=== PATIENT | male | born 1960 | race Caucasian/White ===

== ENCOUNTER 2016-08-18 15:44 | Emergency (ER) | payer OTHER ==
[~2016-08-18] VITALS: Ht 188 cm; Wt 65.0 kg
[~2016-08-18 15:44] MED LIST: CMBIN INH; FLVHFA220 INH; SNG10 PO; TIOTCAP INH
[2016-08-18 16:04] VITALS: TEMP 36.4; Ht 188 cm; Wt 65.0 kg
[2016-08-18] MEDS ORDERED: AMT50 PO (16:37)
[2016-08-18] MEDS ORDERED: IPRA1AER2 INH (16:39)
[2016-08-18] MEDS ORDERED: LISI-461 PO (16:40)
[2016-08-18] MEDS ORDERED: OMEP40CA41 PO (16:42)
[2016-08-18] MEDS ORDERED: SERT50TA PO (16:44)
--- NOTE | 2016-08-18 17:19 | DIAGNOSTIC IMAGING REPORT ---
RIGHT FOOT MIN 3 VIEWS ROUTINE, LEFT FOOT MIN 3 VIEWS ROUTINE CLINICAL HISTORY: b/l foot injuries Right COMPARISON STUDY: None. FINDINGS: The bones are osteopenic. No acute fracture or dislocation within the right or left foot. Soft tissues are unremarkable. No radiopaque foreign bodies. Mild osteoarthritis at the bilateral first MTP joints. IMPRESSION: No acute fracture or dislocation within the right or left foot. Electronically signed by: Gee Santamaria M.D. 08/18/2016 5:18 PM Dictated Date/Time: 08/18/2016 5:15 PM
[2016-08-18] MEDS ORDERED: CEPH500C PO (17:51)
--- NOTE | 2016-08-18 17:51 | EMERGENCY ROOM VISIT NOTE ---
History First contact with patient: 16:10 Chief Complaint: FOOT PAIN Stated Complaint: PAIN IN BOTH FEET,BROKEN LF FOOT History of Present Illness The patient is a 55 year old male who presents to the Emergency Room with complaints of bilateral foot pain. The patient uses a powered wheelchair due to chronic hip issues. He states that over the past few days, he has run into the counters with his feet several times. The patient does have several old wounds on the feet and his son reports they have been dressing them with antibiotic ointment and bandages. The patient reports 8/10 pain in both feet, with worse pain in the left foot than the right. He denies any new numbness or weakness. There is some discoloration of the left foot, but the patient's son reports that the patient has chronic discoloration of the feet. He denies any fevers. Review of Systems A complete 6 point review of systems was reviewed with the patient with pertinent positives and negatives as per history of present illness. All else were negative. Social History Smoking Status: Current Every Day Smoker Alcohol Use: occasionally Marital Status: Current/Historical Medications Scheduled Amitriptyline Hcl (Elavil), 50 MG PO HS Cephalexin Monohydrate (Keflex), 500 MG PO TID Fluticasone Propionate (Flovent Hfa 220MCG Inhaler *), 2 PUFFS INH BID Ipratropium-Albuterol (Combivent Respimat), 2 PUFFS INH QID Lisinopril (Zestril), 10 MG PO DAILY Montelukast (Singulair *), 10 MG PO DAILY Omeprazole (Prilosec), 40 MG PO DAILY Sertraline (Zoloft), 50 MG PO DAILY Scheduled PRN Oxycodone/Acetaminophen 5MG/325MG (Percocet 5MG/325MG), 1 TABS PO Q4H PRN for Pain Allergies Coded Allergies: No Known Allergies (Verified Allergy, Mild, NONE, 02/15/09) Physical Exam Vital Signs Date Time Temp Pulse Resp B/P Pulse Ox O2 Delivery O2 Flow Rate FiO2 08/18/16 18:01 88 16 168/93 96 08/18/16 16:04 36.4 90 18 147/97 97 Room Air Physical Exam VITALS: Vitals are noted on the nurse's note and reviewed by myself. Vital signs stable. GENERAL: This is a 55-year-old male, in no acute distress, nondiaphoretic, well- developed well-nourished. MUSCULOSKELETAL: There is tenderness to palpation of both the left and right lateral feet. There are several abrasions and scabbed lesions over both feet. There is some erythema/ecchymosis along the lateral aspect of the left foot. Capillary refill within 2 seconds. Dorsalis pedis pulses intact. NEURO: Patient was alert and oriented to person place and time. Normal sensation to light and sharp touch. Medical Decision & Procedures ER Provider Diagnostic Interpretation: RIGHT FOOT MIN 3 VIEWS ROUTINE, LEFT FOOT MIN 3 VIEWS ROUTINE CLINICAL HISTORY: b/l foot injuries Right COMPARISON STUDY: None. FINDINGS: The bones are osteopenic. No acute fracture or dislocation within the right or left foot. Soft tissues are unremarkable. No radiopaque foreign bodies. Mild osteoarthritis at the bilateral first MTP joints. IMPRESSION: No acute fracture or dislocation within the right or left foot. Medical Decision Differential diagnosis includes contusion, fracture, sprain, cellulitis, among others. The patient was evaluated as above. X-rays of bilateral feet were obtained and read by radiology with no acute fractures or dislocations. The patient did have some discoloration of the left lateral foot which may represent an early cellulitis and was given a prescription for Keflex. He was instructed to follow -up with his primary care provider or return here for worsening symptoms. He verbalized understanding of my assessment and treatment plan was discharged home in good condition. Impression Primary Impression: Bilateral foot pain Departure Information Dispostion Home / Self-Care Condition GOOD Prescriptions Oxycodone/Acetaminophen 5MG/325MG (PERCOCET 5MG/325MG) Tab 1 TABS PO Q4H Y for Pain, #15 TAB For Initial Treatment Prov: Daly Emmanuel PA-C 08/18/16 Cephalexin Monohydrate (Keflex) 500 Mg Cap 500 MG PO TID for 10 Days, #30 CAP Prov: Daly Emmanuel PA-C 08/18/16 Referrals No Doctor, Assigned (PCP) Patient Instructions My [facility] Additional Instructions You have been prescribed Percocet to be used for pain control. Take 1-2 tablets every 4-6 hours as needed for pain. This is a narcotic medication. You cannot drive or consume alcohol while on this medicine. This medicine should only be used for pain that cannot be controlled with extd-cog-vzjtqyg pain medicines. For pain control, you can use the following aptu-gme-dtsmvww medicines (if >12 yo): - Regular strength (325mg/tab) Tylenol (acetaminophen) 2 tabs every 4-6 hours as needed. Do not exceed 12 tablets in a 24 hour period. Avoid taking more than 4 grams (4000 mg) of Tylenol per day. This includes any other sources of acetaminophen you may take on a regular basis. - Regular strength (200 mg/tab) Advil (ibuprofen) 1-2 tabs every 4-6 hours as needed. Do not exceed a dose of 3200 mg per day. Keflex as prescribed. Follow-up with the primary care provider within 3-4 days for further evaluation of the foot pain. Return to the emergency department with worsening pain, fevers, worsening redness or any other new/concerning symptoms.
[2016-08-18] MEDS ORDERED: OXYC-57 PO (17:54)
[2016-08-18 18:01] VITALS: BP 168/93; PULSE 88; O2SAT 96
== END 2016-08-18 18:03 | disposition home or self-care (01) ==
LOC: C.EDB 15:47 → C.EDD 18:03
DX: M79.671 Pain in right foot (principal); M79.672 Pain in left foot; F17.210 Nicotine dependence, cigarettes, uncomplicated; Z79.899 Other long term (current) drug therapy

== ENCOUNTER → 2017-03-30 | Outpatient (CLI) | payer OTHER ==
[~2017-03-30] MED LIST changes: +AMT50 PO; -CMBIN INH; +IPRA1AER2 INH; +LISI-461 PO; +OMEP40CA41 PO; +SERT50TA PO; -TIOTCAP INH
[2017-03-30 10:06] LABS: HEMATOCRIT 47.7 % (42-52); MEAN CELL VOLUME 93.2 fL (80-100); MEAN CORPUSCULAR HGB CONC 34.4 g/dl (32-36); MEAN PLATELET VOLUME 10.7 fL (7.4-10.4); PLATELET COUNT 181 K/uL (130-400); RED BLOOD COUNT 5.12 M/uL (4.7-6.1); WHITE BLOOD COUNT 18.25 K/uL (4.8-10.8)
[2017-03-30 10:14] LABS: PROTHROMBIN TIME (PATIENT) 10.9 SECONDS (9.0-12.0)
[2017-03-30 10:20] LABS: ALT/SGPT 136 U/L (12-78); AST/SGOT 206 U/L (15-37); BLOOD UREA NITROGEN 21 mg/dl (7-18); BUN/CREATININE RATIO 36.2 (10-20); CALCIUM 9.1 mg/dl (8.5-10.1); CARBON DIOXIDE 24 mmol/L (21-32); CHLORIDE 103 mmol/L (98-107); CREATININE 0.57 mg/dl (0.60-1.40); GLUCOSE 108 mg/dl (70-99); POTASSIUM 3.3 mmol/L (3.5-5.1); SODIUM 134 mmol/L (136-145)
[2017-03-30 10:31] LABS: ALB/GLOB RATIO 0.7 (0.9-2); ALKALINE PHOSPHATASE 215 U/L (45-117); CHOLESTEROL 156 mg/dl (0-200); CHOLESTEROL/HDL RATIO 3.6; HDL CHOLESTEROL 43 mg/dl; LDL CHOLESTEROL CALCULATED 95 mg/dl; PROSTATE SPECIFIC ANTIGEN 0.275 ng/ml (0.000-4.000); RHEUMATOID FACTOR < 10.0 U/mL (0-15); TRIGLYCERIDES 91 mg/dl (0-150); VERY LOW DENSITY LIPOPROT CALC 18 mg/dl
[2017-03-30 11:25] LABS: BASO % 0.1 %; BASO ABS # 0.02 K/uL (0-0.2); COMPLETE YES; EOS % 1.7 %; IG% 0.2 %; LYMPH % 57.7 %; LYMPH ABS # 10.53 K/uL (1.2-3.4); MONO % 5.9 %; NEUT % 34.4 %; SMUDGE CELLS PRESENT
[2017-04-04 12:32] LABS: VIT B1 PLASMA(THIAMIN)**90353 7 nmol/L (8-30)
== END | disposition home or self-care (01) ==
LOC: C.LAB1850 08:37
PROVIDERS: ATTEND Internal Medicine
DX: K70.0 Alcoholic fatty liver (principal); Z13.6 Encounter for screening for cardiovascular disorders; R53.1 Weakness; M13.0 Polyarthritis, unspecified; D89.2 Hypergammaglobulinemia, unspecified; N52.9 Male erectile dysfunction, unspecified

== ENCOUNTER → 2017-04-13 | Outpatient (CLI) | payer OTHER ==
[~2017-04-13] MED LIST changes: +ASPEC81 PO; +Boost Plus Vanilla PO; +CNT PO; +ERGO500037 PO; +ERTA1INJ IV; +FLV1 PO; +FLVHFA44 INH; +LOSA1TAB38 PO; +LPT20 PO; +MGNO400 PO; +MONT1TAB3 PO; +NICO14DI5 TD; +PLT100 PO; +RXC5 PO; +THM100 PO; +VAREPAK PO
[2017-04-13 12:10] LABS: HEMATOCRIT 45.2 % (42-52); MEAN CELL VOLUME 95.2 fL (80-100); MEAN CORPUSCULAR HEMOGLOBIN 33.5 pg (25-34); MEAN CORPUSCULAR HGB CONC 35.2 g/dl (32-36); MEAN PLATELET VOLUME 10.1 fL (7.4-10.4); PLATELET COUNT 231 K/uL (130-400); RED BLOOD COUNT 4.75 M/uL (4.7-6.1); WHITE BLOOD COUNT 17.76 K/uL (4.8-10.8)
[2017-04-13 12:24] LABS: ESTIMATED AVERAGE GLUCOSE 103 mg/dl; HA1C FLAG Normal (Normal)
[2017-04-13 12:40] LABS: TOTAL IRON BINDING CAPACITY 294 mcg/dl (250-450)
[2017-04-13 13:20] LABS: BASO % 0.3 %; BASO ABS # 0.05 K/uL (0-0.2); COMPLETE YES; EOS % 3.3 %; IG% 0.2 %; LYMPH % 53.1 %; LYMPH ABS # 9.43 K/uL (1.2-3.4); MONO % 4.9 %; NEUT % 38.2 %; SMUDGE CELLS PRESENT
== END | disposition home or self-care (01) ==
LOC: C.LAB1850 10:52
PROVIDERS: ATTEND Internal Medicine Rheumatology
DX: R73.09 Other abnormal glucose (principal); D72.829 Elevated white blood cell count, unspecified; M13.0 Polyarthritis, unspecified

== ENCOUNTER 2017-04-23 19:49 | Inpatient (IN) | payer OTHER ==
[~2017-04-23] VITALS: Ht 188 cm; Wt 62.1 kg
[~2017-04-23 19:49] MED LIST changes: -ASPEC81 PO; -Boost Plus Vanilla PO; -CNT PO; -ERGO500037 PO; -ERTA1INJ IV; -FLV1 PO; -FLVHFA44 INH; -LOSA1TAB38 PO; -LPT20 PO; -MGNO400 PO; -MONT1TAB3 PO; -NICO14DI5 TD; -PLT100 PO; -RXC5 PO; -THM100 PO
[2017-04-23] MEDS ORDERED: SODIUM CHLORIDE 0.9% 500ML 500 ML IV SCH ×2 (20:30→22:00)
[2017-04-23] MEDS ORDERED: SODIUM CHLORIDE 0.9% 1000ML 1,000 ML IV SCH (20:30)
[2017-04-23] MEDS ORDERED: MoRPHine SULFATE 2 MG/ML CARP IV STA (20:33)
[2017-04-23] MEDS ORDERED: ONDANSETRON INJ 2 MG/ML 2 ML VIAL IV STA (20:33)
[2017-04-23] MEDS ORDERED: FLVHFA44 INH (20:34)
[2017-04-23] MEDS ORDERED: MONT1TAB3 PO (20:34)
--- NOTE | 2017-04-23 20:34 | EMERGENCY ROOM VISIT NOTE ---
History First contact with patient: 20:05 Chief Complaint: INFECTION Stated Complaint: POSSIBLE INFECTION - ANKLE PAIN History of Present Illness The patient is a 56 year old male w/ h/o COPD, Hepatitis C, HTN, alcohol abuse, smoker, who presents to the Emergency Room with complaints of right ankle pain x 1 month. He has home health nursing. He lives on his own. He has a lesion on his right ankle that started off as a spot and is now necrotic. He has significant pain. He has limited ROM at the ankle. He reports that Dr. Johnston does home visits and has seen this wound about 2-3 weeks ago. It was not as bad at the time. He was given Neosporin to use. He was trying to have dr. Johnston come in this week but there were no appointments. He decided to come to the ER instead. He is wheelchair dependant due to an injury and resulting weakness of his lower extremities. He denies fevers, chills, nausea, vomiting. Denies chest pain, shortness of breath Currently smokes 2 cigars a day, drinks 5 beers a day- last drink was 4 hours ago. Review of Systems See HPI for pertinent positives & negatives. A total of 10 systems reviewed and were otherwise negative. Past Medical/Surgical History Social History Problems: (1) Alcohol abuse Social History Smoking Status: Current Every Day Smoker Alcohol Use: heavy Marital Status: Housing Status: lives alone Occupation Status: unemployed Current/Historical Medications Scheduled Ergocalciferol (Vitamin D 15730 Unit), 50,000 UNIT PO WK Fluticasone Propionate (Flovent Hfa), 2 PUFFS INH BID Ipratropium-Albuterol (Combivent Respimat), 2 PUFFS INH QID Losartan Potassium (Cozaar), 100 MG PO DAILY Montelukast Sodium (Singulair), 10 MG PO DAILY Omeprazole (Prilosec), 40 MG PO DAILY Sertraline (Zoloft), 50 MG PO DAILY Physical Exam Vital Signs Date Time Temp Pulse Resp B/P (MAP) Pulse Ox O2 Delivery O2 Flow Rate FiO2 04/23/17 22:06 69 14 104/68 96 Room Air 04/23/17 21:41 71 16 98/56 98 Room Air 04/23/17 21:38 75 04/23/17 19:59 36.3 85 20 95/64 96 Room Air Physical Exam GENERAL: Patient is in no acute distress. Disheveled, poorly groomed HEENT: Seborrheic dermatitis, normocephalic atraumatic, mucous membranes dry, no nasal congestion, no scleral icterus, poor dentition, cysts noted on forehead NECK: No stridor, no adenopathy, trachea is midline. LUNGS: Clear to auscultation bilaterally, no wheeze, no rhonchi, breath sounds equal. HEART: Without murmurs gallops or rubs, regular rate and rhythm. ABDOMEN: Soft, nontender, bowel sounds positive, no hernias, no peritonitis. EXTREMITIES: Scaly lesions over lower legs bilaterally, Right ankle with ~ 5 cm necrotic lesion, oozing pus, warm, erythematous, significantly tender, MTP joint also with ulcer. ROM at ankle is minimal due to pain. Swelling noted. Poor pedal pulses NEUROLOGIC: Oriented x 3, Medical Decision & Procedures Laboratory Results Test 04/23/17 20:57 04/23/17 21:05 04/23/17 21:09 04/23/17 21:11 Smudge Cells PRESENT Prothrombin Time 10.5 SECONDS (9.0-12.0) Prothromb Time International Ratio 1.0 (0.9-1.1) Activated Partial Thromboplast Time 29.2 SECONDS (21.0-31.0) Partial Thromboplastin Ratio 1.1 Magnesium Level 2.4 mg/dl (1.8-2.4) Direct Bilirubin 0.4 mg/dl (0-0.2) Thyroid Stimulating Hormone (TSH) 2.310 uIu/ml (0.300-4.500) Ethyl Alcohol mg/dL 250.5 mg/dl (0-3) Bedside Hemoglobin 17.3 g/dl (14.0-18.0) Bedside Hematocrit 51 % (42-52) Bedside Sodium 133 mEq/L (135-144) Bedside Potassium 3.8 mEq/L (3.3-5.0) Bedside Chloride 97 mEq/L (101-112) Bedside Total CO2 23 mEq/l (24-31) Bedside Blood Urea Nitrogen 6 mg/dl (7-18) Bedside Creatinine 0.9 mg/dl (0.6-1.3) Bedside Glucose (other) 84 mg/dl (70-99) Bedside Ionized Calcium (José Miguel) 1.12 mmol/l (1.12-1.32) Bedside Lactic Acid Venous 2.12 mmol/L (0.90-1.70) Bedside Troponin I < 0.030 ng/ml (0-0.045) Test 04/23/17 22:10 Urine Color YELLOW Urine Appearance CLEAR (CLEAR) Urine pH 6.5 (4.5-7.5) Urine Specific [place] 1.010 (1.000-1.030) Urine Protein NEG (NEG) Urine Glucose (UA) NEG (NEG) Urine Ketones NEG (NEG) Urine Occult Blood NEG (NEG) Urine Nitrite NEG (NEG) Urine Bilirubin NEG (NEG) Urine Urobilinogen NEG (NEG) Urine Leukocyte Esterase TRACE (NEG) Urine WBC (Auto) 1-5 /hpf (0-5) Urine RBC (Auto) 0-4 /hpf (0-4) Urine Hyaline Casts (Auto) 0 /lpf (0-5) Urine Epithelial Cells (Auto) 0-5 /lpf (0-5) Urine Bacteria (Auto) 1+ (NEG) Urine Opiates Screen NEG (NEG) Urine Methadone, Qualitative NEG (NEG) Urine Barbiturates NEG (NEG) Urine Phencyclidine (PCP) Level NEG (NEG) Ur Amphetamine/Methamphetamine NEG (NEG) MDMA (Ecstasy) Screen NEG (NEG) Urine Benzodiazepines Screen NEG (NEG) Urine Cocaine Metabolite NEG (NEG) Urine Marijuana (THC) POS (NEG) Medications Administered Medications (Trade) Dose Ordered Sig/Natalya Route Start Time Stop Time Status Last Admin Dose Admin Sodium Chloride 500 ml @ 0 mls/hr Q0M IV 04/23/17 20:30 04/24/17 00:41 DC 04/23/17 21:35 500 MLS/HR Sodium Chloride 1,000 ml @ 125 mls/hr Q8H IV 04/23/17 20:30 04/24/17 00:26 DC 04/23/17 21:35 125 MLS/HR Morphine Sulfate (MoRPHine SULFATE INJ) 2 mg NOW STAT IV 04/23/17 20:33 04/23/17 20:36 DC 04/23/17 21:36 2 MG Ondansetron HCl (Zofran Inj) 4 mg NOW STAT IV 04/23/17 20:33 04/23/17 20:36 DC 04/23/17 21:35 4 MG Piperacillin Sod/ Tazobactam Sod (Zosyn Iv) 4.5 gm NOW STAT IV 04/23/17 21:26 04/23/17 21:45 DC 04/23/17 22:06 4.5 GM Vancomycin HCl 1500 mg/Sodium Chloride 530 ml @ 200 mls/hr NOW STAT IV 04/23/17 21:45 04/24/17 00:23 DC 04/23/17 22:42 200 MLS/HR Sodium Chloride 500 ml @ 999 mls/hr Q31M IV 04/23/17 22:00 04/23/17 22:30 DC 04/23/17 22:00 999 MLS/HR ED Course 2009 patient was evaluated in A3 2018 Blood work, Xrays ordered, Morphine + Zofran ordered. 2129 Discussed with patient about findings and need for admission 2129 Vancomycin 1 gm and Zosyn 4.45 gm ordered. 2144 Consulted the hospitalist and they will evaluate further Medical Decision This is a 56 y/o M who presents with Right ankle pain x 1 month. Etiologies include cellulitis, fracture, dislocation, soft tissue infection, osteomyelitis , pad, ulcers, sprain, DVT, etc. The patient has a necrotic non-healing ulcer on his right outer ankle that has gotten progressively worse over the last month. CBC reveals a white count of 18. POC lactate was 2.1. He was hypotensive on admission, received two boluses of 500 ml and 1 L of NSS. BMP reveals hyponatremia. X-rays of his ankle show ulcerations without bony involvement. Blood cultures and wound cultures were obtained. He does also have an alcohol level of 250. It is likely that his ulcer is non healing due to PAD with surrounding cellulitis. There is concern for pseudomonas given the odor. He was given a dose of Vancomycin and Zosyn in the ER. He was given morphine for pain. We consulted the [facility] hospitalist service and they will evaluate further. Impression Primary Impression: Ulcer of right ankle Additional Impression: Cellulitis Departure Information Dispostion Being Evaluated By Hospitalist Condition POOR Referrals Darci Johnston M.D. (PCP) Patient Instructions My [facility] Problem Qualifiers Primary Impression: Ulcer of right ankle Non-pressure ulcer stage: with necrosis of muscle Qualified Codes: L97.313 - Non-pressure chronic ulcer of right ankle with necrosis of muscle Additional Impression: Cellulitis Site of cellulitis: extremity Site of cellulitis of extremity: lower extremity Laterality: right Qualified Codes: L03.115 - Cellulitis of right lower limb
[2017-04-23] MEDS ORDERED: LOSA1TAB38 PO (20:47)
[2017-04-23] MEDS ORDERED: ERGO500037 PO (20:47)
--- NOTE | 2017-04-23 21:12 | DIAGNOSTIC IMAGING REPORT ---
R FOOT MIN 3 VIEWS ROUTINE, R ANKLE MIN 3 VIEWS ROUTINE CLINICAL HISTORY: osteo?. Right ankle wound. COMPARISON STUDY: Right foot 08/18/2016. Right ankle 04/16/2017. FINDINGS: The bones are osteopenic. The Lisfranc joint is intact. Mild soft tissue swelling within the forefoot. An 11 mm skin ulceration at the head of the first metatarsal. No underlying bony destruction at this time to suggest osteomyelitis. There is also a 3 cm skin ulceration at the lateral malleolus. No underlying bony destruction to suggest osteomyelitis. Soft tissue swelling within the ankle. No fracture or dislocation within the right ankle. IMPRESSION: 1. Skin ulcerations at the head of the first metatarsal and at the lateral malleolus. No underlying bony destruction to suggest osteomyelitis. 2. No fracture or dislocation within the right ankle or right foot. Electronically signed by: Gee Santamaria M.D. 04/23/2017 9:11 PM Dictated Date/Time: 04/23/2017 9:08 PM
[2017-04-23 21:14] LABS: HEMATOCRIT 45.1 % (42-52); MEAN CELL VOLUME 94.7 fL (80-100); MEAN CORPUSCULAR HEMOGLOBIN 32.8 pg (25-34); MEAN CORPUSCULAR HGB CONC 34.6 g/dl (32-36); MEAN PLATELET VOLUME 9.7 fL (7.4-10.4); PLATELET COUNT 194 K/uL (130-400); RED BLOOD COUNT 4.76 M/uL (4.7-6.1); WHITE BLOOD COUNT 18.54 K/uL (4.8-10.8)
[2017-04-23] MEDS ORDERED: VANCOMYCIN INJ 1,000 MG in SODIUM CHLORIDE 0.9% 250ML 250 ML IV STA (21:26)
[2017-04-23] MEDS ORDERED: PIPERACILLIN/TAZOBACTAM 4.5 GM/100ML D5W IV STA (21:26)
[2017-04-23 21:33] LABS: PARTIAL THROMBOPLASTIN RATIO 1.1; PROTHROMBIN TIME (PATIENT) 10.5 SECONDS (9.0-12.0)
[2017-04-23 21:41] LABS: ALT/SGPT 43 U/L (12-78); BLOOD UREA NITROGEN 7 mg/dl (7-18); BUN/CREATININE RATIO 12.6 (10-20); CALCIUM 9.1 mg/dl (8.5-10.1); CARBON DIOXIDE 24 mmol/L (21-32); CHLORIDE 96 mmol/L (98-107); CREATININE 0.59 mg/dl (0.60-1.40); GLUCOSE 86 mg/dl (70-99); POTASSIUM 4.4 mmol/L (3.5-5.1); SODIUM 131 mmol/L (136-145)
[2017-04-23] MEDS ORDERED: VANCOMYCIN INJ 1,500 MG in SODIUM CHLORIDE 0.9% 500ML 500 ML IV STA (21:45)
--- NOTE | 2017-04-23 21:46 | History and Physical ---
History & Physical Date & Time of Service: Apr 23, 2017 at 21:46 Chief Complaint: Possible Infection - Ankle Pain Primary Care Physician: Darci Johnston M.D. History of Present Illness Source: patient, clinic records, hospital records Mr Martins is a 56 year old male with alcohol use disorder, current smoker, hepatitis C and COPD who presents to the ER with ankle pain and infection for the past month as per the patient. Although is was also noted at a visit with Dr Johnston on Mar and he mentioned then it had also been going on for one month. Plan was to go to wound clinic but the patient denies ongoing to wound clinic. He was placed on Augmentin for 10 days at that appointment to cover both cellulitis and a COPD exacerbation (he was concurrently treated with a prednisone taper). He was seen again on Mar however given his complex medical needs it appears his ankle ulcer was not reassessed at this time ( followed up for alcohol, vitamin def, HTN and COPD exacerbation). He admits to usually drinking 5 bottles of beer per day. However due to the pain in his right ankle he has been significantly increasing his alcohol content with shots of rum (unknown quantity). Last drink 4 hours before arrival in the ER. He notes multiple attempts at alcohol rehabilitation. Never had a seizure before or known withdrawal symptoms as per the patient. He denies any chest pain, fevers, chills, claudication. Past Medical/Surgical History Past Medical History: Alcohol use disorder Chronic obstructive pulmonary disease Current Smoker Dupuytren's contracture of both hands Fatty liver disease GERD Hypergammaglobulinemia Hypertension Leukocytosis Erectile dysfunction Skin ulcer of lower leg Viral hepatitis C Social anxiety disorder Vitamin B1 deficiency Vitamin D deficiency Past Surgical History: Tonsillectomy Family History Noncontributory Social History Smoking Status: Current Every Day Smoker Smokeless Tobacco Use: No Alcohol Use: heavy Drug Use: marijuana Marital Status: , Housing status: lives alone (carer x5/week) Occupational Status: unemployed Immunizations History of Influenza Vaccine: Unknown History of Tetanus Vaccine?: Unknown History of Pneumococcal: Unknown History of Hepatitis B Vaccine: Unknown Multi-Drug Resistant Organisms History of MDRO: No Allergies Coded Allergies: No Known Allergies (Verified Allergy, Mild, NONE, 02/15/09) Home Medications Scheduled Ergocalciferol (Vitamin D 01143 Unit), 50,000 UNIT PO WK Fluticasone Propionate (Flovent Hfa), 2 PUFFS INH BID Ipratropium-Albuterol (Combivent Respimat), 2 PUFFS INH QID Losartan Potassium (Cozaar), 100 MG PO DAILY Montelukast Sodium (Singulair), 10 MG PO DAILY Omeprazole (Prilosec), 40 MG PO DAILY Sertraline (Zoloft), 50 MG PO DAILY Review of Systems The patient denies chest pain, palpitations, shortness of breath, cough, vision change, hearing change, sore throat, fevers, chills, sweats, weight change, fatigue, nausea, vomiting, diarrhea or constipation, abdominal pain, pelvic pain, blood in urine or stool, dysuria, urinary frequency or urgency, lightheadedness , dizziness, headache, loss of consciousness, numbness or tingling in arms, generalized arthralgias or myalgias, back or neck pain, or night sweats. The review of systems is otherwise negative other than for that already noted above, and at least 10 systems have been reviewed. Physical Exam Vital Signs Date Time Temp Pulse Resp B/P (MAP) Pulse Ox O2 Delivery O2 Flow Rate FiO2 04/23/17 21:41 71 16 98/56 98 Room Air 04/23/17 21:38 75 04/23/17 19:59 36.3 85 20 95/64 96 Room Air General Appearance: no apparent distress, + thin (unkept) Head: normocephalic, atraumatic Eyes: normal inspection (pupils equal) ENT: + pertinent finding (dry mucus membranes, very poor dental hygiene) Neck: supple, trachea midline Respiratory/Chest: lungs clear, normal breath sounds, no respiratory distress, no accessory muscle use Cardiovascular: regular rate, rhythm, no murmur, + pertinent finding (present but weak DP pulses on right, unable to palpate PT due to pain in ankle) Abdomen/GI: normal bowel sounds, non tender, soft Extremities/Musculoskelatal: no calf tenderness, + pedal edema (right ankle swelling with associated erythema consistent with cellultitis), + pertinent finding (3 cm circular necrotic ulcer proximal to lateral malleolus with surrounding erythema and swelling involving his enitre foot up to mid price, associated with a foul/pseudomonas smell, additional ulcer on bottom of 1st and 2nd right toes, minimal movement of right ankle secondary to pain and swelling) Neurologic/Psych: alert, oriented x 3 Skin: + pertinent finding (see above cellulitic changes) Diagnostics Laboratory Results Results Past 24 Hours Test 04/23/17 20:57 04/23/17 21:11 04/23/17 21:44 Range/Units White Blood Count 18.54 4.8-10.8 K/uL Red Blood Count 4.76 4.7-6.1 M/uL Hemoglobin 15.6 14.0-18.0 g/dL Hematocrit 45.1 42-52 % Mean Corpuscular Volume 94.7 80-100 fL Mean Corpuscular Hemoglobin 32.8 25-34 pg Mean Corpuscular Hemoglobin Concent 34.6 32-36 g/dl Platelet Count 194 130-400 K/uL Mean Platelet Volume 9.7 7.4-10.4 fL RDW Standard Deviation 45.5 36.4-46.3 fL RDW Coefficient of Variation 13.1 11.5-14.5 % Prothrombin Time 10.5 9.0-12.0 SECONDS Prothromb Time International Ratio 1.0 0.9-1.1 Activated Partial Thromboplast Time 29.2 21.0-31.0 SECONDS Partial Thromboplastin Ratio 1.1 Sodium Level 131 136-145 mmol/L Potassium Level 4.4 3.5-5.1 mmol/L Chloride Level 96 98-107 mmol/L Carbon Dioxide Level 24 21-32 mmol/L Anion Gap 11.0 3-11 mmol/L Blood Urea Nitrogen 7 7-18 mg/dl Creatinine 0.59 0.60-1.40 mg/dl Estimated GFR () 130.3 Estimated GFR (Non- 112.4 BUN/Creatinine Ratio 12.6 10-20 Random Glucose 86 70-99 mg/dl Calcium Level 9.1 8.5-10.1 mg/dl Direct Bilirubin 0.4 0-0.2 mg/dl Alanine Aminotransferase (ALT/SGPT) 43 12-78 U/L Albumin 3.1 3.4-5.0 gm/dl Ethyl Alcohol mg/dL 250.5 0-3 mg/dl Bedside Troponin I < 0.030 0-0.045 ng/ml Microbiology Results 04/23/17 Blood Culture, Received Pending 04/23/17 Blood Culture, Received Pending 04/23/17 Gram Stain, Received Pending 04/23/17 Wound Culture, Received Pending 04/23/17 Gram Stain, Received Pending 04/23/17 Wound Culture, Received Pending Diagnostic Radiology R FOOT MIN 3 VIEWS ROUTINE, R ANKLE MIN 3 VIEWS ROUTINE CLINICAL HISTORY: osteo?. Right ankle wound. COMPARISON STUDY: Right foot 08/18/2016. Right ankle 04/16/2017. FINDINGS: The bones are osteopenic. The Lisfranc joint is intact. Mild soft tissue swelling within the forefoot. An 11 mm skin ulceration at the head of the first metatarsal. No underlying bony destruction at this time to suggest osteomyelitis. There is also a 3 cm skin ulceration at the lateral malleolus. No underlying bony destruction to suggest osteomyelitis. Soft tissue swelling within the ankle. No fracture or dislocation within the right ankle. IMPRESSION: 1. Skin ulcerations at the head of the first metatarsal and at the lateral malleolus. No underlying bony destruction to suggest osteomyelitis. 2. No fracture or dislocation within the right ankle or right foot. Electronically signed by: Gee Santamaria M.D. 04/23/2017 9:11 PM Dictated Date/Time: 04/23/2017 9:08 PM EKG Normal sinus rhythm Rate 72 bpm When compared with ECG of 22-JUL-2011 13:35, No significant change was found Impression Assessment and Plan 56 year old male with hep C, alcohol abuse and smoker presents to the ER due to right ankle pain with a non healing ulcer which appear infected, smells like pseudomonas and surrounding cellulitis Non healing infected necrotic ulcer with surrounding cellulitis - wound culture - blood cultures - treat with vancomycin and Zosyn - consult wound care - US arterial Dopplers (suspect ischemic given poor peripheral pulses, smoking and HTN Hx) - MRI to assess for osteomyelitis Ankle pain - Morphine 2-4mg IV for pain - avoid acetaminophen and NSAIDs Alcohol use disorder - positive alcohol level in the ER, he has gone to rehab many times - recently increased alcohol intake due to pain - AWSS score - treat for potential withdrawal with gabapentin + lorazepam PRN - banana bag now then thiamine 100 mg daily Elevated lactic acid - IV Fluids, monitor Leukocytosis - not acutely elevated, lymphocyte predominant, suspect not related to infection , consider heme consultation vs. flow cytometry Depression/Anxiety - continue sertraline Hepatitis C - last evaluated for treatment in Mar, follow up with ID as outpatient Current Smoker - smoking cessation, consider nicotine patch if he starts to have cravings Attending Addendum: I have physically seen and examined this patient, have directed the resident's medical activities, and agree with the H&P as noted above with the following exceptions as noted. The patient is awake, alert and oriented 3, appears thin and emaciated, unkempt, lying in bed and in no acute distress. HEENT--PERRL, EOMI, mucous membranes and oropharynx dry. Neck--supple, no JVD or bruits, thyroid normal, trachea midline, no adenopathy. Heart--normal S1 and S2, no extra beats, no murmurs, rubs or gallops. Lungs--decreased breath sounds throughout, no respiratory distress, no accessory muscle use. Abdomen--normal bowel sounds and soft, nontender and nondistended, no hernias or masses, no organomegaly. Extremities--left lower extremity no cyanosis, clubbing or edema. Right lower extremity with erythema to the distal third of calf, and 3 cm in diameter ulceration lateral calf area. There are diminished distal pulses b/l. Dermatologic--as noted above Neurologic--cranial nerves II through XII grossly intact. Rheumatologic--normal range of motion. Psychiatric--normal affect. Assessment and Plan: Right lower extremity ulceration and cellulitis-- Place on vancomycin IV and Zosyn IV. Follow wound and blood cultures Order ultrasound arterial Dopplers bilateral lower extremities to assess for PAD. MRI lower extremity assess for possible osteomyelitis Consult wound care. Morphine sulfate 2-4 mg IV every 2 hours when necessary severe pain. Alcohol use disorder-- Has been to rehabilitation several times in the past. He reports his intake now is due to severe right lower extremity pain. AWSS score. Gabapentin plus lorazepam when necessary Banana bag IV Replace thiamine, folic acid and B12 orally. Hepatitis C active infection-- Check for cryoglobulins. Next Tobacco use disorder-- smoking cessation encouraged Nicotine patch to be started if he so chooses. Level of Care Telemetry Advanced Directives Existing Advance Directive: No Existing Living Will: No Existing Power of Branch Or Department Chief Librarian: No Resuscitation Status FULL RESUSCITATION VTE Prophylaxis VTE Risk Assessment Done? Y/N: Yes Risk Level: Moderate Given or contraindicated: Enoxaparin (Lovenox)SQ Additional Copies To Darci Johnston M.D.
[2017-04-23 21:51] LABS: ALB/GLOB RATIO 0.7 (0.9-2); ALKALINE PHOSPHATASE 234 U/L (45-117); AST/SGOT 45 U/L (15-37)
[2017-04-23 22:21] LABS: EOSINOPHIL % 2.7 %; LYMPH ABS # 7.94 K/uL (1.2-3.4); LYMPHOCYTE % 42.8 %; NEUTROPHILS % 25.9 %; SMUDGE CELLS PRESENT; VARIANT LYM ABS # 3.15 K/uL
[2017-04-23 22:39] LABS: URINE APPEARANCE CLEAR (CLEAR); URINE BILIRUBIN NEG (NEG); URINE COLOR YELLOW; URINE NITRITE NEG (NEG); URINE PH 6.5 (4.5-7.5); UROBILINOGEN NEG (NEG)
[2017-04-23 22:41] LABS: MANUAL MICROSCOPIC REQUIRED? NO; REVIEW REQ? YES
[2017-04-23 22:49] LABS: COMPLETE YES
[2017-04-23 22:50] LABS: URINE EPITHELIAL CELL AUTO 0-5 /lpf (0-5)
[2017-04-23 22:52] LABS: ZZUR CULT IF INDIC CLEAN CATCH YES
[2017-04-23] MEDS ORDERED: MULTI-VITAMIN INFUSION INJ 10 ML, THIAMINE HCL INJ 100 MG, FoLIC ACID INJ 1 MG in SODIU... IV ONE (22:59)
[2017-04-23] MEDS ORDERED: ACETAMINOPHEN 325 MG TAB PO PRN (23:00)
[2017-04-23] MEDS ORDERED: LORAZEPAM 1 MG TAB PO PRN (23:00)
[2017-04-23] MEDS ORDERED: ONDANSETRON INJ 2 MG/ML 2 ML VIAL IV PRN (23:00)
[2017-04-23] MEDS ORDERED: MoRPHine SULFATE 2 MG/ML CARP IV PRN (23:15)
[2017-04-23 23:19] LABS: BENZODIAZEPINE, URINE NEG (NEG); COCAINE,URINE NEG (NEG); PHENCYCLIDINE, URINE NEG (NEG)
[2017-04-23] MEDS ORDERED: MoRPHine SULFATE 2 MG/ML CARP ONE (23:24)
[2017-04-24] VITALS (9 sets, daily range): BP systolic 95–154; BP diastolic 61–80; PULSE 78–90; TEMP 36.5–36.9; O2SAT 91–96; Ht 188 cm; Wt 62.1 kg
[2017-04-24] MEDS ORDERED: PIPERACILL/TAZOBAC CONSULT ACTIVE PRN (00:30)
[2017-04-24] MEDS ORDERED: VANCOMYCIN CONSULT ACTIVE PRN (00:30)
--- NOTE | 2017-04-24 00:39 | EMERGENCY ROOM VISIT NOTE ---
ED Visit Note First contact with patient: 20:05 Resident Physician Supervision Note: I interviewed and examined the patient. Discussed with Dr. Villar and agree with findings and plan as documented in the note. Documented By: Pa Gan Problem List Social History Problems: (1) Alcohol abuse Status: Chronic Current/Historical Medications Scheduled Ergocalciferol (Vitamin D 44271 Unit), 50,000 UNIT PO WK Fluticasone Propionate (Flovent Hfa), 2 PUFFS INH BID Ipratropium-Albuterol (Combivent Respimat), 2 PUFFS INH QID Losartan Potassium (Cozaar), 100 MG PO DAILY Montelukast Sodium (Singulair), 10 MG PO DAILY Omeprazole (Prilosec), 40 MG PO DAILY Sertraline (Zoloft), 50 MG PO DAILY Allergies Coded Allergies: No Known Allergies (Verified Allergy, Mild, NONE, 02/15/09) Vital Signs Date Time Temp Pulse Resp B/P (MAP) Pulse Ox O2 Delivery O2 Flow Rate FiO2 04/24/17 00:24 04/24/17 00:01 81 18 110/66 95 Room Air 04/23/17 22:06 69 14 104/68 96 Room Air 04/23/17 21:41 71 16 98/56 98 Room Air 04/23/17 21:38 75 04/23/17 19:59 36.3 85 20 95/64 96 Room Air Laboratory Results 04/23/17 20:57 Red Blood Count 4.76, Mean Corpuscular Volume 94.7, Mean Corpuscular Hemoglobin 32.8, Mean Corpuscular Hemoglobin Concent 34.6, Mean Platelet Volume 9.7 04/23/17 20:57 Test 04/23/17 20:57 04/23/17 21:11 04/23/17 22:10 04/24/17 00:31 White Blood Count 18.54 K/uL (4.8-10.8) Red Blood Count 4.76 M/uL (4.7-6.1) Hemoglobin 15.6 g/dL (14.0-18.0) Hematocrit 45.1 % (42-52) Mean Corpuscular Volume 94.7 fL (80-100) Mean Corpuscular Hemoglobin 32.8 pg (25-34) Mean Corpuscular Hemoglobin Concent 34.6 g/dl (32-36) Platelet Count 194 K/uL (130-400) Mean Platelet Volume 9.7 fL (7.4-10.4) RDW Standard Deviation 45.5 fL (36.4-46.3) RDW Coefficient of Variation 13.1 % (11.5-14.5) Neutrophils % (Manual) 25.9 % Lymphocytes % (Manual) 42.8 % Variant Lymphocytes % (manual) 17.0 % Monocytes % (Manual) 11.6 % Eosinophils % (Manual) 2.7 % Neutrophils # (Manual) 4.80 K/uL (1.4-6.5) Total Absolute Neutrophils 4.80 K/uL (1.4-6.5) Lymphocytes # (Manual) 7.94 K/uL (1.2-3.4) Absolute Variant Lymphocytes 3.15 K/uL Total Absolute Lymphocytes 11.09 K/uL (1.2-3.4) Monocytes # (Manual) 2.15 K/uL (0.11-0.59) Eosinophils # (Manual) 0.50 K/uL (0-0.5) Smudge Cells PRESENT Prothrombin Time 10.5 SECONDS (9.0-12.0) Prothromb Time International Ratio 1.0 (0.9-1.1) Activated Partial Thromboplast Time 29.2 SECONDS (21.0-31.0) Partial Thromboplastin Ratio 1.1 Anion Gap 11.0 mmol/L (3-11) Estimated GFR () 130.3 Estimated GFR (Non- 112.4 BUN/Creatinine Ratio 12.6 (10-20) Calcium Level 9.1 mg/dl (8.5-10.1) Magnesium Level 2.4 mg/dl (1.8-2.4) Total Bilirubin 0.6 mg/dl (0.2-1) Direct Bilirubin 0.4 mg/dl (0-0.2) Aspartate Amino Transf (AST/SGOT) 45 U/L (15-37) Alanine Aminotransferase (ALT/SGPT) 43 U/L (12-78) Alkaline Phosphatase 234 U/L (45-117) Total Protein 7.7 gm/dl (6.4-8.2) Albumin 3.1 gm/dl (3.4-5.0) Globulin 4.6 gm/dl (2.5-4.0) Albumin/Globulin Ratio 0.7 (0.9-2) Thyroid Stimulating Hormone (TSH) 2.310 uIu/ml (0.300-4.500) Ethyl Alcohol mg/dL 250.5 mg/dl (0-3) Bedside Troponin I < 0.030 ng/ml (0-0.045) Urine Color YELLOW Urine Appearance CLEAR (CLEAR) Urine pH 6.5 (4.5-7.5) Urine Specific [place] 1.010 (1.000-1.030) Urine Protein NEG (NEG) Urine Glucose (UA) NEG (NEG) Urine Ketones NEG (NEG) Urine Occult Blood NEG (NEG) Urine Nitrite NEG (NEG) Urine Bilirubin NEG (NEG) Urine Urobilinogen NEG (NEG) Urine Leukocyte Esterase TRACE (NEG) Urine WBC (Auto) 1-5 /hpf (0-5) Urine RBC (Auto) 0-4 /hpf (0-4) Urine Hyaline Casts (Auto) 0 /lpf (0-5) Urine Epithelial Cells (Auto) 0-5 /lpf (0-5) Urine Bacteria (Auto) 1+ (NEG) Urine Opiates Screen NEG (NEG) Urine Methadone, Qualitative NEG (NEG) Urine Barbiturates NEG (NEG) Urine Phencyclidine (PCP) Level NEG (NEG) Ur Amphetamine/Methamphetamine NEG (NEG) MDMA (Ecstasy) Screen NEG (NEG) Urine Benzodiazepines Screen NEG (NEG) Urine Cocaine Metabolite NEG (NEG) Urine Marijuana (THC) POS (NEG) Medications Administered Medications (Trade) Dose Ordered Sig/Natalya Route Start Time Stop Time Status Last Admin Dose Admin Sodium Chloride 500 ml @ 0 mls/hr Q0M IV 04/23/17 20:30 05/23/17 20:29 04/23/17 21:35 500 MLS/HR Sodium Chloride 1,000 ml @ 125 mls/hr Q8H IV 04/23/17 20:30 04/24/17 00:26 DC 04/23/17 21:35 125 MLS/HR Morphine Sulfate (MoRPHine SULFATE INJ) 2 mg NOW STAT IV 04/23/17 20:33 04/23/17 20:36 DC 04/23/17 21:36 2 MG Ondansetron HCl (Zofran Inj) 4 mg NOW STAT IV 04/23/17 20:33 04/23/17 20:36 DC 04/23/17 21:35 4 MG Piperacillin Sod/ Tazobactam Sod (Zosyn Iv) 4.5 gm NOW STAT IV 04/23/17 21:26 04/23/17 21:45 DC 04/23/17 22:06 4.5 GM Vancomycin HCl 1500 mg/Sodium Chloride 530 ml @ 200 mls/hr NOW STAT IV 04/23/17 21:45 04/24/17 00:23 DC 04/23/17 22:42 200 MLS/HR Sodium Chloride 500 ml @ 999 mls/hr Q31M IV 04/23/17 22:00 04/23/17 22:30 DC 04/23/17 22:00 999 MLS/HR Morphine Sulfate (MoRPHine SULFATE INJ) 2 mg STK-MED ONCE .ROUTE 04/23/17 23:24 04/23/17 23:25 DC 04/23/17 23:32 2 MG Departure Information Referrals Darci Johnston M.D. (PCP) Patient Instructions Replaced By [facility]
[2017-04-24] MEDS ORDERED: GABAPENTIN 800 MG TAB PO STA (00:41)
[2017-04-24] MEDS: MoRPHine SULFATE 4 MG/ML 1 ML CARP\\VIAL IV PRN (01:26)
[2017-04-24] MEDS: SODIUM CHLORIDE 0.9% 1000ML 1,000 ML IV SCH ×2 (04:25→12:11)
[2017-04-24] MEDS: PIPERACILL/TAZOBAC IV 3.375 GM in DEXTROSE 5% 100ML 100 ML IV SCH ×3 (04:25→19:42)
[2017-04-24] MEDS ORDERED: ASPIRIN 81 MG ECTAB PO STA (04:30)
[2017-04-24] MEDS ORDERED: CILOSTAZOL 100 MG TAB PO ONE (04:30)
[2017-04-24 04:41] LABS: ISTAT CREATININE 0.9 mg/dl (0.6-1.3); ISTAT HEMOGLOBIN 17.3 g/dl (14.0-18.0); ISTAT IONIZED CALCIUM 1.12 mmol/l (1.12-1.32)
[2017-04-24] MEDS: GABAPENTIN 400MG Q6H DOSE PO SCH ×2 (05:15→11:40)
[2017-04-24] MEDS: VANCOMYCIN INJ 1,000 MG in SODIUM CHLORIDE 0.9% 250ML 250 ML IV SCH ×3 (05:47→22:27)
--- NOTE | 2017-04-24 07:04 | DIAGNOSTIC IMAGING REPORT ---
ART DOP LOWER EXT BILAT CLINICAL HISTORY: right lower extremity ulceration thrombosis COMPARISON STUDY: None FINDINGS: Real-time as well as Doppler evaluation of the arterial structures of the lower legs was performed. Study is limited as patient would not cooperate for the exam. Study is near nondiagnostic. Severe degenerative atherosclerotic change throughout. Dampened waveforms bilaterally. The following blood pressure indices were obtained. Not obtainable IMPRESSION: Limited study as the patient refused the STUDY. SEVERE ATHEROSCLEROTIC CHANGES THROUGHOUT. The above report was generated using voice recognition software. It may contain grammatical, syntax or spelling errors. Electronically signed by: Edmund Wiggins M.D. 04/24/2017 7:03 AM Dictated Date/Time: 04/24/2017 6:58 AM
--- NOTE | 2017-04-24 07:18 | DIAGNOSTIC IMAGING REPORT ---
LOWER EXT JOINT WITHOUT CLINICAL HISTORY: right lower extremity ulcer pain. Infection. TECHNIQUE: Multiaxial MRI acquisition COMPARISON STUDY: None FINDINGS: Limited/near nondiagnostic study due to considerable patient motion. Coronal images demonstrate skin ulcerations medially lateral to the distal fibula. Distal fibula shows unremarkable signal characteristics of the bone marrow. The may be a slight degree of edematous change of the lateral periosteum. No evidence for drainable abscess or collection. Major ligamentous and tendinous structures are unremarkable. Mild peroneal tendinitis. No major ligamentous disruption. Medial and lateral collateral ligament complexes are intact. Subtalar joint shows minimal degree of edematous change. Very slight degree of focal bone marrow edema at the medial and lateral talar dome region. IMPRESSION: 1. Near nondiagnostic exam due to patient motion. 2. Soft tissue ulceration lateral to the distal fibula 3. Potential mild periostitis lateral aspect distal fibula. 4. No well-defined evidence within motion limitations for osteomyelitis. 5. Scattered areas of degenerative bone marrow edematous change medial and lateral talar dome. The above report was generated using voice recognition software. It may contain grammatical, syntax or spelling errors. Electronically signed by: Edmund Wiggins M.D. 04/24/2017 7:16 AM Dictated Date/Time: 04/24/2017 7:09 AM
[2017-04-24] MEDS: HEPARIN SOD 5000 UNIT/0.5 ML CARP SQ SCH ×2 (07:52→20:22)
[2017-04-24] MEDS: IPRATROPIUM BROMIDE/ALBUTEROL respimat INH INH SCH ×4 (07:53→20:18)
[2017-04-24] MEDS: SERTRALINE HCL 50 MG TAB PO SCH (07:54)
[2017-04-24] MEDS: MONTELUKAST SOD 10 MG TAB PO SCH (07:54)
[2017-04-24] MEDS: FLUTICASONE PROP HFA INH 44 MCG INHALER INH SCH ×2 (07:54→20:18)
[2017-04-24] MEDS: PANTOprazole SOD 40 MG TAB PO SCH (07:54)
--- NOTE | 2017-04-24 08:31 | Family Medicine Progress Note ---
Progress Note Date of Service Apr 24, 2017. Subjective Pt evaluation today including: conversation w/ patient, physical exam, chart review, lab review, conversation w/ senior talent management consultant, review of inpatient medication list Pain: mild-moderate PO Intake: poor Voiding: no voiding problems Patient still with pain at the R ankle Feels a bit better Denies any fevers, chills or sweats Denies any anxiety, tremors, or agitation Constitutional: No fever, No chills, No sweats Respiratory: No cough, No sputum, No shortness of breath Cardiovascular: No chest pain, No edema, No palpitations Abdomen: No pain, No nausea, No vomiting, No diarrhea Musculoskeletal: + joint pain, + muscle pain, + swelling, No calf pain Male : No dysuria, No urinary frequency Medications Current Inpatient Medications Medications (Trade) Dose Ordered Sig/Natalya Route Start Time Stop Time Status Last Admin Dose Admin Heparin Sodium (Porcine) (Heparin Sq 5000 Unit/0.5ml) 5,000 unit Q12 SQ 04/24/17 09:00 05/24/17 08:59 Acetaminophen (Tylenol Tab) 650 mg Q4H PRN PO 04/23/17 23:00 05/23/17 22:59 Ondansetron HCl (Zofran Inj) 4 mg Q6H PRN IV 04/23/17 23:00 05/23/17 22:59 Fluticasone Propionate (Flovent Hfa 44MCG Inhaler) 2 puffs BID INH 04/24/17 09:00 05/24/17 08:59 04/24/17 07:54 2 PUFFS Albuterol/ Ipratropium (Combivent Respimat Inh) 2 puffs QID INH 04/24/17 09:00 05/24/17 08:59 04/24/17 07:53 2 PUFFS Montelukast Sodium (Singulair Tab) 10 mg DAILY PO 04/24/17 09:00 05/24/17 08:59 04/24/17 07:54 10 MG Sertraline HCl (Zoloft Tab) 50 mg DAILY PO 04/24/17 09:00 05/24/17 08:59 04/24/17 07:54 50 MG Pantoprazole Sodium (Protonix Tab) 40 mg QAM PO 04/24/17 09:00 05/24/17 08:59 04/24/17 07:54 40 MG Sodium Chloride 1,000 ml @ 100 mls/hr Q10H IV 04/24/17 03:00 05/24/17 02:59 04/24/17 04:25 100 MLS/HR Piperacillin Sod/ Tazobactam Sod 3.375 gm/Dextrose 115 ml @ 28 mls/hr Q8H IV 04/24/17 04:00 05/04/17 03:59 04/24/17 04:25 28 MLS/HR Morphine Sulfate (MoRPHine SULFATE INJ) 2 mg Q2H PRN IV 04/23/17 23:30 05/07/17 23:29 Morphine Sulfate (MoRPHine SULFATE INJ) 4 mg Q2H PRN IV 04/23/17 23:30 05/07/17 23:29 04/24/17 01:26 4 MG Vancomycin HCl (Consult) 1 ea UD PRN N/A 04/24/17 00:30 05/24/17 00:29 Piperacillin Sod/ Tazobactam Sod (Consult) 1 ea UD PRN N/A 04/24/17 00:30 05/24/17 00:29 Gabapentin (Neurontin Cap) 400 mg Q6H PO 04/24/17 06:00 04/24/17 12:01 04/24/17 05:15 400 MG Gabapentin (Neurontin Cap) 400 mg Q8H PO 04/24/17 20:00 04/25/17 12:01 Gabapentin (Neurontin Cap) 400 mg Q12H PO 04/26/17 00:00 04/26/17 12:01 Gabapentin (Neurontin Cap) 400 mg Q24H PO 04/27/17 12:00 04/27/17 12:01 Aspirin (Ecotrin Tab) 81 mg QAM PO 04/25/17 09:00 05/25/17 08:59 Cilostazol (Pletal Tab) 100 mg BID PO 04/24/17 21:00 05/24/17 20:59 Vancomycin HCl 1000 mg/Sodium Chloride 270 ml @ 125 mls/hr Q8H IV 04/24/17 06:30 05/04/17 06:29 04/24/17 05:47 125 MLS/HR Thiamine HCl (Vitamin B-1 Tab) 100 mg QAM PO 04/24/17 09:00 05/24/17 08:59 UNV Objective Vital Signs Date Time Temp Pulse Resp B/P (MAP) Pulse Ox O2 Delivery O2 Flow Rate FiO2 04/24/17 07:18 36.8 90 18 125/72 (89) 91 Room Air 04/24/17 04:00 94 Room Air 04/24/17 03:50 36.5 78 18 106/72 (83) 94 04/24/17 03:04 36.5 85 18 133/79 95 Room Air 04/24/17 00:59 36.5 85 18 133/79 (97) 95 Room Air 04/24/17 00:24 04/24/17 00:01 81 18 110/66 95 Room Air 04/23/17 22:06 69 14 104/68 96 Room Air 04/23/17 21:41 71 16 98/56 98 Room Air 04/23/17 21:38 75 04/23/17 19:59 36.3 85 20 95/64 96 Room Air Physical Exam Notes: GENERAL: Patient is in no acute distress. Patient with several missing teeth and appears disheveled HEENT: Seborrheic dermatitis, normocephalic atraumatic, mucous membranes dry, no nasal congestion, no scleral icterus, poor dentition LUNGS: Clear to auscultation bilaterally, no wheeze, no rhonchi, breath sounds equal. HEART: Without murmurs gallops or rubs, regular rate and rhythm. ABDOMEN: Soft, nontender, bowel sounds positive, no hernias, no peritonitis. EXTREMITIES: Legs with scaling lesions bilaterally, right ankle with bandage over necrotic lesion, very tender. metacarpal phalangeal joint also with ulcer. diffuse foot tenderness and pain to palpation of R foot joints. weak peripheral pulses bilaterally NEUROLOGIC: Oriented x 3, no acute motor or sensory deficits, no focal weakness. Laboratory Results Results Past 24 Hours Test 04/23/17 20:57 04/23/17 21:05 04/23/17 21:09 04/23/17 21:11 Range/Units White Blood Count 18.54 4.8-10.8 K/uL Red Blood Count 4.76 4.7-6.1 M/uL Hemoglobin 15.6 14.0-18.0 g/dL Hematocrit 45.1 42-52 % Mean Corpuscular Volume 94.7 80-100 fL Mean Corpuscular Hemoglobin 32.8 25-34 pg Mean Corpuscular Hemoglobin Concent 34.6 32-36 g/dl Platelet Count 194 130-400 K/uL Mean Platelet Volume 9.7 7.4-10.4 fL RDW Standard Deviation 45.5 36.4-46.3 fL RDW Coefficient of Variation 13.1 11.5-14.5 % Neutrophils % (Manual) 25.9 % Lymphocytes % (Manual) 42.8 % Variant Lymphocytes % (manual) 17.0 % Monocytes % (Manual) 11.6 % Eosinophils % (Manual) 2.7 % Neutrophils # (Manual) 4.80 1.4-6.5 K/uL Total Absolute Neutrophils 4.80 1.4-6.5 K/uL Lymphocytes # (Manual) 7.94 1.2-3.4 K/uL Absolute Variant Lymphocytes 3.15 K/uL Total Absolute Lymphocytes 11.09 1.2-3.4 K/uL Monocytes # (Manual) 2.15 0.11-0.59 K/uL Eosinophils # (Manual) 0.50 0-0.5 K/uL Smudge Cells PRESENT Prothrombin Time 10.5 9.0-12.0 SECONDS Prothromb Time International Ratio 1.0 0.9-1.1 Activated Partial Thromboplast Time 29.2 21.0-31.0 SECONDS Partial Thromboplastin Ratio 1.1 Sodium Level 131 136-145 mmol/L Potassium Level 4.4 3.5-5.1 mmol/L Chloride Level 96 98-107 mmol/L Carbon Dioxide Level 24 21-32 mmol/L Anion Gap 11.0 18.0 16-25 mmol/L Blood Urea Nitrogen 7 7-18 mg/dl Creatinine 0.59 0.60-1.40 mg/dl Estimated GFR () 130.3 Estimated GFR (Non- 112.4 BUN/Creatinine Ratio 12.6 10-20 Random Glucose 86 70-99 mg/dl Lactic Acid Level 2.2 0.4-2.0 mmol/L Calcium Level 9.1 8.5-10.1 mg/dl Magnesium Level 2.4 1.8-2.4 mg/dl Total Bilirubin 0.6 0.2-1 mg/dl Direct Bilirubin 0.4 0-0.2 mg/dl Aspartate Amino Transf (AST/SGOT) 45 15-37 U/L Alanine Aminotransferase (ALT/SGPT) 43 12-78 U/L Alkaline Phosphatase 234 45-117 U/L Total Protein 7.7 6.4-8.2 gm/dl Albumin 3.1 3.4-5.0 gm/dl Globulin 4.6 2.5-4.0 gm/dl Albumin/Globulin Ratio 0.7 0.9-2 Thyroid Stimulating Hormone (TSH) 2.310 0.300-4.500 uIu/ml Ethyl Alcohol mg/dL 250.5 0-3 mg/dl Bedside Hemoglobin 17.3 14.0-18.0 g/dl Bedside Hematocrit 51 42-52 % Bedside Sodium 133 135-144 mEq/L Bedside Potassium 3.8 3.3-5.0 mEq/L Bedside Chloride 97 101-112 mEq/L Bedside Total CO2 23 24-31 mEq/l Bedside Blood Urea Nitrogen 6 7-18 mg/dl Bedside Creatinine 0.9 0.6-1.3 mg/dl Bedside Glucose (other) 84 70-99 mg/dl Bedside Ionized Calcium (José Miguel) 1.12 1.12-1.32 mmol/l Bedside Lactic Acid Venous 2.12 0.90-1.70 mmol/L Bedside Troponin I < 0.030 0-0.045 ng/ml Test 04/23/17 22:10 04/24/17 00:31 04/24/17 05:56 04/24/17 07:57 Range/Units Urine Color YELLOW Urine Appearance CLEAR CLEAR Urine pH 6.5 4.5-7.5 Urine Specific Delta 1.010 1.000-1.030 Urine Protein NEG NEG Urine Glucose (UA) NEG NEG Urine Ketones NEG NEG Urine Occult Blood NEG NEG Urine Nitrite NEG NEG Urine Bilirubin NEG NEG Urine Urobilinogen NEG NEG Urine Leukocyte Esterase TRACE NEG Urine WBC (Auto) 1-5 0-5 /hpf Urine RBC (Auto) 0-4 0-4 /hpf Urine Hyaline Casts (Auto) 0 0-5 /lpf Urine Epithelial Cells (Auto) 0-5 0-5 /lpf Urine Bacteria (Auto) 1+ NEG Urine Opiates Screen NEG NEG Urine Methadone, Qualitative NEG NEG Urine Barbiturates NEG NEG Urine Phencyclidine (PCP) Level NEG NEG Ur Amphetamine/Methamphetamine NEG NEG MDMA (Ecstasy) Screen NEG NEG Urine Benzodiazepines Screen NEG NEG Urine Cocaine Metabolite NEG NEG Urine Marijuana (THC) POS NEG Lactic Acid Level 3.4 1.4 0.4-2.0 mmol/L Microbiology Results 04/23/17 Blood Culture, Received Pending 04/23/17 Blood Culture, Received Pending 04/23/17 Urine Culture, Received Pending 04/23/17 Gram Stain - Final, Resulted 04/23/17 Wound Culture, Resulted Pending Assessment and Plan 56 year old male with hep C, alcohol abuse and smoker presents to the ER due to right ankle pain with a non healing ulcer which appears to be infected Non healing infected ulcer with surrounding cellulitis - wound culture - blood cultures - treat with vancomycin and Zosyn - consult wound care - US ultrasound showed diffuse atherosclerotic disease, patient was uncooperative with study - MRI showed 1) Soft tissue ulceration lateral to the distal fibula 2) Potential mild periostitis lateral aspect distal fibula 3) No well-defined evidence within motion limitations for osteomyelitis 4)Scattered areas of degenerative bone marrow edematous change medial and lateral talar dome. Peripheral arterial disease - ultrasound ordered of lower extremities: showed extensive atherosclerotic disease; however, patient did not participate with exam - patient on aspirin, and cilostazol - vascular surgery consulted - Hba1c 5.2 earlier this month - patient smokes 3-4 cigarettes daily - LDL 95, TG 91 and total cholesterol 156 - patient would benefit from statin, will start atorvastatin 20mg Ankle pain - likely sec to PAD. ? gout. Follow. - Morphine 2-4mg IV for pain - avoid acetaminophen and NSAIDs Alcohol use disorder - positive alcohol level in the ER, he has gone to rehab many times - recently increased alcohol intake due to pain - AWSS score - treat for potential withdrawal with gabapentin + lorazepam PRN - banana bag given and then thiamine 100 mg daily Elevated lactic acid - IVF, monitor - downtrending, most recent 1.4 from 3.4 Leukocytosis - wcc 18.5 and lymphocyte predominant Malnutrition - check prealbumin. - follow oral intake. Depression - continue sertraline Hepatitis C - last evaluated for treatment in Mar, follow up with ID as outpatient - HIV screen negative in March - AFP tumor marker 8.2 in March Current Smoker - smoking cessation, consider nicotine patch if he starts to have cravings FULL CODE DVT prophylaxis - heparin subq (patient refused, would be poor candidate for SCD 's) Continued [facility] stay due to: multiple IV medications needed Discharge planning: uncertain Reviewed: Pt Seen/Exam by Me History continues to complain of having a lot of pain in right foot. Constitutional: denies: fever Respiratory: negative: short of breath Cardiovascular: denies chest pain General Appearance: mild distress, cachetic Respiratory: lungs clear, no respiratory distress Cardiovascular: regular rate, rhythm Extremities: other (right foot with ulcer. general erythema on the foot) Neurologic/Psychiatric: oriented x 3, other (sleeping - easily arousable) Assessment/Plan Resident Physician Supervision Note: I independently interviewed and examined the patient and verified the salmeorn history and physical, reviewed labs and image studies, discussed the case with the resident Dr. Delgado and agree with the findings and care plan.
[2017-04-24] MEDS ORDERED: LORAZEPAM 1 MG TAB PO PRN (08:45)
[2017-04-24 08:50] LABS: HEMATOCRIT 42.9 % (42-52); MEAN CELL VOLUME 95.8 fL (80-100); MEAN CORPUSCULAR HEMOGLOBIN 32.4 pg (25-34); MEAN CORPUSCULAR HGB CONC 33.8 g/dl (32-36); MEAN PLATELET VOLUME 9.3 fL (7.4-10.4); PLATELET COUNT 170 K/uL (130-400); RED BLOOD COUNT 4.48 M/uL (4.7-6.1); WHITE BLOOD COUNT 16.93 K/uL (4.8-10.8)
[2017-04-24] MEDS: THIAMINE HCL 100 MG TAB PO SCH (08:52)
[2017-04-24 09:20] LABS: ALB/GLOB RATIO 0.7 (0.9-2); BUN/CREATININE RATIO 11.5 (10-20); CALCIUM 8.2 mg/dl (8.5-10.1); CREATININE 0.47 mg/dl (0.60-1.40); POTASSIUM 4.3 mmol/L (3.5-5.1)
[2017-04-24] MEDS: ATORVASTATIN 20 MG TAB PO SCH (09:36)
[2017-04-24] MEDS ORDERED: VANCOMYCIN INJ 1,000 MG in SODIUM CHLORIDE 0.9% 250ML 250 ML IV SCH (10:40)
[2017-04-24 10:45] LABS: COMPLETE YES; EOSINOPHIL % 4.4 %; LYMPH ABS # 6.82 K/uL (1.2-3.4); LYMPHOCYTE % 40.3 %; NEUTROPHILS % 35.1 %; VARIANT LYM ABS # 2.23 K/uL; VARIANT LYMPHOCYTE % 13.2 %
--- NOTE | 2017-04-24 10:48 | Surgery Consultation ---
Consultation Date of Service Apr 24, 2017. Chief Complaint infected RLE lateral ankle ulceration, cellulitis History of Present Illness The patient is a 56 year old male with hx of COPD, ETOH abuse, HTN, disabled d/ t hip and knee problems, admitted with R lateral ankle wound infection, seen today in consultation for PAD noted on US. Pt denies hx of PAD. States he is not sure if he "bumped" his ankle on anything, but began developing a small wound on R lateral ankle approx 1 month ago. States it appeared to be doing ok until a few days ago, when it became increasingly painful. Pt states he does not ambulate much d/t chronic hip and knee "problems." Usually uses a wheelchair. Smokes 3-4 cigarettes daily. Denies YATES, fever, chills, chest pain , SOB, abd pain, N/V, other complaints. US imaging demonstrates significant arterial disease. Vitals Vital Signs Past 12 Hours Date Time Temp Pulse Resp B/P (MAP) Pulse Ox O2 Delivery O2 Flow Rate FiO2 04/24/17 07:18 36.8 90 18 125/72 (89) 91 Room Air 04/24/17 04:00 94 Room Air 04/24/17 03:50 36.5 78 18 106/72 (83) 94 04/24/17 03:04 36.5 85 18 133/79 95 Room Air 04/24/17 00:59 36.5 85 18 133/79 (97) 95 Room Air 04/24/17 00:24 04/24/17 00:01 81 18 110/66 95 Room Air Allergies Coded Allergies: No Known Allergies (Verified Allergy, Mild, NONE, 02/15/09) Home Medications Scheduled Ergocalciferol (Vitamin D 93268 Unit), 50,000 UNIT PO WK Fluticasone Propionate (Flovent Hfa), 2 PUFFS INH BID Ipratropium-Albuterol (Combivent Respimat), 2 PUFFS INH QID Losartan Potassium (Cozaar), 100 MG PO DAILY Montelukast Sodium (Singulair), 10 MG PO DAILY Omeprazole (Prilosec), 40 MG PO DAILY Sertraline (Zoloft), 50 MG PO DAILY Problem List Social History Problems: (1) Alcohol abuse Surgical / Medical History Past Medical/Surgical History: COPD, Depression, Hypertension, Liver Disease ( hepatitis) Family History + HTN Social History Smoking Status: Current Every Day Smoker Hx Alcohol Use - Type & Amnt: Yes (5 beers a day) Hx Substance Use -Type & Amnt: Yes (marajuana ) Review of Systems Constitutional: No chills, No fever, No malaise Skin: + change in color Eyes: No visual changes ENMT: No sore throat Respiratory: No cough, No LUIS, No hemoptysis, No short of breath Cardiovascular: No chest pain, No palpitations, No syncope, No edema Gastrointestinal: No abdominal pain, No nausea, No vomiting Neurologic: No dizziness, No headache, No numbness, No tingling Physical Exam Constitutional: General Apperance: cachectic, too thin Level of Distress: NAD, chronically ill Psychiatric: Mental Status: active & alert, normal mood, normal affect Orientation: oriented except where noted, to time, to place, to person Memory: recent memory normal, remote memory normal Head: normocephalic, atraumatic Eyes: EOM: EOMI ENMT: normal ENT inspection, hearing grossly normal Lungs: Respiratory effort: no dyspnea Auscultation: no rales/crackles, no rhonchi, decreased breath sounds Cardiovascular: Apical Impulse: not displaced Heart Auscultation: RRR, no rubs, no gallops Peripheral Pulses: Pulses: full and equal, in all extremities except if noted Bruits: none appreciated Carotid Pulse: normal on the left, normal on the right Brachial Pulses: normal on the left, normal on the right Radial Pulse: normal on the left, normal on the right Femoral Pulse: decreased on the left, decreased on the right Posterior Tibialis Pulse: pertinent finding (nonpalpable BLE) Dorsalis Pedis Pulse: pertinent finding (Nonpalpable BLE) Abdomen: Bowel Sounds: normal Inspection & Palpation: soft, non-distended, no tenderness, guarding & rebound Musculoskeletal: normal strength (5/5 throughout), normal tone Extremities: Upper Right: no cyanosis, no edema, no varicosities Upper Left: no cyanosis, no edema, no varicosities Lower Right: ulcers, pertinent finding (RLE lateral ankle with large, deep, foul smelling, necrotic wound. + cellulitis/warmth toes to mid price. Toes with brisk cap refill. 1st and 2nd toes also with smaller, dry necrotic areas noted. ) Lower Left: no cyanosis, no edema, no varicosities Neurologic: Cranial Nerves: grossly intact Assessment and Plan ASSESSMENT and PLAN: RLE lateral ankle wound infection Severe PAD Pt discussed with Dr Coughlin, who advises orthopedic consult regarding surgical options for limb salvage. Pt also with significant arterial disease, but could pursue angiography after infection improves.
[2017-04-24] MEDS: MoRPHine SULFATE 2 MG/ML CARP IV PRN ×2 (17:08→20:17)
[2017-04-24] MEDS: GABAPENTIN 400MG Q8H DOSE PO SCH (19:43)
[2017-04-24] MEDS: CILOSTAZOL 100 MG TAB PO SCH (20:19)
--- NOTE | 2017-04-24 21:33 | ORTHOPEDIC CONSULTATION ---
DATE OF CONSULTATION: 04/24/2017 This is a 56-year-old gentleman seen at the request of Dr. Darci Johnston and Dr. Kenna Jackson. HISTORY OF PRESENT ILLNESS: This 56-year-old gentleman was admitted to the hospital via the Emergency Department due to right ankle pain with a nonhealing ulcer. The patient noted to have an infected painful ulcer on the lateral aspect of his ankle. Had strong odor and surrounding cellulitis. The patient states that he had noted this approximately 4-6 weeks ago. He is essentially wheelchair dependent with some ambulatory transfers. He states that he likely scraped it while transferring in and out of his wheelchair, perhaps with wheelchair mobility. He stated that he was monitoring it and was doing fine until approximately 3-5 days prior to admission when he noticed it was becoming increasingly painful. He states he has chronic hip and knee problems and he is currently disabled. PAST MEDICAL HISTORY: COPD, daily alcohol abuse for approximately the last decade, hypertension, tobacco abuse, depression and hepatitis. PAST SURGICAL HISTORY: Noncontributory. ALLERGIES: No known drug allergies. MEDICATIONS: Vitamin D, Flovent, Combivent, Cozaar, Singulair, Prilosec, Zoloft. SOCIAL HISTORY: He smokes daily. He drinks 5-6 beers per day. Smokes marijuana. Denies any other drug use. He is and lives with his family, he is on long-term disability. PHYSICAL EXAMINATION: This is a 56-year-old cachectic-appearing man who is lying supine in his hospital room bed. He is disheveled in appearance with scruff ruth and unkempt hair. He has multiple significantly necrotic teeth with simple halitosis. He is somnolent upon initiation of exam, however, answers questions appropriately. Speech is clear and fluent. Affect is appropriate. He has severe atrophy of bilateral lower extremities. He has thin trophic skin bilateral lower extremities. He is noted to have approximately quarter-sized ischemic abscess with necrosis of the lateral malleolus of the right ankle. This emanates a foul odor. He has surrounding erythema with slight streaking up the lateral aspect of the leg. Distal to the ischemic ulcer, he is noted to have erythema of the right ankle, hindfoot and mid foot. He is also noted to have ischemic ulcers of the dorsum of the first and second toes. Minimal necrosis of the second and third dry ulcers. He has mild swelling of the right lower extremity. He has limited strength in bilateral lower extremities, 4/5 strength to dorsiflexion, plantar flexion, inversion and eversion. He has some tremulousness to bilateral lower extremities. Babinski's are downgoing bilaterally. Dorsalis pedis is 1/4 bilaterally, posterior tibial pulses are nonpalpable. Cap refill is approximately 2-3 seconds. He has significant tenderness to palpation around the ischemic ulcer in the right lateral lower extremity as well as bilateral feet and lower legs. He has scant hair growth bilateral lower extremities. Radiographs reviewed demonstrate no obvious fractures. He has osteopenia bilateral lower extremities. No obvious bony involvement. No obvious evidence of osteomyelitis; however, there appears to be bone cyst in the tibia which appears to be benign. MRI reviewed demonstrating what appears to be evidence of periostitis and lateral ulceration at the right lateral malleolus; however, there is no convincing evidence of osteomyelitis. There is absence of the coronal T2 imaging sequence as the patient offered limited cooperation during the study. The patient also had an arterial Doppler study which demonstrated some evidence of skip lesions and atherosclerotic disease with monophasic waveforms at the level of the trifurcation; however, the examination was limited due to the patient's poor compliance again. LABORATORY DATA: Reviewed, demonstrated an elevated white count 18.54, hemoglobin 15.6, hematocrit 45.1, platelet count 194, BUN 7, creatinine 0.59, BUN-creatinine ratio 12.6, direct bilirubin 0.4, albumin 3.1, ethyl alcohol 250. IMPRESSION: 1. Right lateral ankle ischemic ulcer with necrosis. 2. Ischemic ulcers right dorsal first and second toes. 3. Periostitis right lateral malleolus without clear evidence of osteomyelitis. 4. Low total protein, malnutrition and alcoholism. 5. Tobacco abuse. 6. Peripheral artery disease. RECOMMENDATIONS: I had a long discussion with the patient regarding possibility of limb salvage versus possible need for a below-knee amputation due to significant vascular disease in the face of associated small vessel disease. The patient understands this and at this time at minimum would like to proceed with irrigation and debridement of the ulceration. I did discuss the care of this patient with the vascular team and agreed that after irrigation and debridement is performed, may reassess for possibility of vascular intervention. I also did discuss the possibility that the patient may need to have a below-knee amputation should limb salvage fail. The patient will be scheduled for irrigation and debridement of the right lateral ankle in the morning, please make n.p.o. after midnight. Further care and management to follow. Thank you for the opportunity to consult in the care of this patient. SERJIO
[2017-04-24] MEDS ORDERED: VANCOMYCIN TROUGH ONE (22:00)
[2017-04-25] VITALS (13 sets, daily range): BP systolic 90–131; BP diastolic 44–75; PULSE 72–95; TEMP 36.3–36.8; O2SAT 35–99
[2017-04-25] MEDS: MoRPHine SULFATE 4 MG/ML 1 ML CARP\\VIAL IV PRN ×4 (00:10→21:46)
[2017-04-25] MEDS: SODIUM CHLORIDE 0.9% 1000ML 1,000 ML IV SCH ×2 (02:32→07:20)
[2017-04-25] MEDS: GABAPENTIN 400MG Q8H DOSE PO SCH ×2 (03:16→12:12)
[2017-04-25] MEDS: PIPERACILL/TAZOBAC IV 3.375 GM in DEXTROSE 5% 100ML 100 ML IV SCH (03:16)
[2017-04-25] MEDS ORDERED: NURSING VERBAL MED ORDER ONE (05:15)
[2017-04-25] MEDS ORDERED: SODIUM CHLORIDE 0.9% 500ML 500 ML IV STA (05:29)
[2017-04-25] MEDS: MoRPHine SULFATE 2 MG/ML CARP IV PRN ×3 (06:06→14:42)
[2017-04-25] MEDS: VANCOMYCIN INJ 1,000 MG in SODIUM CHLORIDE 0.9% 250ML 250 ML IV SCH (06:06)
[2017-04-25] MEDS ORDERED: BACITRACIN 50000 UNIT VIAL ONE ×2 (06:49→09:58)
[2017-04-25] MEDS ORDERED: LIDOCAINE HCL 2% 2 ML VIAL (20MG/ML) ONE ×2 (06:53→09:59)
[2017-04-25] MEDS ORDERED: PROPOFOL IV EMULSION 10 MG/ML 20 ML VIAL IV ONE ×2 (06:53→08:37)
[2017-04-25] MEDS ORDERED: ONDANSETRON INJ 2 MG/ML 2 ML VIAL ONE ×2 (06:53→10:29)
[2017-04-25] MEDS ORDERED: DEXAMETHASONE SOD INJ 4 MG/ML VIAL ONE ×2 (06:53→10:29)
[2017-04-25] MEDS ORDERED: MIDAZOLAM HCL 1 MG/ML 2ML VIAL ONE (06:54)
[2017-04-25] MEDS ORDERED: FENTANYL CITRATE INJ 50 MCG/1 ML 2 ML VIAL ONE (06:54)
[2017-04-25] MEDS: FLUTICASONE PROP HFA INH 44 MCG INHALER INH SCH ×2 (07:18→21:20)
[2017-04-25] MEDS: IPRATROPIUM BROMIDE/ALBUTEROL respimat INH INH SCH ×4 (07:18→21:20)
[2017-04-25 07:19] LABS: HEMATOCRIT 39.8 % (42-52); MEAN CELL VOLUME 95.4 fL (80-100); MEAN CORPUSCULAR HEMOGLOBIN 30.7 pg (25-34); MEAN CORPUSCULAR HGB CONC 32.2 g/dl (32-36); MEAN PLATELET VOLUME 9.8 fL (7.4-10.4); PLATELET COUNT 140 K/uL (130-400); RED BLOOD COUNT 4.17 M/uL (4.7-6.1); WHITE BLOOD COUNT 11.62 K/uL (4.8-10.8)
[2017-04-25] MEDS: THIAMINE HCL 100 MG TAB PO SCH (07:21)
[2017-04-25] MEDS: MONTELUKAST SOD 10 MG TAB PO SCH (07:21)
[2017-04-25] MEDS: PANTOprazole SOD 40 MG TAB PO SCH (07:21)
[2017-04-25] MEDS: CILOSTAZOL 100 MG TAB PO SCH ×2 (07:21→21:21)
[2017-04-25] MEDS: SERTRALINE HCL 50 MG TAB PO SCH (07:21)
[2017-04-25] MEDS: ATORVASTATIN 20 MG TAB PO SCH (07:21)
[2017-04-25] MEDS: HEPARIN SOD 5000 UNIT/0.5 ML CARP SQ SCH ×2 (07:21→21:24)
[2017-04-25] MEDS: ASPIRIN 81 MG ECTAB PO SCH (07:21)
[2017-04-25] MEDS ORDERED: ALBUT/IPRATROP 3MG/0.5MG NEB 3 ML VIAL INH STA (07:22)
--- NOTE | 2017-04-25 07:42 | History & Physical Bridge Note ---
H&P Re-Evaluation Bridge Note: I have examined the patient, reviewed the History & Physical and in the interval since the performance of the History & Physical I have noted the following changes of clinical significance: No changes noted
[2017-04-25 08:00] LABS: ALB/GLOB RATIO 0.6 (0.9-2); BUN/CREATININE RATIO 13.7 (10-20); CALCIUM 7.5 mg/dl (8.5-10.1); CREATININE 0.47 mg/dl (0.60-1.40); MAGNESIUM 1.7 mg/dl (1.8-2.4); PHOSPHORUS 2.3 mg/dl (2.5-4.9); POTASSIUM 3.6 mmol/L (3.5-5.1)
[2017-04-25] MEDS ORDERED: LIDOCAINE/EPINEPHRINE 2% 1:200,000 20 ML SDV ONE (08:37)
[2017-04-25 08:46] LABS: COMPLETE YES; ECHINOCYTES 1+; EOSINOPHIL % 2.7 %; LYMPH ABS # 5.66 K/uL (1.2-3.4); LYMPHOCYTE % 48.7 %; NEUTROPHILS % 28.3 %; VARIANT LYM ABS # 1.34 K/uL; VARIANT LYMPHOCYTE % 11.5 %
[2017-04-25] MEDS ORDERED: HYDROmorphone INJ 2 MG/ML SYR/VIAL IV PRN (10:15)
[2017-04-25] MEDS ORDERED: PHENYLEPHRINE 100MCG/ML 5ML SYR IV PRN (10:15)
[2017-04-25] MEDS ORDERED: EpHEDrine SULFATE INJ 50 MG/ML AMP IV PRN (10:15)
[2017-04-25] MEDS ORDERED: ATROPINE SULFATE 0.1 MG/ML 5ML SYR IV PRN (10:15)
[2017-04-25] MEDS ORDERED: ONDANSETRON INJ 2 MG/ML 2 ML VIAL IV PRN (10:15)
[2017-04-25] MEDS ORDERED: BUPIVACAINE 0.5 % 5 MG/1 ML MPF 30ML VIAL ONE (10:52)
[2017-04-25] MEDS ORDERED: PHENYLEPHRINE 100MCG/ML 5ML SYR ONE (11:00)
--- NOTE | 2017-04-25 11:27 | [facility] Operative Report ---
Operative Report Operative Date Apr 25, 2017. Pre-Operative Diagnosis Right lateral ankle ischemic ulcer with necrosis Post-Operative Diagnosis Right lateral ankle ischemic ulcer with necrosis Procedure(s) Performed Right Ankle Incision and Drainage & Application of Wound Vac Surgeon Dr. Shanice James Chief Accounting Officer Surgeon(s) none Estimated Blood Loss 2mL Findings as above Specimens Fresh: 1. Right Lateral Ankle Wound; out of room at 1058 on 04/25/17. Drains 0 Anesthesia geta Complication(s) None Disposition Recovery Room / PACU Indications 56-year-old male with a chronic ischemic right lateral wound. There is necrotic and infected tissue laterally. He wishes to proceed with irrigation and debridement. It has been discussed with him that this treatment may fail and he may let her require a BKA. Description of Procedure Risks benefits and alternatives of surgery including but not limited to infection, DVT, pain, stiffness, need for revision surgery, damage to blood vessels damage to nerves or risks of anesthesia were discussed with the patient and she wished to proceed. Patient was identified in the laterality was confirmed and marked. A well-padded tourniquet was applied and then the limb was prepped and draped in standard manner with Betadine. The limb was exsanguinated and the tourniquet was inflated. The wound appeared to be ischemic. There was necrotic tissue centrally and distally and posteriorly in the wound. I sharply incised circumferentially along the skin edges to establish a good bleeding response. The wound was sharply debrided down to the level of fascia. Some of the tissue was sent off for wound culture. A little bit of the peroneal tendons were exposed after appropriate debridement. The wound was then thoroughly irrigated with 9 mL of saline with Pulsavac. A wound VAC was placed in the usual manner. Sterile dressings applied and the tourniquet was released. All needle and sponge counts were correct at the end of the procedure patient was transferred to the PACU in stable condition without apparent complication. The PA-C was necessary for assistance with procedure for assistance in positioning, prepping, draping, retraction and closure. I attest to the content of the Intraoperative Record and any orders documented therein. Any exceptions are noted below.
--- NOTE | 2017-04-25 11:47 | Anesthesiology Progress Note ---
Anesthesia Post Op Note Date & Time Apr 25, 2017 at 11:46 Vital Signs Pain Intensity: 0 Vital Signs Past 12 Hours Date Time Temp Pulse Resp B/P (MAP) Pulse Ox O2 Delivery O2 Flow Rate FiO2 04/25/17 11:20 36.8 77 14 138/73 100 Oxymask 10 04/25/17 08:11 36.6 85 16 100/54 (69) 95 Room Air 04/25/17 08:00 Room Air 04/25/17 06:00 81 107/61 (76) 04/25/17 04:45 91/50 (64) 04/25/17 04:36 36.7 72 18 90/44 (59) 95 Room Air 04/25/17 04:00 Room Air 04/25/17 00:00 Room Air 04/24/17 23:53 36.6 82 18 95/61 (72) 96 Room Air Notes Mental Status: alert / awake / arousable, participated in evaluation Pt Amnestic to Procedure: Yes Nausea / Vomiting: adequately controlled Pain: adequately controlled Airway Patency, RR, SpO2: stable & adequate BP & HR: stable & adequate Hydration State: stable & adequate Anesthetic Complications: no major complications apparent
[2017-04-25] MEDS: ERTAPENEM IV 1 GM in SODIUM CHLOR 0.9% AD-VAN 50ML 50 ML IV SCH (12:12)
[2017-04-25] MEDS: D5W AND 1/2NSS + 20MEQ KCL 1,000 ML IV SCH ×2 (12:33→21:47)
--- NOTE | 2017-04-25 13:45 | Family Medicine Progress Note ---
Progress Note Date of Service Apr 25, 2017. Subjective Pt evaluation today including: conversation w/ patient, physical exam, chart review, lab review, review of studies, review of inpatient medication list Pain: denies PO Intake: adequate Voiding: no voiding problems Patient is s/p Surgical Debridement and Irrigation of Rt ankle ulcer with wound vac placement. HE tolerated procedure well. He reports no complaints. He denies pain, fevers, chills, N/V Constitutional: No fever, No chills Respiratory: No cough, No sputum, No shortness of breath Cardiovascular: No chest pain, No edema, No palpitations Abdomen: No pain, No nausea, No vomiting Male : No dysuria, No urinary frequency Skin: + problem reported (rt ankle ulcer), No rash, No itch Medications Current Inpatient Medications Medications (Trade) Dose Ordered Sig/Natalya Route Start Time Stop Time Status Last Admin Dose Admin Heparin Sodium (Porcine) (Heparin Sq 5000 Unit/0.5ml) 5,000 unit Q12 SQ 04/24/17 09:00 05/24/17 08:59 Acetaminophen (Tylenol Tab) 650 mg Q4H PRN PO 04/23/17 23:00 05/23/17 22:59 Ondansetron HCl (Zofran Inj) 4 mg Q6H PRN IV 04/23/17 23:00 05/23/17 22:59 Fluticasone Propionate (Flovent Hfa 44MCG Inhaler) 2 puffs BID INH 04/24/17 09:00 05/24/17 08:59 04/24/17 20:18 2 PUFFS Albuterol/ Ipratropium (Combivent Respimat Inh) 2 puffs QID INH 04/24/17 09:00 05/24/17 08:59 04/25/17 12:12 2 PUFFS Montelukast Sodium (Singulair Tab) 10 mg DAILY PO 04/24/17 09:00 05/24/17 08:59 04/24/17 07:54 10 MG Sertraline HCl (Zoloft Tab) 50 mg DAILY PO 04/24/17 09:00 05/24/17 08:59 04/24/17 07:54 50 MG Pantoprazole Sodium (Protonix Tab) 40 mg QAM PO 04/24/17 09:00 05/24/17 08:59 04/24/17 07:54 40 MG Sodium Chloride 1,000 ml @ 100 mls/hr Q10H IV 04/24/17 03:00 05/24/17 02:59 04/25/17 02:32 100 MLS/HR Morphine Sulfate (MoRPHine SULFATE INJ) 2 mg Q2H PRN IV 04/23/17 23:30 05/07/17 23:29 04/25/17 07:48 2 MG Morphine Sulfate (MoRPHine SULFATE INJ) 4 mg Q2H PRN IV 04/23/17 23:30 05/07/17 23:29 04/25/17 02:53 4 MG Gabapentin (Neurontin Cap) 400 mg Q12H PO 04/26/17 00:00 04/26/17 12:01 Gabapentin (Neurontin Cap) 400 mg Q24H PO 04/27/17 12:00 04/27/17 12:01 Aspirin (Ecotrin Tab) 81 mg QAM PO 04/25/17 09:00 05/25/17 08:59 Cilostazol (Pletal Tab) 100 mg BID PO 04/24/17 21:00 05/24/17 20:59 04/24/17 20:19 100 MG Thiamine HCl (Vitamin B-1 Tab) 100 mg QAM PO 04/24/17 09:00 05/24/17 08:59 04/24/17 08:52 100 MG Lorazepam (Ativan Tab) 1 mg ONE PRN PO 04/24/17 08:45 Atorvastatin Calcium (Lipitor Tab) 20 mg QAM PO 04/24/17 09:00 05/24/17 08:59 04/24/17 09:36 20 MG Hydromorphone HCl (Dilaudid Inj) 0.5 mg Q5M PRN IV 04/25/17 10:15 04/25/17 15:15 Ondansetron HCl (Zofran Inj) 4 mg ONE PRN IV 04/25/17 10:15 04/25/17 15:15 Ephedrine Sulfate (EpHEDrine SULFATE INJ) 5 mg Q5M PRN IV 04/25/17 10:15 04/25/17 15:15 Atropine Sulfate (Atropine Sulfate 0.1MG/Ml Inj) 0.5 mg Q1M PRN IV 04/25/17 10:15 04/25/17 15:15 Phenylephrine HCl (Francis-Synephrine 500MCG/5ML Syr) 100 mcg Q5M PRN IV 04/25/17 10:15 04/25/17 15:15 Ertapenem 1 gm/ Sodium Chloride 50 ml @ 120 mls/hr Q24H IV 04/25/17 12:00 05/03/17 11:59 04/25/17 12:12 120 MLS/HR Potassium Chloride/Dextrose/ Sod Cl 1,000 ml @ 100 mls/hr Q10H IV 04/25/17 12:13 05/25/17 12:12 04/25/17 12:33 100 MLS/HR Oxycodone HCl (Roxicodone Immediate Rel Tab) 1-2 TABS FOR PAIN 1 TABLET ... Q4H PRN PO 04/25/17 11:30 05/09/17 11:29 Objective Vital Signs Date Time Temp Pulse Resp B/P (MAP) Pulse Ox O2 Delivery O2 Flow Rate FiO2 04/25/17 13:00 36.8 72 18 121/71 (88) 99 Nasal Cannula 2.0 04/25/17 12:45 36.5 75 18 123/75 (91) 99 Nasal Cannula 2.0 04/25/17 12:30 36.5 75 18 119/75 (90) 96 Room Air 04/25/17 12:20 35 Nasal Cannula 2.0 04/25/17 12:15 36.6 75 18 125/69 (87) 98 Nasal Cannula 2.0 04/25/17 12:00 Room Air 04/25/17 12:00 36.6 75 14 118/70 96 Nasal Cannula 2 04/25/17 11:50 75 14 116/73 97 Nasal Cannula 2 04/25/17 11:40 75 13 110/69 95 Nasal Cannula 2 04/25/17 11:30 83 19 144/74 96 Nasal Cannula 2 04/25/17 11:20 36.8 77 14 138/73 100 Oxymask 10 04/25/17 08:11 36.6 85 16 100/54 (69) 95 Room Air 04/25/17 08:00 Room Air 04/25/17 06:00 81 107/61 (76) 04/25/17 04:45 91/50 (64) 04/25/17 04:36 36.7 72 18 90/44 (59) 95 Room Air 04/25/17 04:00 Room Air 04/25/17 00:00 Room Air 04/24/17 23:53 36.6 82 18 95/61 (72) 96 Room Air 04/24/17 20:09 36.9 86 20 119/69 (86) 96 Room Air 04/24/17 20:00 Room Air 04/24/17 16:00 Room Air 04/24/17 15:01 36.7 83 18 138/70 (92) 93 Room Air Physical Exam Notes: GENERAL: Alert, no acute distress. cachectic, Poor dentition HEENT: Seborrheic dermatitis, normocephalic atraumatic,, no scleral icterus LUNGS: Clear to auscultation bilaterally, no wheeze, no rhonchi, breath sounds equal. HEART:Normal S1, S2, No murmurs gallops or rubs, regular rate and rhythm. ABDOMEN: Soft, nontender, bowel sounds positive, no hernias, no peritonitis. EXTREMITIES: right ankle: bandage in place (s/p debridement), non-tender. metacarpal phalangeal joint :ulcer. dec'd pedal pulses NEUROLOGIC: Alert/ Oriented x 3, no acute motor or sensory deficits, no focal weakness. Laboratory Results Results Past 24 Hours Test 04/25/17 07:02 04/26/17 04:44 Range/Units White Blood Count 11.62 4.8-10.8 K/uL Red Blood Count 4.17 4.7-6.1 M/uL Hemoglobin 12.8 14.0-18.0 g/dL Hematocrit 39.8 42-52 % Mean Corpuscular Volume 95.4 80-100 fL Mean Corpuscular Hemoglobin 30.7 25-34 pg Mean Corpuscular Hemoglobin Concent 32.2 32-36 g/dl Platelet Count 140 130-400 K/uL Mean Platelet Volume 9.8 7.4-10.4 fL RDW Standard Deviation 44.9 36.4-46.3 fL RDW Coefficient of Variation 12.9 11.5-14.5 % Neutrophils % (Manual) 28.3 % Lymphocytes % (Manual) 48.7 % Variant Lymphocytes % (manual) 11.5 % Monocytes % (Manual) 8.8 % Eosinophils % (Manual) 2.7 % Neutrophils # (Manual) 3.29 1.4-6.5 K/uL Total Absolute Neutrophils 3.29 1.4-6.5 K/uL Lymphocytes # (Manual) 5.66 1.2-3.4 K/uL Absolute Variant Lymphocytes 1.34 K/uL Total Absolute Lymphocytes 7.00 1.2-3.4 K/uL Monocytes # (Manual) 1.02 0.11-0.59 K/uL Eosinophils # (Manual) 0.31 0-0.5 K/uL Echinocytes 1+ Sodium Level 135 136-145 mmol/L Potassium Level 3.6 3.5-5.1 mmol/L Chloride Level 105 98-107 mmol/L Carbon Dioxide Level 24 21-32 mmol/L Anion Gap 6.0 3-11 mmol/L Blood Urea Nitrogen 6 7-18 mg/dl Creatinine 0.47 0.60-1.40 mg/dl Est Creatinine Clear Calc Drug Dose 149.6 ml/min Estimated GFR () 143.0 Estimated GFR (Non- 123.4 BUN/Creatinine Ratio 13.7 10-20 Random Glucose 81 70-99 mg/dl Calcium Level 7.5 8.5-10.1 mg/dl Phosphorus Level 2.3 2.5-4.9 mg/dl Magnesium Level 1.7 1.8-2.4 mg/dl Total Bilirubin 1.1 0.2-1 mg/dl Aspartate Amino Transf (AST/SGOT) 25 15-37 U/L Alanine Aminotransferase (ALT/SGPT) 24 12-78 U/L Alkaline Phosphatase 149 45-117 U/L Total Protein 5.5 6.4-8.2 gm/dl Albumin 2.1 3.4-5.0 gm/dl Globulin 3.4 2.5-4.0 gm/dl Albumin/Globulin Ratio 0.6 0.9-2 Vitamin B12 Level 454 211-911 pg/mL 25-Hydroxy Vitamin D Total 60.1 30-100 ng/ml Microbiology Results 04/25/17 Gram Stain - Final, Resulted 04/25/17 Bacterial Culture, Resulted Pending Assessment and Plan 56 yo M smoker with hx of Hep C, Alcohol abuse p/w non healing ulcer right ankle ulcer secondary to PAD Non healing infected ulcer of Rigth Ankle: secondary to ischemia - US : diffuse atherosclerotic disease, - MRI showed Soft tissue ulceration lateral to the distal fibula , Potential mild periostitis lateral aspect distal fibula without evidence for osteomyelitis - S/p Debridement and irrigation of necrotic tissue (04/25) - wound culture pending - blood cultures NGTD - vancomycin and Zosyn d/c'd, switched to Ertapenem - continue wound care Peripheral arterial disease - s/p debridement of RT ankle ulcer as indicated above -Per Surgery, possible below-knee amputation was discusses should limb salvage fail - Continue aspirin, cilostazol, statin Ankle pain -Pain control s/p debridement PRN Morphine Alcohol use disorder - gabapentin + lorazepam per protocol - continue thiamine 100 mg daily Elevated lactic acid - resolved Leukocytosis - trending down -Continue to monitor Malnutrition - low prealbumin. - follow oral intake. - plan for Dietary consult Depression - continue sertraline Hepatitis C - follow up with ID as outpatient - HIV screen negative in March - AFP tumor marker 8.2 in March Tobacco use - Start Nicotine patch 14 mg daily DVT prophylaxis - heparin Continued [facility] stay due to: multiple IV medications needed Discharge planning: uncertain Resident Tracking Resident Involvement: Resident Care Provided Care Provided: Adult Hospital Medicine Reviewed: Pt Seen/Exam by Me History right ankle pain controlled with medications Constitutional: denies: fever Respiratory: negative: short of breath Cardiovascular: denies chest pain General Appearance: no apparent distress (somnolent but arousable) Respiratory: lungs clear, no respiratory distress Cardiovascular: regular rate, rhythm Neurologic/Psychiatric: alert, oriented x 3 Skin Characteristics: other (right ankle in dressing) Assessment/Plan Resident Physician Supervision Note: I independently interviewed and examined the patient and verified the salmeron history and physical, reviewed labs and image studies, discussed the case with the resident Dr. Agustin and agree with the findings and care plan.
[2017-04-25] MEDS: OXYCODONE HCL IR 5 MG TAB (IMMEDIATE RELEASE) PO PRN ×2 (15:09→19:23)
[2017-04-25] MEDS: NICOTINE 14 MG/24 HR TDSY TD SCH (17:01)
[2017-04-26] VITALS (9 sets, daily range): BP systolic 94–162; BP diastolic 57–80; PULSE 74–87; TEMP 36.5–36.8; O2SAT 93–100
[2017-04-26] MEDS: GABAPENTIN 400MG Q12H DOSE PO SCH ×2 (00:38→12:06)
[2017-04-26] MEDS: MoRPHine SULFATE 4 MG/ML 1 ML CARP\\VIAL IV PRN ×4 (00:41→22:42)
[2017-04-26] MEDS: FLUTICASONE PROP HFA INH 44 MCG INHALER INH SCH ×2 (07:14→20:12)
[2017-04-26] MEDS: IPRATROPIUM BROMIDE/ALBUTEROL respimat INH INH SCH (07:14)
[2017-04-26] MEDS: D5W AND 1/2NSS + 20MEQ KCL 1,000 ML IV SCH ×2 (07:14→17:48)
[2017-04-26] MEDS: MoRPHine SULFATE 2 MG/ML CARP IV PRN ×2 (07:14→12:06)
[2017-04-26] MEDS: NICOTINE 14 MG/24 HR TDSY TD SCH (07:15)
[2017-04-26] MEDS: CILOSTAZOL 100 MG TAB PO SCH ×2 (07:15→20:13)
[2017-04-26] MEDS: SERTRALINE HCL 50 MG TAB PO SCH (07:15)
[2017-04-26] MEDS: THIAMINE HCL 100 MG TAB PO SCH (07:15)
[2017-04-26] MEDS: ASPIRIN 81 MG ECTAB PO SCH (07:15)
[2017-04-26] MEDS: PANTOprazole SOD 40 MG TAB PO SCH (07:15)
[2017-04-26] MEDS: ATORVASTATIN 20 MG TAB PO SCH (07:16)
[2017-04-26] MEDS: MONTELUKAST SOD 10 MG TAB PO SCH (07:16)
[2017-04-26] MEDS: HEPARIN SOD 5000 UNIT/0.5 ML CARP SQ SCH ×2 (07:17→20:16)
[2017-04-26 07:45] LABS: HEMATOCRIT 36.2 % (42-52); MEAN CELL VOLUME 95.3 fL (80-100); MEAN CORPUSCULAR HEMOGLOBIN 31.6 pg (25-34); MEAN CORPUSCULAR HGB CONC 33.1 g/dl (32-36); MEAN PLATELET VOLUME 10.3 fL (7.4-10.4); PLATELET COUNT 134 K/uL (130-400); WHITE BLOOD COUNT 10.56 K/uL (4.8-10.8)
[2017-04-26 08:11] LABS: BUN/CREATININE RATIO 11.1 (10-20); CALCIUM 7.9 mg/dl (8.5-10.1); CREATININE 0.43 mg/dl (0.60-1.40); POTASSIUM 3.7 mmol/L (3.5-5.1)
--- NOTE | 2017-04-26 08:47 | Orthopedic Progress Note ---
Orthopedic Progress Note Date of Service Apr 26, 2017. Subjective Post OP Day: 1 Reports: feeling well, Denies: chest pain, SOB, nausea / vomiting, light headedness, calf pain Objective calves soft nontender, dressing C/D/I, A&O x3, toes mobile Date Time Temp Pulse Resp B/P (MAP) Pulse Ox O2 Delivery O2 Flow Rate FiO2 04/26/17 08:00 Room Air 04/26/17 07:35 36.5 74 18 131/80 (97) 100 2.0 04/26/17 04:14 36.6 84 20 116/69 (85) 100 Room Air 04/26/17 04:00 Nasal Cannula 2.0 04/26/17 00:00 Nasal Cannula 2.0 04/25/17 23:25 36.5 80 16 98/50 (66) 98 Nasal Cannula 2.0 04/25/17 20:00 97 Nasal Cannula 2.0 04/25/17 18:53 36.5 95 18 115/66 (82) 97 Nasal Cannula 2.0 04/25/17 16:00 Room Air 04/25/17 15:03 36.3 77 16 131/72 (91) 99 04/25/17 13:00 36.8 72 18 121/71 (88) 99 Nasal Cannula 2.0 04/25/17 12:45 36.5 75 18 123/75 (91) 99 Nasal Cannula 2.0 04/25/17 12:30 36.5 75 18 119/75 (90) 96 Room Air 04/25/17 12:20 35 Nasal Cannula 2.0 04/25/17 12:15 36.6 75 18 125/69 (87) 98 Nasal Cannula 2.0 04/25/17 12:00 Room Air 04/25/17 12:00 36.6 75 14 118/70 96 Nasal Cannula 2 04/25/17 11:50 75 14 116/73 97 Nasal Cannula 2 04/25/17 11:40 75 13 110/69 95 Nasal Cannula 2 04/25/17 11:30 83 19 144/74 96 Nasal Cannula 2 04/25/17 11:20 36.8 77 14 138/73 100 Oxymask 10 Laboratory Results 24 Hours: Test 04/26/17 07:02 Hematocrit 36.2 % Hemoglobin 12.0 g/dL Additional Notes: GRAM STAIN Final 04/25/17 RESULT FEW WBCs SEEN RARE GRAM POSITIVE BACILLI RARE GRAM POSITIVE COCCI OR AER/WIL CULT Preliminary 04/26/17 Organism 1 GRAM NEGATIVE BACILLI QUANITY MANY SENS SENSITIVITY TO FOLLOW Organism 2 STAPH SPECIES QUANITY RARE SENS SENSITIVITY TO FOLLOW Assessment & Plan Assessment: POD#1 SP I&D RIGHT ANKLE Plan: PT/OT DVT PROPH PAIN MANAGEMENT FOLLOW CULTURES. CONTINUE ERTAPENEM CONTINUE WOUND VAC. DRESSING CHANGES PER WOUND NURSE, LIKELY TOMORROW.
--- NOTE | 2017-04-26 09:30 | Family Medicine Progress Note ---
Progress Note Date of Service Apr 26, 2017. Subjective Pt evaluation today including: conversation w/ patient, physical exam, chart review, lab review, review of studies, review of inpatient medication list Pain: Pain at Rt ankle 8/10 PO Intake: adequate Voiding: no voiding problems No acute events overnight. Patient reports pain at site of debridement. He denies CP, SOB, Palpitation, calf tenderness. Additional Comments: Constitutional: No fever, No chills Respiratory: No cough, No sputum, No shortness of breath Cardiovascular: No chest pain, No edema, No palpitations Abdomen: No pain, No nausea, No vomiting, + Constipation Male : No dysuria, No urinary frequency Skin: + problem reported (rt ankle ulcer s/p debriding ), No rash, No itch Medications Current Inpatient Medications Medications (Trade) Dose Ordered Sig/Natalay Route Start Time Stop Time Status Last Admin Dose Admin Heparin Sodium (Porcine) (Heparin Sq 5000 Unit/0.5ml) 5,000 unit Q12 SQ 04/24/17 09:00 05/24/17 08:59 04/26/17 07:17 5,000 UNIT Acetaminophen (Tylenol Tab) 650 mg Q4H PRN PO 04/23/17 23:00 05/23/17 22:59 Ondansetron HCl (Zofran Inj) 4 mg Q6H PRN IV 04/23/17 23:00 05/23/17 22:59 Fluticasone Propionate (Flovent Hfa 44MCG Inhaler) 2 puffs BID INH 04/24/17 09:00 05/24/17 08:59 04/26/17 07:14 2 PUFFS Albuterol/ Ipratropium (Combivent Respimat Inh) 2 puffs QID INH 04/24/17 09:00 05/24/17 08:59 04/26/17 07:14 2 PUFFS Montelukast Sodium (Singulair Tab) 10 mg DAILY PO 04/24/17 09:00 05/24/17 08:59 04/26/17 07:16 10 MG Sertraline HCl (Zoloft Tab) 50 mg DAILY PO 04/24/17 09:00 05/24/17 08:59 04/26/17 07:15 50 MG Pantoprazole Sodium (Protonix Tab) 40 mg QAM PO 04/24/17 09:00 05/24/17 08:59 04/26/17 07:15 40 MG Morphine Sulfate (MoRPHine SULFATE INJ) 2 mg Q2H PRN IV 04/23/17 23:30 05/07/17 23:29 04/26/17 07:14 2 MG Morphine Sulfate (MoRPHine SULFATE INJ) 4 mg Q2H PRN IV 04/23/17 23:30 05/07/17 23:29 04/26/17 04:33 4 MG Gabapentin (Neurontin Cap) 400 mg Q12H PO 04/26/17 00:00 04/26/17 12:01 04/26/17 00:38 400 MG Gabapentin (Neurontin Cap) 400 mg Q24H PO 04/27/17 12:00 04/27/17 12:01 Aspirin (Ecotrin Tab) 81 mg QAM PO 04/25/17 09:00 05/25/17 08:59 04/26/17 07:15 81 MG Cilostazol (Pletal Tab) 100 mg BID PO 04/24/17 21:00 05/24/17 20:59 04/26/17 07:15 100 MG Thiamine HCl (Vitamin B-1 Tab) 100 mg QAM PO 04/24/17 09:00 05/24/17 08:59 04/26/17 07:15 100 MG Lorazepam (Ativan Tab) 1 mg ONE PRN PO 04/24/17 08:45 Atorvastatin Calcium (Lipitor Tab) 20 mg QAM PO 04/24/17 09:00 05/24/17 08:59 04/26/17 07:16 20 MG Ertapenem 1 gm/ Sodium Chloride 50 ml @ 120 mls/hr Q24H IV 04/25/17 12:00 05/03/17 11:59 04/25/17 12:12 120 MLS/HR Potassium Chloride/Dextrose/ Sod Cl 1,000 ml @ 100 mls/hr Q10H IV 04/25/17 12:13 05/25/17 12:12 04/26/17 07:14 100 MLS/HR Oxycodone HCl (Roxicodone Immediate Rel Tab) 1-2 TABS FOR PAIN 1 TABLET ... Q4H PRN PO 04/25/17 11:30 05/09/17 11:29 04/25/17 19:23 10 MG Nicotine (Nicoderm Cq 14MG Patch) 1 patch QAM TD 04/25/17 17:00 05/25/17 16:59 04/26/17 07:15 1 PATCH Miscellaneous (Remove Nicoderm Patch) 1 ea HS N/A 04/25/17 21:00 05/25/17 20:59 Objective Vital Signs Date Time Temp Pulse Resp B/P (MAP) Pulse Ox O2 Delivery O2 Flow Rate FiO2 04/26/17 08:00 Room Air 04/26/17 07:35 36.5 74 18 131/80 (97) 100 2.0 04/26/17 04:14 36.6 84 20 116/69 (85) 100 Room Air 04/26/17 04:00 Nasal Cannula 2.0 04/26/17 00:00 Nasal Cannula 2.0 04/25/17 23:25 36.5 80 16 98/50 (66) 98 Nasal Cannula 2.0 04/25/17 20:00 97 Nasal Cannula 2.0 04/25/17 18:53 36.5 95 18 115/66 (82) 97 Nasal Cannula 2.0 04/25/17 16:00 Room Air 04/25/17 15:03 36.3 77 16 131/72 (91) 99 04/25/17 13:00 36.8 72 18 121/71 (88) 99 Nasal Cannula 2.0 04/25/17 12:45 36.5 75 18 123/75 (91) 99 Nasal Cannula 2.0 04/25/17 12:30 36.5 75 18 119/75 (90) 96 Room Air 04/25/17 12:20 35 Nasal Cannula 2.0 04/25/17 12:15 36.6 75 18 125/69 (87) 98 Nasal Cannula 2.0 04/25/17 12:00 Room Air 04/25/17 12:00 36.6 75 14 118/70 96 Nasal Cannula 2 04/25/17 11:50 75 14 116/73 97 Nasal Cannula 2 04/25/17 11:40 75 13 110/69 95 Nasal Cannula 2 04/25/17 11:30 83 19 144/74 96 Nasal Cannula 2 04/25/17 11:20 36.8 77 14 138/73 100 Oxymask 10 Physical Exam Notes: GENERAL: Alert, no acute distress. cachectic, Poor dentition HEENT: Seborrheic dermatitis, normocephalic atraumatic, no scleral icterus LUNGS: +wheeze, no rhonchi, breath sounds equal. HEART:Normal S1, S2, No murmurs gallops or rubs, regular rate and rhythm. ABDOMEN: Soft, nontender, bowel sounds positive, no hernias, no peritonitis. EXTREMITIES: right ankle: bandage in place (s/p debridement), Wound vac in place, non-tender. metacarpal phalangeal joint :ulcer. dec'd pedal pulses NEUROLOGIC: Alert/ Oriented x 3, no acute motor or sensory deficits, no focal weakness. Laboratory Results Results Past 24 Hours Test 04/26/17 07:02 Range/Units White Blood Count 10.56 4.8-10.8 K/uL Red Blood Count 3.80 4.7-6.1 M/uL Hemoglobin 12.0 14.0-18.0 g/dL Hematocrit 36.2 42-52 % Mean Corpuscular Volume 95.3 80-100 fL Mean Corpuscular Hemoglobin 31.6 25-34 pg Mean Corpuscular Hemoglobin Concent 33.1 32-36 g/dl RDW Standard Deviation 44.6 36.4-46.3 fL RDW Coefficient of Variation 12.9 11.5-14.5 % Platelet Count 134 130-400 K/uL Mean Platelet Volume 10.3 7.4-10.4 fL Sodium Level 134 136-145 mmol/L Potassium Level 3.7 3.5-5.1 mmol/L Chloride Level 102 98-107 mmol/L Carbon Dioxide Level 26 21-32 mmol/L Anion Gap 6.0 3-11 mmol/L Blood Urea Nitrogen 5 7-18 mg/dl Creatinine 0.43 0.60-1.40 mg/dl Est Creatinine Clear Calc Drug Dose 166.5 ml/min Estimated GFR () 148.3 Estimated GFR (Non- 128.0 BUN/Creatinine Ratio 11.1 10-20 Random Glucose 136 70-99 mg/dl Calcium Level 7.9 8.5-10.1 mg/dl Microbiology Results 04/26/17 C.difficile Toxin B Gene (PCR), Avni Batch Pending Assessment and Plan 56 yo M smoker with hx of Hep C, Alcohol abuse p/w non healing ulcer right ankle ulcer secondary to PAD Non healing infected ulcer of Right Ankle: secondary to ischemia - US : diffuse atherosclerotic disease, - MRI showed Soft tissue ulceration lateral to the distal fibula , Potential mild periostitis lateral aspect distal fibula without evidence for osteomyelitis - S/p Debridement and irrigation of necrotic tissue (04/25) POD 1 - wound culture: Enterobacter - blood cultures NGTD - vancomycin and Zosyn d/c'd, switched to Ertapenem (Day 4 of ABX in total)+ - continue wound care Peripheral arterial disease - s/p debridement of RT ankle ulcer as indicated above - Per Surgery, possible below-knee amputation was discusses should limb salvage fail - Continue aspirin, cilostazol, statin Wheeze -likely secondary to hx of emphysema Continue Combivent -prn duoneb Ankle pain -Pain control s/p debridement PRN Morphine Alcohol use disorder - gabapentin + lorazepam per protocol - continue thiamine 100 mg daily Elevated lactic acid - resolved Leukocytosis - resolved -Continue to monitor Malnutrition - low prealbumin. - follow oral intake. Depression - continue sertraline Hepatitis C - follow up with ID as outpatient - HIV screen negative in March - AFP tumor marker 8.2 in March Tobacco use Nicotine patch 14 mg daily DVT prophylaxis - heparin Continued [facility] stay due to: multiple IV medications needed Discharge planning: home Resident Tracking Resident Involvement: Resident Care Provided Care Provided: Adult Hospital Medicine Reviewed: Pt Seen/Exam by Me History continues to have ankle pain. pain medicine helping some Constitutional: denies: fever Respiratory: negative: short of breath Cardiovascular: denies chest pain General Appearance: no apparent distress Respiratory: no respiratory distress, decreased breath sounds, rhonchi Cardiovascular: regular rate, rhythm Extremities: other (right foot in dressing) Neurologic/Psychiatric: alert, oriented x 3 Assessment/Plan Resident Physician Supervision Note: I independently interviewed and examined the patient and verified the salmeron history and physical, reviewed labs and image studies, discussed the case with the resident Dr. Agustin and agree with the findings and care plan.
[2017-04-26] MEDS: OXYCODONE HCL IR 5 MG TAB (IMMEDIATE RELEASE) PO PRN (10:41)
[2017-04-26] MEDS: ALBUT/IPRATROP 3MG/0.5MG NEB 3 ML VIAL INH SCH ×3 (11:27→19:40)
[2017-04-26] MEDS: ERTAPENEM IV 1 GM in SODIUM CHLOR 0.9% AD-VAN 50ML 50 ML IV SCH (12:08)
[2017-04-26] MEDS ORDERED: POLYETHYLENE (MIRALAX) 17 GM PACK PO PRN (17:30)
[2017-04-27] VITALS (11 sets, daily range): BP systolic 96–129; BP diastolic 58–77; PULSE 79–115; TEMP 36.4–37; O2SAT 93–98
[2017-04-27] MEDS: D5W AND 1/2NSS + 20MEQ KCL 1,000 ML IV SCH (03:13)
[2017-04-27] MEDS: MoRPHine SULFATE 2 MG/ML CARP IV PRN ×2 (06:29→21:47)
[2017-04-27] MEDS: ALBUT/IPRATROP 3MG/0.5MG NEB 3 ML VIAL INH SCH ×4 (06:57→19:08)
[2017-04-27 06:58] LABS: HEMATOCRIT 36.7 % (42-52); MEAN CELL VOLUME 95.1 fL (80-100); MEAN CORPUSCULAR HEMOGLOBIN 31.9 pg (25-34); MEAN CORPUSCULAR HGB CONC 33.5 g/dl (32-36); MEAN PLATELET VOLUME 10.1 fL (7.4-10.4); PLATELET COUNT 144 K/uL (130-400); RED BLOOD COUNT 3.86 M/uL (4.7-6.1); WHITE BLOOD COUNT 12.14 K/uL (4.8-10.8)
--- NOTE | 2017-04-27 07:04 | Orthopedic Progress Note ---
Orthopedic Progress Note Date of Service Apr 27, 2017. Subjective Post OP Day: 2 Reports: feeling well, pain controlled w PO medications, Denies: complaints, chest pain, SOB, nausea / vomiting, light headedness, calf pain Objective calves soft nontender, N/V intact, capillary refill less than 2 sec., dressing C /D/I, A&O x3, toes mobile, hemovac drainage Date Time Temp Pulse Resp B/P (MAP) Pulse Ox O2 Delivery O2 Flow Rate FiO2 04/27/17 06:59 87 16 96 Room Air 04/27/17 05:10 36.9 79 16 96/58 (71) 93 Room Air 04/27/17 04:00 Room Air 04/27/17 00:00 Room Air 04/26/17 23:52 36.7 87 18 162/62 (95) 93 Room Air 04/26/17 20:00 Room Air 04/26/17 19:40 86 16 97 Room Air 04/26/17 19:09 36.8 83 18 94/57 (69) 93 Room Air 04/26/17 16:00 Room Air 04/26/17 15:25 84 14 95 Nasal Cannula 1.0 04/26/17 15:16 36.5 85 18 115/66 (82) 96 04/26/17 12:00 Room Air 04/26/17 11:34 82 14 97 Nasal Cannula 2.0 04/26/17 11:07 36.6 84 18 107/65 (79) 98 2.0 04/26/17 08:00 Room Air 04/26/17 07:35 36.5 74 18 131/80 (97) 100 2.0 Laboratory Results 24 Hours: Date/Time Source Procedure Growth Status 04/23/17 21:07 Blood Blood Culture - Preliminary NO GROWTH TO DATE. Resulted 04/23/17 22:10 Urine , Clean Catch Urine Culture - Final Staphylococcus Aureus Complete 04/25/17 10:46 Tissue Ankle Right Gram Stain - Final Resulted 04/25/17 10:46 Bacterial Culture - Preliminary Enterobacter Cloacae Staph Species Resulted Test 04/27/17 06:19 Hematocrit 36.7 % Hemoglobin 12.3 g/dL Assessment & Plan Assessment: POD#2 SP I&D RIGHT ANKLE Plan: PT/OT DVT PROPH PAIN MANAGEMENT FOLLOW CULTURES. CONTINUE ERTAPENEM CONTINUE WOUND VAC. DRESSING CHANGES PER WOUND NURSE. Inhouse Planning Pain Management: Oxy IR Discharge Planning Discharge Planning: uncertain
[2017-04-27 07:30] LABS: BLOOD UREA NITROGEN 2 mg/dl (7-18); BUN/CREATININE RATIO 4.6 (10-20); CALCIUM 7.8 mg/dl (8.5-10.1); CARBON DIOXIDE 28 mmol/L (21-32); CHLORIDE 102 mmol/L (98-107); CREATININE 0.38 mg/dl (0.60-1.40); GLUCOSE 108 mg/dl (70-99); SODIUM 135 mmol/L (136-145)
[2017-04-27] MEDS: FLUTICASONE PROP HFA INH 44 MCG INHALER INH SCH ×2 (08:00→21:30)
[2017-04-27] MEDS: ATORVASTATIN 20 MG TAB PO SCH (08:01)
[2017-04-27] MEDS: ASPIRIN 81 MG ECTAB PO SCH (08:01)
[2017-04-27] MEDS: THIAMINE HCL 100 MG TAB PO SCH (08:01)
[2017-04-27] MEDS: CILOSTAZOL 100 MG TAB PO SCH ×2 (08:01→21:31)
[2017-04-27] MEDS: MONTELUKAST SOD 10 MG TAB PO SCH (08:01)
[2017-04-27] MEDS: SERTRALINE HCL 50 MG TAB PO SCH (08:01)
[2017-04-27] MEDS: NICOTINE 14 MG/24 HR TDSY TD SCH (08:01)
[2017-04-27] MEDS: PANTOprazole SOD 40 MG TAB PO SCH (08:01)
--- NOTE | 2017-04-27 08:02 | Anesthesiology Progress Note ---
Anesthesia Post Op Note Date & Time Apr 27, 2017 at 08:02 Vital Signs Vital Signs Past 12 Hours Date Time Temp Pulse Resp B/P (MAP) Pulse Ox O2 Delivery O2 Flow Rate FiO2 04/27/17 07:46 36.8 90 16 129/70 (89) 95 Room Air 04/27/17 06:59 87 16 96 Room Air 04/27/17 05:10 36.9 79 16 96/58 (71) 93 Room Air 04/27/17 04:00 Room Air 04/27/17 00:00 Room Air 04/26/17 23:52 36.7 87 18 162/62 (95) 93 Room Air Notes Mental Status: alert / awake / arousable, participated in evaluation Pt Amnestic to Procedure: Yes Nausea / Vomiting: adequately controlled Pain: adequately controlled Airway Patency, RR, SpO2: stable & adequate BP & HR: stable & adequate Hydration State: stable & adequate Anesthetic Complications: no major complications apparent
[2017-04-27] MEDS: HEPARIN SOD 5000 UNIT/0.5 ML CARP SQ SCH ×2 (08:06→23:35)
--- NOTE | 2017-04-27 10:56 | Orthopedic Progress Note ---
Orthopedic Progress Note Date of Service Apr 27, 2017. Subjective Additional Notes: Pt lying in bed, awake, alert. Wound Care Nurses removing wound vac at this time. No new complaints. Objective Area in question looks clean. Small amount of tendon visible. No overt purulence noted. Erythema still present. Date Time Temp Pulse Resp B/P (MAP) Pulse Ox O2 Delivery O2 Flow Rate FiO2 04/27/17 08:15 Room Air 04/27/17 07:46 36.8 90 16 129/70 (89) 95 Room Air 04/27/17 06:59 87 16 96 Room Air 04/27/17 05:10 36.9 79 16 96/58 (71) 93 Room Air 04/27/17 04:00 Room Air 04/27/17 00:00 Room Air 04/26/17 23:52 36.7 87 18 162/62 (95) 93 Room Air 04/26/17 20:00 Room Air 04/26/17 19:40 86 16 97 Room Air 04/26/17 19:09 36.8 83 18 94/57 (69) 93 Room Air 04/26/17 16:00 Room Air 04/26/17 15:25 84 14 95 Nasal Cannula 1.0 04/26/17 15:16 36.5 85 18 115/66 (82) 96 04/26/17 12:00 Room Air 04/26/17 11:34 82 14 97 Nasal Cannula 2.0 04/26/17 11:07 36.6 84 18 107/65 (79) 98 2.0 Laboratory Results 24 Hours: Test 04/27/17 06:19 Hematocrit 36.7 % Hemoglobin 12.3 g/dL Assessment & Plan Assessment: POD#3 SP I&D RIGHT ANKLE Plan: PT/OT DVT PROPH PAIN MANAGEMENT FOLLOW CULTURES. CONTINUE ERTAPENEM CONTINUE WOUND VAC. DRESSING CHANGES PER WOUND NURSE. NO FURTHER SURGERY AT THIS TIME ORTHO WILL SIGN OFF FOR NOW. PLEASE CALL WITH QUESTIONS. Inhouse Planning Pain Management: Oxy IR Discharge Planning Discharge Planning: uncertain
[2017-04-27] MEDS: ERTAPENEM IV 1 GM in SODIUM CHLOR 0.9% AD-VAN 50ML 50 ML IV SCH (11:48)
[2017-04-27] MEDS: MoRPHine SULFATE 4 MG/ML 1 ML CARP\\VIAL IV PRN ×3 (11:49→18:05)
[2017-04-27] MEDS ORDERED: GABAPENTIN 400MG Q24H DOSE PO SCH (12:00)
[2017-04-27] MEDS: OXYCODONE HCL IR 5 MG TAB (IMMEDIATE RELEASE) PO PRN ×2 (16:12→23:39)
[2017-04-27] MEDS ORDERED: NURSING VERBAL MED ORDER ONE (20:15)
[2017-04-27] MEDS: MAGNESIUM OXIDE 400 MG TAB PO SCH (21:48)
--- NOTE | 2017-04-27 22:07 | Progress Note ---
Subjective Date of Service: Apr 27, 2017. Subjective Pt evaluation today including: conversation w/ patient, physical exam, chart review, lab review, review of studies, review of inpatient medication list Pain: right ankle PO Intake: normal appetite; numerous candy bars and wrappers in the room Voiding: no voiding problems no events overnight asks about when "he might be going home" Review of Systems Constitutional: No fever Respiratory: No shortness of breath Cardiac: No chest pain Abdomen: No pain Objective Vital Signs Date Time Temp Pulse Resp B/P (MAP) Pulse Ox O2 Delivery O2 Flow Rate FiO2 04/27/17 20:07 37.0 115 18 100/61 (74) 93 Room Air 04/27/17 19:08 106 16 96 Room Air 04/27/17 15:11 36.6 97 18 128/77 (94) 94 04/27/17 14:16 94 16 98 Room Air 04/27/17 12:15 Room Air 04/27/17 11:56 36.4 88 18 120/71 (87) 97 04/27/17 11:13 89 16 97 Room Air 04/27/17 08:15 Room Air 04/27/17 07:46 36.8 90 16 129/70 (89) 95 Room Air 04/27/17 06:59 87 16 96 Room Air 04/27/17 05:10 36.9 79 16 96/58 (71) 93 Room Air 04/27/17 04:00 Room Air 04/27/17 00:00 Room Air 04/26/17 23:52 36.7 87 18 162/62 (95) 93 Room Air Physical Exam General Appearance: no apparent distress, + thin, + pertinent finding (sickly, malnourished appearing) ENT: + pharyngeal erythema, + pertinent finding (poor dentition) Neck: no JVD Respiratory/Chest: lungs clear, no respiratory distress, no accessory muscle use Cardiovascular: regular rate, rhythm, no gallop, no murmur Abdomen: normal bowel sounds, non tender, soft, no organomegaly Extremities: no pedal edema Neurologic/Psychiatric: alert, oriented x 3 Skin: + pertinent finding (wound vac in place, right lateral ankle; preulcers on toes, right foot (dorsal aspect)) Comments: vascular - right foot pulses 1+ at best; left foot pulses about 1-2+ Laboratory Results Last 24 Hours Test 04/27/17 06:19 White Blood Count 12.14 K/uL Red Blood Count 3.86 M/uL Hemoglobin 12.3 g/dL Hematocrit 36.7 % Mean Corpuscular Volume 95.1 fL Mean Corpuscular Hemoglobin 31.9 pg Mean Corpuscular Hemoglobin Concent 33.5 g/dl RDW Standard Deviation 44.2 fL RDW Coefficient of Variation 12.7 % Platelet Count 144 K/uL Mean Platelet Volume 10.1 fL Sodium Level 135 mmol/L Potassium Level 4.0 mmol/L Chloride Level 102 mmol/L Carbon Dioxide Level 28 mmol/L Anion Gap 5.0 mmol/L Blood Urea Nitrogen 2 mg/dl Creatinine 0.38 mg/dl Est Creatinine Clear Calc Drug Dose 194.2 ml/min Estimated GFR () > 150.0 Estimated GFR (Non- 134.7 BUN/Creatinine Ratio 4.6 Random Glucose 108 mg/dl Calcium Level 7.8 mg/dl Assessment and Plan 56yo male - 1. right ankle ulcer with superimposed infection - 2nd to enterobacter and staph. Currently on ertapenem. If staph is MRSA will then need to add MRSA coverage. s/p I&D and debridement by Dr. James with application of wound vac. Wound care team continues to follow and manage the vac. Imaging to date nondiagnostic for osteomyelitis. Could consider CT or a re-attempt at MRI. Will d/w patient in AM. 2. alcohol abuse - no signs of etoh withdrawal at this time. Cont thiamine/ folic acid/MVI and ativan prn. 3. thiamine def - increase thiamine to 200mg BID. 4. PAD - vascular has seen, may need a-gram with intervention. Cont asa, pletal, statin. Quit smoking. 5. tobacco dependence - nicoderm. 6. lymphocytosis with smudge cells - concerning for CLL. Send blood for formal peripheral smear by path in the AM. 7. hypomagnesemia - replace orally, repeat mag level in AM. 8. DVT proph - heparin BID. 9. staph UTI - ertapenem will cover. 10. COPD - not in exacerbation at this time. Cont daily controller agents. 11. HTN - BPs controlled w/o use of losartan. Cont to observe off the med. 12. FEN - stop the IVF. AHA diet. Continued [facility] stay due to: multiple IV medications needed Discharge planning: uncertain
[2017-04-28] VITALS (9 sets, daily range): BP systolic 92–110; BP diastolic 48–68; PULSE 79–102; TEMP 36.6–37.1; O2SAT 91–98
[2017-04-28 05:57] LABS: HEMATOCRIT 35.1 % (42-52); MEAN CELL VOLUME 94.9 fL (80-100); MEAN CORPUSCULAR HEMOGLOBIN 31.6 pg (25-34); MEAN CORPUSCULAR HGB CONC 33.3 g/dl (32-36); PLATELET COUNT 172 K/uL (130-400); WHITE BLOOD COUNT 14.53 K/uL (4.8-10.8)
[2017-04-28] MEDS: ALBUT/IPRATROP 3MG/0.5MG NEB 3 ML VIAL INH SCH ×4 (07:33→18:59)
[2017-04-28] MEDS: ATORVASTATIN 20 MG TAB PO SCH (08:28)
[2017-04-28] MEDS: PANTOprazole SOD 40 MG TAB PO SCH (08:28)
[2017-04-28] MEDS: MoRPHine SULFATE 2 MG/ML CARP IV PRN ×2 (08:28→14:51)
[2017-04-28] MEDS: ASPIRIN 81 MG ECTAB PO SCH (08:28)
[2017-04-28] MEDS: SERTRALINE HCL 50 MG TAB PO SCH (08:28)
[2017-04-28] MEDS: CILOSTAZOL 100 MG TAB PO SCH ×2 (08:28→20:38)
[2017-04-28] MEDS: THIAMINE HCL 100 MG TAB PO SCH ×2 (08:29→20:39)
[2017-04-28] MEDS: NICOTINE 14 MG/24 HR TDSY TD SCH (08:29)
[2017-04-28] MEDS: MONTELUKAST SOD 10 MG TAB PO SCH (08:29)
[2017-04-28] MEDS: FLUTICASONE PROP HFA INH 44 MCG INHALER INH SCH ×2 (08:30→20:37)
[2017-04-28] MEDS: CEROVITE ADV FORMULA TAB PO SCH (08:30)
[2017-04-28] MEDS: MAGNESIUM OXIDE 400 MG TAB PO SCH ×2 (08:30→20:38)
[2017-04-28] MEDS: HEPARIN SOD 5000 UNIT/0.5 ML CARP SQ SCH ×2 (08:36→20:41)
--- NOTE | 2017-04-28 08:45 | Progress Note ---
Progress Note Date of Service Apr 28, 2017. Progress Note Per ortho and wellness manager, R lateral wound appeared satisfactory during wound vac change yesterday. Please call if wound appears to be worsening, as pt may require arteriography if nonhealing. Continue abx per medicine/ID.
--- NOTE | 2017-04-28 09:47 | Medical Consult ---
Consultation Date of Consultation: Apr 28, 2017. Attending Physician: Daniel Clemente MD Reason for Consultation: Right ankle ulcer History of Present Illness 56-year-old male with history of alcohol abuse, COPD, who has been followed for the last month or so for nonhealing ischemic ulcer of his right ankle. He was seen at the Center for wound care, given a course of Augmentin for both his wound infection and an episode bronchitis. Ankle wound worsen, with increasing pain, rated 8/10 in intensity, and was ultimately admitted to the hospital for further management. He has now undergone debridement of the ankle ulcer in placement of a wound VAC. Cultures from the wound have grown a methicillin sensitive Staph aureus as well as Enterobacter cloacae. Patient currently being treated with IV ertapenem. Tolerating antibiotic without apparent difficulty. No fever, has been hemodynamically stable. Past Medical/Surgical History Past Medical/Surgical History Past Medical History: Alcohol use disorder Chronic obstructive pulmonary disease Current Smoker Dupuytren's contracture of both hands Fatty liver disease GERD Hypergammaglobulinemia Hypertension Leukocytosis Erectile dysfunction Skin ulcer of lower leg Viral hepatitis C Social anxiety disorder Vitamin B1 deficiency Vitamin D deficiency Past Surgical History: Tonsillectomy Family History Noncontributory Social History Smoking Status: Current Every Day Smoker Smokeless Tobacco Use: No Alcohol Use: heavy Drug Use: marijuana Marital Status: , Housing Status: lives alone Occupation Status: unemployed Allergies Coded Allergies: No Known Allergies (Verified Allergy, Mild, NONE, 02/15/09) Current Inpatient Medications Current Inpatient Medications Medications (Trade) Dose Ordered Sig/Natalya Route Start Time Stop Time Status Last Admin Dose Admin Heparin Sodium (Porcine) (Heparin Sq 5000 Unit/0.5ml) 5,000 unit Q12 SQ 04/24/17 09:00 05/24/17 08:59 04/28/17 08:36 5,000 UNIT Acetaminophen (Tylenol Tab) 650 mg Q4H PRN PO 04/23/17 23:00 05/23/17 22:59 Ondansetron HCl (Zofran Inj) 4 mg Q6H PRN IV 04/23/17 23:00 05/23/17 22:59 Fluticasone Propionate (Flovent Hfa 44MCG Inhaler) 2 puffs BID INH 04/24/17 09:00 05/24/17 08:59 04/28/17 08:30 2 PUFFS Albuterol/ Ipratropium (Combivent Respimat Inh) 2 puffs QID INH 04/24/17 09:00 05/24/17 08:59 Future Hold 04/26/17 07:14 2 PUFFS Montelukast Sodium (Singulair Tab) 10 mg DAILY PO 04/24/17 09:00 05/24/17 08:59 04/28/17 08:29 10 MG Sertraline HCl (Zoloft Tab) 50 mg DAILY PO 04/24/17 09:00 05/24/17 08:59 04/28/17 08:28 50 MG Pantoprazole Sodium (Protonix Tab) 40 mg QAM PO 04/24/17 09:00 05/24/17 08:59 04/28/17 08:28 40 MG Morphine Sulfate (MoRPHine SULFATE INJ) 2 mg Q2H PRN IV 04/23/17 23:30 05/07/17 23:29 04/28/17 08:28 2 MG Morphine Sulfate (MoRPHine SULFATE INJ) 4 mg Q2H PRN IV 04/23/17 23:30 05/07/17 23:29 04/27/17 18:05 4 MG Aspirin (Ecotrin Tab) 81 mg QAM PO 04/25/17 09:00 05/25/17 08:59 04/28/17 08:28 81 MG Cilostazol (Pletal Tab) 100 mg BID PO 04/24/17 21:00 05/24/17 20:59 04/28/17 08:28 100 MG Lorazepam (Ativan Tab) 1 mg ONE PRN PO 04/24/17 08:45 Atorvastatin Calcium (Lipitor Tab) 20 mg QAM PO 04/24/17 09:00 05/24/17 08:59 04/28/17 08:28 20 MG Ertapenem 1 gm/ Sodium Chloride 50 ml @ 120 mls/hr Q24H IV 04/25/17 12:00 05/03/17 11:59 04/27/17 11:48 120 MLS/HR Oxycodone HCl (Roxicodone Immediate Rel Tab) 1-2 TABS FOR PAIN 1 TABLET ... Q4H PRN PO 04/25/17 11:30 05/09/17 11:29 11/20/17 23:39 10 MG Nicotine (Nicoderm Cq 14MG Patch) 1 patch QAM TD 04/25/17 17:00 05/25/17 16:59 04/28/17 08:29 1 PATCH Miscellaneous (Remove Nicoderm Patch) 1 ea HS N/A 04/25/17 21:00 05/25/17 20:59 04/27/17 21:00 1 EA Albuterol/ Ipratropium (Duoneb) 3 ml QIDR INH 04/26/17 12:00 05/26/17 11:59 04/28/17 07:33 3 ML Polyethylene (Miralax Powder Packet) 17 gm DAILY PRN PO 04/26/17 17:30 05/26/17 17:29 Magnesium Oxide (Mag-Ox Tab) 400 mg BID PO 04/27/17 21:00 05/27/17 20:59 04/28/17 08:30 400 MG Thiamine HCl (Vitamin B-1 Tab) 200 mg BID PO 04/28/17 09:00 05/24/17 08:59 04/28/17 08:29 200 MG Multivitamins/ Minerals (Multivitamin W/ Minerals Tab) 1 tab QAM PO 04/28/17 09:00 05/28/17 08:59 04/28/17 08:30 1 TAB Folic Acid (Folvite Tab) 1 mg QAM PO 04/28/17 09:00 05/28/17 08:59 04/28/17 08:30 1 MG Magnesium Sulfate 1 gm/Prmx 100 ml @ 100 mls/hr Q1H IV 04/28/17 09:15 04/28/17 11:14 Review of Systems Constitutional: No fever, No chills Eyes: No problem reported ENT: No problem reported Respiratory: No problem reported Cardiovascular: No problem reported Abdomen: No problem reported Musculoskeletal: + joint pain Genitourinary - Male: No problem reported Neurologic: No problem reported Psychiatric: + depression symptoms, + substance abuse Endocrine: No problem reported Hematologic / Lymphatic: No problem reported Integumentary: + new/changing skin lesions Allergic / Immunologic: No problem reported Physical Exam Date Time Temp Pulse Resp B/P (MAP) Pulse Ox O2 Delivery O2 Flow Rate FiO2 04/28/17 07:41 36.7 90 18 104/68 (80) 92 Room Air 04/28/17 07:33 102 18 93 Room Air 04/28/17 05:11 36.9 88 16 103/60 (74) 91 04/28/17 04:00 Room Air 04/28/17 00:26 36.6 97 18 92/57 (69) 93 Room Air 04/28/17 00:00 Room Air 04/27/17 20:07 37.0 115 18 100/61 (74) 93 Room Air 04/27/17 20:00 94 Room Air 04/27/17 19:08 106 16 96 Room Air 04/27/17 16:00 94 Room Air 04/27/17 15:11 36.6 97 18 128/77 (94) 94 04/27/17 14:16 94 16 98 Room Air 04/27/17 12:15 Room Air 04/27/17 11:56 36.4 88 18 120/71 (87) 97 04/27/17 11:13 89 16 97 Room Air General Appearance: no apparent distress, + cachetic, + thin Head: normocephalic, atraumatic Eyes: normal inspection, EOMI, sclerae normal ENT: pharynx normal, + pertinent finding (poor dentition, multiple missing teeth) Neck: supple, no adenopathy, thyroid normal, trachea midline Respiratory/Chest: chest non-tender, lungs clear, normal breath sounds, no respiratory distress Cardiovascular: regular rate, rhythm, no gallop, no murmur Abdomen/GI: normal bowel sounds, non tender, soft, no organomegaly Back: normal inspection, no CVA tenderness Extremities/Musculoskelatal: no calf tenderness, + slow capillary refill Neurologic/Psych: alert, oriented x 3 Skin: normal color, no rash, + pertinent finding (wound VAC right ankle, surrounding erythema) Laboratory Results RUN DATE: 04/28/17 [facility] LAB PAGE 1 RUN TIME: 0700 Specimen Inquiry PATIENT: DMITRI EDUARDO LOC: [facility] # : [id number] AGE/SX: 56/M ROOM: 88 REG : 04/23/[address]: Daniel Clemente MD : 1960 BED: 1 DIS : STATUS: ADM IN TLOC: SPEC #: [id number] TREV: 04/25/17 STATUS: RES REQ #: [id number] RECD: 04/25/[address]: Kenna Jackson M.D. SOURCE: TISSUE ENTR: 04/25/17 [facility] DR: Charli Hayes D.[facility] Dmitri Mu[facility]iz MD Hester, Christopher E., M.D. Pasquariello, Rick D M.D. Rochon, Emile ., MD Simoni, Eugene J., M.D. ORDERED: AER/WIL CULTSMR Procedure Result Verified Site GRAM STAIN Final 04/25/17-1147 RESULT FEW WBCs SEEN RARE GRAM POSITIVE BACILLI RARE GRAM POSITIVE COCCI OR AER/IWL CULT Preliminary 04/28/17-699 Organism 1 ENTEROBACTER CLOACAE QUANITY MANY SENS SENSITIVITY TO FOLLOW Organism 2 STAPHYLOCOCCUS AUREUS QUANITY RARE SENS SENSITIVITY TO FOLLOW ENT CLOAC STAPH AUR M.I.C. RX M.I.C. RX --------- ------ --------- ------ TRIMET/SULFA <=2/38 S <=0.5/9.5 S * OXACILLIN <=0.25 S CEFOTAXIME >32 R CEFTRIAXONE >32 R CEFEPIME 8 S IMIPENEM <=1 S VANCOMYCIN 2 S GENTAMICIN <=4 S TOBRAMYCIN <=4 S ERYTHROMYCIN >4 R TETRACYCLINE <=4 S AMIKACIN <=16 S CIPROFLOXACIN <=1 S LEVOFLOXACIN <=2 S CLINDAMYCIN <=0.5 R ERTAPENEM <=1 S DAPTOMYCIN <=0.5 S PIP/TAZO >64 R CONTINUED ON NEXT PAGE RUN DATE: 04/28/17 [facility] LAB PAGE 2 RUN TIME: 0700 Specimen Inquiry SPEC: [id number] PATIENT: DMITRI EDUARDO [id number] ( Continued) Procedure Result Verified Site OR AER/WIL CULT Preliminary (continued) 04/28/17-699 1. ENTEROBACTER CLOACAE Target Route Dose RX AB Cost M.I.C. IQ ------ ----- ------ -- ------ -------- - ------ TRIMET/SULFA S <=/38 CEFOTAXIME R >32 CEFTRIAXONE R >32 CEFEPIME S 8 IMIPENEM S <=1 GENTAMICIN S <=4 TOBRAMYCIN S <=4 AMIKACIN S <=16 CIPROFLOXACIN S <=1 LEVOFLOXACIN S <=2 ERTAPENEM S <=1 PIP/TAZO R >64 2. STAPHYLOCOCCUS AUREUS Target Route Dose RX AB Cost M.I.C. IQ ------ ----- ------ -- ------ -------- - ------ TRIMET/SULFA S <=0.5/ 9.5 * OXACILLIN S <=0.25 VANCOMYCIN S 2 ERYTHROMYCIN R >4 TETRACYCLINE S <=4 CLINDAMYCIN R <=0.5 DAPTOMYCIN S <=0.5 S = SENSITIVE I = INTERMEDIATE R = RESISTANT END OF REPORT Last 24 Hours Test 04/28/17 05:16 White Blood Count 14.53 K/uL Red Blood Count 3.70 M/uL Hemoglobin 11.7 g/dL Hematocrit 35.1 % Mean Corpuscular Volume 94.9 fL Mean Corpuscular Hemoglobin 31.6 pg Mean Corpuscular Hemoglobin Concent 33.3 g/dl RDW Standard Deviation 44.1 fL RDW Coefficient of Variation 12.8 % Platelet Count 172 K/uL Mean Platelet Volume 10.0 fL Peripheral Blood Smear Path Consult Magnesium Level 1.6 mg/dl Patient Name: DMITRI EDUARDO Unit Number: [id number] Dictated: 04/24/17708 Transcribed: 04/24/17708 MS Printed Date/Time: [~ rep prt dt]/[~ rep prt tm] [~ rep ct labl] - [~ rep ct ivnm] [facility] [place] [address] Dictated: 04/24/17708 Transcribed: 04/24/17708 MS Printed Date/Time: [~ rep prt dt]/[~ rep prt tm] [~ rep ct labl] - [~ rep ct ivnm] LOWER EXT JOINT WITHOUT CLINICAL HISTORY: right lower extremity ulcer pain. Infection. TECHNIQUE: Multiaxial MRI acquisition COMPARISON STUDY: None FINDINGS: Limited/near nondiagnostic study due to considerable patient motion. Coronal images demonstrate skin ulcerations medially lateral to the distal fibula. Distal fibula shows unremarkable signal characteristics of the bone marrow. The may be a slight degree of edematous change of the lateral periosteum. No evidence for drainable abscess or collection. Major ligamentous and tendinous structures are unremarkable. Mild peroneal tendinitis. No major ligamentous disruption. Medial and lateral collateral ligament complexes are intact. Subtalar joint shows minimal degree of edematous change. Very slight degree of focal bone marrow edema at the medial and lateral talar dome region. IMPRESSION: 1. Near nondiagnostic exam due to patient motion. 2. Soft tissue ulceration lateral to the distal fibula 3. Potential mild periostitis lateral aspect distal fibula. 4. No well-defined evidence within motion limitations for osteomyelitis. 5. Scattered areas of degenerative bone marrow edematous change medial and lateral talar dome. The above report was generated using voice recognition software. It may contain grammatical, syntax or spelling errors. Electronically signed by: Edmund Wiggins M.D. 04/24/2017 7:16 AM Dictated Date/Time: 04/24/2017 7:09 AM The status of this report is Signed. Draft = Not yet reviewed or approved by Radiologist. Signed = Reviewed and approved by Radiologist. <AttendingPhy>Nikko Kendall M.D.</AttendingPhy> <FamilyPhy>Darci Johnston M.D.</FamilyPhy> <PrimaryPhy>Darci Johnston M.D.</ PrimaryPhy> <UnitNumber>[id number]</UnitNumber> <VisitNumber>[id number]</ VisitNumber> <PatientName>DMITRI EDUARDO</PatientName> <DateOfBirth>1960</ DateOfBirth> <Location>[facility]</Location> <ServiceDate>04/23/17</ServiceDate> <MNE >ESINDI</MNE> <OrderingPhy>Nikko Kendall M.D.</OrderingPhy> < OrderingPhyMNE>f rep ord dr lópez</OrderingPhyMNE> <DictatingPhyMNE>f rep dict dr lópez</DictatingPhyMNE> <CCListMNE>f rep ct dilciae</CCListMNE> <AdmittingPhyMNE>f pt admit dr lópez</AdmittingPhyMNE> <AttendingPhyMNE>f pt attend dr lópez</ AttendingPhyMNE> <ConsultingPhyMNE>f pt consult dr lópez</ConsultingPhyMNE> <FamilyPhyMNE>f pt fam dr lópez</FamilyPhyMNE> <OtherPhyMNE>f pt other dr lópez</OtherPhyMNE> < PrimaryPhyMNE>f pt prim care dr lópez</PrimaryPhyMNE> <ReferringPhyMNE>f pt referring dr lópez</ReferringPhyMNE> Assessment & Plan Necrotic right ankle ulcer in setting of severe PAD with cultures with MSSA and Enterobacter. Agree with use of ertapenem, likely will need prolonged IV RX. [facility]. Will discuss.
[2017-04-28] MEDS: MAGNESIUM SULFATE 1GM / D5W 1 GM in PREMIXED IN D5W 100 ML IV SCH ×2 (10:16→11:17)
[2017-04-28] MEDS: OXYCODONE HCL IR 5 MG TAB (IMMEDIATE RELEASE) PO PRN (10:16)
[2017-04-28] MEDS: ERTAPENEM IV 1 GM in SODIUM CHLOR 0.9% AD-VAN 50ML 50 ML IV SCH (12:22)
--- NOTE | 2017-04-28 20:30 | Progress Note ---
Subjective Date of Service: Apr 28, 2017. Subjective Pt evaluation today including: conversation w/ patient, physical exam, chart review, lab review, review of inpatient medication list Pain: right foot PO Intake: no issues Voiding: no voiding problems tele normal overnight no signs/symptoms of alcohol withdrawal feeling fine and anxious to go home denies ANY IV drug abuse in "many years" admits to significant weight loss in the last year - about 50 pounds Review of Systems Constitutional: No fever, No chills Respiratory: No shortness of breath Cardiac: No chest pain Abdomen: No pain, No diarrhea Objective Vital Signs Date Time Temp Pulse Resp B/P (MAP) Pulse Ox O2 Delivery O2 Flow Rate FiO2 04/28/17 18:59 94 16 98 Room Air 04/28/17 16:10 Room Air 04/28/17 16:02 36.7 89 18 110/67 (81) 94 Room Air 04/28/17 12:30 Room Air 04/28/17 11:40 37.1 84 18 109/65 (80) 92 Room Air 04/28/17 11:31 93 18 96 Room Air 04/28/17 08:25 Room Air 04/28/17 07:41 36.7 90 18 104/68 (80) 92 Room Air 04/28/17 07:33 102 18 93 Room Air 04/28/17 05:11 36.9 88 16 103/60 (74) 91 04/28/17 04:00 Room Air 04/28/17 00:26 36.6 97 18 92/57 (69) 93 Room Air 04/28/17 00:00 Room Air Physical Exam General Appearance: no apparent distress, + cachetic, + thin ENT: + pharyngeal erythema Neck: no JVD Respiratory/Chest: no respiratory distress, no accessory muscle use, + wheezing (b/l - end-exp) Cardiovascular: regular rate, rhythm, no gallop, no murmur Abdomen: normal bowel sounds, non tender, soft, no organomegaly Extremities: no pedal edema Neurologic/Psychiatric: alert, oriented x 3, + pertinent finding (no signs of alcohol withdrawal ) Skin: + pertinent finding (right ankle, lateral aspect - woundvac in place; preulcers/ulcers of 1st and 2nd toe, right foot - no changes) Comments: vascular - pulses, right foot, <1+; left foot 1-2+ Laboratory Results Last 24 Hours Test 04/28/17 05:16 White Blood Count 14.53 K/uL Red Blood Count 3.70 M/uL Hemoglobin 11.7 g/dL Hematocrit 35.1 % Mean Corpuscular Volume 94.9 fL Mean Corpuscular Hemoglobin 31.6 pg Mean Corpuscular Hemoglobin Concent 33.3 g/dl RDW Standard Deviation 44.1 fL RDW Coefficient of Variation 12.8 % Platelet Count 172 K/uL Mean Platelet Volume 10.0 fL Peripheral Blood Smear Path Consult Magnesium Level 1.6 mg/dl Assessment and Plan 56yo male - 1. right ankle ulcer with enterobacter and MSSA infection - s/p I&D and debridement by Dr. James with application of wound vac. Wound care team continues to follow and manage the vac. Imaging to date nondiagnostic for osteomyelitis. ID consultation requested - recommending lengthy course of IV ertapenem. PICC line consent obtained. Although he had prior h/o IV drug usage this was many years ago and tox screen this admission was negative for IV drugs. 2. alcohol abuse - no signs of etoh withdrawal at this time. Cont thiamine/ folic acid/MVI and ativan prn. 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 Rx for 30 days. 4. PAD - vascular has seen, may need a-gram with intervention. Cont asa, pletal, statin. Quit smoking. 5. tobacco dependence - nicoderm. 6. lymphocytosis with smudge cells - concerning for CLL. Flow cytometry pending. Patient made aware of the cbc results. 7. hypomagnesemia - 2 grams mag sulfate, repeat mag level AM. 8. DVT proph - heparin BID. 9. staph UTI - ertapenem will cover. No symptoms at this time/resolved. 10. COPD - not in exacerbation at this time. Cont daily controller agents. 11. HTN - BPs controlled w/o use of losartan. Cont to observe off the med. 12. FEN - AHA diet, K/mag levels am. 13. weight loss with severe protein calorie malnutrition - due to hepC? CLL? other malignancy or other condition? cont MVI and supplements d/c tomorrow or with PICC line and IV antibiotics? will need to d/w social work staff d/c tele, move to med/surg Continued [facility] stay due to: multiple IV medications needed Discharge planning: home with home health, home with IV medication
[2017-04-28] MEDS: MoRPHine SULFATE 4 MG/ML 1 ML CARP\\VIAL IV PRN (20:33)
[2017-04-29 06:22] LABS: BUN/CREATININE RATIO 9.8 (10-20); CALCIUM 8.3 mg/dl (8.5-10.1); CREATININE 0.46 mg/dl (0.60-1.40); POTASSIUM 3.9 mmol/L (3.5-5.1)
[2017-04-29] MEDS: ALBUT/IPRATROP 3MG/0.5MG NEB 3 ML VIAL INH SCH ×2 (07:15→11:26)
[2017-04-29 08:44] VITALS: BP 137/71; PULSE 87; TEMP 36.6; O2SAT 95
[2017-04-29] MEDS: FLUTICASONE PROP HFA INH 44 MCG INHALER INH SCH ×2 (08:49→20:29)
[2017-04-29] MEDS: SERTRALINE HCL 50 MG TAB PO SCH (08:50)
[2017-04-29] MEDS: MONTELUKAST SOD 10 MG TAB PO SCH (08:50)
[2017-04-29] MEDS: ATORVASTATIN 20 MG TAB PO SCH (08:50)
[2017-04-29] MEDS: PANTOprazole SOD 40 MG TAB PO SCH (08:50)
[2017-04-29] MEDS: THIAMINE HCL 100 MG TAB PO SCH ×2 (08:50→20:31)
[2017-04-29] MEDS: ASPIRIN 81 MG ECTAB PO SCH (08:51)
[2017-04-29] MEDS: MAGNESIUM OXIDE 400 MG TAB PO SCH ×2 (08:51→20:30)
[2017-04-29] MEDS: CILOSTAZOL 100 MG TAB PO SCH ×2 (08:51→20:30)
[2017-04-29] MEDS: NICOTINE 14 MG/24 HR TDSY TD SCH (08:52)
[2017-04-29] MEDS: CEROVITE ADV FORMULA TAB PO SCH (08:52)
[2017-04-29] MEDS: HEPARIN SOD 5000 UNIT/0.5 ML CARP SQ SCH ×2 (08:54→20:34)
[2017-04-29] MEDS: OXYCODONE HCL IR 5 MG TAB (IMMEDIATE RELEASE) PO PRN ×2 (09:00→13:20)
[2017-04-29] MEDS: ERTAPENEM IV 1 GM in SODIUM CHLOR 0.9% AD-VAN 50ML 50 ML IV SCH (11:52)
[2017-04-29] MEDS: IPRATROPIUM BROMIDE/ALBUTEROL respimat INH INH SCH ×3 (12:31→20:28)
[2017-04-29 15:28] VITALS: BP 116/81; PULSE 101; TEMP 36.8; O2SAT 94
--- NOTE | 2017-04-29 15:36 | Infectious Disease Progress Nt ---
Progress Note Date of Service Apr 29, 2017. Subjective Pt evaluation today including: conversation w/ patient, physical exam, chart review, lab review, review of studies, conversation w/ analytics consultant, review of inpatient medication list Patient offering no new complaints today. Remains afebrile. Pain controlled. Tolerating ertapenem without apparent difficulty. All Other Systems: Reviewed and Negative Medications Current Inpatient Medications Medications (Trade) Dose Ordered Sig/Natalya Route Start Time Stop Time Status Last Admin Dose Admin Heparin Sodium (Porcine) (Heparin Sq 5000 Unit/0.5ml) 5,000 unit Q12 SQ 04/24/17 09:00 05/24/17 08:59 04/29/17 08:54 5,000 UNIT Acetaminophen (Tylenol Tab) 650 mg Q4H PRN PO 04/23/17 23:00 05/23/17 22:59 Ondansetron HCl (Zofran Inj) 4 mg Q6H PRN IV 04/23/17 23:00 05/23/17 22:59 Fluticasone Propionate (Flovent Hfa 44MCG Inhaler) 2 puffs BID INH 04/24/17 09:00 05/24/17 08:59 04/29/17 08:49 2 PUFFS Montelukast Sodium (Singulair Tab) 10 mg DAILY PO 04/24/17 09:00 05/24/17 08:59 04/29/17 08:50 10 MG Sertraline HCl (Zoloft Tab) 50 mg DAILY PO 04/24/17 09:00 05/24/17 08:59 04/29/17 08:50 50 MG Pantoprazole Sodium (Protonix Tab) 40 mg QAM PO 04/24/17 09:00 05/24/17 08:59 04/29/17 08:50 40 MG Morphine Sulfate (MoRPHine SULFATE INJ) 2 mg Q2H PRN IV 04/23/17 23:30 05/07/17 23:29 04/28/17 14:51 2 MG Morphine Sulfate (MoRPHine SULFATE INJ) 4 mg Q2H PRN IV 04/23/17 23:30 05/07/17 23:29 04/28/17 20:33 4 MG Aspirin (Ecotrin Tab) 81 mg QAM PO 04/25/17 09:00 05/25/17 08:59 04/29/17 08:51 81 MG Cilostazol (Pletal Tab) 100 mg BID PO 04/24/17 21:00 05/24/17 20:59 04/29/17 08:51 100 MG Lorazepam (Ativan Tab) 1 mg ONE PRN PO 04/24/17 08:45 Atorvastatin Calcium (Lipitor Tab) 20 mg QAM PO 04/24/17 09:00 05/24/17 08:59 04/29/17 08:50 20 MG Ertapenem 1 gm/ Sodium Chloride 50 ml @ 120 mls/hr Q24H IV 04/25/17 12:00 05/03/17 11:59 04/29/17 11:52 120 MLS/HR Oxycodone HCl (Roxicodone Immediate Rel Tab) 1-2 TABS FOR PAIN 1 TABLET ... Q4H PRN PO 04/25/17 11:30 05/09/17 11:29 04/29/17 13:20 10 MG Nicotine (Nicoderm Cq 14MG Patch) 1 patch QAM TD 04/25/17 17:00 05/25/17 16:59 04/29/17 08:52 1 PATCH Miscellaneous (Remove Nicoderm Patch) 1 ea HS N/A 04/25/17 21:00 05/25/17 20:59 04/28/17 20:37 1 EA Polyethylene (Miralax Powder Packet) 17 gm DAILY PRN PO 04/26/17 17:30 05/26/17 17:29 Magnesium Oxide (Mag-Ox Tab) 400 mg BID PO 04/27/17 21:00 05/27/17 20:59 04/29/17 08:51 400 MG Thiamine HCl (Vitamin B-1 Tab) 200 mg BID PO 04/28/17 09:00 05/24/17 08:59 04/29/17 08:50 200 MG Multivitamins/ Minerals (Multivitamin W/ Minerals Tab) 1 tab QAM PO 04/28/17 09:00 05/28/17 08:59 04/29/17 08:52 1 TAB Folic Acid (Folvite Tab) 1 mg QAM PO 04/28/17 09:00 05/28/17 08:59 04/29/17 08:49 1 MG Albuterol/ Ipratropium (Combivent Respimat Inh) 1 puffs QID INH 04/29/17 13:00 12/22/17 12:59 04/29/17 12:31 1 PUFFS Heparin Sodium (Porcine) (Heparin 10 Unit/ ml 5 ml Flush) 5 ml PRN PRN FLUSH 04/29/17 12:30 05/29/17 12:29 Objective Vital Signs Date Time Temp Pulse Resp B/P (MAP) Pulse Ox O2 Delivery O2 Flow Rate FiO2 04/29/17 15:28 36.8 101 16 116/81 (93) 94 Room Air 04/29/17 08:44 36.6 87 16 137/71 (93) 95 Room Air 04/29/17 08:00 Room Air 04/29/17 00:00 Room Air 04/28/17 23:24 37.0 79 17 101/48 (65) 93 Room Air 04/28/17 20:00 Room Air 04/28/17 18:59 94 16 98 Room Air 04/28/17 16:10 Room Air 04/28/17 16:02 36.7 89 18 110/67 (81) 94 Room Air Physical Exam General Appearance: WD/WN, no apparent distress Eyes: normal inspection, EOMI, sclerae normal ENT: normal ENT inspection, pharynx normal Neck: supple, no adenopathy, trachea midline Respiratory/Chest: chest non-tender, lungs clear, normal breath sounds, no respiratory distress Cardiovascular: regular rate, rhythm, no gallop, no murmur Abdomen: normal bowel sounds, non tender, soft, no organomegaly Extremities: non-tender, no calf tenderness Neurologic/Psychiatric: alert, oriented x 3 Skin: normal color, no rash, + pertinent finding (Wound VAC in place right ankle) Lymphatic: no adenopathy Laboratory Results Last 24 Hours Test 04/29/17 05:22 Sodium Level 131 mmol/L Potassium Level 3.9 mmol/L Chloride Level 96 mmol/L Carbon Dioxide Level 28 mmol/L Anion Gap 7.0 mmol/L Blood Urea Nitrogen 5 mg/dl Creatinine 0.46 mg/dl Est Creatinine Clear Calc Drug Dose 155.6 ml/min Estimated GFR () 144.3 Estimated GFR (Non- 124.5 BUN/Creatinine Ratio 9.8 Random Glucose 95 mg/dl Calcium Level 8.3 mg/dl Magnesium Level 2.0 mg/dl Assessment and Plan Necrotic right ankle ulcer in setting of severe PAD with cultures with MSSA and Enterobacter. Agree with use of ertapenem, likely will need prolonged IV RX. [facility]. Will discuss.
[2017-04-29] MEDS: MoRPHine SULFATE 2 MG/ML CARP IV PRN ×2 (17:19→21:10)
[2017-04-29] MEDS: BOOST PLUS VANILLA PO SCH ×2 (17:19)
--- NOTE | 2017-04-29 21:23 | Progress Note ---
Subjective Date of Service: Apr 29, 2017. Subjective Pt evaluation today including: conversation w/ patient, physical exam, chart review, lab review, conversation w/ proposal consultant (social work), review of inpatient medication list Pain: right ankle only PO Intake: normal Voiding: no voiding problems no issues overnight anxious to go home feels good Review of Systems Constitutional: No fever, No chills Respiratory: + cough, + wheezing, No shortness of breath Cardiac: No chest pain Abdomen: No pain, No diarrhea Objective Vital Signs Date Time Temp Pulse Resp B/P (MAP) Pulse Ox O2 Delivery O2 Flow Rate FiO2 04/29/17 16:00 Room Air 04/29/17 15:28 36.8 101 16 116/81 (93) 94 Room Air 04/29/17 08:44 36.6 87 16 137/71 (93) 95 Room Air 04/29/17 08:00 Room Air 04/29/17 00:00 Room Air 04/28/17 23:24 37.0 79 17 101/48 (65) 93 Room Air Physical Exam General Appearance: no apparent distress, + cachetic, + thin ENT: + pharyngeal erythema (no change; no obvious thrush) Neck: no JVD Respiratory/Chest: no respiratory distress, no accessory muscle use, + wheezing Cardiovascular: regular rate, rhythm, no gallop, no murmur Abdomen: normal bowel sounds, non tender, soft, no organomegaly Extremities: no pedal edema Neurologic/Psychiatric: alert, oriented x 3 Skin: + pertinent finding (no change in ulcerations on first and 2nd toes; wound vac in place, right lateral ankle; lateral malleolus with mild erythema and mild tenderness to palpation ) Laboratory Results Last 24 Hours Test 04/29/17 05:22 Sodium Level 131 mmol/L Potassium Level 3.9 mmol/L Chloride Level 96 mmol/L Carbon Dioxide Level 28 mmol/L Anion Gap 7.0 mmol/L Blood Urea Nitrogen 5 mg/dl Creatinine 0.46 mg/dl Est Creatinine Clear Calc Drug Dose 155.6 ml/min Estimated GFR () 144.3 Estimated GFR (Non- 124.5 BUN/Creatinine Ratio 9.8 Random Glucose 95 mg/dl Calcium Level 8.3 mg/dl Magnesium Level 2.0 mg/dl Assessment and Plan 56yo male - 1. right ankle ulcer with enterobacter and MSSA infection - s/p I&D and debridement by Dr. James with application of wound vac. Wound care team continues to follow and manage the vac. Imaging to date nondiagnostic for osteomyelitis. ID consultation requested - recommending lengthy course of IV ertapenem. PICC line in place, DELMA. Although he had prior h/o IV drug usage this was many years ago and tox screen this admission was negative for IV drugs. Social work processing the IV ertapenem for his home. Pending as of afternoon of 04/29/17. 2. alcohol abuse - no signs of etoh withdrawal at this time. Cont thiamine/ folic acid/MVI and ativan prn. 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 Rx for 30 days. 4. PAD - vascular has seen, may need a-gram with intervention in the future. Cont asa, pletal, statin. Quit smoking. 5. tobacco dependence - nicoderm. 6. lymphocytosis with smudge cells - concerning for CLL. Flow cytometry pending. Patient made aware of the cbc results. 7. hypomagnesemia - resolved. 8. DVT proph - heparin BID. 9. staph UTI - resolved. 10. COPD - not in exacerbation at this time. Cont daily controller agents and combivent QID. 11. HTN - BPs controlled w/o use of losartan. Cont to observe off the med. 12. FEN - AHA diet, K/mag levels stable. 13. weight loss with severe protein calorie malnutrition - due to hepC? CLL? other malignancy or other condition? cont MVI and supplements ideally he needs colonoscopy, EGD, chest CT, etc. 14. hyponatremia - appears chronic. SIADH? Will check serum osm, urine osm, urine sodium. Repeat Na level in am. Baseline appears to be low 130s. Once woundvac services are in place and auth for home IV abx has been obtained he can d/c home. ? Thursday? Continued [facility] stay due to: multiple IV medications needed Discharge planning: home with home health, home with IV medication
[2017-04-30 00:18] VITALS: BP 117/60; PULSE 90; TEMP 37.1; O2SAT 96
[2017-04-30] MEDS: OXYCODONE HCL IR 5 MG TAB (IMMEDIATE RELEASE) PO PRN ×4 (03:53→17:07)
[2017-04-30 07:33] VITALS: BP 114/64; PULSE 85; TEMP 36.5; O2SAT 98
[2017-04-30] MEDS: IPRATROPIUM BROMIDE/ALBUTEROL respimat INH INH SCH ×2 (08:57→12:04)
[2017-04-30] MEDS: FLUTICASONE PROP HFA INH 44 MCG INHALER INH SCH (08:57)
[2017-04-30] MEDS: MAGNESIUM OXIDE 400 MG TAB PO SCH (08:58)
[2017-04-30] MEDS: THIAMINE HCL 100 MG TAB PO SCH (08:59)
[2017-04-30] MEDS: ASPIRIN 81 MG ECTAB PO SCH (08:59)
[2017-04-30] MEDS: CEROVITE ADV FORMULA TAB PO SCH (08:59)
[2017-04-30] MEDS: PANTOprazole SOD 40 MG TAB PO SCH (08:59)
[2017-04-30] MEDS: SERTRALINE HCL 50 MG TAB PO SCH (08:59)
[2017-04-30] MEDS: MONTELUKAST SOD 10 MG TAB PO SCH (08:59)
[2017-04-30] MEDS: NICOTINE 14 MG/24 HR TDSY TD SCH (09:00)
[2017-04-30] MEDS: CILOSTAZOL 100 MG TAB PO SCH (09:00)
[2017-04-30] MEDS: BOOST PLUS VANILLA PO SCH ×2 (09:01)
[2017-04-30] MEDS: ATORVASTATIN 20 MG TAB PO SCH (09:01)
[2017-04-30] MEDS: HEPARIN SOD 5000 UNIT/0.5 ML CARP SQ SCH (09:05)
[2017-04-30] MEDS: ERTAPENEM IV 1 GM in SODIUM CHLOR 0.9% AD-VAN 50ML 50 ML IV SCH (11:31)
[2017-04-30 11:43] VITALS: BP 147/50; PULSE 50; TEMP 36.4; O2SAT 96
[2017-04-30] MEDS ORDERED: Boost Plus Vanilla PO (15:45)
[2017-04-30] MEDS ORDERED: FLV1 PO (15:45)
[2017-04-30] MEDS ORDERED: THM100 PO (15:45)
[2017-04-30] MEDS ORDERED: NICO14DI5 TD (15:45)
[2017-04-30] MEDS ORDERED: PLT100 PO (15:45)
[2017-04-30] MEDS ORDERED: MGNO400 PO (15:45)
[2017-04-30] MEDS ORDERED: ASPEC81 PO (15:45)
[2017-04-30] MEDS ORDERED: RXC5 PO (15:45)
[2017-04-30] MEDS ORDERED: ERTA1INJ IV (15:45)
[2017-04-30] MEDS ORDERED: LPT20 PO (15:45)
[2017-04-30] MEDS ORDERED: CNT PO (15:45)
--- NOTE | 2017-04-30 15:57 | Discharge Instructions ---
Discharge Instructions Date of Service Apr 30, 2017. Admission Reason for Admission: Alcohol Abuse, Alcohol Intoxication, Cellulitis, Discharge Discharge Diagnosis / Problem: infected ankle wound Discharge Goals Goal(s): Diagnostic testing, Therapeutic intervention Activity Recommendations Activity Limitations: resume your previous activity (as possible within the limitations related to the wound vac) . Instructions / Follow-Up Instructions / Follow-Up infected ankle ulcer -continue the home IV antibiotic (invanz, ertapenem) once a day until Dr Sheriff ( at the wound clinic) directs otherwise -continue the wound vac and ongoing follow up at the wound clinic -obviously if there are any worrisome signs for infection (spreading redness, increased pain, fevers) we'd want you seen right away alcohol -please avoid any and all alcohol - with your current weakness as well as the vitamin/nutrient deficiencies, drinking could easily make you much sicker. and with your thiamine deficiency, you actually risk a permanent brain damage if you keep drinking. thiamine deficiency - thiamine is a B vitamin that helps nerves function - you were at dangerously low levels. avoid alcohol - this is typically what "saps" you of thiamine. take a large supplement dose (200mg twice a day) for a month, then reduce to 100mg daily. have your PCP repeat levels in a few months peripheral arterial disease (blockages of blood vessels in your legs) -stopping smoking is the single most important thing you can do to keep this from getting worse (worse would be more ulcers that don't heal, more pain, losing feet/legs etc) -take the medications (aspirin, lipitor, pletal) to help keep blood flowing through the blocked arteries as best as possible -continue to follow with your family doc as well as with a vascular surgeon (dr baig) to keep an eye on this lymphocytosis with smudge cells - these were the abnormalities on your blood counts that Dr Clemente talked to you about. a test called "flow cytometry" can help define things further, and once it is back your PCP can review the results with you. it will likely be mostly an ongoing monitoring issue, although your PCP might need to enlist an oncologist to help track and/or manage things weight loss with severe protein calorie malnutrition - continue to follow closely with dr johnston in this regard. it might all be related to alcohol and the subsequent nutritional deficiencies, but he'll also want to make sure you' re up to date on cancer screenings (colonoscopy and such) hep C - talk more with Dr Johnston and Dr Sheriff about treatment low sodium (hyponatremia) - likely relates to drinking. avoid alcohol, have Dr Johnston follow periodic labs ([facility]) to ensure this continues to improve Current Hospital Diet Patient's current hospital diet: Regular Diet Discharge Diet Recommended Diet: Regular Diet Procedures Procedures Performed: Right Ankle Incision and Drainage & Application of Wound Vac Pending Studies Studies pending at discharge: no Laboratory Results Hemoglobin A1c Test 04/13/17 11:08 Range/Units Estimated Average Glucose 103 mg/dl Hemoglobin A1c 5.2 4.5-5.6 % Lipid Panel Test 03/30/17 08:46 Range/Units Triglycerides Level 91 0-150 mg/dl Cholesterol Level 156 0-200 mg/dl HDL Cholesterol 43 mg/dl Cholesterol/HDL Ratio 3.6 LDL Cholesterol, Calculated 95 mg/dl Medical Emergencies . Who to Call and When: Medical Emergencies: If at any time you feel your situation is an emergency, please call 911 immediately. . Non-Emergent Contact Non-Emergency issues call your: Primary Care Provider, Specialist (infectious disease - Dr Sheriff, wound clinic) . . "Provider Documentation" section prepared by Ole Acevedo. . VTE Core Measure Inpt VTE Proph given/why not?: Enoxaparin (Lovenox)[facility] Drug Monitoring Program Search Results: patient reviewed within database, no issues identified
[2017-04-30 16:18] VITALS: BP 147/50; PULSE 50; TEMP 36.4; O2SAT 96
--- NOTE | 2017-04-30 18:04 | Discharge Summary ---
Discharge Summary Date of Service Apr 30, 2017. Discharge Summary Admission Date: Apr 23, 2017 at 22:59 Discharge Date: Apr 30, 2017 Discharge Disposition: Home with services Principal Diagnosis: infected ankle ulcer Immunizations: Have You Had Influenza Vaccine: Unknown History of Tetanus Vaccine?: Unknown History of Pneumococcal: Unknown History of Hepatitis B Vaccine: Unknown Procedures: I&D right ankle ART DOP LOWER EXT BILAT CLINICAL HISTORY: right lower extremity ulceration thrombosis COMPARISON STUDY: None FINDINGS: Real-time as well as Doppler evaluation of the arterial structures of the lower legs was performed. Study is limited as patient would not cooperate for the exam. Study is near nondiagnostic. Severe degenerative atherosclerotic change throughout. Dampened waveforms bilaterally. The following blood pressure indices were obtained. Not obtainable IMPRESSION: Limited study as the patient refused the STUDY. SEVERE ATHEROSCLEROTIC CHANGES THROUGHOUT. The above report was generated using voice recognition software. It may contain grammatical, syntax or spelling errors. LOWER EXT JOINT WITHOUT CLINICAL HISTORY: right lower extremity ulcer pain. Infection. TECHNIQUE: Multiaxial MRI acquisition COMPARISON STUDY: None FINDINGS: Limited/near nondiagnostic study due to considerable patient motion. Coronal images demonstrate skin ulcerations medially lateral to the distal fibula. Distal fibula shows unremarkable signal characteristics of the bone marrow. The may be a slight degree of edematous change of the lateral periosteum. No evidence for drainable abscess or collection. Major ligamentous and tendinous structures are unremarkable. Mild peroneal tendinitis. No major ligamentous disruption. Medial and lateral collateral ligament complexes are intact. Subtalar joint shows minimal degree of edematous change. Very slight degree of focal bone marrow edema at the medial and lateral talar dome region. IMPRESSION: 1. Near nondiagnostic exam due to patient motion. 2. Soft tissue ulceration lateral to the distal fibula 3. Potential mild periostitis lateral aspect distal fibula. 4. No well-defined evidence within motion limitations for osteomyelitis. 5. Scattered areas of degenerative bone marrow edematous change medial and lateral talar dome. The above report was generated using voice recognition software. It may contain grammatical, syntax or spelling errors. Electronically signed by: Edmund Wiggins M.D. 04/24/2017 7:16 AM R FOOT MIN 3 VIEWS ROUTINE, R ANKLE MIN 3 VIEWS ROUTINE CLINICAL HISTORY: osteo?. Right ankle wound. COMPARISON STUDY: Right foot 08/18/2016. Right ankle 04/16/2017. FINDINGS: The bones are osteopenic. The Lisfranc joint is intact. Mild soft tissue swelling within the forefoot. An 11 mm skin ulceration at the head of the first metatarsal. No underlying bony destruction at this time to suggest osteomyelitis. There is also a 3 cm skin ulceration at the lateral malleolus. No underlying bony destruction to suggest osteomyelitis. Soft tissue swelling within the ankle. No fracture or dislocation within the right ankle. IMPRESSION: 1. Skin ulcerations at the head of the first metatarsal and at the lateral malleolus. No underlying bony destruction to suggest osteomyelitis. 2. No fracture or dislocation within the right ankle or right foot. Electronically signed by: Gee Santamaria M.D. Last Resulted CBC 04/28/17 05:16 Last Resulted BMP 04/29/17 05:22 04/30/17 06:25 Consultations: infectious disease wound care Medication Reconciliation New Medications: Ertapenem Sodium (Invanz) 1 Gm Inj 1 GM IV DAILY, #30 VIAL Aspirin (Aspirin EC Low Dose) 81 Mg Ectab 81 MG PO QAM, #30 TAB Atorvastatin (Atorvastatin Calcium) 20 Mg Tab 20 MG PO QAM, #30 TAB Cilostazol (Cilostazol) 100 Mg Tab 100 MG PO BID, #60 TAB Folic Acid (Folic Acid) 1 Mg Tab 1 MG PO QAM, #30 TAB Magnesium Oxide (Magnesium-Oxide) 400 Mg Tab 400 MG PO BID, #60 TAB Multivitamins/Minerals (Certavite/Antioxidants) 1 Tab Tab 1 TAB PO QAM, #30 TAB Nicotine (Nicoderm Cq 14MG Patch) 14 Mg/24 Hr Dis 1 PATCH TD QAM, #30 Oxycodone HCl (Oxycodone HCl) 5 Mg Tab 5-10 MG PO Q4H PRN for severe pain, #15 TAB Thiamine HCl (Vitamin B-1) 100 Mg Tab 200 MG PO BID, #60 TAB then reduce to 100mg daily [Boost Plus Vanilla] () 1 CAN LIQD 1 CAN PO BID17, #60 CAN Continued Medications: Ergocalciferol (Vitamin D 81407 Unit) 50,000 Unit Cap 36852 UNIT PO WK, CAP Fluticasone Propionate (Flovent Hfa) 120 Puffs/5280 Mcg Aero 2 PUFFS INH BID for 30 Days, #10.6 GM 2 Refills Ipratropium-Albuterol (Combivent Respimat) 1 Aer Aer 2 PUFFS INH QID, INH Montelukast Sodium (Singulair) 10 Mg Tab 10 MG PO DAILY, TAB Omeprazole (Prilosec) 40 Mg Cap 40 MG PO DAILY, CAP TAKE 1/2 HOUR BEFORE EVENING MEAL Sertraline (Zoloft) 50 Mg Tab 50 MG PO DAILY, TAB Discontinued Medications: Losartan Potassium (Cozaar) 100 Mg Tab 100 MG PO DAILY, TAB Discharge Exam Physical Exam: General Appearance: no apparent distress Eyes: EOMI ENT: hearing grossly normal Neck: trachea midline Respiratory/Chest: no respiratory distress, no accessory muscle use Extremities: + pertinent finding (wound vac on R ankle, no exudate no surrounding erythema) Neurologic/Psychiatric: electric wirer II-XII nml as tested, alert, normal mood/affect Skin: normal color, warm/dry Hospital Course 1. right ankle ulcer with enterobacter and MSSA infection - s/p I&D and debridement by Dr. James with application of wound vac. Wound care team continues to follow and manage the vac. outpatient wound care set up Imaging to date nondiagnostic for osteomyelitis. ID consultation requested - recommending lengthy course of IV ertapenem. outpatient ID f/u at wound clinic (Although he had prior h/o IV drug usage this was many years ago and tox screen this admission was negative for IV drugs.) IV abx and wound vac set up for home 2. alcohol abuse - no signs of etoh withdrawal at this time. Cont thiamine/ folic acid/MVI and EtOH cessation 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 Rx for 30 days, then likely 100mg daily indefinitely 4. PAD - vascular has seen, may need a-gram with intervention in the future. Cont asa, pletal, statin. Quit smoking. f/u vascular and PCP 5. tobacco dependence - nicoderm. 6. lymphocytosis with smudge cells - concerning for CLL. Flow cytometry pending. Patient made aware of the cbc results. f/u PCP then +/- hematology if needed 7. hypomagnesemia - resolved. 8. DVT proph - heparin BID. 9. staph UTI - resolved. 10. COPD - not in exacerbation at this time. Cont daily controller agents and combivent QID. 11. HTN - BPs controlled w/o use of losartan. Cont to observe off the med. 12. FEN - AHA diet, K/mag levels stable. 13. weight loss with severe protein calorie malnutrition - due to hepC? CLL? other malignancy or other condition? cont MVI and supplements ideally he needs colonoscopy, EGD, chest CT, etc. -- through PCP/outpatient follow up 14. hyponatremia - appears chronic. -likely EtOH intake related - f/u as outpt -stable for home stable for home, close PCP, ID, wound f/u as well as ongoing vascular evals Total Time Spent: Less than 30 minutes This includes examination of the patient, discharge planning, medication reconciliation, and communication with other providers. Discharge Instructions Please refer to the electronic Patient Visit Report (Discharge Instructions) for additional information. Additional Copies To Darci Johnston M.D.
== END 2017-04-30 17:24 | disposition home health service (06) | DRG 593 ==
LOC: C.EDB 19:50 → C.MED 22:59 → ENRESERV 23:27
PROVIDERS: ADMIT Hospitalist; ATTEND Family Medicine
PROC: 0Y9K0ZZ Drainage of Right Ankle Region, Open Approach (ICD-10-PCS; principal; 2017-04-25 07:30)
DX: L97.313 Non-pressure chronic ulcer of right ankle with necrosis of muscle (principal); L03.115 Cellulitis of right lower limb; E46 Unspecified protein-calorie malnutrition; E51.9 Thiamine deficiency, unspecified; N39.0 Urinary tract infection, site not specified; J44.9 Chronic obstructive pulmonary disease, unspecified; B19.20 Unspecified viral hepatitis C without hepatic coma; I10 Essential (primary) hypertension; F10.10 Alcohol abuse, uncomplicated; F17.200 Nicotine dependence, unspecified, uncomplicated; K21.9 Gastro-esophageal reflux disease without esophagitis; D72.829 Elevated white blood cell count, unspecified; F32.9 Major depressive disorder, single episode, unspecified; F41.9 Anxiety disorder, unspecified; I73.9 Peripheral vascular disease, unspecified; A49.01 Methicillin susceptible Staphylococcus aureus infection, unspecified site

== ENCOUNTER → 2017-05-06 | Outpatient (CLI) | payer OTHER ==
[~2017-05-06] MED LIST changes: -AMT50 PO; +ASPEC81 PO; +Boost Plus Vanilla PO; +CNT PO; +ERGO500037 PO; +ERTA1INJ IV; +FLV1 PO; -FLVHFA220 INH; +FLVHFA44 INH; -LISI-461 PO; +LPT20 PO; +MGNO400 PO; +MONT1TAB3 PO; +NICO14DI5 TD; +PLT100 PO; +RXC5 PO; -SNG10 PO; +THM100 PO; -VAREPAK PO
[2017-05-06 12:04] LABS: HEMATOCRIT 37.3 % (42-52); MEAN CELL VOLUME 94.4 fL (80-100); MEAN CORPUSCULAR HEMOGLOBIN 32.2 pg (25-34); MEAN PLATELET VOLUME 9.5 fL (7.4-10.4); PLATELET COUNT 338 K/uL (130-400); RED BLOOD COUNT 3.95 M/uL (4.7-6.1); WHITE BLOOD COUNT 14.08 K/uL (4.8-10.8)
[2017-05-06 12:15] LABS: ALT/SGPT 49 U/L (12-78); BLOOD UREA NITROGEN 8 mg/dl (7-18); BUN/CREATININE RATIO 17.5 (10-20); CALCIUM 8.7 mg/dl (8.5-10.1); CARBON DIOXIDE 27 mmol/L (21-32); CHLORIDE 103 mmol/L (98-107); CREATININE 0.43 mg/dl (0.60-1.40); GLUCOSE 91 mg/dl (70-99); POTASSIUM 3.8 mmol/L (3.5-5.1); SODIUM 136 mmol/L (136-145)
[2017-05-06 12:18] LABS: ALB/GLOB RATIO 0.7 (0.9-2); ALKALINE PHOSPHATASE 215 U/L (45-117); AST/SGOT 87 U/L (15-37)
[2017-05-06 13:08] LABS: BASO % 0.6 %; BASO ABS # 0.08 K/uL (0-0.2); COMPLETE YES; IG% 0.4 %; LYMPH % 52.6 %; LYMPH ABS # 7.41 K/uL (1.2-3.4); MONO % 6.7 %; NEUT % 37.7 %
--- NOTE | 2017-05-07 10:15 | CODING QUERY NO DIAGNOSIS ---
TREATMENT RENDERED WITHOUT A DIAGNOSIS 59 To promote full compliance with coding requirements relating to patient care, physician participation is requested in all cases of glue clamp operator uncertainty. Please assist us with providing a diagnosis/symptom for the test(s) below: A diagnosis/symptom was not documented on your Order. A valid diagnosis/symptom is required to bill all insurances. Please remember that we are unable to code a diagnosis of rule out, probable, possible, questionable, or suspected. DOS 05/06/17 Tests that require a diagnosis: * CBC W/AUTO DIFF DIAGNOSIS: * ESR DIAGNOSIS: * COMP METABOLIC DIAGNOSIS: Provider Signature: Date: Thank you [facility] Information [facility] Once completed, please kindly fax back to [phone] For questions please call [phone]
== END | disposition home or self-care (01) ==
LOC: C.LABSPEC 17:41
PROVIDERS: ATTEND Internal Medicine Infectious Disease
DX: Z01.89 Encounter for other specified special examinations (principal)

== ENCOUNTER → 2017-05-13 | Outpatient (CLI) | payer OTHER ==
[2017-05-13 17:49] LABS: HEMATOCRIT 37.8 % (42-52); HEMOGLOBIN 12.3 g/dL (14.0-18.0); MEAN CELL VOLUME 95.7 fL (80-100); MEAN CORPUSCULAR HEMOGLOBIN 31.1 pg (25-34); MEAN CORPUSCULAR HGB CONC 32.5 g/dl (32-36); MEAN PLATELET VOLUME 9.6 fL (7.4-10.4); PLATELET COUNT 300 K/uL (130-400); RED CELL DISTRIBUTION WIDTH CV 12.9 % (11.5-14.5); WHITE BLOOD COUNT 14.23 K/uL (4.8-10.8)
[2017-05-13 18:03] LABS: ALBUMIN 2.7 gm/dl (3.4-5.0); ALT/SGPT 62 U/L (12-78); AST/SGOT 72 U/L (15-37); BLOOD UREA NITROGEN 9 mg/dl (7-18); CALCIUM 8.7 mg/dl (8.5-10.1); CARBON DIOXIDE 27 mmol/L (21-32); CREATININE 0.47 mg/dl (0.60-1.40); GLUCOSE 89 mg/dl (70-99); POTASSIUM 3.7 mmol/L (3.5-5.1); SODIUM 137 mmol/L (136-145)
[2017-05-13 18:05] LABS: ALKALINE PHOSPHATASE 256 U/L (45-117); TOTAL PROTEIN 6.6 gm/dl (6.4-8.2)
== END | disposition home or self-care (01) ==
LOC: C.LABSPEC 10:17
PROVIDERS: ATTEND Internal Medicine Infectious Disease
DX: A49.02 Methicillin resistant Staphylococcus aureus infection, unspecified site (principal)

== ENCOUNTER → 2017-05-20 | Outpatient (CLI) | payer OTHER ==
[2017-05-20 15:10] LABS: HEMATOCRIT 38.7 % (42-52); MEAN CELL VOLUME 91.9 fL (80-100); MEAN CORPUSCULAR HEMOGLOBIN 31.6 pg (25-34); MEAN CORPUSCULAR HGB CONC 34.4 g/dl (32-36); MEAN PLATELET VOLUME 10.2 fL (7.4-10.4); PLATELET COUNT 278 K/uL (130-400); RED BLOOD COUNT 4.21 M/uL (4.7-6.1); WHITE BLOOD COUNT 14.26 K/uL (4.8-10.8)
[2017-05-20 15:14] LABS: BLOOD UREA NITROGEN 8 mg/dl (7-18); CARBON DIOXIDE 26 mmol/L (21-32); CHLORIDE 105 mmol/L (98-107); CREATININE 0.41 mg/dl (0.60-1.40); GLUCOSE 97 mg/dl (70-99); POTASSIUM 3.7 mmol/L (3.5-5.1); SODIUM 135 mmol/L (136-145)
[2017-05-20 15:15] LABS: ALB/GLOB RATIO 0.6 (0.9-2); ALKALINE PHOSPHATASE 261 U/L (45-117); ALT/SGPT 58 U/L (12-78); AST/SGOT 61 U/L (15-37)
[2017-05-20 16:17] LABS: BASO ABS # 0.26 K/uL (0-0.2); BASOPHIL % 1.8 % (0-2); COMPLETE YES; EOSINOPHIL % 4.4 %; LYMPH ABS # 6.13 K/uL (1.2-3.4); NEUTROPHILS % 29.8 %; VARIANT LYM ABS # 2.62 K/uL; VARIANT LYMPHOCYTE % 18.4 %
== END | disposition home or self-care (01) ==
LOC: C.LABSPEC 14:52
PROVIDERS: ATTEND Internal Medicine Infectious Disease
DX: A49.01 Methicillin susceptible Staphylococcus aureus infection, unspecified site (principal)

== ENCOUNTER → 2017-05-26 | Outpatient (CLI) | payer OTHER ==
[~2017-05-26] MED LIST changes: +OPTIRAY 320 IV PRN
--- NOTE | 2017-05-26 09:43 | DIAGNOSTIC IMAGING REPORT ---
CT OF THE CHEST WITH IV CONTRAST CLINICAL HISTORY: R63.4 abnormal weight loss. Possible CLL. COMPARISON STUDY: No previous studies for comparison. TECHNIQUE: Following the IV administration of 93 mL of Optiray-320, CT of the thorax was performed from the thoracic inlet to the lung bases. Images are reviewed in the axial, sagittal, and coronal planes. IV contrast was administered without complication. A dose lowering technique was utilized adhering to the principles of ALARA. CT DOSE: 606.23 mGycm FINDINGS: Thyroid: Imaged portions of the thyroid gland are normal in appearance. Thoracic aorta: The thoracic aorta is normal in course and caliber, noting standard 3-vessel arch anatomy. No aneurysm or dissection is seen. Pulmonary vasculature: The pulmonary trunk is normal in caliber. There are no central filling defects identified to suggest pulmonary embolus. Note that this examination was not protocoled for the evaluation of pulmonary emboli. HEART: The heart is normal in size and configuration, without pericardial effusion. Lungs and pleural spaces: No pleural effusions are visualized. There is no focal pulmonary consolidation. There is mild pulmonary emphysema. There is a 5 mm groundglass nodule within the right lung apex, as visualized in image #[id number]. There is a 1 cm left apical opacity, likely representing an area of scarring. There is a 4 mm solid left upper lobe pulmonary nodule as visualized in image #[id number] Mediastinum: Mediastinal lymph nodes are the upper limits of normal in size Nadia: There is no evidence of pathologic hilar lymphadenopathy Axilla: Axillary lymph nodes are the upper limits of normal in size Upper abdomen: There are mildly enlarged lymph nodes within the simon hepatis and gastrohepatic ligament. Skeletal structures: There are no lytic or blastic osseous lesions. IMPRESSION: 1. Mildly enlarged lymph nodes in the region of the simon hepatis and gastrohepatic ligament 2. Mediastinal and hilar lymph nodes are the upper limits of normal in size 3. Pulmonary emphysema 4. 5 mm groundglass nodule within the right lung apex 5. 1 cm left apical opacity, likely are presenting an area of apical scarring 6. 4 mm solid left upper lobe pulmonary nodule Please refer to below summary of Fleischner criteria recommendations for follow-up of incidental CT nodules (Real Vincent, Guidelines for management of small pulmonary nodules detected on CT scans: A statement from the Fleischner Society, Radiology 237: [phone].) SOLID NODULES Solitary nodule size: <6 mm * low risk patients: no follow-up needed * high risk patients: optional CT at 12 months Solitary nodule size: 6-8 mm * low risk patients: follow-up at 6-12 months, then consider further follow-up at 18-24 months * high risk patients: initial follow-up CT at 6-12 months and then at 18-24 months if no change Solitary nodule size: >8 mm * either low or high risk patients - consider follow-up CT at 3 months, and/or CT-PET, and/or biopsy Multiple nodules size: <6 mm * low risk patients: no routine follow-up * high risk patients: optional CT at 12 months Multiple nodules size: 6-8 mm * low risk patients: follow-up at 3-6 months, then consider further follow-up at 18-24 months * high risk patients: follow-up at 3-6 months, then at 18-24 months if no change Multiple nodules size: >8 mm * low risk patients: follow-up at 3-6 months, then consider further follow-up at 18-24 months * high risk patients: follow-up at 3-6 months, then at 18-24 months if no change Note: newly detected indeterminate nodule in persons 35 years of age or older. * low risk patients: minimal or absent history of smoking and/or other known risk factors * high risk patients: history of smoking or of other known risk factors (e.g. first degree relative with lung cancer, or exposure to asbestos, radon, uranium) * if a nodule up to 8 mm is partly solid or is ground glass further follow-up is required after 24 months to exclude possible slow growing adenocarcinoma (REINA) SUBSOLID NODULES Solitary pure ground-glass nodule * nodule size <6 mm - no CT follow-up required * nodule size >=6 mm - follow-up CT at 6-12 months, then every 2 years until 5 years Solitary part-solid nodule * nodule size <6 mm - no CT follow-up required * nodule size >=6 mm - follow-up CT at 3-6 months. If unchanged, and solid component remains <6 mm, then annual follow-up for 5 years Multiple subsolid nodules * nodule size <6 mm - follow-up CT at 3-6 months, consider further follow-up at 2 and 4 years if stable * nodule size >=6 mm - follow-up CT at 3-6 months, subsequent management based on the most suspicious nodule(s) Electronically signed by: Chalino Wilhelm M.D. 05/26/2017 9:42 AM Dictated Date/Time: 05/26/2017 9:34 AM
--- NOTE | 2017-05-26 09:49 | DIAGNOSTIC IMAGING REPORT ---
ABD/PELVIS IV AND ORAL CONT CLINICAL HISTORY: 56 years-old Male presenting with R63.4 Abnormal weight loss, concern for CLL [id number]. TECHNIQUE: Multidetector CT of the abdomen and pelvis was performed after the administration of oral and intravenous contrast. IV contrast: 93 mL of Optiray 320. A dose lowering technique was used consistent with the principles of ALARA (as low as reasonably achievable). COMPARISON: Ultrasound from 01/12/2014. CT DOSE (mGy.cm): The estimated cumulative dose is 606.23.. FINDINGS: Fourth Hand topogram: Hyperinflation of the lungs suggesting emphysema. Lung bases: Left fat-containing Bochdalek hernia. Multiple dependent changes likely atelectasis. A tip of a central venous catheter is partially visualized. Normal heart size. Few prominent pericardial lymph nodes noted (series 7 image 11). Liver: Curvilinear hypodensity in segment 5. The configuration of this abnormality is most suggestive of a thrombosed vessel or focal biliary ductal dilatation. No other focal lesion. Patent hepatic vasculature Biliary: Otherwise no intrahepatic or extrahepatic biliary ductal dilatation. Normal gallbladder. Pancreas: Normal. Spleen: Normal. Adrenal glands: Normal. Kidneys and ureters: Normal. No hydronephrosis. Bladder: Incompletely evaluated secondary to underdistention. Pelvic organs: Prostate and seminal vesicles normal. Bowel: Moderate stool burden in the rectum. Oral contrast has transited to the rectum. The appendix is normal though not opacified with contrast. No bowel obstruction. Small bowel is normal. Peritoneal cavity: No free fluid or intraperitoneal gas. Lymph nodes: Enlarged bilateral inguinal lymph nodes measuring up to 13 mm in the short axis. Enlarged external iliac lymph nodes, right greater than left. Enlarged aortocaval and left periaortic lymph nodes. Enlarged portacaval lymph nodes measuring up to 15 mm in the short axis. Enlarged lymph nodes in the gastrohepatic region as well. Vasculature: Dense calcified atherosclerotic plaque throughout the normal caliber aorta. At least 50% luminal stenosis suspected in the proximal superior mesenteric artery secondary to noncalcified atherosclerotic plaque (series 7 image 109). Abdominal wall: Diastasis of the rectus abdominis. Musculoskeletal: Mild degenerative changes of the spine. IMPRESSION: 1. Abdominopelvic lymphadenopathy. Pericardial lymphadenopathy also noted. These findings could be compatible with given diagnosis of lymphoproliferative disease. 2. Extensive atherosclerosis with at least 50% luminal stenosis in the proximal SMA suspected. 3. Hyperinflation of the lungs could suggest underlying emphysema. 4. Indeterminate curvilinear tubular hypodensity in segment 5. The configuration is most suggestive of a thrombosed vessel or focal biliary ductal dilatation. This is of uncertain clinical significance. Electronically signed by: Jarrett Shah M.D. 05/26/2017 9:47 AM Dictated Date/Time: 05/26/2017 9:40 AM
== END ==
LOC: C.CTS 09:10
PROVIDERS: ATTEND Physician Assistant Medical
DX: R63.4 Abnormal weight loss (principal); R59.1 Generalized enlarged lymph nodes; J43.9 Emphysema, unspecified; R91.8 Other nonspecific abnormal finding of lung field

== ENCOUNTER → 2017-05-27 | Outpatient (CLI) | payer OTHER ==
[~2017-05-27] MED LIST changes: -ASPEC81 PO; +ASPI-320 PO; +ASPI81TA28 PO; +ATOR-24 PO; +CIPR-255 PO; +CLC100 PO; +CLOP1TAB15 PO; +IBUP-1428 PO; +IBUP-1450 PO; +LOSA100T65 PO; +LVQ500 PO; +MRLP17X PO; +NRV5 PO; +NYSS5 PO; -OPTIRAY 320 IV PRN; +OXYC-164 PO; +PANT40TA PO; +SULF800T23 PO; +THIA100T27 PO; -THM100 PO
[2017-05-27 17:29] LABS: HEMATOCRIT 37.3 % (42-52); HEMOGLOBIN 12.6 g/dL (14.0-18.0); MEAN CELL VOLUME 91.9 fL (80-100); MEAN CORPUSCULAR HGB CONC 33.8 g/dl (32-36); MEAN PLATELET VOLUME 10.2 fL (7.4-10.4); PLATELET COUNT 256 K/uL (130-400); RED CELL DISTRIBUTION WIDTH CV 12.9 % (11.5-14.5); RED CELL DISTRIBUTION WIDTH SD 43.3 fL (36.4-46.3); WHITE BLOOD COUNT 12.85 K/uL (4.8-10.8)
[2017-05-27 17:48] LABS: ALBUMIN 2.9 gm/dl (3.4-5.0); ALT/SGPT 57 U/L (12-78); AST/SGOT 65 U/L (15-37); BLOOD UREA NITROGEN 7 mg/dl (7-18); CALCIUM 8.5 mg/dl (8.5-10.1); CARBON DIOXIDE 26 mmol/L (21-32); GLUCOSE 95 mg/dl (70-99); POTASSIUM 3.4 mmol/L (3.5-5.1); SODIUM 136 mmol/L (136-145)
[2017-05-27 17:51] LABS: ALKALINE PHOSPHATASE 306 U/L (45-117)
[2017-05-27 19:25] LABS: BASO % 0.4 %; BASO ABS # 0.05 K/uL (0-0.2); EOS % 2.5 %; EOS ABS # 0.32 K/uL (0-0.5); IG# 0.03 K/uL (0.00-0.02); LYMPH % 54.9 %; LYMPH ABS # 7.05 K/uL (1.2-3.4); MONO % 8.5 %; MONO ABS # 1.09 K/uL (0.11-0.59); NEUT % 33.5 %; NEUT ABS # 4.31 K/uL (1.4-6.5)
== END | disposition home or self-care (01) ==
LOC: C.LABSPEC 10:19
PROVIDERS: ATTEND Internal Medicine Infectious Disease
DX: A49.01 Methicillin susceptible Staphylococcus aureus infection, unspecified site (principal)

== ENCOUNTER → 2017-06-03 | Outpatient (CLI) | payer OTHER ==
[2017-06-03 11:48] LABS: HEMATOCRIT 40.6 % (42-52); HEMOGLOBIN 13.7 g/dL (14.0-18.0); MEAN CELL VOLUME 90.6 fL (80-100); MEAN CORPUSCULAR HEMOGLOBIN 30.6 pg (25-34); MEAN CORPUSCULAR HGB CONC 33.7 g/dl (32-36); PLATELET COUNT 240 K/uL (130-400); RED CELL DISTRIBUTION WIDTH CV 13.2 % (11.5-14.5); RED CELL DISTRIBUTION WIDTH SD 43.1 fL (36.4-46.3); WHITE BLOOD COUNT 16.17 K/uL (4.8-10.8)
[2017-06-03 11:56] LABS: ALBUMIN 2.8 gm/dl (3.4-5.0); BLOOD UREA NITROGEN 9 mg/dl (7-18); CALCIUM 8.9 mg/dl (8.5-10.1); CARBON DIOXIDE 28 mmol/L (21-32); CREATININE 0.43 mg/dl (0.60-1.40); GLUCOSE 100 mg/dl (70-99); POTASSIUM 3.9 mmol/L (3.5-5.1); SODIUM 138 mmol/L (136-145)
[2017-06-03 11:59] LABS: ALKALINE PHOSPHATASE 311 U/L (45-117); ALT/SGPT 69 U/L (12-78); AST/SGOT 76 U/L (15-37); TOTAL PROTEIN 7.1 gm/dl (6.4-8.2)
[2017-06-03 13:30] LABS: BASO % 0.3 %; BASO ABS # 0.05 K/uL (0-0.2); EOS % 3.2 %; EOS ABS # 0.51 K/uL (0-0.5); IG# 0.01 K/uL (0.00-0.02); LYMPH % 66.9 %; LYMPH ABS # 10.81 K/uL (1.2-3.4); MONO % 5.9 %; MONO ABS # 0.96 K/uL (0.11-0.59); NEUT % 23.6 %; NEUT ABS # 3.83 K/uL (1.4-6.5)
== END | disposition home or self-care (01) ==
LOC: C.LABSPEC 11:35
PROVIDERS: ATTEND Internal Medicine Infectious Disease
DX: A49.01 Methicillin susceptible Staphylococcus aureus infection, unspecified site (principal)

== ENCOUNTER → 2017-06-10 | Outpatient (CLI) | payer OTHER ==
[~2017-06-10] MED LIST changes: +ASPEC81 PO; -ASPI-320 PO; -ASPI81TA28 PO; -ATOR-24 PO; -CIPR-255 PO; -CLC100 PO; -CLOP1TAB15 PO; -IBUP-1428 PO; -IBUP-1450 PO; -LOSA100T65 PO; -LVQ500 PO; -MRLP17X PO; -NRV5 PO; -NYSS5 PO; -OXYC-164 PO; -PANT40TA PO; -SULF800T23 PO; -THIA100T27 PO; +THM100 PO
[2017-06-10 17:35] LABS: HEMATOCRIT 40.5 % (42-52); HEMOGLOBIN 13.8 g/dL (14.0-18.0); MEAN CELL VOLUME 91.4 fL (80-100); MEAN CORPUSCULAR HEMOGLOBIN 31.2 pg (25-34); MEAN CORPUSCULAR HGB CONC 34.1 g/dl (32-36); MEAN PLATELET VOLUME 10.6 fL (7.4-10.4); PLATELET COUNT 207 K/uL (130-400); RED CELL DISTRIBUTION WIDTH CV 13.3 % (11.5-14.5); RED CELL DISTRIBUTION WIDTH SD 44.2 fL (36.4-46.3); WHITE BLOOD COUNT 14.84 K/uL (4.8-10.8)
[2017-06-10 18:40] LABS: ALBUMIN 2.9 gm/dl (3.4-5.0); ALKALINE PHOSPHATASE 272 U/L (45-117); ALT/SGPT 64 U/L (12-78); AST/SGOT 75 U/L (15-37); BLOOD UREA NITROGEN 9 mg/dl (7-18); CALCIUM 8.7 mg/dl (8.5-10.1); CARBON DIOXIDE 26 mmol/L (21-32); GLUCOSE 91 mg/dl (70-99); SODIUM 137 mmol/L (136-145); TOTAL PROTEIN 6.9 gm/dl (6.4-8.2)
== END | disposition home or self-care (01) ==
LOC: C.LABSPEC 11:47
PROVIDERS: ATTEND Internal Medicine Infectious Disease
DX: A49.01 Methicillin susceptible Staphylococcus aureus infection, unspecified site (principal)

== ENCOUNTER → 2017-06-17 | Outpatient (CLI) | payer OTHER ==
[2017-06-17 12:32] LABS: HEMATOCRIT 40.8 % (42-52); MEAN CELL VOLUME 90.3 fL (80-100); MEAN CORPUSCULAR HGB CONC 34.3 g/dl (32-36); MEAN PLATELET VOLUME 10.3 fL (7.4-10.4); PLATELET COUNT 187 K/uL (130-400); RED CELL DISTRIBUTION WIDTH CV 13.3 % (11.5-14.5); RED CELL DISTRIBUTION WIDTH SD 43.9 fL (36.4-46.3); WHITE BLOOD COUNT 15.44 K/uL (4.8-10.8)
[2017-06-17 13:03] LABS: ALBUMIN 3.2 gm/dl (3.4-5.0); ALT/SGPT 37 U/L (12-78); AST/SGOT 38 U/L (15-37); BLOOD UREA NITROGEN 9 mg/dl (7-18); CALCIUM 9.1 mg/dl (8.5-10.1); CARBON DIOXIDE 27 mmol/L (21-32); CREATININE 0.48 mg/dl (0.60-1.40); GLUCOSE 87 mg/dl (70-99); POTASSIUM 3.9 mmol/L (3.5-5.1); SODIUM 137 mmol/L (136-145)
[2017-06-17 13:06] LABS: ALKALINE PHOSPHATASE 223 U/L (45-117); TOTAL PROTEIN 7.3 gm/dl (6.4-8.2)
[2017-06-17 13:20] LABS: BASO % 0.6 %; EOS % 3.1 %; EOS ABS # 0.48 K/uL (0-0.5); IG# 0.03 K/uL (0.00-0.02); LYMPH % 71.5 %; LYMPH ABS # 11.04 K/uL (1.2-3.4); MONO % 4.1 %; MONO ABS # 0.64 K/uL (0.11-0.59); NEUT % 20.5 %; NEUT ABS # 3.15 K/uL (1.4-6.5)
== END | disposition home or self-care (01) ==
LOC: C.LABSPEC 10:27
PROVIDERS: ATTEND Internal Medicine Infectious Disease
DX: A49.01 Methicillin susceptible Staphylococcus aureus infection, unspecified site (principal)

== ENCOUNTER → 2017-06-23 | Outpatient (CLI) | payer OTHER ==
[2017-06-23 16:48] LABS: MEAN CORPUSCULAR HGB CONC 34.2 g/dl (32-36); MEAN PLATELET VOLUME 10.9 fL (7.4-10.4); PLATELET COUNT 240 K/uL (130-400)
[2017-06-23 16:59] LABS: ALBUMIN 3.3 gm/dl (3.4-5.0); BLOOD UREA NITROGEN 10 mg/dl (7-18); CALCIUM 9.2 mg/dl (8.5-10.1); CARBON DIOXIDE 25 mmol/L (21-32); CREATININE 0.39 mg/dl (0.60-1.40); GLUCOSE 93 mg/dl (70-99); POTASSIUM 3.6 mmol/L (3.5-5.1); SODIUM 136 mmol/L (136-145)
[2017-06-23 17:02] LABS: ALKALINE PHOSPHATASE 207 U/L (45-117); ALT/SGPT 44 U/L (12-78); AST/SGOT 49 U/L (15-37); TOTAL PROTEIN 7.4 gm/dl (6.4-8.2)
[2017-06-23 18:23] LABS: HEMATOCRIT 43.8 % (42-52); MEAN CELL VOLUME 89.4 fL (80-100); MEAN CORPUSCULAR HEMOGLOBIN 30.6 pg (25-34); RED CELL DISTRIBUTION WIDTH CV 12.9 % (11.5-14.5); RED CELL DISTRIBUTION WIDTH SD 41.7 fL (36.4-46.3); WHITE BLOOD COUNT 20.73 K/uL (4.8-10.8)
== END | disposition home or self-care (01) ==
LOC: C.LABSPEC 12:10
PROVIDERS: ATTEND Internal Medicine Infectious Disease
DX: A49.01 Methicillin susceptible Staphylococcus aureus infection, unspecified site (principal); R79.9 Abnormal finding of blood chemistry, unspecified; B19.20 Unspecified viral hepatitis C without hepatic coma; L97.909 Non-pressure chronic ulcer of unspecified part of unspecified lower leg with unspecified severity

== ENCOUNTER → 2017-06-30 | Outpatient (CLI) | payer OTHER ==
[2017-06-30 12:40] LABS: HEMATOCRIT 41.4 % (42-52); HEMOGLOBIN 14.2 g/dL (14.0-18.0); MEAN CELL VOLUME 89.2 fL (80-100); MEAN CORPUSCULAR HEMOGLOBIN 30.6 pg (25-34); MEAN CORPUSCULAR HGB CONC 34.3 g/dl (32-36); MEAN PLATELET VOLUME 10.3 fL (7.4-10.4); PLATELET COUNT 245 K/uL (130-400); RED CELL DISTRIBUTION WIDTH CV 13.5 % (11.5-14.5); RED CELL DISTRIBUTION WIDTH SD 43.1 fL (36.4-46.3); WHITE BLOOD COUNT 20.94 K/uL (4.8-10.8)
[2017-06-30 13:29] LABS: ALKALINE PHOSPHATASE 217 U/L (45-117); ALT/SGPT 36 U/L (12-78); AST/SGOT 45 U/L (15-37); BLOOD UREA NITROGEN 6 mg/dl (7-18); CALCIUM 9.2 mg/dl (8.5-10.1); CARBON DIOXIDE 28 mmol/L (21-32); CREATININE 0.45 mg/dl (0.60-1.40); GLUCOSE 88 mg/dl (70-99); POTASSIUM 3.9 mmol/L (3.5-5.1); SODIUM 137 mmol/L (136-145)
[2017-06-30 13:31] LABS: TOTAL PROTEIN 7.1 gm/dl (6.4-8.2)
[2017-06-30 13:34] LABS: BASO % 0.4 %; BASO ABS # 0.09 K/uL (0-0.2); EOS % 1.7 %; EOS ABS # 0.35 K/uL (0-0.5); IG# 0.04 K/uL (0.00-0.02); LYMPH ABS # 15.44 K/uL (1.2-3.4); MONO % 4.2 %; MONO ABS # 0.87 K/uL (0.11-0.59); NEUT % 19.8 %; NEUT ABS # 4.15 K/uL (1.4-6.5)
[2017-06-30 13:36] LABS: LYMPH % 73.7 %
== END | disposition home or self-care (01) ==
LOC: C.LABSPEC 09:00
PROVIDERS: ATTEND Internal Medicine Infectious Disease
DX: A49.01 Methicillin susceptible Staphylococcus aureus infection, unspecified site (principal)

== ENCOUNTER → 2017-07-07 | Outpatient (CLI) | payer OTHER ==
[~2017-07-07] MED LIST changes: +CIPR-255 PO; +SULF800T23 PO
[2017-07-07 12:21] LABS: HEMATOCRIT 42.1 % (42-52); HEMOGLOBIN 14.5 g/dL (14.0-18.0); MEAN CELL VOLUME 89.2 fL (80-100); MEAN CORPUSCULAR HEMOGLOBIN 30.7 pg (25-34); MEAN CORPUSCULAR HGB CONC 34.4 g/dl (32-36); MEAN PLATELET VOLUME 10.4 fL (7.4-10.4); PLATELET COUNT 216 K/uL (130-400); RED CELL DISTRIBUTION WIDTH CV 13.5 % (11.5-14.5); RED CELL DISTRIBUTION WIDTH SD 44.4 fL (36.4-46.3); WHITE BLOOD COUNT 17.11 K/uL (4.8-10.8)
[2017-07-07 12:39] LABS: ALT/SGPT 25 U/L (12-78); AST/SGOT 30 U/L (15-37); BLOOD UREA NITROGEN 10 mg/dl (7-18); CALCIUM 8.6 mg/dl (8.5-10.1); CARBON DIOXIDE 27 mmol/L (21-32); CREATININE 0.45 mg/dl (0.60-1.40); GLUCOSE 100 mg/dl (70-99); SODIUM 138 mmol/L (136-145)
[2017-07-07 12:41] LABS: ALKALINE PHOSPHATASE 220 U/L (45-117); TOTAL PROTEIN 6.6 gm/dl (6.4-8.2)
--- NOTE | 2017-07-15 10:33 | CODING QUERY NO DIAGNOSIS ---
TREATMENT RENDERED WITHOUT A DIAGNOSIS 59 To promote full compliance with coding requirements relating to patient care, physician participation is requested in all cases of quiller operator uncertainty. Please assist us with providing a diagnosis/symptom for the test(s) below: A diagnosis/symptom was not documented on your Order. A valid diagnosis/symptom is required to bill all insurances. Please remember that we are unable to code a diagnosis of rule out, probable, possible, questionable, or suspected. DOS 07/07/17 Tests that require a diagnosis: * CBC W/AUTO DIFF DIAGNOSIS: * COMP METABOLIC DIAGNOSIS: * ESR DIAGNOSIS: Provider Signature: Date: Thank you Lilian [facility] Information Management Once completed, please kindly fax back to [phone] For questions please call [phone]
== END | disposition home or self-care (01) ==
LOC: C.LABSPEC 15:44
PROVIDERS: ATTEND Internal Medicine
DX: Z01.89 Encounter for other specified special examinations (principal)

== ENCOUNTER → 2017-07-14 | Outpatient (CLI) | payer OTHER ==
[2017-07-14 13:38] LABS: MEAN CELL VOLUME 90.2 fL (80-100); MEAN CORPUSCULAR HEMOGLOBIN 30.7 pg (25-34); MEAN CORPUSCULAR HGB CONC 34.1 g/dl (32-36); MEAN PLATELET VOLUME 10.4 fL (7.4-10.4); PLATELET COUNT 260 K/uL (130-400); RED CELL DISTRIBUTION WIDTH CV 14.1 % (11.5-14.5); RED CELL DISTRIBUTION WIDTH SD 45.7 fL (36.4-46.3); WHITE BLOOD COUNT 16.92 K/uL (4.8-10.8)
[2017-07-14 13:52] LABS: ALT/SGPT 41 U/L (12-78); BLOOD UREA NITROGEN 5 mg/dl (7-18); CALCIUM 8.8 mg/dl (8.5-10.1); CARBON DIOXIDE 27 mmol/L (21-32); CREATININE 0.52 mg/dl (0.60-1.40); GLUCOSE 94 mg/dl (70-99); SODIUM 139 mmol/L (136-145)
[2017-07-14 13:55] LABS: ALKALINE PHOSPHATASE 261 U/L (45-117); AST/SGOT 47 U/L (15-37); TOTAL PROTEIN 6.8 gm/dl (6.4-8.2)
[2017-07-14 14:08] LABS: BASO % 0.4 %; BASO ABS # 0.07 K/uL (0-0.2); EOS % 1.7 %; EOS ABS # 0.29 K/uL (0-0.5); IG# 0.02 K/uL (0.00-0.02); LYMPH % 66.1 %; LYMPH ABS # 11.18 K/uL (1.2-3.4); MONO % 4.3 %; MONO ABS # 0.73 K/uL (0.11-0.59); NEUT % 27.4 %; NEUT ABS # 4.63 K/uL (1.4-6.5)
== END | disposition home or self-care (01) ==
LOC: C.LABBFT 11:34
PROVIDERS: ATTEND Internal Medicine Infectious Disease
DX: A41.01 Sepsis due to Methicillin susceptible Staphylococcus aureus (principal)

== ENCOUNTER 2017-09-22 12:37 | Inpatient (IN) | payer OTHER ==
[~2017-09-22] VITALS: Ht 188 cm; Wt 59.0 kg
[~2017-09-22 12:37] MED LIST changes: -ASPEC81 PO; +ASPI-320 PO; -ERTA1INJ IV
[2017-09-22] MEDS ORDERED: SODIUM CHLORIDE 0.9% 1000ML 500 ML IV STA (12:54)
--- NOTE | 2017-09-22 13:09 | EMERGENCY ROOM VISIT NOTE ---
History Report prepared by Cata: Corine Cook Under the Supervision of: Dr. Gary Dela Cruz M.D. First contact with patient: 12:44 Chief Complaint: ANKLE PAIN Stated Complaint: R ANKLE PAIN AND SWELLING History of Present Illness The patient is a 56 year old male who presents to the Emergency Room with complaints of worsening right ankle pain for the past 4 days. He is in a wheelchair and does not walk. The patient had surgery on his right ankle in April because of an infection from a wound on the right ankle. He was receiving antibiotics through a PICC line after surgery but stopped using the PICC line about 2 months ago. He is currently on Cipro and Bactrim PO. He has been following up with Dr. Sheriff from the wound care clinic weekly and has a home nurse come every other day to change the dressing. Yesterday when the nurse was at the house they found the patient's foot and ankle to be more red, painful, and swollen than usual. The patient's county worker states that the foot in particular appeared more red and swollen. The nurse advised that the patient come to the ED yesterday. The patient's county worker called an ambulance, but the patient refused to come to the hospital at that time. The county worker brought him to the ED today. He rates his pain today as an 8/10 in severity. The patient has been experiencing chills and decreased appetite. County worker reports that the patient has had dark urine for the past couple of days. The patient denies any dysuria. The patient also denies any fevers. Source of History: patient, other (county worker) Onset: 4 days ago Position: ankle (right) Symptom Intensity: 8/10 Quality: other (red/swollen) Timing: worsening Associated Symptoms: + chills, + urinary symptoms, No fevers Review of Systems See HPI for pertinent positives & negatives. A total of 10 systems reviewed and were otherwise negative. Past Medical & Surgical Medical Problems: (1) Alcohol intoxication Social History Problems: (1) Alcohol abuse Family History Diabetes mellitus Social History Smoking Status: Current Some Day Smoker Alcohol Use: heavy Drug Use: marijuana Marital Status: Housing Status: lives alone Occupation Status: disabled Current/Historical Medications Scheduled Aspirin (Aspirin EC Low Dose), 81 MG PO QAM Atorvastatin (Lipitor), 40 MG PO HS Cilostazol (Cilostazol), 100 MG PO BID Ciprofloxacin Hcl (Cipro), 500 MG PO BID Fluticasone Propionate (Flovent Hfa), 2 PUFFS INH BID Ipratropium-Albuterol (Combivent Respimat), 1 PUFFS INH QID Losartan Potassium (Cozaar), 100 MG PO DAILY Pantoprazole (Protonix), 40 MG PO DAILY Sertraline (Zoloft), 50 MG PO DAILY Sulfa/Trimethoprim (Bactrim Ds 800MG/160MG), 1 TAB PO BID Scheduled PRN Ibuprofen (Motrin), 600 MG PO TID PRN for Pain Allergies Coded Allergies: No Known Allergies (Verified , NONE, 09/22/17) Physical Exam Vital Signs Date Time Temp Pulse Resp B/P (MAP) Pulse Ox O2 Delivery O2 Flow Rate FiO2 09/22/17 16:01 91 18 133/67 99 Room Air 09/22/17 13:20 86 09/22/17 13:14 98 Room Air 09/22/17 12:40 36.6 101 18 117/73 93 Room Air Physical Exam GENERAL: Patient is frail and thin, no acute distress. HEENT: No acute trauma, normocephalic atraumatic, mucous membranes moist, no nasal congestion, no scleral icterus. NECK: No stridor, no adenopathy, no meningismus, trachea is midline. LUNGS: Clear to auscultation bilaterally, no wheeze, no rhonchi, breath sounds equal. HEART: Without murmurs gallops or rubs, regular rate and rhythm. ABDOMEN: Soft, nontender, bowel sounds positive, no hernias, no peritonitis. EXTREMITIES: The right lower extremity has healing wounds to the medial and lateral aspect of the ankle, no significant discharge, mild erythema noted, no warmth. There is some edema to the right ankle and foot when compared to the left. The right foot is erythematous and cold to the touch. Extremely poor capillary refill on the right. NEUROLOGIC: Oriented x 3, no acute motor or sensory deficits, no focal weakness. SKIN: No rash, no jaundice, no diaphoresis. Medical Decision & Procedures ER Provider Diagnostic Interpretation: Radiology results as stated below per my review and radiologist interpretation: CHEST ONE VIEW PORTABLE HISTORY: 56 years-old Male EVALUATE ALTERED MENTAL STATUS/WEAKNESS acute altered mental status with weakness COMPARISON: Radiographs 03/22/2018 TECHNIQUE: Portable AP view of the chest FINDINGS: Cardiomediastinal and hilar silhouettes are within normal limits. There is no pneumothorax, pleural effusion, focal airspace consolidation or overt pulmonary edema. Atherosclerosis of the aorta. Lungs are mildly hyperinflated. Degenerative changes of the shoulders and spine. IMPRESSION: No acute process of the chest. The above report was generated using voice recognition software. It may contain grammatical, syntax or spelling errors. Electronically signed by: Donnell Saeed M.D. 09/22/2017 1:42 PM Dictated Date/Time: 09/22/2017 1:41 PM RIGHT ANKLE 3 VIEWS HISTORY: Right ankle pain and swelling. right ankle poss osteo COMPARISON: Right ankle 04/23/2017. FINDINGS: There is no fracture or dislocation. Mild soft tissue swelling within the mid to distal lower leg. No areas of cortical destruction to suggest osteomyelitis. There is also mild soft tissue swelling within the ankle. There is a 14 mm skin ulceration at the medial malleolus. No underlying bony abnormality. There appears to be a skin ulceration at the lateral malleolus which is covered by overlying bandage. No definite underlying bony abnormality. No radiopaque foreign bodies. IMPRESSION: Skin ulcerations at the medial and lateral malleoli. No underlying bony destruction to suggest osteomyelitis. Electronically signed by: Gee Santamaria M.D. 09/22/2017 1:43 PM Dictated Date/Time: 09/22/2017 1:40 PM ARTERIAL DOPPLER DUPLEX ULTRASOUND OF THE RIGHT LOWER EXTREMITY CLINICAL HISTORY: Right leg pain poor circulation COMPARISON STUDY: April 24, 2017 FINDINGS: The patient refused ankle arm indices. There is monophasic flow within the right common femoral artery. There is monophasic flow within the right superficial femoral artery proximally. There is an occlusion of the mid right superficial femoral artery. There is distal reconstitution. There is dampened flow distal to the occlusion. There is monophasic flow with the right popliteal artery, anterior tibial artery, posterior tibial artery, and peroneal arteries. IMPRESSION: 1. 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 There is distal reconstitution with dampened flow distally. Electronically signed by: Chlaino Wilhelm M.D. 09/22/2017 5:00 PM Dictated Date/Time: 09/22/2017 4:57 PM R VENOUS DOPP LOWER EXT UNILAT HISTORY: 56 years-old Male swelling, and pain acute pain and swelling of the right lower extremity COMPARISON: CT abdomen and pelvis 05/26/2017 TECHNIQUE: Multiple real-time sonographic images of the right lower extremity deep venous structures were obtained assessing grayscale appearance, color and spectral flow FINDINGS: There is normal flow, compressibility, phasicity and augmentation of the right lower extremity deep venous structures. Incidental note is made of a mildly prominent lymph node with normal fatty echogenic hilum within the right inguinal region measuring 0.8 cm in short axis and 4.1 cm in length. On previous CT study, right inguinal lymph nodes are seen measuring up to 1. 3 cm in short axis. IMPRESSION: 1. No sonographic evidence of deep venous thrombosis. 2. Mildly prominent right inguinal lymph node, likely reactive. The above report was generated using voice recognition software. It may contain grammatical, syntax or spelling errors. Electronically signed by: Donnell Saeed M.D. 09/22/2017 4:25 PM Dictated Date/Time: 09/22/2017 4:24 PM Laboratory Results 09/22/17 13:00 Red Blood Count 4.76, Mean Corpuscular Volume 83.8, Mean Corpuscular Hemoglobin 30.0, Mean Corpuscular Hemoglobin Concent 35.8, Mean Platelet Volume 9.1 09/22/17 13:00 Test 09/22/17 13:00 White Blood Count 22.72 K/uL (4.8-10.8) Red Blood Count 4.76 M/uL (4.7-6.1) Hemoglobin 14.3 g/dL (14.0-18.0) Hematocrit 39.9 % (42-52) Mean Corpuscular Volume 83.8 fL (80-100) Mean Corpuscular Hemoglobin 30.0 pg (25-34) Mean Corpuscular Hemoglobin Concent 35.8 g/dl (32-36) Platelet Count 235 K/uL (130-400) Mean Platelet Volume 9.1 fL (7.4-10.4) RDW Standard Deviation 43.3 fL (36.4-46.3) RDW Coefficient of Variation 14.2 % (11.5-14.5) Neutrophils % (Manual) 36.6 % Lymphocytes % (Manual) 32.1 % Variant Lymphocytes % (manual) 24.1 % Monocytes % (Manual) 1.8 % Eosinophils % (Manual) 4.5 % Basophils % (Manual) 0.9 % (0-2) Neutrophils # (Manual) 8.32 K/uL (1.4-6.5) Total Absolute Neutrophils 8.32 K/uL (1.4-6.5) Lymphocytes # (Manual) 7.29 K/uL (1.2-3.4) Absolute Variant Lymphocytes 5.48 K/uL Total Absolute Lymphocytes 12.77 K/uL (1.2-3.4) Monocytes # (Manual) 0.41 K/uL (0.11-0.59) Eosinophils # (Manual) 1.02 K/uL (0-0.5) Basophils # (Manual) 0.20 K/uL (0-0.2) Prothrombin Time 10.7 SECONDS (9.0-12.0) Prothromb Time International Ratio 1.0 (0.9-1.1) Activated Partial Thromboplast Time 25.3 SECONDS (21.0-31.0) Partial Thromboplastin Ratio 1.0 Anion Gap 8.0 mmol/L (3-11) Est Creatinine Clear Calc Drug Dose 73.9 ml/min Estimated GFR () 106.6 Estimated GFR (Non- 92.0 BUN/Creatinine Ratio 18.9 (10-20) Calcium Level 9.3 mg/dl (8.5-10.1) Magnesium Level 1.9 mg/dl (1.8-2.4) Total Bilirubin 2.3 mg/dl (0.2-1) Aspartate Amino Transf (AST/SGOT) 28 U/L (15-37) Alanine Aminotransferase (ALT/SGPT) 44 U/L (12-78) Alkaline Phosphatase 477 U/L (45-117) Total Creatine Kinase 40 U/L (39-308) Troponin I < 0.015 ng/ml (0-0.045) Total Protein 7.1 gm/dl (6.4-8.2) Albumin 3.0 gm/dl (3.4-5.0) Globulin 4.1 gm/dl (2.5-4.0) Albumin/Globulin Ratio 0.7 (0.9-2) Thyroid Stimulating Hormone (TSH) 3.570 uIu/ml (0.300-4.500) Laboratory results reviewed by me. Medications Administered Medications (Trade) Dose Ordered Sig/Natalya Route Start Time Stop Time Status Last Admin Dose Admin Sodium Chloride 500 ml @ 999 mls/hr Q31M STAT IV 09/22/17 12:54 09/22/17 13:24 DC 09/22/17 12:54 999 MLS/HR Morphine Sulfate (MoRPHine SULFATE INJ) 4 mg Q15M PRN IV 09/22/17 13:45 09/22/17 17:24 DC 09/22/17 16:03 4 MG Piperacillin Sod/ Tazobactam Sod (Zosyn Iv) 4.5 gm NOW STAT IV 09/22/17 14:15 09/22/17 14:17 DC 09/22/17 14:15 4.5 GM Vancomycin HCl (Vancomycin 1gm Ed/Asu Omnicell) 1 gm NOW STAT IV 09/22/17 14:15 09/22/17 14:17 DC 09/22/17 16:37 1 GM Oxycodone HCl (Roxicodone Immediate Rel Tab) 5 mg for pain level 1-5 and... Q4H PRN PO 09/22/17 16:30 10/06/17 16:29 09/22/17 18:38 10 MG ECG Per My Interpretation Indication: other Rate (beats per minute): 91 Rhythm: normal sinus Findings: other (no PVCs; baseline artifact) ED Course 1244: The patient was evaluated in room B12B. A complete history and physical exam was performed. 1254: NSS 500 ml @ 999 mls/hr IV 1345: Morphine sulfate 4 mg IV - PRN 1414: I discussed the case with Dr. Sheriff from the [facility]. He recommended Zosyn and Vancomycin and to bring him into the hospital for IV antibiotics. 1415: Vancomycin 1 gm IV, Zosyn 4.5 gm IV 1458: I spoke with Dr. Solomon. We discussed the patient's case. The patient will be evaluated by the [facility] for further management. 1459: I reassessed the patient at this time. He is resting comfortably. I discussed the results and treatment plan with the patient. I answered all pertaining questions that he had. He expressed understanding and verbalized agreement. Medical Decision Differential diagnoses includes failed outpatient treatment, osteomyelitis, cellulitis, DVT, arterial insufficiency, limb ischemia, dehydration, rhabdomyolysis, liver failure, electrolyte imbalance. There is a significant leukocytosis at 22,000, no concerning anemia. No significant electrolyte abnormality or kidney failure. There were a few scattered liver enzyme elevations. EKG shows a sinus rhythm, no acute ischemia. Cardiac enzyme testing 1 is not consistent with acute cardiac injury. Right ankle film shows soft tissue swelling, no osteomyelitis. Chest film does not show pneumonia or CHF. Arterial right leg ultrasound shows significant arterial disease with some occlusion. Right leg venous ultrasound did not show any acute DVT. Blood cultures are pending. Patient received IV saline, he received IV morphine. He was given IV Zosyn and IV vancomycin. I spoke to Dr. Sheriff of infectious disease, he recommended a hospital stay and IV antibiotics. I talked to the patient and case management. The on-call hospitalist was consulted. The patient has right leg ischemia. He has a wound that is failing outpatient treatment for infection. He requires a hospital stay. Medication Reconcilliation Current Medication List: was personally reviewed by me Consults Time Called: 1410 Consulting Physician: Dr. Sheriff Returned Call: [phone] I discussed the case with Dr. Sheriff from the [facility]. He recommended Zosyn and Vancomycin and to bring him into the hospital for IV antibiotics. Additional Consults: Time Called: 1452 Consulted Physician: Dr. Solomon Returned Call: [phone] Additional Comments: I spoke with Dr. Solomon. We discussed the patient's case. The patient will be evaluated by the [facility] for further management. Impression Primary Impression: Cellulitis of right foot Additional Impressions: Failure of outpatient treatment Leukocytosis Ischemic foot Scribe Attestation The scribe's documentation has been prepared under my direction and personally reviewed by me in its entirety. I confirm that the note above accurately reflects all work, treatment, procedures, and medical decision making performed by me. Departure Information Dispostion Being Evaluated By Hospitalist Referrals Darci Johnston M.D. (PCP) Patient Instructions My [facility] Problem Qualifiers
[2017-09-22 13:16] LABS: HEMATOCRIT 39.9 % (42-52); HEMOGLOBIN 14.3 g/dL (14.0-18.0); MEAN CELL VOLUME 83.8 fL (80-100); MEAN CORPUSCULAR HGB CONC 35.8 g/dl (32-36); MEAN PLATELET VOLUME 9.1 fL (7.4-10.4); PLATELET COUNT 235 K/uL (130-400); RED CELL DISTRIBUTION WIDTH CV 14.2 % (11.5-14.5); RED CELL DISTRIBUTION WIDTH SD 43.3 fL (36.4-46.3); WHITE BLOOD COUNT 22.72 K/uL (4.8-10.8)
[2017-09-22 13:28] LABS: PTT PATIENT 25.3 SECONDS (21.0-31.0)
[2017-09-22 13:32] LABS: ALT/SGPT 44 U/L (12-78); AST/SGOT 28 U/L (15-37); BLOOD UREA NITROGEN 17 mg/dl (7-18); CALCIUM 9.3 mg/dl (8.5-10.1); CARBON DIOXIDE 17 mmol/L (21-32); CREATININE 0.92 mg/dl (0.60-1.40); GLUCOSE 92 mg/dl (70-99); SODIUM 132 mmol/L (136-145)
[2017-09-22] MEDS: MoRPHine SULFATE 4 MG/ML 1 ML CARP\\VIAL IV PRN ×2 (13:44→16:03)
--- NOTE | 2017-09-22 13:44 | DIAGNOSTIC IMAGING REPORT ---
CHEST ONE VIEW PORTABLE HISTORY: 56 years-old Male EVALUATE ALTERED MENTAL STATUS/WEAKNESS acute altered mental status with weakness COMPARISON: Radiographs 03/22/2018 TECHNIQUE: Portable AP view of the chest FINDINGS: Cardiomediastinal and hilar silhouettes are within normal limits. There is no pneumothorax, pleural effusion, focal airspace consolidation or overt pulmonary edema. Atherosclerosis of the aorta. Lungs are mildly hyperinflated. Degenerative changes of the shoulders and spine. IMPRESSION: No acute process of the chest. The above report was generated using voice recognition software. It may contain grammatical, syntax or spelling errors. Electronically signed by: Donnell Saeed M.D. 09/22/2017 1:42 PM Dictated Date/Time: 09/22/2017 1:41 PM
--- NOTE | 2017-09-22 13:45 | DIAGNOSTIC IMAGING REPORT ---
RIGHT ANKLE 3 VIEWS HISTORY: Right ankle pain and swelling. right ankle poss osteo COMPARISON: Right ankle 04/23/2017. FINDINGS: There is no fracture or dislocation. Mild soft tissue swelling within the mid to distal lower leg. No areas of cortical destruction to suggest osteomyelitis. There is also mild soft tissue swelling within the ankle. There is a 14 mm skin ulceration at the medial malleolus. No underlying bony abnormality. There appears to be a skin ulceration at the lateral malleolus which is covered by overlying bandage. No definite underlying bony abnormality. No radiopaque foreign bodies. IMPRESSION: Skin ulcerations at the medial and lateral malleoli. No underlying bony destruction to suggest osteomyelitis. Electronically signed by: Gee Santamaria M.D. 09/22/2017 1:43 PM Dictated Date/Time: 09/22/2017 1:40 PM
[2017-09-22 13:50] LABS: ALKALINE PHOSPHATASE 477 U/L (45-117); TOTAL PROTEIN 7.1 gm/dl (6.4-8.2)
[2017-09-22] MEDS ORDERED: PIPERACILLIN/TAZOBACTAM 4.5 GM/100ML D5W IV STA (14:15)
[2017-09-22] MEDS ORDERED: VANCOMYCIN 1GM ED/ASU OMNICELL IV STA (14:15)
--- NOTE | 2017-09-22 16:27 | DIAGNOSTIC IMAGING REPORT ---
R VENOUS DOPP LOWER EXT UNILAT HISTORY: 56 years-old Male swelling, and pain acute pain and swelling of the right lower extremity COMPARISON: CT abdomen and pelvis 05/26/2017 TECHNIQUE: Multiple real-time sonographic images of the right lower extremity deep venous structures were obtained assessing grayscale appearance, color and spectral flow FINDINGS: There is normal flow, compressibility, phasicity and augmentation of the right lower extremity deep venous structures. Incidental note is made of a mildly prominent lymph node with normal fatty echogenic hilum within the right inguinal region measuring 0.8 cm in short axis and 4.1 cm in length. On previous CT study, right inguinal lymph nodes are seen measuring up to 1. 3 cm in short axis. IMPRESSION: 1. No sonographic evidence of deep venous thrombosis. 2. Mildly prominent right inguinal lymph node, likely reactive. The above report was generated using voice recognition software. It may contain grammatical, syntax or spelling errors. Electronically signed by: Donnell Saeed M.D. 09/22/2017 4:25 PM Dictated Date/Time: 09/22/2017 4:24 PM
[2017-09-22] MEDS ORDERED: ALUMINUM/MAGNESIUM/SIMETH (MAALOX MAX) 30 ML UDC PO PRN (16:30)
[2017-09-22] MEDS ORDERED: ONDANSETRON INJ 2 MG/ML 2 ML VIAL IV PRN (16:30)
[2017-09-22] MEDS ORDERED: MAGNESIUM HYDROXIDE SUSP 30 ML UDC PO PRN (16:30)
[2017-09-22] MEDS ORDERED: VANCOMYCIN CONSULT ACTIVE PRN (16:30)
[2017-09-22] MEDS ORDERED: PIPERACILL/TAZOBAC CONSULT ACTIVE PRN (16:30)
[2017-09-22] MEDS ORDERED: POLYETHYLENE (MIRALAX) 17 GM PACK PO PRN (16:30)
[2017-09-22] MEDS ORDERED: ACETAMINOPHEN 325 MG TAB PO PRN (16:30)
[2017-09-22] MEDS ORDERED: ALBUT/IPRATROP 3MG/0.5MG NEB 3 ML VIAL INH PRN (16:30)
[2017-09-22] MEDS ORDERED: ATOR-24 PO (16:37)
--- NOTE | 2017-09-22 16:37 | History and Physical ---
History & Physical Date & Time of Service: Sep 22, 2017 at 16:31 Chief Complaint: R Ankle Pain And Swelling Primary Care Physician: Darci Johnston M.D. History of Present Illness Source: patient Mr. Martins is a 56 y/o male with PMHx of Former ETOH use, Tobacco User, COPD/ Emphysema, Hepatitis C, Fatty Liver Disease, HTN, PAD, and Chronic R Foot Wound who presents to the ED c/o increased pain, redness, and swelling of the R foot x 4 days. Patient is wheelchair bound. He had surgery on his R ankle in April for an I&D with wound vac placed. He was growing enterobacter and MSSA. He was initially treated with Ertapenem and ultimately converted to Cipro/ Bactrim and he reports compliance. He follows with the wound clinic and has home services performing every other day wound checks and dressing changes. Also follows with Dr. Sheriff. He states yesterday his home nurse noted more erythema and edema around the wound and recommended him to be evaluated but he did not want to. His county worker brought him to the ED today. He reports increasing pain and associated chills and decreased appetite. He also states he was told his urine is dark "tea colored" and knows he hasn't been drinking much but denies any urinary symptoms. He does continue to smoke but reports cutting back. He said he has quit drinking completely since his last admission. At that admission it was reported he had 4 beers a day and intermittently utilized Rum to help with pain. He was supposed to see Dr. Sequeira to assess for vascular intervention but missed his appointment and is due to see him October 06. Past Medical/Surgical History Medical Problems: (1) Alcohol intoxication (2) Bilateral foot pain (3) Cellulitis (4) Elevated lactic acid level (5) Ulcer of right ankle Family History Diabetes mellitus Social History Smoking Status: Current Some Day Smoker Drug Use: marijuana Marital Status: Housing status: lives alone Occupational Status: disabled Immunizations History of Influenza Vaccine: Unknown History of Tetanus Vaccine?: Unknown History of Pneumococcal: Unknown History of Hepatitis B Vaccine: Unknown Allergies Coded Allergies: No Known Allergies (Verified , NONE, 09/22/17) Home Medications Scheduled Aspirin (Aspirin EC Low Dose), 81 MG PO QAM Atorvastatin (Lipitor), 40 MG PO HS Cilostazol (Cilostazol), 100 MG PO BID Ciprofloxacin Hcl (Cipro), 500 MG PO BID Fluticasone Propionate (Flovent Hfa), 2 PUFFS INH BID Ipratropium-Albuterol (Combivent Respimat), 1 PUFFS INH QID Losartan Potassium (Cozaar), 100 MG PO DAILY Pantoprazole (Protonix), 40 MG PO DAILY Sertraline (Zoloft), 50 MG PO DAILY Sulfa/Trimethoprim (Bactrim Ds 800MG/160MG), 1 TAB PO BID Scheduled PRN Ibuprofen (Motrin), 600 MG PO TID PRN for Pain Review of Systems Constitutional: + chills, No fever ENT: No nasal symptoms, No sore throat Respiratory: + shortness of breath (chronic - baseline), No cough Cardiovascular: No chest pain Abdomen: + nausea, No pain, No vomiting, No diarrhea, No constipation, No GI bleeding Musculoskeletal: + joint pain (R ankle ), + swelling (R ankle) Genitourinary - Male: No dysuria Hematologic / Lymphatic: No abnormal bleeding/bruising Physical Exam Vital Signs Date Time Temp Pulse Resp B/P (MAP) Pulse Ox O2 Delivery O2 Flow Rate FiO2 09/22/17 16:01 91 18 133/67 99 Room Air 09/22/17 13:20 86 09/22/17 13:14 98 Room Air 09/22/17 12:40 36.6 101 18 117/73 93 Room Air General Appearance: no apparent distress, + cachetic Head: normocephalic, atraumatic Eyes: sclerae normal ENT: hearing grossly normal Neck: supple, no JVD, trachea midline Respiratory/Chest: no respiratory distress, no accessory muscle use, + wheezing (sporadic exp. wheeze), + pertinent finding (diminished breath sounds diffusely ) Cardiovascular: regular rate, rhythm, no gallop, no murmur Abdomen/GI: normal bowel sounds, non tender, soft Extremities/Musculoskelatal: + pertinent finding (R ankle with small dime sized wound with pink center no drainage; large egg sized lateral ankle wound with pink/red base with surround erythema, edema, and warmth) Neurologic/Psych: alert, oriented x 3 Skin: normal color (other than specified in extremities) Diagnostics Laboratory Results Results Past 24 Hours Test 09/22/17 13:00 Range/Units White Blood Count 22.72 4.8-10.8 K/uL Red Blood Count 4.76 4.7-6.1 M/uL Hemoglobin 14.3 14.0-18.0 g/dL Hematocrit 39.9 42-52 % Mean Corpuscular Volume 83.8 80-100 fL Mean Corpuscular Hemoglobin 30.0 25-34 pg Mean Corpuscular Hemoglobin Concent 35.8 32-36 g/dl Platelet Count 235 130-400 K/uL Mean Platelet Volume 9.1 7.4-10.4 fL RDW Standard Deviation 43.3 36.4-46.3 fL RDW Coefficient of Variation 14.2 11.5-14.5 % Neutrophils % (Manual) 36.6 % Lymphocytes % (Manual) 32.1 % Variant Lymphocytes % (manual) 24.1 % Monocytes % (Manual) 1.8 % Eosinophils % (Manual) 4.5 % Basophils % (Manual) 0.9 0-2 % Neutrophils # (Manual) 8.32 1.4-6.5 K/uL Total Absolute Neutrophils 8.32 1.4-6.5 K/uL Lymphocytes # (Manual) 7.29 1.2-3.4 K/uL Absolute Variant Lymphocytes 5.48 K/uL Total Absolute Lymphocytes 12.77 1.2-3.4 K/uL Monocytes # (Manual) 0.41 0.11-0.59 K/uL Eosinophils # (Manual) 1.02 0-0.5 K/uL Basophils # (Manual) 0.20 0-0.2 K/uL Prothrombin Time 10.7 9.0-12.0 SECONDS Prothromb Time International Ratio 1.0 0.9-1.1 Activated Partial Thromboplast Time 25.3 21.0-31.0 SECONDS Partial Thromboplastin Ratio 1.0 Sodium Level 132 136-145 mmol/L Potassium Level 4.0 3.5-5.1 mmol/L Chloride Level 107 98-107 mmol/L Carbon Dioxide Level 17 21-32 mmol/L Anion Gap 8.0 3-11 mmol/L Blood Urea Nitrogen 17 7-18 mg/dl Creatinine 0.92 0.60-1.40 mg/dl Est Creatinine Clear Calc Drug Dose 73.9 ml/min Estimated GFR () 106.6 Estimated GFR (Non- 92.0 BUN/Creatinine Ratio 18.9 10-20 Random Glucose 92 70-99 mg/dl Calcium Level 9.3 8.5-10.1 mg/dl Magnesium Level 1.9 1.8-2.4 mg/dl Total Bilirubin 2.3 0.2-1 mg/dl Aspartate Amino Transf (AST/SGOT) 28 15-37 U/L Alanine Aminotransferase (ALT/SGPT) 44 12-78 U/L Alkaline Phosphatase 477 45-117 U/L Total Creatine Kinase 40 39-308 U/L Troponin I < 0.015 0-0.045 ng/ml Total Protein 7.1 6.4-8.2 gm/dl Albumin 3.0 3.4-5.0 gm/dl Globulin 4.1 2.5-4.0 gm/dl Albumin/Globulin Ratio 0.7 0.9-2 Thyroid Stimulating Hormone (TSH) 3.570 0.300-4.500 uIu/ml Microbiology Results 09/22/17 Blood Culture, Received Pending 09/22/17 Blood Culture, Received Pending Diagnostic Radiology RIGHT ANKLE 3 VIEWS FINDINGS: There is no fracture or dislocation. Mild soft tissue swelling within the mid to distal lower leg. No areas of cortical destruction to suggest osteomyelitis. There is also mild soft tissue swelling within the ankle. There is a 14 mm skin ulceration at the medial malleolus. No underlying bony abnormality. There appears to be a skin ulceration at the lateral malleolus which is covered by overlying bandage. No definite underlying bony abnormality. No radiopaque foreign bodies. IMPRESSION: Skin ulcerations at the medial and lateral malleoli. No underlying bony destruction to suggest osteomyelitis. R VENOUS DOPP LOWER EXT UNILAT FINDINGS: There is normal flow, compressibility, phasicity and augmentation of the right lower extremity deep venous structures. Incidental note is made of a mildly prominent lymph node with normal fatty echogenic hilum within the right inguinal region measuring 0.8 cm in short axis and 4.1 cm in length. On previous CT study, right inguinal lymph nodes are seen measuring up to 1. 3 cm in short axis. IMPRESSION: 1. No sonographic evidence of deep venous thrombosis. 2. Mildly prominent right inguinal lymph node, likely reactive. EKG Normal sinus rhythm Biatrial enlargement Nonspecific T wave abnormality Prolonged QT Abnormal ECG When compared with ECG of 23-APR-2017 20:57, No significant change was found Impression Assessment and Plan Mr. Martins is a 56 y/o male with PMHx of Former ETOH use, Tobacco User, COPD/ Emphysema, Hepatitis C, Fatty Liver Disease, HTN, PAD, and Chronic R Foot Wound who presents to the ED c/o increased pain, redness, and swelling of the R foot x 4 days. R Foot/Ankle Cellulitis and Chronic Wound: - Previous cultures with enterobacter and MSSA with treatment with Ertapenem and currently on Cipro/Flagyl with increasing edema, pain, and redness around wounds - Has chronic leukocytosis but is slightly worsened at this time - Wound appears to be healing well with good granulation without eschar/ necrosis - will consult wound care -- Reports wound on buttocks 2/2 being wheelchair bound - Zosyn and Vancomycin per Dr. Sheriff's recommendation - Tylenol and Oxycodone 5-10 mg Q4H PRN; Morphine PRN - Could consider consulation to Dr. Sequeira as he was to evaluate as outpatient for possible re-vascularization intervention - Consult ID - appreciate assistance COPD/Emphysema without Exacerbation: - Continues to smoke and does have wheezing on examination however appropriate saturations - Fluticasone BID, Combivent QID, Singulair 10 mg dailyDuonebs PRN HTN/HLD and PAD: - ASA 81 mg daily, Lipitor 20 mg daily, Pletal 100 mg BID Former ETOH Use and Current Smoker: - Reporting that he stopped drinking after his last admission and was drinking about 4 beers a day and intermittent Rum to help with pain - no active signs of withdrawal - Recommended to quit; Asked if he wanted a nicotine patch and he said he would be fine without it - can reassess need - Continue Thiamine and Folic Acid supplementation Fatty Liver Disease/Hepatitis C: STABLE - Total bili elevated but no abdominal pain - can monitor DVT Prophylaxis: Heparin Code Status: FULL RESUSCITATION Disposition: - Possible need for PICC line/home Abx - currently lives at home with services - Wheelchair bound Resuscitation Status VTE Prophylaxis Will order VTE Prophylaxis: Yes Reviewed: Pt Seen/Exam by Me History Pt feels his pain is still present at the level of arrival. Tolerating PO without issue but has a low appetite which is a chronic issue for him. Denies chest pain, SOB. Agree with HPI/ROS as noted by PA. General Appearance: no apparent distress, cachetic Eye Exam: bilateral eye normal inspection, bilateral eye other (nml sclerae) Respiratory: normal breath sounds, no respiratory distress Cardiovascular: regular rate, rhythm, no edema Gastrointestinal: non tender, soft Extremities: no pedal edema, other (diffuse TTP with all movement and palpation ) Neurologic/Psychiatric: alert, oriented x 3 Skin Characteristics: warm/dry, other (bandages in place that are clean and dry , redness to toes, toenails with appearance of disrepair and fungal infection) Assessment/Plan Agree with plan as outlined above R ankle wound that is non-healing despite multiple abx, HH, and Wound Care Follows with Dr. Sheriff XR neg for osteo Was to have appt with Dr. Sequeira for possible revascularization issues, but issues have worsened. C/S pending Oral thrush, nystatin swish and swallow
[2017-09-22] MEDS ORDERED: PANT40TA PO (16:41)
[2017-09-22] MEDS ORDERED: LOSA100T65 PO (16:41)
[2017-09-22] MEDS ORDERED: IBUP-1450 PO (16:41)
--- NOTE | 2017-09-22 17:01 | DIAGNOSTIC IMAGING REPORT ---
ARTERIAL DOPPLER DUPLEX ULTRASOUND OF THE RIGHT LOWER EXTREMITY CLINICAL HISTORY: Right leg pain poor circulation COMPARISON STUDY: April 24, 2017 FINDINGS: The patient refused ankle arm indices. There is monophasic flow within the right common femoral artery. There is monophasic flow within the right superficial femoral artery proximally. There is an occlusion of the mid right superficial femoral artery. There is distal reconstitution. There is dampened flow distal to the occlusion. There is monophasic flow with the right popliteal artery, anterior tibial artery, posterior tibial artery, and peroneal arteries. IMPRESSION: 1. 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 There is distal reconstitution with dampened flow distally. Electronically signed by: Chalino Wilhelm M.D. 09/22/2017 5:00 PM Dictated Date/Time: 09/22/2017 4:57 PM
[2017-09-22 17:22] VITALS: BP 101/63; PULSE 90; TEMP 36.3; O2SAT 93
[2017-09-22 18:11] VITALS: BMI 16.7
[2017-09-22] MEDS: IPRATROPIUM BROMIDE/ALBUTEROL respimat INH INH SCH ×2 (18:22→19:50)
[2017-09-22] MEDS: OXYCODONE HCL IR 5 MG TAB (IMMEDIATE RELEASE) PO PRN ×2 (18:32→18:38)
[2017-09-22] MEDS: PIPERACILL/TAZOBAC IV 3.375 GM in DEXTROSE 5% 100ML 100 ML IV SCH (19:48)
[2017-09-22] MEDS: FLUTICASONE PROP HFA INH 44 MCG INHALER INH SCH (19:51)
[2017-09-22] MEDS: MAGNESIUM OXIDE 400 MG TAB PO SCH (19:52)
[2017-09-22] MEDS: THIAMINE HCL 100 MG TAB PO SCH (19:53)
[2017-09-22] MEDS: CILOSTAZOL 100 MG TAB PO SCH (19:53)
[2017-09-22] MEDS ORDERED: MoRPHine SULFATE 4 MG/ML 1 ML CARP\\VIAL IV PRN (20:15)
[2017-09-22] MEDS ORDERED: MoRPHine SULFATE 2 MG/ML CARP IV PRN (20:15)
[2017-09-22] MEDS ORDERED: NYSTATIN SUSP 500,000 U/5 ML UDC PO ONE (20:30)
[2017-09-22] MEDS: HEPARIN SOD 5000 UNIT/0.5 ML CARP SQ SCH (20:46)
--- NOTE | 2017-09-22 21:35 | Pharmacy Progress Note ---
Pharmacy Abx Initial Consult Date of Service Sep 22, 2017. Pharmacy Dosing Scope Date of Consult: 09/22/17 Consultation requested by: Madeline Mckenzie PA-C Pharmacy is consulted to initiate vancomycin/Zosyn IV dosing therapy, order appropriate labs and adjust drug dose/frequency. Subjective The patient is a 56 year old male admitted on Sep 22, 2017 at 16:30. Objective Height (Feet): 6 Height (Inches): 2.00 Weight (Kilograms): 59.000 Vital Signs (Past 12Hrs) Vital Signs Past 12 Hours Date Time Temp Pulse Resp B/P (MAP) Pulse Ox O2 Delivery O2 Flow Rate FiO2 09/22/17 18:11 Room Air 09/22/17 17:22 36.3 90 18 101/63 (76) 93 Room Air 09/22/17 16:01 91 18 133/67 99 Room Air 09/22/17 13:20 86 09/22/17 13:14 98 Room Air 09/22/17 12:40 36.6 101 18 117/73 93 Room Air Lab Results (24Hrs) Laboratory Tests (24 Hours) Test 09/22/17 13:00 Total Creatine Kinase 40 U/L (39-308) White Blood Count 22.72 K/uL (4.8-10.8) H Red Blood Count 4.76 M/uL (4.7-6.1) Hemoglobin 14.3 g/dL (14.0-18.0) Hematocrit 39.9 % (42-52) L Mean Corpuscular Volume 83.8 fL (80-100) Mean Corpuscular Hemoglobin 30.0 pg (25-34) Mean Corpuscular Hemoglobin Concent 35.8 g/dl (32-36) Platelet Count 235 K/uL (130-400) Mean Platelet Volume 9.1 fL (7.4-10.4) Micro Results Date/Time Source Procedure Growth Status 09/22/17 13:05 Blood Blood Culture Pending Received 09/22/17 13:00 Blood Blood Culture Pending Received Risk Factors for Resistance * Antimicrobial use within the last 90 days (chronic Bactrim + cipro, was on IV antibiotics for some time prior) Assessment & Plan Assessment 56 year old male with a recurrent ankle infection. Previously on cipro and Bactrim now starting back on vancomycin and Zosyn Plan vancomycin/Zosyn for treatment of recurrent ankle infection Vancomycin IV * Loading dose: 1000 mg (16.9 mg/kg) * Maintenance dose: 1000 mg IV (16.9 mg/kg) every 8 hours (inadequate load given so start 2 hours early; previous patient specific data supports every 8 hour dosing) * Goal trough level for ankle infection : 15 to 20 mcg/mL * Trough ordered for 09/24/17 prior to 0600 dose Piperacillin/tazobactam * 4.5 g bolus administered over 30 minutes, then 3.375 g IV extended infusion every 8 hours for CrCl greater than 20 mL/min Pharmacy will continue to follow and will adjust dose/frequency as necessary. Thank you.
[2017-09-22] MEDS: VANCOMYCIN IV 1,000 MG in SODIUM CHLORIDE 0.9% 250ML 250 ML IV SCH (22:01)
[2017-09-23] VITALS (7 sets, daily range): BP systolic 72–99; BP diastolic 41–60; PULSE 78–90; TEMP 36.4–36.9; O2SAT 93–95; Ht 188 cm; Wt 59.0 kg
[2017-09-23] MEDS ORDERED: SODIUM CHLORIDE 0.9% 1000ML 1,000 ML IV SCH ×3 (00:30→03:00)
[2017-09-23] MEDS: OXYCODONE HCL IR 5 MG TAB (IMMEDIATE RELEASE) PO PRN ×5 (02:55→21:59)
[2017-09-23] MEDS: PIPERACILL/TAZOBAC IV 3.375 GM in DEXTROSE 5% 100ML 100 ML IV SCH ×3 (04:00→20:52)
[2017-09-23] MEDS: VANCOMYCIN IV 1,000 MG in SODIUM CHLORIDE 0.9% 250ML 250 ML IV SCH ×3 (05:35→21:59)
[2017-09-23 06:45] LABS: HEMATOCRIT 36.8 % (42-52); HEMOGLOBIN 12.8 g/dL (14.0-18.0); MEAN CELL VOLUME 85.4 fL (80-100); MEAN CORPUSCULAR HEMOGLOBIN 29.7 pg (25-34); MEAN CORPUSCULAR HGB CONC 34.8 g/dl (32-36); MEAN PLATELET VOLUME 9.1 fL (7.4-10.4); PLATELET COUNT 213 K/uL (130-400); RED CELL DISTRIBUTION WIDTH CV 14.1 % (11.5-14.5); RED CELL DISTRIBUTION WIDTH SD 44.3 fL (36.4-46.3); WHITE BLOOD COUNT 23.61 K/uL (4.8-10.8)
[2017-09-23 07:17] LABS: ALBUMIN 2.3 gm/dl (3.4-5.0); CREATININE 0.52 mg/dl (0.60-1.40); POTASSIUM 3.5 mmol/L (3.5-5.1)
[2017-09-23 07:19] LABS: TOTAL PROTEIN 5.6 gm/dl (6.4-8.2)
[2017-09-23] MEDS: FLUTICASONE PROP HFA INH 44 MCG INHALER INH SCH ×2 (07:31→20:49)
[2017-09-23] MEDS: THIAMINE HCL 100 MG TAB PO SCH ×2 (07:31→20:56)
[2017-09-23] MEDS: IPRATROPIUM BROMIDE/ALBUTEROL respimat INH INH SCH ×4 (07:31→20:49)
[2017-09-23] MEDS: CILOSTAZOL 100 MG TAB PO SCH ×2 (07:32→20:57)
[2017-09-23] MEDS: NYSTATIN SUSP 500,000 U/5 ML UDC PO SCH ×4 (07:32→20:57)
[2017-09-23] MEDS: ASPIRIN 81 MG ECTAB PO SCH (07:32)
[2017-09-23] MEDS: MONTELUKAST SOD 10 MG TAB PO SCH (07:34)
[2017-09-23] MEDS: SERTRALINE HCL 50 MG TAB PO SCH (07:34)
[2017-09-23] MEDS: MAGNESIUM OXIDE 400 MG TAB PO SCH ×2 (07:34→20:57)
[2017-09-23] MEDS: PANTOprazole SOD 40 MG TAB PO SCH (07:37)
[2017-09-23] MEDS: HEPARIN SOD 5000 UNIT/0.5 ML CARP SQ SCH ×2 (07:39→21:00)
[2017-09-23] MEDS ORDERED: ATORVASTATIN 20 MG TAB PO SCH (08:00)
--- NOTE | 2017-09-23 11:00 | Medical Consult ---
Consultation Date of Consultation: Sep 23, 2017. Attending Physician: Brittany Harden MD Reason for Consultation: Right foot wound infection History of Present Illness 57-year-old male well known to me from outpatient infectious disease consultation and follow-up, with history of severe peripheral arterial disease, COPD, chronic alcohol abuse, fatty liver, hepatitis-C, hypertension, who has been followed for chronic nonhealing right lower extremity and foot wounds. Had most recently been treated with combination of Bactrim and ciprofloxacin with relative stabilization the wounds, with plans for vascular surgery consultation in early October. However over the last several days has been noted to have increasing redness and swelling of his right foot with increasing pain, now rated 8/10 in intensity, not associated with fever or chills. He has been started empirically on vancomycin and Zosyn, cultures are pending. Ultrasound the lower extremity consistent with obstruction of the superficial femoral artery. Past Medical/Surgical History Medical Problems: (1) Cellulitis of right foot Status: Acute (2) Failure of outpatient treatment Status: Acute (3) Ischemic foot Status: Acute (4) Leukocytosis Status: Acute Medical Problems: (1) Alcohol intoxication Social History Problems: (1) Alcohol abuse Family History Diabetes mellitus Social History Smoking Status: Current Some Day Smoker Drug Use: marijuana Marital Status: Housing Status: lives alone Occupation Status: disabled Allergies Coded Allergies: No Known Allergies (Verified , NONE, 09/22/17) Current Inpatient Medications Current Inpatient Medications Medications (Trade) Dose Ordered Sig/Natalya Route Start Time Stop Time Status Last Admin Dose Admin Acetaminophen (Tylenol Tab) 650 mg Q4H PRN PO 09/22/17 16:30 10/22/17 16:29 Al Hydrox/Mg Hydrox/Simethicone (Maalox Max Susp) 15 ml Q4H PRN PO 09/22/17 16:30 10/22/17 16:29 Magnesium Hydroxide (Milk Of Magnesia Susp) 30 ml Q6H PRN PO 09/22/17 16:30 10/22/17 16:29 Polyethylene (Miralax Powder Packet) 17 gm DAILY PRN PO 09/22/17 16:30 10/22/17 16:29 Ondansetron HCl (Zofran Inj) 4 mg Q6H PRN IV 09/22/17 16:30 10/22/17 16:29 Aspirin (Ecotrin Tab) 81 mg QAM PO 09/23/17 08:00 10/23/17 08:59 09/23/17 07:32 81 MG Atorvastatin Calcium (Lipitor Tab) 20 mg QAM PO 09/23/17 08:00 10/23/17 08:59 09/23/17 07:31 20 MG Cilostazol (Pletal Tab) 100 mg BID PO 09/22/17 20:00 10/22/17 20:59 09/23/17 07:32 100 MG Fluticasone Propionate (Flovent Hfa 44MCG Inhaler) 2 puffs BID INH 09/22/17 20:00 10/22/17 20:59 09/23/17 07:31 2 PUFFS Folic Acid (Folvite Tab) 1 mg QAM PO 09/23/17 08:00 10/23/17 08:59 09/23/17 07:32 1 MG Albuterol/ Ipratropium (Combivent Respimat Inh) 2 puffs QID INH 09/22/17 17:00 10/22/17 16:59 09/23/17 07:31 2 PUFFS Magnesium Oxide (Mag-Ox Tab) 400 mg BID PO 09/22/17 20:00 10/22/17 20:59 09/23/17 07:34 400 MG Montelukast Sodium (Singulair Tab) 10 mg DAILY PO 09/23/17 08:00 10/23/17 08:59 09/23/17 07:34 10 MG Oxycodone HCl (Roxicodone Immediate Rel Tab) 5 mg for pain level 1-5 and... Q4H PRN PO 09/22/17 16:30 10/06/17 16:29 09/23/17 07:44 10 MG Sertraline HCl (Zoloft Tab) 50 mg DAILY PO 09/23/17 08:00 10/23/17 08:59 09/23/17 07:34 50 MG Thiamine HCl (Vitamin B-1 Tab) 200 mg BID PO 09/22/17 20:00 10/22/17 20:59 09/23/17 07:31 200 MG Pantoprazole Sodium (Protonix Tab) 40 mg QAM PO 09/23/17 08:00 10/23/17 08:59 09/23/17 07:37 40 MG Albuterol/ Ipratropium (Duoneb) 3 ml Q2H PRN INH 09/22/17 16:30 10/22/17 16:29 Vancomycin HCl 1000 mg/Sodium Chloride 270 ml @ 125 mls/hr Q8H IV 09/22/17 22:00 10/02/17 21:59 09/23/17 05:35 125 MLS/HR Miscellaneous Information (Consult) 1 ea UD PRN N/A 09/22/17 16:30 10/22/17 16:29 Piperacillin Sod/ Tazobactam Sod 3.375 gm/Dextrose 115 ml @ 28.75 mls/ hr Q8H IV 09/22/17 20:00 10/02/17 21:59 09/23/17 04:00 28.75 MLS/HR Miscellaneous Information (Consult) 1 ea UD PRN N/A 09/22/17 16:30 10/22/17 16:29 Heparin Sodium (Porcine) (Heparin Sq 5000 Unit/0.5ml) 5,000 unit Q12 SQ 09/22/17 21:00 10/22/17 20:59 09/23/17 07:39 5,000 UNIT Morphine Sulfate (MoRPHine SULFATE INJ) 2 mg Q4H PRN IV 09/22/17 20:15 10/06/17 20:14 Morphine Sulfate (MoRPHine SULFATE INJ) 4 mg Q4H PRN IV 09/22/17 20:15 10/06/17 20:14 09/22/17 23:17 4 MG Nystatin (Mycostatin Susp) 5 ml QID PO 09/23/17 08:00 10/23/17 07:59 09/23/17 07:32 5 ML Physical Exam Date Time Temp Pulse Resp B/P (MAP) Pulse Ox O2 Delivery O2 Flow Rate FiO2 09/23/17 07:08 36.4 78 16 98/54 (69) 94 09/23/17 04:03 86 97/60 (72) 09/23/17 01:26 94/53 (67) 09/23/17 00:19 36.4 90 20 72/41 (51) 93 Room Air 09/22/17 18:11 Room Air 09/22/17 17:22 36.3 90 18 101/63 (76) 93 Room Air 09/22/17 16:01 91 18 133/67 99 Room Air 09/22/17 13:20 86 09/22/17 13:14 98 Room Air 09/22/17 12:40 36.6 101 18 117/73 93 Room Air General Appearance: WD/WN, no apparent distress, + thin Head: normocephalic, atraumatic Eyes: normal inspection, EOMI, sclerae normal ENT: normal ENT inspection, hearing grossly normal, pharynx normal, + pertinent finding (poor dentition) Neck: supple, no adenopathy, thyroid normal, trachea midline Respiratory/Chest: chest non-tender, no respiratory distress, no accessory muscle use, + wheezing Cardiovascular: regular rate, rhythm, no gallop, no murmur Abdomen/GI: normal bowel sounds, non tender, soft, no organomegaly Back: normal inspection, no CVA tenderness Extremities/Musculoskelatal: no calf tenderness, no pedal edema, + slow capillary refill Neurologic/Psych: alert, oriented x 3 Skin: normal color, no rash, + pertinent finding (open wounds right foot/ankle with erythema of foot) Lymphatic: no adenopathy Laboratory Results Date/Time Source Procedure Growth Status 09/22/17 13:05 Blood Blood Culture Pending Received 09/22/17 13:00 Blood Blood Culture Pending Received Last 24 Hours Test 09/22/17 13:00 09/23/17 03:00 09/23/17 06:33 White Blood Count 22.72 K/uL 23.61 K/uL Red Blood Count 4.76 M/uL 4.31 M/uL Hemoglobin 14.3 g/dL 12.8 g/dL Hematocrit 39.9 % 36.8 % Mean Corpuscular Volume 83.8 fL 85.4 fL Mean Corpuscular Hemoglobin 30.0 pg 29.7 pg Mean Corpuscular Hemoglobin Concent 35.8 g/dl 34.8 g/dl Platelet Count 235 K/uL 213 K/uL Mean Platelet Volume 9.1 fL 9.1 fL RDW Standard Deviation 43.3 fL 44.3 fL RDW Coefficient of Variation 14.2 % 14.1 % Neutrophils % (Manual) 36.6 % Lymphocytes % (Manual) 32.1 % Variant Lymphocytes % (manual) 24.1 % Monocytes % (Manual) 1.8 % Eosinophils % (Manual) 4.5 % Basophils % (Manual) 0.9 % Neutrophils # (Manual) 8.32 K/uL Total Absolute Neutrophils 8.32 K/uL Lymphocytes # (Manual) 7.29 K/uL Absolute Variant Lymphocytes 5.48 K/uL Total Absolute Lymphocytes 12.77 K/uL Monocytes # (Manual) 0.41 K/uL Eosinophils # (Manual) 1.02 K/uL Basophils # (Manual) 0.20 K/uL Prothrombin Time 10.7 SECONDS Prothromb Time International Ratio 1.0 Activated Partial Thromboplast Time 25.3 SECONDS Partial Thromboplastin Ratio 1.0 Sodium Level 132 mmol/L 134 mmol/L Potassium Level 4.0 mmol/L 3.5 mmol/L Chloride Level 107 mmol/L 112 mmol/L Carbon Dioxide Level 17 mmol/L 17 mmol/L Anion Gap 8.0 mmol/L 5.0 mmol/L Blood Urea Nitrogen 17 mg/dl 10 mg/dl Creatinine 0.92 mg/dl 0.52 mg/dl Est Creatinine Clear Calc Drug Dose 73.9 ml/min 130.8 ml/min Estimated GFR () 106.6 137.2 Estimated GFR (Non- 92.0 118.4 BUN/Creatinine Ratio 18.9 19.0 Random Glucose 92 mg/dl 71 mg/dl Calcium Level 9.3 mg/dl 8.0 mg/dl Magnesium Level 1.9 mg/dl 1.7 mg/dl Total Bilirubin 2.3 mg/dl 2.5 mg/dl Aspartate Amino Transf (AST/SGOT) 28 U/L 27 U/L Alanine Aminotransferase (ALT/SGPT) 44 U/L 32 U/L Alkaline Phosphatase 477 U/L 348 U/L Total Creatine Kinase 40 U/L Troponin I < 0.015 ng/ml Total Protein 7.1 gm/dl 5.6 gm/dl Albumin 3.0 gm/dl 2.3 gm/dl Globulin 4.1 gm/dl Albumin/Globulin Ratio 0.7 Thyroid Stimulating Hormone (TSH) 3.570 uIu/ml Urine Color DK YELLOW Urine Appearance CLEAR Urine pH 6.0 Urine Specific [place] 1.023 Urine Protein TRACE Urine Glucose (UA) NEG Urine Ketones TRACE Urine Occult Blood NEG Urine Nitrite POS Urine Bilirubin 1+ Urine Urobilinogen POS Urine Leukocyte Esterase TRACE Urine WBC (Auto) 1-5 /hpf Urine RBC (Auto) 0-4 /hpf Urine Hyaline Casts (Auto) 1-5 /lpf Urine Epithelial Cells (Auto) 5-10 /lpf Urine Bacteria (Auto) NEG Direct Bilirubin 1.7 mg/dl Patient Name: DMITRI EDUARDO Unit Number: [id number] Dictated: 09/22/171656 Transcribed: 09/22/171656 ARG Printed Date/Time: [~ rep prt dt]/[~ rep prt tm] [~ rep ct labl] - [~ rep ct ivnm] [facility] [place] [address] Dictated: 09/22/[id number] Transcribed: 09/22/171656 ARG Printed Date/Time: [~ rep prt dt]/[~ rep prt tm] [~ rep ct labl] - [~ rep ct ivnm] [~ rep ct add3]] ARTERIAL DOPPLER DUPLEX ULTRASOUND OF THE RIGHT LOWER EXTREMITY CLINICAL HISTORY: Right leg pain poor circulation COMPARISON STUDY: April 24, 2017 FINDINGS: The patient refused ankle arm indices. There is monophasic flow within the right common femoral artery. There is monophasic flow within the right superficial femoral artery proximally. There is an occlusion of the mid right superficial femoral artery. There is distal reconstitution. There is dampened flow distal to the occlusion. There is monophasic flow with the right popliteal artery, anterior tibial artery, posterior tibial artery, and peroneal arteries. IMPRESSION: 1. 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 There is distal reconstitution with dampened flow distally. Electronically signed by: Chalino Wilhelm M.D. 09/22/2017 5:00 PM Dictated Date/Time: 09/22/2017 4:57 PM The status of this report is Signed. Draft = Not yet reviewed or approved by Radiologist. Signed = Reviewed and approved by Radiologist. <AttendingPhy></AttendingPhy> <FamilyPhy>Darci Johnston M.D.</FamilyPhy > <PrimaryPhy>Darci Johnston M.D.</PrimaryPhy> <UnitNumber>[id number]</ UnitNumber> <VisitNumber>[id number]</VisitNumber> <PatientName>DMITRI EDUARDO</ PatientName> <DateOfBirth>1960</DateOfBirth> <Location>[facility]</Location> < ServiceDate>09/22/17</ServiceDate> <MNE>ESINDI</MNE> <OrderingPhy>Gary Dela Cruz M.D.</OrderingPhy> <OrderingPhyMNE>f rep ord dr lópez</OrderingPhyMNE> < DictatingPhyMNE>f rep dict dr lópez</DictatingPhyMNE> <CCListMNE>f rep ct mne</ CCListMNE> <AdmittingPhyMNE>f pt admit dr lópez</AdmittingPhyMNE> <AttendingPhyMNE >f pt attend dr lópez</AttendingPhyMNE> <ConsultingPhyMNE>f pt consult dr lópez</ConsultingPhyMNE> <FamilyPhyMNE>f pt fam dr lópez</FamilyPhyMNE> <OtherPhyMNE>f pt other dr lópez</OtherPhyMNE> < PrimaryPhyMNE>f pt prim care dr lópez</PrimaryPhyMNE> <ReferringPhyMNE>f pt referring dr lópez</ReferringPhyMNE> Assessment & Plan Cellulitis of right foot in setting of chronic non-healing wounds, likely significant component of vascular disease. Will give IV abx pending cultures, will adjust once available. Would obtain vascular surgery consult. Will follow.
--- NOTE | 2017-09-23 13:13 | Medical Consult ---
Consultation Note Date of Service Sep 23, 2017. Consultation Note Chief Complaint Worsening right foot wound History of Present Illness The patient is a 56 year old male with hx of COPD, ETOH abuse, HTN, disabled d/ t hip and knee problems, admitted with R lateral ankle wound infection, seen in May in consultation for PAD noted on US. He was debrided at that time. He was found to have a right superficial femoral artery occlusion. The wound of the right foot has now worsened causing admission to the hospital. Usually uses a wheelchair. Smokes 3-4 cigarettes daily. Denies YATES, fever, chills, chest pain , SOB, abd pain, N/V, other complaints. US imaging demonstrates significant arterial disease. Allergies Coded Allergies: No Known Allergies (Verified Allergy, Mild, NONE, 02/15/09) Home Medications Scheduled Ergocalciferol (Vitamin D 89183 Unit), 50,000 UNIT PO WK Fluticasone Propionate (Flovent Hfa), 2 PUFFS INH BID Ipratropium-Albuterol (Combivent Respimat), 2 PUFFS INH QID Losartan Potassium (Cozaar), 100 MG PO DAILY Montelukast Sodium (Singulair), 10 MG PO DAILY Omeprazole (Prilosec), 40 MG PO DAILY Sertraline (Zoloft), 50 MG PO DAILY Problem List Social History Problems: (1) Alcohol abuse Surgical / Medical History Past Medical/Surgical History: COPD, Depression, Hypertension, Liver Disease ( hepatitis) Family History + HTN Social History Smoking Status: Current Every Day Smoker Hx Alcohol Use - Type & Amnt: Yes (5 beers a day) Hx Substance Use -Type & Amnt: Yes [facility] Review of Systems Constitutional: No chills, No fever, No malaise Skin: + change in color Eyes: No visual changes ENMT: No sore throat Respiratory: No cough, No LUIS, No hemoptysis, No short of breath Cardiovascular: No chest pain, No palpitations, No syncope, No edema Gastrointestinal: No abdominal pain, No nausea, No vomiting Neurologic: No dizziness, No headache, No numbness, No tingling Physical Exam Constitutional: General Apperance: cachectic, too thin Level of Distress: NAD, chronically ill Psychiatric: Mental Status: active & alert, normal mood, normal affect Orientation: oriented except where noted, to time, to place, to person Memory: recent memory normal, remote memory normal Head: normocephalic, atraumatic Eyes: EOM: EOMI ENMT: normal ENT inspection, hearing grossly normal Lungs: Respiratory effort: no dyspnea Auscultation: no rales/crackles, no rhonchi, decreased breath sounds Cardiovascular: Apical Impulse: not displaced Heart Auscultation: RRR, no rubs, no gallops Peripheral Pulses: Pulses: full and equal, in all extremities except if noted Bruits: none appreciated Carotid Pulse: normal on the left, normal on the right Brachial Pulses: normal on the left, normal on the right Radial Pulse: normal on the left, normal on the right Femoral Pulse: decreased on the left, decreased on the right Posterior Tibialis Pulse: pertinent finding (nonpalpable BLE) Dorsalis Pedis Pulse: pertinent finding (Nonpalpable BLE) Abdomen: Bowel Sounds: normal Inspection & Palpation: soft, non-distended, no tenderness, guarding & rebound Musculoskeletal: normal strength (5/5 throughout), normal tone Extremities: Upper Right: no cyanosis, no edema, no varicosities Upper Left: no cyanosis, no edema, no varicosities Lower Right: ulcers, pertinent finding (RLE lateral ankle with non healing wound with cellulitis, eschars present on toes of right foot. Lower Left: no cyanosis, no edema, no varicosities Neurologic: Cranial Nerves: grossly intact Assessment and Plan ASSESSMENT and PLAN: RLE lateral ankle wound infection Right superficial femoral artery occlusion Plan: Recommend arteriography with possible intervention. I have discussed the risks options and benefits of the procedure with the patient. The patient understands the risks options and benefits and agrees to the procedure.
--- NOTE | 2017-09-23 15:20 | DIAGNOSTIC IMAGING REPORT ---
BILIARY ULTRASOUND CLINICAL HISTORY: Elevated LFTs. Hepatitis. COMPARISON STUDY: CT scan dated 05/26/2017, ultrasound dated 01/12/2014 FINDINGS: The liver measures 21 cm. The liver is slightly heterogeneous in echotexture. There are no focal hepatic masses. There is a "starry maame liver", a finding which has been reported hepatitis as well as with numerous entities. No focal hepatic masses are visualized. There is gallbladder sludge present. No shadowing calculi are visualized. There is no gallbladder wall thickening. There is trace pericholecystic fluid. There is no intrahepatic biliary ductal dilatation. The common bile duct measures 6 mm. The pancreas was suboptimally visualized. No definite pancreatic masses were evident. There were mildly prominent lymph nodes at the level of the pancreatic head. IMPRESSION: 1. 21 cm liver. No focal hepatic masses identified 2. Gallbladder sludge. No shadowing calculi identified 3. No evidence of significant ductal dilatation 4. Mildly prominent lymph nodes at the level of the pancreatic head Electronically signed by: Chalino Wilhelm M.D. 09/23/2017 3:19 PM Dictated Date/Time: 09/23/2017 3:16 PM
--- NOTE | 2017-09-23 16:25 | Hospitalist Progress Note ---
Hospitalist Progress Note Date of Service Sep 23, 2017. (Lucretia Ordonez ., FERNANDOC) Subjective Pt evaluation today including: conversation w/ patient, physical exam, chart review, lab review, review of studies, conversation w/ pre sales technical consultant (Dr. Coughlin), review of inpatient medication list Pain: 8/10 sharp pain in right foot PO Intake: Poor intake, decreased appetite Voiding: no voiding problems Patient complains of 8/10 sharp pain in his right foot. This pain is worse with palpation and weight bearing. The patient is wheelchair bound, but transfers are very difficult given his current pain. He also notes that at nighttime he develops bilateral pain in his lower extremities with associated tingling. He states that the edema in his right foot is much improved. He notes poor oral intake due to decreased appetite but denies nausea, vomiting, or abdominal pain. He states he is now urinating better and that his urine is not as dark as it was before. The patient denies fevers, chills, sweats, chest pain, palpitations, claudication, cough, wheezing, shortness of breath, nausea, vomiting, abdominal pain, dysuria, hematuria, urinary retention, paralysis, weakness. Additional Comments: See HPI for pertinent positives and negatives. All other systems reviewed and negative. (Lucretia Ordonez ., PA-C) Objective Vital Signs Date Time Temp Pulse Resp B/P (MAP) Pulse Ox O2 Delivery O2 Flow Rate FiO2 09/23/17 15:51 36.4 83 18 99/55 (70) 95 09/23/17 07:08 36.4 78 16 98/54 (69) 94 09/23/17 04:03 86 97/60 (72) 09/23/17 01:26 94/53 (67) 09/23/17 00:19 36.4 90 20 72/41 (51) 93 Room Air 09/22/17 18:11 Room Air 09/22/17 17:22 36.3 90 18 101/63 (76) 93 Room Air (Lucretia Ordonez ., TONYA-C) Physical Exam Notes: General appearance: +Thin, appears chronically ill. Well-developed, no apparent distress Head: Normocephalic, atraumatic Eyes: Normal inspection, PERRL, EOMI ENT: +Poor dentition. Oral candidiasis. Normal ENT inspection, hearing grossly normal Neck: Supple, no JVD, trachea midline Respiratory/Chest: +Wheezing. Normal breath sounds, no respiratory distress Cardiovascular: Regular rate & rhythm, no gallop, no murmur Abdomen/GI: Normal bowel sounds, non-tender, soft Extremities/Musculoskeletal: +Right foot with erythema, no notable edema. Very TTP. Right ankle wrapped in gauze. No calf tenderness, no pedal edema Neurological/Psych: Alert, normal mood/affect, oriented x 3 Skin: Normal color, warm/dry, no rash (Lucretia Ordonez, ZULAY) Laboratory Results Last 24 Hours Test 09/23/17 03:00 09/23/17 06:33 Urine Color DK YELLOW Urine Appearance CLEAR Urine pH 6.0 Urine Specific Donovan 1.023 Urine Protein TRACE Urine Glucose (UA) NEG Urine Ketones TRACE Urine Occult Blood NEG Urine Nitrite POS Urine Bilirubin 1+ Urine Urobilinogen POS Urine Leukocyte Esterase TRACE Urine WBC (Auto) 1-5 /hpf Urine RBC (Auto) 0-4 /hpf Urine Hyaline Casts (Auto) 1-5 /lpf Urine Epithelial Cells (Auto) 5-10 /lpf Urine Bacteria (Auto) NEG White Blood Count 23.61 K/uL Red Blood Count 4.31 M/uL Hemoglobin 12.8 g/dL Hematocrit 36.8 % Mean Corpuscular Volume 85.4 fL Mean Corpuscular Hemoglobin 29.7 pg Mean Corpuscular Hemoglobin Concent 34.8 g/dl RDW Standard Deviation 44.3 fL RDW Coefficient of Variation 14.1 % Platelet Count 213 K/uL Mean Platelet Volume 9.1 fL Sodium Level 134 mmol/L Potassium Level 3.5 mmol/L Chloride Level 112 mmol/L Carbon Dioxide Level 17 mmol/L Anion Gap 5.0 mmol/L Blood Urea Nitrogen 10 mg/dl Creatinine 0.52 mg/dl Est Creatinine Clear Calc Drug Dose 130.8 ml/min Estimated GFR () 137.2 Estimated GFR (Non- 118.4 BUN/Creatinine Ratio 19.0 Random Glucose 71 mg/dl Calcium Level 8.0 mg/dl Magnesium Level 1.7 mg/dl Total Bilirubin 2.5 mg/dl Direct Bilirubin 1.7 mg/dl Aspartate Amino Transf (AST/SGOT) 27 U/L Alanine Aminotransferase (ALT/SGPT) 32 U/L Alkaline Phosphatase 348 U/L Total Protein 5.6 gm/dl Albumin 2.3 gm/dl (Lucretia Ordonez ., PA-C) Diagnostic Results Reviewed the following studies and agree with interpretation as follows: ARTERIAL DOPPLER DUPLEX ULTRASOUND OF THE RIGHT LOWER EXTREMITY CLINICAL HISTORY: Right leg pain poor circulation COMPARISON STUDY: April 24, 2017 FINDINGS: The patient refused ankle arm indices. There is monophasic flow within the right common femoral artery. There is monophasic flow within the right superficial femoral artery proximally. There is an occlusion of the mid right superficial femoral artery. There is distal reconstitution. There is dampened flow distal to the occlusion. There is monophasic flow with the right popliteal artery, anterior tibial artery, posterior tibial artery, and peroneal arteries. IMPRESSION: 1. 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 There is distal reconstitution with dampened flow distally. BILIARY ULTRASOUND CLINICAL HISTORY: Elevated LFTs. Hepatitis. COMPARISON STUDY: CT scan dated 05/26/2017, ultrasound dated 01/12/2014 FINDINGS: The liver measures 21 cm. The liver is slightly heterogeneous in echotexture. There are no focal hepatic masses. There is a "starry maame liver", a finding which has been reported hepatitis as well as with numerous entities. No focal hepatic masses are visualized. There is gallbladder sludge present. No shadowing calculi are visualized. There is no gallbladder wall thickening. There is trace pericholecystic fluid. There is no intrahepatic biliary ductal dilatation. The common bile duct measures 6 mm. The pancreas was suboptimally visualized. No definite pancreatic masses were evident. There were mildly prominent lymph nodes at the level of the pancreatic head. IMPRESSION: 1. 21 cm liver. No focal hepatic masses identified 2. Gallbladder sludge. No shadowing calculi identified 3. No evidence of significant ductal dilatation 4. Mildly prominent lymph nodes at the level of the pancreatic head (Lucretia Ordonez ., PA-C) Assessment and Plan 56 y/o male with a history of HTN, PAD, former heavy ETOH use, current tobacco use, COPD/emphysema, Hepatitis C, fatty liver, and chronic right foot wound who presents to the ED with increased pain, redness, and swelling of right foot x 4 days. R Foot/Ankle cellulitis, chronic wound--improving - Previous cultures Apr 2017 with enterobacter cloacae and MSSA, tx w/ ertapenem. Follows w/Dr. Sheriff, had been on cipro/bactrim prior to admission - Wound care consulted - Infectious disease consulted, appreciate recs: Continue IV abx pending culture results. Obtain vascular surgery consult. - Continue Zosyn and vancomycin, recommended per Dr. Sheriff on admission - Tylenol and Oxycodone 5-10 mg Q4H PRN; Morphine PRN - Consult orthopedics, appreciate recs: Will obtain MRI right foot to r/o osteomyelitis PAD, occluded right mid SFA - Consult vascular surgery, appreciate recs: Spoke with Dr. Coughlin, plan for arteriogram with possible intervention/stent Thursday morning - Continue ASA and Pletal 100 mg PO BID COPD/Emphysema without exacerbation--wheezing on exam but states his breathing feels baseline - Encourage tobacco cessation - Fluticasone BID, Combivent QID, Singulair 10 mg daily, Duonebs PRN HTN--was hypotensive, still borderline - Hold losartan 100 mg PO qd for now HLD-stable - Continue Lipitor 40 mg PO qd Former ETOH use, hepatitis C, fatty liver, elevated LFTs -Reportedly stopped drinking since last admission -Continue folic acid and thiamine supplementation -Liver ultrasound shows 21 cm liver. No focal hepatic masses identified. Gallbladder sludge. No evidence of significant ductal dilatation. Mildly prominent lymph nodes at the level of the pancreatic head -Continue to monitor LFTs. Denies abdominal pain CLL stage I -Pt follows with Dr. Casey -Due for next follow up in October -No current treatment, just monitoring for now DVT prophylaxis -Heparin 5000 units SC q12h Code Status -Level I, FULL RESUSCITATION STATUS Dispo -From home w/services, wheelchair bound -May need prolonged IV abx depending on MRI/culture results (Lucretia Ordonez, ZULAY) Reviewed: Pt Seen/Exam by Me (Brittany Harden MD) History Physician Sail Cutter supervision Note: I interviewed and examined the patient. Discussed with TONYA Ordonez and agree with findings and plan as documented in the note. Any exceptions or clarifications are listed here: Patient reports he is doing a little better. Is afebrile. Leukocytosis persists today but does have a history of CLL. As far as his hepatitis C, he reports he never followed up with infectious disease as shortly after he saw her , then he was admitted to the hospital in April with the foot and ankle wound infection. He has been dealing with that ever since. He denies any abdominal pain at all. Vitals reviewed Cachectic, appears much older than stated age Mild scleral icterus, very poor dentition with oral thrush Regular rate and rhythm, no murmurs gallops rubs Lungs with decreased breath sounds throughout, a few scattered expiratory wheezes Abdomen positive bowel sounds soft nontender nondistended, positive hepatomegaly palpated Extremities with sarcopenia, wounds dressed with OPTifoam on the right leg were not removed, but the pictures from wound care were reviewed, mild erythema surrounding the dressings, no palpable pulses in the feet; bilateral hands with severe Dupuytren's contractures bilaterally of all fingers Neuro-with mild ataxia/?tremor of the legs with active lower extremity flexion Skin no other rashes Patient is a 56-year-old male with a history of alcohol abuse, chronic hepatitis C, COPD and current cigar smoker, PAD, CLL, HTN, and chronic right ankle wounds, here with worsening infection of chronic wounds and occluded right SFA. -Severe PAD with right SFA occlusion-appreciate vascular consultation-plan for arteriogram with possible intervention on Thursday. Continue aspirin, high-dose statin, and Pletal. -Right foot wounds infected-appreciate orthopedics consultation-checking MRI of the foot and ankle-may end up needing BKA and patient is agreeable to this- states that he has been wheelchair-bound for 8 years and cannot walk anyway so would make a difference to him if it would be beneficial for him. Continue IV antibiotics -As for his hepatitis C, this is ongoing and he will need follow-up with infectious disease for possible treatment after discharge. Elevated total bili and direct bilirubin, along with alkaline phosphatase point towards either cholestatic pattern possibly related to ongoing infection in the foot? Liver ultrasound with evidence of hepatitis and hepatomegaly. Gallbladder sludge but no stones and no CBD dilatation. Also with lymph nodes enlarged around the pancreatic head. If LFTs worsen tomorrow, will consult GI. Otherwise, should follow-up with GI as an outpatient. -Encouraged smoking cessation -Non-anion gap metabolic acidosis-unclear why he has this. Bicarbonate remains at 17. There is no evidence of GI losses such as diarrhea or vomiting. If persists, will consult nephrology -Leukocytosis-is from acute infection on top of his CLL-baseline WBC count around 17-follow CBC -Underweight/severe protein calorie malnutrition-likely from chronic illnesses and infection-nutrition following and starting dietary supplementation Documented By: Brittany Harden (Brittany Harden MD)
--- NOTE | 2017-09-23 18:15 | CONSULTATION REPORT ---
DATE OF CONSULTATION: 09/23/2017 REASON FOR CONSULT: Right ankle ulcerations. HISTORY OF PRESENT ILLNESS: Patient is a 56-year-old white male known to our group with history of seeing Dr. Hayes in April and having an irrigation and debridement of his ulceration by Dr. James. At that point in time, he was growing out Staph aureus and Enterobacter species. Wound care was consulted and wound VAC was placed and patient was seeing infectious disease team and following up with Dr. Sheriff. Dr. Hayes had had a lengthy conversation with the patient about his right lower extremity and that if nothing could be done per the vascular team and if the infections continue to worsen or continue to show signs of not healing that a BKA would be possibly necessary. The patient understood. He states that within the last 5 days prior to admission, he began having increased pain in the ankle and toes again. He had finished up his IV antibiotics and had been transitioned to oral Cipro and Bactrim, which he said he has been taking. He has been getting regular wound checks from home services and the wound clinic and prior to admission, it appeared that he had worsening erythema around the ulcerations and increasing pain. The patient was having some chills and was not eating well and he states that he was not sleeping because the pain was keeping up at night. He was brought in to the Emergency Room on the day of admission by a county worker. We have been asked to see him for his ankle ulcerations. PAST MEDICAL HISTORY: Alcohol abuse, which apparently he stated that he has stopped drinking since his last admission, but continues to use cigarettes but is cutting back on them as well; peripheral arterial disease, thiamin deficiency, COPD, hypertension, history of a staph UTI, depression, hepatitis, history of vitamin B1 and vitamin D deficiency, history of Dupuytren's contracture of both hands. PAST SURGICAL HISTORY: Tonsillectomy, irrigation and debridement of right ankle ulcer in April of 2017. FAMILY HISTORY: Noncontributory. SOCIAL HISTORY: Patient had heavy alcohol use of which he states apparently that he has quit since his last admission. He was an every day smoker and apparently has cut back on this as well. MEDICATIONS: Aspirin 81 mg p.o. q.a.m., atorvastatin 40 mg p.o. at bedtime, cilostazol 100 mg p.o. b.i.d., Cipro 500 mg p.o. b.i.d., Flovent 2 puffs inhaled b.i.d., ibuprofen 600 mg p.o. t.i.d. p.r.n., Combivent Respimat 1 puff inhaled q.i.d., losartan potassium 100 mg p.o. daily, Protonix 40 mg p.o. daily, sertraline 50 mg p.o. daily, and Bactrim 1 tab p.o. b.i.d. ALLERGIES: NKDA. REVIEW OF SYSTEMS: As per admitting history and physical. PHYSICAL EXAMINATION: GENERAL: Patient did note some slight chills but no overt fever and just general poor appetite and inability to sleep. EXTREMITIES: Focusing on the right lower extremity, looking at his right foot, there is rubor of his right foot from the first toe to the fifth toe that spreads over the dorsum of the foot. He has mild pain on palpation over most of the forefoot at this time but is not excruciating. Moving the toes passively does not overtly increase the pain at this time. Capillary refill is greater than 2 seconds and I cannot appreciate a dorsalis pedis or posterior tibial pulse of the right foot. Just in comparison checking the left foot which looks better than the right as far as color. The foot does feel slightly cool and I cannot appreciate a dorsalis pedis or posterior tibial pulse of that foot as well. There are some Optifoam dressings noted on the ankle medially and laterally. Peeling away the medial dressing, there is an open ulcer that is approximately 1.5 cm in length and approximately a cm or greater in width. No overt purulence is noted and he has some mild erythema of the distal portion of this ulceration. There is some erythema around the whole of the ulceration that is somewhat proximal as well, but again no overt drainage noted from this area. He has some dusky erythema noted going distally towards the heel. Looking at the lateral ulcer which is much bigger, it is approximately 4.5-5 cm in length and approximately 2-2.5 cm in width. He has some scant purulence noted around the area. It has beefy red base. No bone that I can appreciate, just on appearance dusky erythema around the ulcer itself. No foul odor. He is able to move the ankle at this time but has pain doing so. Dressings with Aquacel AG were replaced back over the wounds themselves. ASSESSMENT: Right lower extremity medial and lateral recurrent ulcer infections. Also noted is a right superficial femoral artery occlusion. PLAN: I have spoken to Dr. Coughlin about this gentleman and plans will be for arteriography on Thursday. In the meantime, we will get an MRI of his right ankle to see if he has any osteomyelitis that has shown up since his last visit. White count was noted to be 23,000 today. Vital signs show him being afebrile and BPs in the high 90s systolic. Blood cultures are pending and he is being continued on IV vancomycin q. 8 hours and heparin subQ for DVT prophylaxis. He is also noted to be on piperacillin/tazobactam. We will continue antibiotics as per medical and infectious disease team. I will discuss the case with Dr. Hayes and we will see what the MRI shows to get a better idea of how to treat these wounds. Dr. Coughlin again will take him to the operating room on Thursday for angiography and possible intervention. We discussed the fact that with the patient that indeed he may be in need of a BKA. The patient at this time states that he would like to do whatever is necessary and if a BKA needs done he is willing to undergo that procedure. Once the testing is done, we will have a better idea of how we will proceed. SERJIO
[2017-09-23] MEDS: BOOST BREEZE NUTRITION DRINK 1 BOX PO SCH (20:52)
[2017-09-24] MEDS: PIPERACILL/TAZOBAC IV 3.375 GM in DEXTROSE 5% 100ML 100 ML IV SCH ×3 (04:26→20:54)
[2017-09-24] MEDS: OXYCODONE HCL IR 5 MG TAB (IMMEDIATE RELEASE) PO PRN ×5 (04:31→22:47)
[2017-09-24] MEDS ORDERED: VANCOMYCIN TROUGH ONE (05:30)
[2017-09-24] MEDS: VANCOMYCIN IV 1,000 MG in SODIUM CHLORIDE 0.9% 250ML 250 ML IV SCH ×3 (05:41→20:59)
[2017-09-24 05:53] LABS: HEMATOCRIT 35.1 % (42-52); MEAN CORPUSCULAR HEMOGLOBIN 29.1 pg (25-34); MEAN CORPUSCULAR HGB CONC 34.2 g/dl (32-36); MEAN PLATELET VOLUME 8.8 fL (7.4-10.4); PLATELET COUNT 197 K/uL (130-400); RED CELL DISTRIBUTION WIDTH CV 14.3 % (11.5-14.5); WHITE BLOOD COUNT 22.81 K/uL (4.8-10.8)
[2017-09-24 06:45] LABS: ALBUMIN 2.2 gm/dl (3.4-5.0); CALCIUM 8.1 mg/dl (8.5-10.1); CREATININE 0.42 mg/dl (0.60-1.40); POTASSIUM 3.2 mmol/L (3.5-5.1); TOTAL PROTEIN 5.6 gm/dl (6.4-8.2)
[2017-09-24 07:24] VITALS: BP 91/53; PULSE 84; TEMP 36.3; O2SAT 95
[2017-09-24] MEDS: ATORVASTATIN 20 MG TAB PO SCH (07:55)
[2017-09-24] MEDS: MONTELUKAST SOD 10 MG TAB PO SCH (07:55)
[2017-09-24] MEDS: SERTRALINE HCL 50 MG TAB PO SCH (07:55)
[2017-09-24] MEDS: ASPIRIN 81 MG ECTAB PO SCH (07:56)
[2017-09-24] MEDS: NYSTATIN SUSP 500,000 U/5 ML UDC PO SCH ×4 (07:56→20:40)
[2017-09-24] MEDS: CILOSTAZOL 100 MG TAB PO SCH ×2 (07:56→20:40)
[2017-09-24] MEDS: BOOST BREEZE NUTRITION DRINK 1 BOX PO SCH ×3 (07:56→20:38)
[2017-09-24] MEDS: IPRATROPIUM BROMIDE/ALBUTEROL respimat INH INH SCH ×4 (07:57→20:37)
[2017-09-24] MEDS: FLUTICASONE PROP HFA INH 44 MCG INHALER INH SCH ×2 (07:57→20:38)
[2017-09-24] MEDS: THIAMINE HCL 100 MG TAB PO SCH ×2 (07:58→20:42)
[2017-09-24] MEDS: MAGNESIUM OXIDE 400 MG TAB PO SCH ×2 (07:58→20:41)
[2017-09-24] MEDS: PANTOprazole SOD 40 MG TAB PO SCH (07:58)
[2017-09-24] MEDS: HEPARIN SOD 5000 UNIT/0.5 ML CARP SQ SCH (08:04)
[2017-09-24] MEDS ORDERED: POTASSIUM CHLORIDE 20 MEQ TABCR PO ONE (09:00)
--- NOTE | 2017-09-24 09:01 | Pharmacy Progress Note ---
Pharmacy Abx Dose Short Note Date of Service Sep 24, 2017. Assessment & Plan Assessment 57 year old male receiving vancomycin/zosyn for treatment of SSTI. Trough is most likely at steady state and is therapeutic. Will repeat tomorrow, to ensure no further accumulation. Day # 3 of antimicrobial therapy. Plan Vancomycin * Trough level of 19 mcg/mL is therapeutic. * Continue dose of 1000 mg IV every 8 hours * Goal trough level for : 15 to 20 mcg/mL * Trough or random level ordered for: 09/25/17 @1330 Pharmacy will continue to follow and will adjust dose/frequency as necessary. Thank you.
--- NOTE | 2017-09-24 13:16 | DIAGNOSTIC IMAGING REPORT ---
R KNEE 3 VIEWS CLINICAL HISTORY: 57 years-old Male presenting with knee pain. TECHNIQUE: Frontal, lateral, and sunrise views of the right knee were obtained. COMPARISON: None. FINDINGS: Osteopenia. No patellar subluxation. The apparent osseous fragment projecting over the intercondylar region on frontal view likely relates to the patellar shadow. Allowing for osteopenia, no displaced fracture or malalignment. No significant osteophytosis or other evidence of degenerative change. No knee joint effusion. Atherosclerosis. IMPRESSION: 1. Osteopenia. Allowing for this, no acute osseous injury. 2. No advanced degenerative change. Electronically signed by: Jarrett Shah M.D. 09/24/2017 1:14 PM Dictated Date/Time: 09/24/2017 1:12 PM
[2017-09-24 15:11] VITALS: BP 104/57; PULSE 89; TEMP 36.7; O2SAT 95
--- NOTE | 2017-09-24 15:29 | Hospitalist Progress Note ---
Hospitalist Progress Note Date of Service Sep 24, 2017. (Lucretia Ordonez ., PA-C) Subjective Pt evaluation today including: conversation w/ patient, physical exam, chart review, lab review, review of studies, review of inpatient medication list Pain: 8/10 right foot/ankle pain PO Intake: Poor, decreased appetite Voiding: no voiding problems Patient still complains of 8/10 sharp pain in his right foot/ankle and nighttime tingling. Today he also complains of right knee pain along the medial aspect that is worse with palpation and ROM. He still reports poor appetite and no BMs since admission. He states his breathing is baseline. The patient denies fevers, chills, sweats, chest pain, palpitations, claudication, cough, wheezing, shortness of breath, nausea, vomiting, abdominal pain, dysuria , hematuria, urinary retention, paralysis, weakness. Additional Comments: See HPI for pertinent positives and negatives. All other systems reviewed and negative. (Lucretia Ordonez ., PA-C) Objective Vital Signs Date Time Temp Pulse Resp B/P (MAP) Pulse Ox O2 Delivery O2 Flow Rate FiO2 09/24/17 15:11 36.7 89 16 104/57 (73) 95 Room Air 09/24/17 07:24 36.3 84 20 91/53 (66) 95 Room Air 09/23/17 23:53 36.9 90 18 95/55 (68) 94 Room Air 09/23/17 16:00 94 Room Air 09/23/17 15:51 36.4 83 18 99/55 (70) 95 (Lucretia Ordonez, PA-C) Physical Exam Notes: General appearance: +Thin, appears chronically ill. Well-developed, no apparent distress Head: Normocephalic, atraumatic Eyes: Normal inspection, PERRL, EOMI ENT: +Poor dentition. Oral candidiasis. Normal ENT inspection, hearing grossly normal Neck: Supple, no JVD, trachea midline Respiratory/Chest: +Wheezing. Normal breath sounds, no respiratory distress Cardiovascular: Regular rate & rhythm, no gallop, no murmur Abdomen/GI: Normal bowel sounds, non-tender, soft Extremities/Musculoskeletal: +Right foot with erythema, no notable edema. Very TTP. Large wounds on lateral and medial aspects of right ankle covered in Optifoam with apparent drainage. Right knee medial aspect TTP, slightly red. No calf tenderness, no pedal edema Neurological/Psych: Alert, normal mood/affect, oriented x 3 Skin: Normal color, warm/dry, no rash (Lucretia Ordonez ., TONYA-C) Laboratory Results Last 24 Hours Test 09/24/17 05:33 09/24/17 11:02 White Blood Count 22.81 K/uL Red Blood Count 4.13 M/uL Hemoglobin 12.0 g/dL Hematocrit 35.1 % Mean Corpuscular Volume 85.0 fL Mean Corpuscular Hemoglobin 29.1 pg Mean Corpuscular Hemoglobin Concent 34.2 g/dl RDW Standard Deviation 44.0 fL RDW Coefficient of Variation 14.3 % Platelet Count 197 K/uL Mean Platelet Volume 8.8 fL Sodium Level 133 mmol/L Potassium Level 3.2 mmol/L Chloride Level 109 mmol/L Carbon Dioxide Level 18 mmol/L Anion Gap 6.0 mmol/L Blood Urea Nitrogen 4 mg/dl Creatinine 0.42 mg/dl Est Creatinine Clear Calc Drug Dose 160.0 ml/min Estimated GFR () 148.7 Estimated GFR (Non- 128.3 BUN/Creatinine Ratio 10.5 Random Glucose 92 mg/dl Calcium Level 8.1 mg/dl Magnesium Level 1.8 mg/dl Total Bilirubin 2.1 mg/dl Direct Bilirubin 1.4 mg/dl Aspartate Amino Transf (AST/SGOT) 46 U/L Alanine Aminotransferase (ALT/SGPT) 33 U/L Alkaline Phosphatase 356 U/L Total Protein 5.6 gm/dl Albumin 2.2 gm/dl Vancomycin Level Trough 19.0 mcg/ml Erythrocyte Sedimentation Rate 10 mm/hr C-Reactive Protein 1.67 mg/dl (Lucretia Ordonez ., PA-C) Diagnostic Results Reviewed the following studies and agree with interpretation as follows: R KNEE 3 VIEWS CLINICAL HISTORY: 57 years-old Male presenting with knee pain. TECHNIQUE: Frontal, lateral, and sunrise views of the right knee were obtained. COMPARISON: None. FINDINGS: Osteopenia. No patellar subluxation. The apparent osseous fragment projecting over the intercondylar region on frontal view likely relates to the patellar shadow. Allowing for osteopenia, no displaced fracture or malalignment. No significant osteophytosis or other evidence of degenerative change. No knee joint effusion. Atherosclerosis. IMPRESSION: 1. Osteopenia. Allowing for this, no acute osseous injury. 2. No advanced degenerative change. (Lucretia Ordonez ., ZULAY) Assessment and Plan 56 y/o male with a history of HTN, PAD, former heavy ETOH use, current tobacco use, COPD/emphysema, Hepatitis C, fatty liver, and chronic right foot wound who presents to the ED with increased pain, redness, and swelling of right foot x 4 days. R Foot/Ankle cellulitis, chronic wound--stable - Previous cultures Apr 2017 with enterobacter cloacae and MSSA, tx w/ ertapenem. Follows w/Dr. Sheriff, had been on cipro/bactrim prior to admission - Wound care consulted - Blood cultures NGTD - Infectious disease consulted, appreciate recs: Continue IV abx pending culture results. Obtain vascular surgery consult. - Continue Zosyn and vancomycin, recommended per Dr. Sheriff on admission - Tylenol and Oxycodone 5-10 mg Q4H PRN; Morphine PRN - Consult orthopedics, appreciate recs: Will obtain MRI right foot to r/o osteomyelitis, may require BKA - Unable to obtain MRI as pt cannot keep leg still - ESR unremarkable at 10, CRP elevated at 1.67. Osteo less likely given normal sed rate PAD, occluded right mid SFA - Consult vascular surgery, appreciate recs: Spoke with Dr. Coughlin, plan for arteriogram with possible intervention/stent Thursday morning - NPO after midnight except meds. Will start gentle IVF with NSS + 20 mEq KCl at 75 cc/hr after midnight when NPO - Continue ASA and Pletal 100 mg PO BID COPD/Emphysema without exacerbation--wheezing on exam but states his breathing feels baseline - Encourage tobacco cessation - Fluticasone BID, Combivent QID, Singulair 10 mg daily, Duonebs PRN HTN--remains borderline hypotensive - Hold losartan 100 mg PO qd for now HLD-stable - Continue Lipitor 40 mg PO qd Former ETOH use, hepatitis C, fatty liver, elevated LFTs -Reportedly stopped drinking since last admission -Continue folic acid and thiamine supplementation -Liver ultrasound shows 21 cm liver. No focal hepatic masses identified. Gallbladder sludge. No evidence of significant ductal dilatation. Mildly prominent lymph nodes at the level of the pancreatic head -Continue to monitor LFTs. Denies abdominal pain CLL stage I -Pt follows with Dr. [place] -Due for next follow up in October -No current treatment, just monitoring for now Right knee pain -Pain control as above -Right knee x-ray negative for acute fracture or osseous injury DVT prophylaxis -Heparin 5000 units SC q12h Code Status -Level I, FULL RESUSCITATION STATUS Dispo -From home w/services, wheelchair bound -May need prolonged IV abx depending on culture results Continued [facility] stay due to: multiple IV medications needed (Lucretia Ordonez, ZULAY) Reviewed: Pt Seen/Exam by Me (Brittany Harden MD) History Physician Drug Abuse Counselor supervision Note: I interviewed and examined the patient. Discussed with TONYA Ordonez and agree with findings and plan as documented in the note. Any exceptions or clarifications are listed here: Doing fairly well. Remains afebrile. Having some aching pains in the right knee. Discussed the case with orthopedic PNA. Plan for bone scan today since he could not tolerate MRI. Vitals reviewed Cachectic, appears much older than stated age Mild scleral icterus, very poor dentition with oral thrush Regular rate and rhythm, no murmurs gallops rubs Lungs with decreased breath sounds throughout, a few scattered expiratory wheezes Abdomen positive bowel sounds soft nontender nondistended, positive hepatomegaly palpated Extremities with sarcopenia, wounds dressed with OPTifoam on the right leg were not removed, but the pictures from wound care were reviewed, mild erythema surrounding the dressings, no palpable pulses in the feet; bilateral hands with severe Dupuytren's contractures bilaterally of all fingers; right knee with no effusion, full range of motion, positive tenderness to palpation medial joint line, no erythema or warmth noted Neuro-with mild ataxia/?tremor of the legs with active lower extremity flexion Skin no other rashes Patient is a 56-year-old male with a history of alcohol abuse, chronic hepatitis C, COPD and current cigar smoker, PAD, CLL, HTN, and chronic right ankle wounds, here with worsening infection of chronic wounds and occluded right SFA. -Severe PAD with right SFA occlusion-appreciate vascular consultation-plan for arteriogram with possible intervention on Thursday. Continue aspirin, high-dose statin, and Pletal. -Right foot wounds infected-appreciate orthopedics consultation-checking MRI of the foot and ankle-may end up needing BKA and patient is agreeable to this- states that he has been wheelchair-bound for 8 years and cannot walk anyway so would make a difference to him if it would be beneficial for him. Continue IV antibiotics -As for his hepatitis C, this is ongoing and he will need follow-up with infectious disease for possible treatment after discharge. Elevated total bili and direct bilirubin, along with alkaline phosphatase point towards either cholestatic pattern possibly related to ongoing infection in the foot? Liver ultrasound with evidence of hepatitis and hepatomegaly. Gallbladder sludge but no stones and no CBD dilatation. Also with lymph nodes enlarged around the pancreatic head. LFTs improved/stable, INR normal, platelets normal .-Should follow-up with GI as an outpatient. -Encouraged smoking cessation -Non-anion gap metabolic acidosis-unclear why he has this. Bicarbonate remains at 17-18. There is no evidence of GI losses such as diarrhea or vomiting. If persists, will consult nephrology -Leukocytosis-is from acute infection on top of his CLL-baseline WBC count around 17-follow CBC -Underweight/severe protein calorie malnutrition-likely from chronic illnesses and infection-nutrition following and starting dietary supplementation Documented By: Brittany Harden (Brittany Harden MD)
--- NOTE | 2017-09-24 20:34 | DIAGNOSTIC IMAGING REPORT ---
BONE SCAN 3 PHASE LIMITED HISTORY: 57 years-old Male r/o osteomyelitis right ankle acute right ankle pain with skin ulcer, acute cellulitis and questioned acute osteomyelitis COMPARISON: Right ankle radiographs 09/22/2017 TECHNIQUE: 3 phase bone scan was obtained utilizing 26.4 mCi technetium 99 MDP. Blood flow and blood pool images were obtained immediately and delayed images were obtained 3 hours post injection. FINDINGS: There is mildly increased blood flow and moderately increased blood pool about the right lower leg and right ankle with a focal photopenic area in the region of the right ankle suggesting soft tissue necrosis/skin ulcer. There is moderately increased delayed uptake about the right knee, right lower leg and right ankle, most pronounced within the lateral malleolus. IMPRESSION: 1. Three-phase positive bone scan about the right lower leg and right ankle is suspicious for possible acute osteomyelitis. 2. Focal photopenic area of the of the right ankle on the blood flow and blood pool images suggests soft tissue necrosis/skin ulcer. 3. Increased delayed uptake about the right knee may be degenerative. The above report was generated using voice recognition software. It may contain grammatical, syntax or spelling errors. Electronically signed by: Donnell Saeed M.D. 09/24/2017 8:33 PM Dictated Date/Time: 09/24/2017 8:20 PM
[2017-09-24] MEDS: NSS + 20MEQ KCL 1000ML 1,000 ML IV SCH (22:50)
[2017-09-24 23:30] VITALS: BP_SYST 100; BP_SYST 106; BP_DIAS 54; BP_DIAS 56; PULSE 82; TEMP 36.6; O2SAT 97
[2017-09-25] VITALS (11 sets, daily range): BP systolic 99–141; BP diastolic 49–77; PULSE 84–94; TEMP 36.4–36.8; O2SAT 94–98
[2017-09-25] MEDS ORDERED: NURSING VERBAL MED ORDER ONE (01:00)
[2017-09-25] MEDS: PIPERACILL/TAZOBAC IV 3.375 GM in DEXTROSE 5% 100ML 100 ML IV SCH ×3 (04:01→20:08)
[2017-09-25] MEDS: VANCOMYCIN IV 1,000 MG in SODIUM CHLORIDE 0.9% 250ML 250 ML IV SCH ×3 (05:41→21:45)
[2017-09-25 07:06] LABS: HEMATOCRIT 35.7 % (42-52); HEMOGLOBIN 12.3 g/dL (14.0-18.0); MEAN CELL VOLUME 84.6 fL (80-100); MEAN CORPUSCULAR HEMOGLOBIN 29.1 pg (25-34); MEAN CORPUSCULAR HGB CONC 34.5 g/dl (32-36); MEAN PLATELET VOLUME 9.1 fL (7.4-10.4); PLATELET COUNT 212 K/uL (130-400); RED CELL DISTRIBUTION WIDTH CV 14.2 % (11.5-14.5); RED CELL DISTRIBUTION WIDTH SD 43.5 fL (36.4-46.3); WHITE BLOOD COUNT 28.25 K/uL (4.8-10.8)
[2017-09-25 07:35] LABS: ALBUMIN 2.2 gm/dl (3.4-5.0); AST/SGOT 43 U/L (15-37); BLOOD UREA NITROGEN 3 mg/dl (7-18); CALCIUM 8.1 mg/dl (8.5-10.1); CARBON DIOXIDE 18 mmol/L (21-32); GLUCOSE 79 mg/dl (70-99); POTASSIUM 3.5 mmol/L (3.5-5.1); SODIUM 137 mmol/L (136-145)
[2017-09-25 07:38] LABS: ALKALINE PHOSPHATASE 347 U/L (45-117); ALT/SGPT 35 U/L (12-78); TOTAL PROTEIN 5.6 gm/dl (6.4-8.2)
[2017-09-25] MEDS: ATORVASTATIN 20 MG TAB PO SCH (07:47)
[2017-09-25] MEDS: CILOSTAZOL 100 MG TAB PO SCH ×2 (07:47→20:11)
[2017-09-25] MEDS: SERTRALINE HCL 50 MG TAB PO SCH (07:47)
[2017-09-25] MEDS: THIAMINE HCL 100 MG TAB PO SCH ×2 (07:47→20:10)
[2017-09-25] MEDS: PANTOprazole SOD 40 MG TAB PO SCH (07:48)
[2017-09-25] MEDS: MAGNESIUM OXIDE 400 MG TAB PO SCH ×2 (07:48→20:10)
[2017-09-25] MEDS: MONTELUKAST SOD 10 MG TAB PO SCH (07:48)
[2017-09-25] MEDS: ASPIRIN 81 MG ECTAB PO SCH (07:48)
[2017-09-25] MEDS: IPRATROPIUM BROMIDE/ALBUTEROL respimat INH INH SCH ×4 (07:48→20:07)
[2017-09-25] MEDS: BOOST BREEZE NUTRITION DRINK 1 BOX PO SCH ×2 (07:49→13:30)
[2017-09-25] MEDS: FLUTICASONE PROP HFA INH 44 MCG INHALER INH SCH ×2 (07:49→20:08)
[2017-09-25] MEDS: NYSTATIN SUSP 500,000 U/5 ML UDC PO SCH ×4 (07:49→20:09)
[2017-09-25] MEDS: OXYCODONE HCL IR 5 MG TAB (IMMEDIATE RELEASE) PO PRN ×3 (07:52→20:21)
[2017-09-25] MEDS: HEPARIN SOD 5000 UNIT/0.5 ML CARP SQ SCH ×2 (09:51→21:46)
--- NOTE | 2017-09-25 10:21 | Hospitalist Progress Note ---
Hospitalist Progress Note Date of Service Sep 25, 2017. Subjective Pt evaluation today including: conversation w/ patient Still with pain in the right knee and right leg/ankle/foot. No CP or SOB. Awaiting arteriogram today All Other Systems: Reviewed and Negative Objective Vital Signs Date Time Temp Pulse Resp B/P (MAP) Pulse Ox O2 Delivery O2 Flow Rate FiO2 09/25/17 07:45 36.5 88 18 105/64 (78) 95 09/24/17 23:30 36.6 82 17 100/54 (69) 97 Room Air 106/56 (73) 09/24/17 15:11 36.7 89 16 104/57 (73) 95 Room Air Physical Exam General Appearance: no apparent distress, + cachetic Eyes: normal inspection, sclerae normal ENT: hearing grossly normal Neck: trachea midline Respiratory/Chest: no respiratory distress, no accessory muscle use, + decreased breath sounds (throughout) Cardiovascular: regular rate, rhythm, no edema, no murmur Abdomen: normal bowel sounds, non tender, soft Extremities: + pertinent finding (sarcopenia, righ tknee with +MJLT, no effusion, +flexion contracture and ROM 30-110 degrees) Neurologic/Psychiatric: alert, normal mood/affect, oriented x 3 Skin: + pertinent finding (right medial and lateral ankle with dressings in place with Aquacel and Optifoam, +erythema surrounding the wounds with small amount drainage, right dorsal foot with erythema through the toes) Laboratory Results Last 24 Hours Test 09/24/17 11:02 09/25/17 06:53 Erythrocyte Sedimentation Rate 10 mm/hr C-Reactive Protein 1.67 mg/dl White Blood Count 28.25 K/uL Red Blood Count 4.22 M/uL Hemoglobin 12.3 g/dL Hematocrit 35.7 % Mean Corpuscular Volume 84.6 fL Mean Corpuscular Hemoglobin 29.1 pg Mean Corpuscular Hemoglobin Concent 34.5 g/dl RDW Standard Deviation 43.5 fL RDW Coefficient of Variation 14.2 % Platelet Count 212 K/uL Mean Platelet Volume 9.1 fL Sodium Level 137 mmol/L Potassium Level 3.5 mmol/L Chloride Level 109 mmol/L Carbon Dioxide Level 18 mmol/L Anion Gap 9.0 mmol/L Blood Urea Nitrogen 3 mg/dl Creatinine 0.30 mg/dl Est Creatinine Clear Calc Drug Dose 224.0 ml/min Estimated GFR () > 150.0 Estimated GFR (Non- 147.4 BUN/Creatinine Ratio 9.0 Random Glucose 79 mg/dl Calcium Level 8.1 mg/dl Magnesium Level 1.9 mg/dl Total Bilirubin 2.2 mg/dl Direct Bilirubin 1.5 mg/dl Aspartate Amino Transf (AST/SGOT) 43 U/L Alanine Aminotransferase (ALT/SGPT) 35 U/L Alkaline Phosphatase 347 U/L Total Protein 5.6 gm/dl Albumin 2.2 gm/dl Assessment and Plan Patient is a 56-year-old male with a history of alcohol abuse, chronic hepatitis C, COPD and current cigar smoker, PAD, CLL, HTN, and chronic right ankle wounds, here with worsening infection of right ankle chronic wounds and occluded right SFA. Severe PAD with right mid SFA occlusion-appreciate vascular consultation-plan for arteriogram with possible intervention today. -Continue aspirin, high-dose statin, and Pletal. -Appreciate Vascular Surgery consultation Right foot/ankle wounds w/ cellulitis-appreciate orthopedics consultation- checking MRI of the foot and ankle-may end up needing BKA and patient is agreeable to this-states that he has been wheelchair-bound for 8 years and cannot walk anyway so would make a difference to him if it would be beneficial for him. - Previous cultures Apr 2017 with Enterobacter cloacae and MSSA, tx w/ ertapenem. Follows w/Dr. Sheriff, had been on cipro/bactrim prior to admission -ESR only 10, Crp mildly elevated at 1.67. With leukocytosis worsening today - Wound care consulted - Blood cultures NGTD - Infectious disease consulted, appreciate recs: Obtain vascular surgery consult for PAD as above - Continue Zosyn and vancomycin - continue Tylenol and Oxycodone 5-10 mg Q4H PRN; Morphine PRN - Consult orthopedics, appreciate recs: MRI right foot unable to be done due to flexion contracture an dinability to hold still. Bone scan positive at right ankle/foot for suspected acute OM---> may require BKA Chronic hepatitis C/Alcoholic fatty liver/Elevated LFTs- Hep C quant positive in 03/2017 and saw ID-will need follow-up with infectious disease for possible treatment after discharge. Elevated total bili and direct bilirubin, along with alkaline phosphatase point towards either cholestatic pattern possibly related to ongoing infection in the foot? Liver ultrasound with evidence of hepatitis and hepatomegaly. Gallbladder sludge but no stones and no CBD dilatation. Also with lymph nodes enlarged around the pancreatic head. LFTs improved/stable, INR normal, platelets normal. No abdominal pain .-Should follow-up with GI as an outpatient. -follow LFTs -Reportedly stopped drinking since last admission -Continue folic acid and thiamine supplementation COPD/Tobacco use- Encouraged smoking cessation - continue Fluticasone BID, Combivent QID, Singulair 10 mg daily, Duonebs PRN Non-anion gap metabolic acidosis- Bicarbonate remains at 18 and was normal 2 months ago. There is no evidence of GI losses such as diarrhea or vomiting. Corrected AG though for hypoalbuminemia is actually 19.45 according to Figge calculation. Likely due to occult tissue anions from ischemia of the lower extremity. -follow PRP, albumin Leukocytosis/CLL Stage 1-is from acute infection on top of his CLL-baseline WBC count around 17. Worsened today from infection most likely -follow CBC -Pt follows with Dr. Casey -Due for next follow up in October -No current treatment, just monitoring for now Underweight/severe protein calorie malnutrition-likely from chronic illnesses and infection-nutrition following and starting dietary supplementation HTN--remains borderline hypotensive - Holding home losartan 100 mg PO qd for now Right knee pain-no effusion or evidence of infection clinically or on bone scan. Xray without fracture, but with osteopenia. Bone scan shows evidence of degenerative changes of knee -Pain control as above DVT prophylaxis -Heparin 5000 units SC [id number] hold for procedure today Code Status -Level I, FULL RESUSCITATION STATUS Dispo -From home w/services, wheelchair bound -May need prolonged IV abx depending on culture results and whether or not gets BKA
--- NOTE | 2017-09-25 10:22 | Progress Note ---
Progress Note Date of Service Sep 25, 2017. Progress Note Patient for arteriography with possible intervention of the right leg today. I have discussed the risks options and benefits of the procedure with the patient. The patient understands the risks options and benefits and agrees to the procedure. I have examined the patient, reviewed the History & Physical and in the interval since the performance of the History & Physical I have noted the following changes of clinical significance: No changes noted
[2017-09-25] MEDS ORDERED: FENTANYL CITRATE INJ 50 MCG/1 ML 2 ML VIAL ONE ×2 (10:50→11:42)
[2017-09-25] MEDS ORDERED: HEPARIN SOD (PORCINE) 1000 UNIT/ML 10 ML VIAL ONE (10:50)
[2017-09-25] MEDS ORDERED: MIDAZOLAM HCL 1 MG/ML 2ML VIAL ONE ×3 (10:50→12:32)
--- NOTE | 2017-09-25 10:54 | Pre Sedation Assessment ---
Pre Sedation Assessment General Date of Sedation: Sep 25, 2017. Vital Signs Past 12 Hours Date Time Temp Pulse Resp B/P (MAP) Pulse Ox O2 Delivery O2 Flow Rate FiO2 09/25/17 07:45 36.5 88 18 105/64 (78) 95 09/24/17 23:30 36.6 82 17 100/54 (69) 97 Room Air 106/56 (73) Review Cardiovascular: regular rate, rhythm, no edema Lungs: lungs clear Pre-Sedation Airway Assessment Smoking Status: Current Some Day Smoker Hx of Sleep Apnea: No Short Thick Neck: No Thyro-mental Distance: > 3 Finger Breadths Oral Cavity: Dental Abnormalities Mallampati Classification: Class II ASA Classification: Class III NPO Status Date of Last Intake of Fluids: Sep 25, 2017 Time of Last Intake of Fluids: 0700 Date of Last Intake of Solids: Sep 24, 2017 Time of Last Intake of Solids: 1700 Procedure Planning Contraindications for Sedation: None Current Medications Reviewed: Yes Notes The planned sedation has been discussed with the patient. Informed Consent was obtained. I have identified the patient, determined the appropriateness of sedation and have assessed the patient immediately prior to the procedure. All medicine(s) and interventions are by my order.
[2017-09-25] MEDS ORDERED: HEPARIN SOD (PORCINE) 1000 UNIT/ML 10 ML VIAL IV ONE (11:33)
[2017-09-25] MEDS ORDERED: MIDAZOLAM HCL 1 MG/ML 2ML VIAL IV ONE (12:32)
[2017-09-25] MEDS ORDERED: FENTANYL CITRATE INJ 50 MCG/1 ML 2 ML VIAL IV ONE (12:35)
--- NOTE | 2017-09-25 12:53 | [facility] Post Operative Brief Note ---
Immediate Operative Summary Operative Date Sep 25, 2017. 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 Surgeon Dr. Coughlin [employer] Teacher Surgeon(s) None Estimated Blood Loss 10 Findings Consistent with Post-Op Diagnosis Specimens None Drains None Anesthesia Type IV Sedat Cons RN Only Complication(s) none Disposition Accompanied Pt To Recover: no Disposition:
--- NOTE | 2017-09-25 12:54 | Post Sedation Assessment ---
Post Sedation Assessment General Date of Sedation Sep 25, 2017. Vital Signs: Vital Signs Past 12 Hours Date Time Temp Pulse Resp B/P (MAP) Pulse Ox O2 Delivery O2 Flow Rate FiO2 09/25/17 12:49 90 14 128/72 98 Oxymask 2 09/25/17 12:44 91 14 110/65 98 Oxymask 2 09/25/17 12:42 Oxymask 2 09/25/17 12:37 Oxymask 2 09/25/17 12:32 Oxymask 2 09/25/17 12:27 Oxymask 2 09/25/17 12:22 Oxymask 2 09/25/17 12:17 Oxymask 2 09/25/17 12:12 Oxymask 2 09/25/17 12:07 Oxymask 2 09/25/17 12:02 Oxymask 2 09/25/17 11:57 Oxymask 2 09/25/17 11:52 Oxymask 2 09/25/17 11:47 Oxymask 2 09/25/17 11:42 Oxymask 2 09/25/17 11:37 Oxymask 2 09/25/17 11:32 Oxymask 2 09/25/17 11:27 Oxymask 2 09/25/17 11:22 87 14 126/73 97 Oxymask 2 09/25/17 11:11 89 12 119/66 96 Oxymask 2 09/25/17 07:45 36.5 88 18 105/64 (78) 95 Post Procedure Recovery Score Activity: (2) Moves 4 extremities * Respiration: (2) Deep breath/cough Circulation: (2) +/-20% PreAnes Value Consciousness: (1) Arouseable (by name) Oxygen Saturation: (1) O2 needed for >90% Post Anesthesia Score: 8 Discharge Sedation Level of Care: Fast Track Phase II Post Sedation Plan On clinical assessment, the patient appears to have tolerated the sedation without complications. Patient is recovering as anticipated. Patient will continue to be monitored by nursing and may be discharged when sedation discharge criteria are met per below protocol. Upon Completions of procedure and additional 15 minutes continue every 5 minute vital signs and the P.A.R. score; then discharge to a Phase I or Fast Track to Phase II per the following guidelines: * Discharge Patient to appropriate Phase II area if PAR is 8 or greater or return to pre- procedure baseline. The post - procedure orders will be as directed. * If PAR score is less than 8 or not return to pre-procedure baseline then patient will follow Phase I monitoring till PAR is reached for Phase II. The Phase I may be done in procedure room or may call to secure a Phase I area. * If naloxone or flumazenil are used for reversal, hold in Phase I for an additional 60 -120 minutes before discharge to Phase II. Please call the Sedation Physician to re-evaluate and complete post-note for discharge to Phase II area. Do NOT discharge from procedure sedation or Phase 1 until post- sedation evaluation note is complete by procedure /sedation MD Sedation Discharge Instructions to be given to the patient at discharge to home.
[2017-09-25] MEDS ORDERED: LIDOCAINE HCL 1% 20 ML VIAL SQ ONE (12:56)
[2017-09-25] MEDS ORDERED: IODIXANOL (VISIPAQUE) 270 MG/ML 150ML FLUSH ONE (12:56)
[2017-09-25] MEDS ORDERED: SODIUM CHLORIDE 0.9% 1000ML 1,000 ML IV SCH (13:00)
[2017-09-25] MEDS: NSS + 20MEQ KCL 1000ML 1,000 ML IV SCH (13:28)
[2017-09-25] MEDS ORDERED: VANCOMYCIN TROUGH ONE (13:30)
--- NOTE | 2017-09-25 14:15 | Pharmacy Progress Note ---
Pharmacy Abx Dose Short Note Date of Service Sep 25, 2017. Assessment & Plan Assessment 57 year old male receiving vanc + zosyn IV for treatment of LE cellulitis in the setting of chronic non-healing wounds and right superficial femoral artery occlusion. Patient is s/p right leg angiogram today. * BC reported no growth to date * Day # 4 of antimicrobial therapy. Item Value Date Time Vancomycin Level Trough 19.0 mcg/ml 09/24/17 0533 Vancomycin Level Trough 18.9 mcg/ml 09/25/17 1318 Plan Vancomycin * Trough level of 18.9 mcg/mL is therapeutic * Continue dose of 1000 mg IV every 8 hours * Goal trough level for SSTI : 15 to 20 mcg/mL * Repeat trough with continued therapy or change in clinical status Zosyn * Continue 3.375 gram IV q8 hours (infused over 4 hours) Pharmacy will continue to follow and will adjust dose/frequency as necessary. Thank you.
--- NOTE | 2017-09-25 15:00 | Infectious Disease Progress Nt ---
Progress Note Date of Service Sep 25, 2017. Subjective Pt evaluation today including: conversation w/ patient, physical exam, chart review, lab review, review of studies, conversation w/ consultant intern, review of inpatient medication list Patient now status post angiography with stenting of occlusions of common iliac and superficial femoral arteries. Expected postoperative discomfort. Remains afebrile. No new complaints. All Other Systems: Reviewed and Negative Medications Current Inpatient Medications Medications (Trade) Dose Ordered Sig/Natalya Route Start Time Stop Time Status Last Admin Dose Admin Acetaminophen (Tylenol Tab) 650 mg Q4H PRN PO 09/22/17 16:30 10/22/17 16:29 Al Hydrox/Mg Hydrox/Simethicone (Maalox Max Susp) 15 ml Q4H PRN PO 09/22/17 16:30 10/22/17 16:29 Magnesium Hydroxide (Milk Of Magnesia Susp) 30 ml Q6H PRN PO 09/22/17 16:30 10/22/17 16:29 Polyethylene (Miralax Powder Packet) 17 gm DAILY PRN PO 09/22/17 16:30 10/22/17 16:29 Ondansetron HCl (Zofran Inj) 4 mg Q6H PRN IV 09/22/17 16:30 10/22/17 16:29 Aspirin (Ecotrin Tab) 81 mg QAM PO 09/23/17 08:00 10/23/17 08:59 09/24/17 07:56 81 MG Cilostazol (Pletal Tab) 100 mg BID PO 09/22/17 20:00 10/22/17 20:59 09/25/17 07:47 100 MG Fluticasone Propionate (Flovent Hfa 44MCG Inhaler) 2 puffs BID INH 09/22/17 20:00 10/22/17 20:59 09/25/17 07:49 2 PUFFS Folic Acid (Folvite Tab) 1 mg QAM PO 09/23/17 08:00 10/23/17 08:59 09/25/17 07:48 1 MG Albuterol/ Ipratropium (Combivent Respimat Inh) 2 puffs QID INH 09/22/17 17:00 10/22/17 16:59 09/25/17 13:31 2 PUFFS Magnesium Oxide (Mag-Ox Tab) 400 mg BID PO 09/22/17 20:00 10/22/17 20:59 09/25/17 07:48 400 MG Montelukast Sodium (Singulair Tab) 10 mg DAILY PO 09/23/17 08:00 10/23/17 08:59 09/25/17 07:48 10 MG Oxycodone HCl (Roxicodone Immediate Rel Tab) 5 mg for pain level 1-5 and... Q4H PRN PO 09/22/17 16:30 10/06/17 16:29 09/25/17 07:52 10 MG Sertraline HCl (Zoloft Tab) 50 mg DAILY PO 09/23/17 08:00 10/23/17 08:59 09/25/17 07:47 50 MG Thiamine HCl (Vitamin B-1 Tab) 200 mg BID PO 09/22/17 20:00 10/22/17 20:59 09/25/17 07:47 200 MG Pantoprazole Sodium (Protonix Tab) 40 mg QAM PO 09/23/17 08:00 10/23/17 08:59 09/25/17 07:48 40 MG Albuterol/ Ipratropium (Duoneb) 3 ml Q2H PRN INH 09/22/17 16:30 10/22/17 16:29 Vancomycin HCl 1000 mg/Sodium Chloride 270 ml @ 125 mls/hr Q8H IV 09/22/17 22:00 10/02/17 21:59 09/25/17 13:30 125 MLS/HR Miscellaneous Information (Consult) 1 ea UD PRN N/A 09/22/17 16:30 10/22/17 16:29 Piperacillin Sod/ Tazobactam Sod 3.375 gm/Dextrose 115 ml @ 28.75 mls/ hr Q8H IV 09/22/17 20:00 10/02/17 21:59 09/25/17 13:30 28.75 MLS/HR Miscellaneous Information (Consult) 1 ea UD PRN N/A 09/22/17 16:30 10/22/17 16:29 Heparin Sodium (Porcine) (Heparin Sq 5000 Unit/0.5ml) 5,000 unit Q12 SQ 09/22/17 21:00 10/22/17 20:59 Future hold 09/24/17 08:04 5,000 UNIT Morphine Sulfate (MoRPHine SULFATE INJ) 2 mg Q4H PRN IV 09/22/17 20:15 10/06/17 20:14 09/23/17 23:24 2 MG Morphine Sulfate (MoRPHine SULFATE INJ) 4 mg Q4H PRN IV 09/22/17 20:15 10/06/17 20:14 09/22/17 23:17 4 MG Nystatin (Mycostatin Susp) 5 ml QID PO 09/23/17 08:00 10/23/17 07:59 09/25/17 13:29 5 ML Atorvastatin Calcium (Lipitor Tab) 40 mg QAM PO 09/24/17 08:00 10/23/17 08:59 09/25/17 07:47 40 MG Enteral Nutritional Formula (Boost Breeze Nutritional Drink) 1 box TID PO 09/23/17 20:00 10/23/17 19:59 09/24/17 20:38 1 BOX Potassium Chloride/Sodium Chloride 1,000 ml @ 75 mls/hr [id number] IV 09/25/17 00:00 10/25/17 00:00 09/25/17 13:28 75 MLS/HR Sodium Chloride 1,000 ml @ 100 mls/hr Q10H IV 09/25/17 13:00 09/25/17 16:00 09/25/17 14:04 100 MLS/HR Objective Vital Signs Date Time Temp Pulse Resp B/P (MAP) Pulse Ox O2 Delivery O2 Flow Rate FiO2 09/25/17 14:35 36.5 88 18 121/69 (86) 96 09/25/17 14:05 36.5 92 18 122/71 (88) 98 09/25/17 13:50 36.5 92 18 130/77 (94) 96 09/25/17 13:35 36.4 88 18 123/72 (89) 97 09/25/17 13:20 36.7 84 18 119/65 (83) 95 Room Air 09/25/17 12:59 92 14 120/71 93 Room Air 09/25/17 12:54 91 14 106/69 96 Room Air 09/25/17 12:49 90 14 128/72 98 Oxymask 2 09/25/17 12:44 91 14 110/65 98 Oxymask 2 09/25/17 12:42 Oxymask 2 09/25/17 12:37 Oxymask 2 09/25/17 12:32 Oxymask 2 09/25/17 12:27 Oxymask 2 09/25/17 12:22 Oxymask 2 09/25/17 12:17 Oxymask 2 09/25/17 12:12 Oxymask 2 09/25/17 12:07 Oxymask 2 09/25/17 12:02 Oxymask 2 09/25/17 11:57 Oxymask 2 09/25/17 11:52 Oxymask 2 09/25/17 11:47 Oxymask 2 09/25/17 11:42 Oxymask 2 09/25/17 11:37 Oxymask 2 09/25/17 11:32 Oxymask 2 09/25/17 11:27 Oxymask 2 09/25/17 11:22 87 14 126/73 97 Oxymask 2 09/25/17 11:11 89 12 119/66 96 Oxymask 2 09/25/17 07:45 36.5 88 18 105/64 (78) 95 09/24/17 23:30 36.6 82 17 100/54 (69) 97 Room Air 106/56 (73) 09/24/17 15:11 36.7 89 16 104/57 (73) 95 Room Air Physical Exam General Appearance: WD/WN, no apparent distress, + thin Eyes: normal inspection, EOMI, sclerae normal ENT: normal ENT inspection, pharynx normal Neck: supple, no adenopathy, thyroid normal, trachea midline Respiratory/Chest: chest non-tender, lungs clear, normal breath sounds, no respiratory distress Cardiovascular: regular rate, rhythm, no gallop, no murmur Abdomen: normal bowel sounds, non tender, soft, no organomegaly Extremities: no calf tenderness, + pertinent finding (Right foot swelling) Neurologic/Psychiatric: alert, oriented x 3 Skin: normal color, no rash, + pertinent finding (Right foot erythema, multiple leg ulcerations) Lymphatic: no adenopathy Laboratory Results RUN DATE: 09/24/17 [facility] LAB PAGE 1 RUN TIME: 702 Specimen Inquiry PATIENT: DMITRI EDUARDO LOC: [id number] U # : [id number] AGE/SX: 57/M ROOM: W460 REG : 09/22/[address]: Brittany Harden MD : [id number] BED: 2 DIS : STATUS: ADM IN TLOC: SPEC #: [id number] TREV: 09/22/17-1299 STATUS: RES REQ #: [id number] RECD: 09/22/[address]: Gary Dela Cruz M.D. SOURCE: BLOOD ENTR: 09/22/17-[address]: Darci Johnston M.D. SPDC: ORDERED: BLOOD CULTURE COMMENTS: Comments to Switch House Operator SAME TIME, DIFFERENT SITES Procedure Result Verified Site BLD CULT Preliminary 09/24/17-702 NO GROWTH TO DATE. Last 24 Hours Test 09/25/17 06:53 09/25/17 13:18 White Blood Count 28.25 K/uL Red Blood Count 4.22 M/uL Hemoglobin 12.3 g/dL Hematocrit 35.7 % Mean Corpuscular Volume 84.6 fL Mean Corpuscular Hemoglobin 29.1 pg Mean Corpuscular Hemoglobin Concent 34.5 g/dl RDW Standard Deviation 43.5 fL RDW Coefficient of Variation 14.2 % Platelet Count 212 K/uL Mean Platelet Volume 9.1 fL Sodium Level 137 mmol/L Potassium Level 3.5 mmol/L Chloride Level 109 mmol/L Carbon Dioxide Level 18 mmol/L Anion Gap 9.0 mmol/L Blood Urea Nitrogen 3 mg/dl Creatinine 0.30 mg/dl Est Creatinine Clear Calc Drug Dose 224.0 ml/min Estimated GFR () > 150.0 Estimated GFR (Non- 147.4 BUN/Creatinine Ratio 9.0 Random Glucose 79 mg/dl Calcium Level 8.1 mg/dl Magnesium Level 1.9 mg/dl Total Bilirubin 2.2 mg/dl Direct Bilirubin 1.5 mg/dl Aspartate Amino Transf (AST/SGOT) 43 U/L Alanine Aminotransferase (ALT/SGPT) 35 U/L Alkaline Phosphatase 347 U/L Total Protein 5.6 gm/dl Albumin 2.2 gm/dl Vancomycin Level Trough 18.9 mcg/ml BONE SCAN 3 PHASE LIMITED HISTORY: 57 years-old Male r/o osteomyelitis right ankle acute right ankle pain with skin ulcer, acute cellulitis and questioned acute osteomyelitis COMPARISON: Right ankle radiographs 09/22/2017 TECHNIQUE: 3 phase bone scan was obtained utilizing 26.4 mCi technetium 99 MDP. Blood flow and blood pool images were obtained immediately and delayed images were obtained 3 hours post injection. FINDINGS: There is mildly increased blood flow and moderately increased blood pool about the right lower leg and right ankle with a focal photopenic area in the region of the right ankle suggesting soft tissue necrosis/skin ulcer. There is moderately increased delayed uptake about the right knee, right lower leg and right ankle, most pronounced within the lateral malleolus. IMPRESSION: 1. Three-phase positive bone scan about the right lower leg and right ankle is suspicious for possible acute osteomyelitis. 2. Focal photopenic area of the of the right ankle on the blood flow and blood pool images suggests soft tissue necrosis/skin ulcer. 3. Increased delayed uptake about the right knee may be degenerative. Assessment and Plan Cellulitis of right foot, possible underlying osteomyelitis of the foot/ankle in setting of chronic non-healing wounds in the setting of severe arterial disease now status post vascular intervention with stenting. Continue IV antibiotics, length to be determined by clinical response.
--- NOTE | 2017-09-25 15:03 | [facility] Operative Report ---
Operative Report Operative Date Sep 25, 2017. 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 Surgeon Dr. Coughlin Assurance Engineer Surgeon(s) None Estimated Blood Loss 10 Findings Left common iliac artery occlusion and a right superficial femoral artery occlusion. Specimens None Drains None Anesthesia Type IV Sedat Cons RN Only Complication(s) none Disposition no Indications This is a 57-year-old gentleman with significant peripheral vascular disease of both lower extremities. He has a nonhealing infected wound of his right foot. Arteriography with possible intervention was recommended. I have discussed the risks options and benefits of the procedure with the patient. The patient understands the risks options and benefits and agrees to the procedure. Description of Procedure The patient was taken the angio suite and placed in the supine position. Both groins were then prepped and draped in a sterile manner. Ultrasound was then used to locate the left common femoral artery being that there was no palpable pulse. The artery was patent at the common femoral level. A percutaneous puncture was then made to the left common femoral artery under ultrasound guidance. A wire followed by a 5 Algerian sheath was inserted. An 035 wire was then brought to the operative field. The femoral was cannulated with the 035 wire. It would not pass into the common iliac artery. An injection performed showed occlusion of the left common iliac artery. We then used an 035 Quick cross along with the 035 wire and were able to cross the common iliac artery lesion. The quick cross was then passed up into the aorta. The wire was removed and a hand injection showed the quick cross to be true lumen within the aorta. Th left common iliac was then dilated with a 6 x 80 balloon. Once this was done we passed a rim catheter over the 035 wire. The right common iliac was then cannulated from the left side. This was done with a stiffened Glidewire. A right lower extremity arteriogram was then performed once the rim catheter was passed into the right external iliac artery. This showed the common femoral artery patent. The profunda femoral artery was also widely patent. The superficial femoral artery was occluded just beyond its origin and reconstituted just beyond the adductor hiatus in the upper proximal popliteal artery. He had anterior tibial artery runoff down to the foot which was a fairly large vessel. The posterior tibial artery was occluded and reconstituted distally. At that point the plan was to try and open up the superficial femoral artery on the right and then stent the left iliac on the way out. We then removed the rim catheter and then used a 6 Algerian destination sheath was exchanged for the 5 Algerian short sheath. Using an 035 stiff Glidewire and a Quick cross catheter the superficial femoral artery lesion was traversed. This was done with some difficulty. The wire did pass down into the distal popliteal. The Quick cross was advanced distally. Once it was in the popliteal artery, the wire was removed. A hand-injection was performed which showed the catheter be true lumen. A stiff wire was then reinserted. The quick cross was removed. We then tried to pass a 5 x 100 [place] balloon. This would not pass through the occlusion. We therefore predilated the superficial femoral artery with a 4 x 100 [place]. Once this was done we decided to place the stents and then dilate post stenting. From the distal point of the lesion proximally we placed an absolute 6 x 100 overlapped with another absolute 6 x 100 and then a third absolute 6 x 100. These were all ballooned with a 5 x 100 [place] balloon. An injection at that time showed a stenosis still present proximally and sluggish flow through the superficial femoral artery. We then extended our stenting proximally with a 7 x 80 absolute stent. We then used a 7 x 40 [place] to balloon this stented area. An injection done at that time showed excellent flow through the common femoral artery and superficial femoral artery with good runoff down through the anterior tibial artery to the dorsalis pedis. We then pulled the destination sheath to the left common iliac artery. The wire was pulled back and inserted upward into the aorta. We then deployed a 10 x 59 Omnilink right at the origin of the left common iliac artery. This artery distended up nicely. Injection done post stenting showed excellent flow through the left common iliac artery. Prior to inserting the stent we exchanged the 6 Algerian destination sheath to a 7 Algerian short sheath. After the last arteriogram the wire was removed from the left side. The sheath was pulled and manual pressure was applied for hemostasis. Adequate hemostasis was then noted. Pressure dressing was then applied to the left groin. The patient now had excellent Doppler signals in both feet at the end of the procedure. The patient left the Endo suite in good condition and tolerated the procedure well. I attest to the content of the Intraoperative Record and any orders documented therein. Any exceptions are noted below.
[2017-09-25] MEDS: BOOST PLUS VANILLA PO SCH (20:09)
--- NOTE | 2017-09-25 20:14 | Orthopedic Progress Note ---
Orthopedic Progress Note Date of Service Sep 25, 2017. Subjective Denies: chest pain, SOB, nausea / vomiting, light headedness Additional Notes: Patient reasonably comfortable after revascularization procedure R LE earlier today by Dr Coughlin. Objective dressing C/D/I, A&O x3, toes mobile Overall cachexia. Right ankle medial and lateral ulcerations. No obvious exposed tendon, ligament or bone. Beefy red ulcer beds. No foul odor. B feet warm. R LE DP pulse palpable. Post tib artery pulse nonpalpable. Atrophic skin B LE. Date Time Temp Pulse Resp B/P (MAP) Pulse Ox O2 Delivery O2 Flow Rate FiO2 09/25/17 18:05 36.5 92 18 100/60 (73) 95 09/25/17 17:05 36.5 94 18 99/62 (74) 94 09/25/17 16:05 36.5 88 18 108/70 (83) 95 09/25/17 16:00 Room Air 09/25/17 15:05 36.5 89 18 141/60 (87) 96 09/25/17 14:35 36.5 88 18 121/69 (86) 96 09/25/17 14:05 36.5 92 18 122/71 (88) 98 09/25/17 13:50 36.5 92 18 130/77 (94) 96 09/25/17 13:35 36.4 88 18 123/72 (89) 97 09/25/17 13:20 36.7 84 18 119/65 (83) 95 Room Air 09/25/17 12:59 92 14 120/71 93 Room Air 09/25/17 12:54 91 14 106/69 96 Room Air 09/25/17 12:49 90 14 128/72 98 Oxymask 2 09/25/17 12:44 91 14 110/65 98 Oxymask 2 09/25/17 12:42 Oxymask 2 09/25/17 12:37 Oxymask 2 09/25/17 12:32 Oxymask 2 09/25/17 12:27 Oxymask 2 09/25/17 12:22 Oxymask 2 09/25/17 12:17 Oxymask 2 09/25/17 12:12 Oxymask 2 09/25/17 12:07 Oxymask 2 09/25/17 12:02 Oxymask 2 09/25/17 11:57 Oxymask 2 09/25/17 11:52 Oxymask 2 09/25/17 11:47 Oxymask 2 09/25/17 11:42 Oxymask 2 09/25/17 11:37 Oxymask 2 09/25/17 11:32 Oxymask 2 09/25/17 11:27 Oxymask 2 09/25/17 11:22 87 14 126/73 97 Oxymask 2 09/25/17 11:11 89 12 119/66 96 Oxymask 2 09/25/17 07:45 36.5 88 18 105/64 (78) 95 09/24/17 23:30 36.6 82 17 100/54 (69) 97 Room Air 106/56 (73) Laboratory Results 24 Hours: Test 09/25/17 06:53 Hematocrit 35.7 % Hemoglobin 12.3 g/dL Assessment & Plan Assessment: Right ankle large medial and lateral chronic ulcerations of vascular insufficiency S/P revascularization procedure R LE earlier today. Plan: Nonoperative for orthopedics at this time Continue IV antibiotics Wound care F/U in office as needed Thank you
[2017-09-26 00:14] VITALS: BP 106/38; PULSE 90; TEMP 36.8; O2SAT 94
[2017-09-26] MEDS: OXYCODONE HCL IR 5 MG TAB (IMMEDIATE RELEASE) PO PRN ×4 (02:52→21:08)
[2017-09-26 03:33] VITALS: BP 102/49; PULSE 92; TEMP 36.7; O2SAT 95
[2017-09-26] MEDS: PIPERACILL/TAZOBAC IV 3.375 GM in DEXTROSE 5% 100ML 100 ML IV SCH ×2 (03:37→12:29)
[2017-09-26] MEDS: VANCOMYCIN IV 1,000 MG in SODIUM CHLORIDE 0.9% 250ML 250 ML IV SCH ×2 (06:36→14:47)
[2017-09-26 07:22] VITALS: BP 100/38; PULSE 84; TEMP 36.8; O2SAT 95
[2017-09-26 08:17] LABS: HEMATOCRIT 32.2 % (42-52); HEMOGLOBIN 11.2 g/dL (14.0-18.0); MEAN CELL VOLUME 83.9 fL (80-100); MEAN CORPUSCULAR HEMOGLOBIN 29.2 pg (25-34); MEAN CORPUSCULAR HGB CONC 34.8 g/dl (32-36); MEAN PLATELET VOLUME 8.6 fL (7.4-10.4); PLATELET COUNT 199 K/uL (130-400); RED CELL DISTRIBUTION WIDTH CV 14.1 % (11.5-14.5); RED CELL DISTRIBUTION WIDTH SD 43.3 fL (36.4-46.3); WHITE BLOOD COUNT 29.12 K/uL (4.8-10.8)
[2017-09-26 08:46] LABS: ALBUMIN 2.1 gm/dl (3.4-5.0); ALT/SGPT 29 U/L (12-78); AST/SGOT 32 U/L (15-37); BLOOD UREA NITROGEN 3 mg/dl (7-18); CALCIUM 7.6 mg/dl (8.5-10.1); CARBON DIOXIDE 21 mmol/L (21-32); CREATININE 0.35 mg/dl (0.60-1.40); GLUCOSE 92 mg/dl (70-99); POTASSIUM 3.5 mmol/L (3.5-5.1); SODIUM 133 mmol/L (136-145)
[2017-09-26] MEDS: NYSTATIN SUSP 500,000 U/5 ML UDC PO SCH ×4 (08:47→20:03)
[2017-09-26] MEDS: CILOSTAZOL 100 MG TAB PO SCH ×2 (08:47→20:03)
[2017-09-26] MEDS: MAGNESIUM OXIDE 400 MG TAB PO SCH ×2 (08:47→20:03)
[2017-09-26] MEDS: SERTRALINE HCL 50 MG TAB PO SCH (08:47)
[2017-09-26] MEDS: MONTELUKAST SOD 10 MG TAB PO SCH (08:47)
[2017-09-26] MEDS: ATORVASTATIN 20 MG TAB PO SCH (08:47)
[2017-09-26] MEDS: THIAMINE HCL 100 MG TAB PO SCH ×2 (08:47→20:04)
[2017-09-26] MEDS: ASPIRIN 81 MG ECTAB PO SCH (08:48)
[2017-09-26] MEDS: PANTOprazole SOD 40 MG TAB PO SCH (08:48)
[2017-09-26 08:49] LABS: ALKALINE PHOSPHATASE 283 U/L (45-117); TOTAL PROTEIN 5.3 gm/dl (6.4-8.2)
[2017-09-26] MEDS: FLUTICASONE PROP HFA INH 44 MCG INHALER INH SCH ×2 (08:49→20:02)
[2017-09-26] MEDS: BOOST PLUS VANILLA PO SCH ×2 (08:49→20:00)
[2017-09-26] MEDS: IPRATROPIUM BROMIDE/ALBUTEROL respimat INH INH SCH ×4 (08:49→20:02)
[2017-09-26] MEDS: HEPARIN SOD 5000 UNIT/0.5 ML CARP SQ SCH ×2 (08:56→20:06)
[2017-09-26 08:58] LABS: BASO % 0.3 %; BASO ABS # 0.09 K/uL (0-0.2); EOS % 4.3 %; EOS ABS # 1.24 K/uL (0-0.5); IG# 0.09 K/uL (0.00-0.02); LYMPH % 68.5 %; LYMPH ABS # 19.96 K/uL (1.2-3.4); MONO % 5.7 %; MONO ABS # 1.65 K/uL (0.11-0.59); NEUT % 20.9 %; NEUT ABS # 6.09 K/uL (1.4-6.5)
[2017-09-26 11:00] VITALS: BP 92/60; PULSE 94; TEMP 36.6; O2SAT 96
[2017-09-26] MEDS: NSS + 20MEQ KCL 1000ML 1,000 ML IV SCH (11:00)
[2017-09-26 15:35] VITALS: BP 90/51; PULSE 81; TEMP 36.9; O2SAT 97
[2017-09-26] MEDS ORDERED: LEVOFLOXACIN 500 MG TAB PO ONE (16:14)
[2017-09-26] MEDS ORDERED: NURSING VERBAL MED ORDER ONE (16:30)
--- NOTE | 2017-09-26 16:36 | Hospitalist Progress Note ---
Hospitalist Progress Note Date of Service Sep 26, 2017. Subjective Pt evaluation today including: conversation w/ patient, conversation w/ community health consultant (Infectious Disease) Doing well. Less pain in right knee now since arteriogram and stent placement yesterday. Still some pain in rt ankle but feels the swelling is down. No CP or SOB. WBC count up slightly today. Remains afebrile All Other Systems: Reviewed and Negative Objective Vital Signs Date Time Temp Pulse Resp B/P (MAP) Pulse Ox O2 Delivery O2 Flow Rate FiO2 09/26/17 15:35 36.9 81 18 90/51 (64) 97 09/26/17 11:00 36.6 94 18 92/60 (71) 96 09/26/17 07:22 36.8 84 18 100/38 (58) 95 09/26/17 03:33 36.7 92 20 102/49 (66) 95 Room Air 09/26/17 00:14 36.8 90 20 106/38 (60) 94 Room Air 09/26/17 00:05 Room Air 09/25/17 19:05 36.8 87 18 111/49 (69) 95 Room Air 09/25/17 18:05 36.5 92 18 100/60 (73) 95 09/25/17 17:05 36.5 94 18 99/62 (74) 94 Physical Exam General Appearance: no apparent distress, + cachetic Eyes: normal inspection, sclerae normal ENT: hearing grossly normal Neck: trachea midline Respiratory/Chest: no respiratory distress, no accessory muscle use, + decreased breath sounds (throughout, a few coarse BS) Cardiovascular: regular rate, rhythm, no edema, no murmur Abdomen: normal bowel sounds, non tender, soft, + hepatomegaly Extremities: no calf tenderness, + pertinent finding (right dorsal foot and toes with erythema, rt lateral wound with aquacel in place and Optifoam, no surrounding erythema, +serous drainage, rt medial wound similar, no palpable pulses, no edema) Neurologic/Psychiatric: alert, normal mood/affect, oriented x 3 Skin: no rash Laboratory Results Last 24 Hours Test 09/26/17 08:09 White Blood Count 29.12 K/uL Red Blood Count 3.84 M/uL Hemoglobin 11.2 g/dL Hematocrit 32.2 % Mean Corpuscular Volume 83.9 fL Mean Corpuscular Hemoglobin 29.2 pg Mean Corpuscular Hemoglobin Concent 34.8 g/dl Platelet Count 199 K/uL Mean Platelet Volume 8.6 fL Neutrophils (%) (Auto) 20.9 % Lymphocytes (%) (Auto) 68.5 % Monocytes (%) (Auto) 5.7 % Eosinophils (%) (Auto) 4.3 % Basophils (%) (Auto) 0.3 % Neutrophils # (Auto) 6.09 K/uL Lymphocytes # (Auto) 19.96 K/uL Monocytes # (Auto) 1.65 K/uL Eosinophils # (Auto) 1.24 K/uL Basophils # (Auto) 0.09 K/uL RDW Standard Deviation 43.3 fL RDW Coefficient of Variation 14.1 % Immature Granulocyte % (Auto) 0.3 % Immature Granulocyte # (Auto) 0.09 K/uL Smudge Cells PRESENT Sodium Level 133 mmol/L Potassium Level 3.5 mmol/L Chloride Level 104 mmol/L Carbon Dioxide Level 21 mmol/L Anion Gap 9.0 mmol/L Blood Urea Nitrogen 3 mg/dl Creatinine 0.35 mg/dl Est Creatinine Clear Calc Drug Dose 192.0 ml/min Estimated GFR () > 150.0 Estimated GFR (Non- 138.3 BUN/Creatinine Ratio 8.3 Random Glucose 92 mg/dl Calcium Level 7.6 mg/dl Magnesium Level 1.8 mg/dl Total Bilirubin 1.8 mg/dl Direct Bilirubin 1.2 mg/dl Aspartate Amino Transf (AST/SGOT) 32 U/L Alanine Aminotransferase (ALT/SGPT) 29 U/L Alkaline Phosphatase 283 U/L Total Protein 5.3 gm/dl Albumin 2.1 gm/dl Assessment and Plan Patient is a 56-year-old male with a history of alcohol abuse, chronic hepatitis C, COPD and current cigar smoker, PAD, CLL, HTN, and chronic right ankle wounds, here with worsening infection of right ankle chronic wounds and occluded right SFA. Severe PAD with right mid SFA occlusion-appreciate vascular consultation-now s/ p arteriogram stent placement in Rt SFA and Left common iliac -Continue aspirin, high-dose statin, and Pletal. -Appreciate Vascular Surgery consultation Right foot/ankle wounds w/ cellulitis-appreciate orthopedics consultation- - Previous cultures Apr 2017 with Enterobacter cloacae and MSSA, tx w/ ertapenem. Follows w/Dr. Sheriff, had been on cipro/bactrim prior to admission -ESR only 10, Crp mildly elevated at 1.67. With leukocytosis worsening slightly again today Bone scan with suspected acute OM of rt leg and ankle Now revascularized. Ortho says nothing surgical at this time, f/u as needed as an outpt and continue antibiotics - Wound care consulted - Blood cultures NGTD - Infectious disease consulted, appreciate recs: spoke with Dr. Sheriff on 09/26- plan to dc IV abx and start po Levaquin 500mg once daily -will keep overnight after starting po Levaquin to make sure does not worsen clinically -needs close f/u in Wound Care clinic and with Dr. Sheriff after discharge - discontinue Zosyn and vancomycin - continue Tylenol and Oxycodone 5-10 mg Q4H PRN; Morphine PRN Chronic hepatitis C/Alcoholic fatty liver/Elevated LFTs- Hep C quant positive in 03/2017 and saw ID-will need follow-up with infectious disease for possible treatment after discharge. Elevated total bili and direct bilirubin, along with alkaline phosphatase point towards either cholestatic pattern possibly related to ongoing infection in the foot? Liver ultrasound with evidence of hepatitis and hepatomegaly. Gallbladder sludge but no stones and no CBD dilatation. Also with lymph nodes enlarged around the pancreatic head. LFTs improved today, INR normal, platelets normal. No abdominal pain .-Should follow-up with GI as an outpatient. -follow LFTs -Reportedly stopped drinking since last admission -Continue folic acid and thiamine supplementation COPD/Tobacco use- Encouraged smoking cessation - continue Fluticasone BID, Combivent QID, Singulair 10 mg daily, Duonebs PRN Non-anion gap metabolic acidosis- Bicarbonate was at 17-18 and was normal 2 months ago. Now after revascularization is back up to 21. There is no evidence of GI losses such as diarrhea or vomiting. Corrected AG though for hypoalbuminemia when HCO3 was low is actually 19.45 according to Figge calculation. Likely due to occult tissue anions from ischemia of the lower extremity. -follow PRP, albumin Leukocytosis/CLL Stage 1-is from acute infection on top of his CLL-baseline WBC count around 17. Worsened today from infection most likely -follow CBC -Pt follows with Dr. Casey -Due for next follow up in October -No current treatment, just monitoring for now Underweight/severe protein calorie malnutrition-likely from chronic illnesses and infection-nutrition following and starting dietary supplementation HTN--remains borderline hypotensive - Holding home losartan 100 mg PO qd and will not likely start on discharge Right knee pain-no effusion or evidence of infection clinically or on bone scan. Xray without fracture, but with osteopenia. Bone scan shows evidence of degenerative changes of knee. Pain improved after revascularization -Pain control as above DVT prophylaxis -Heparin 5000 units SC [id number] for procedure today Code Status -Level I, FULL RESUSCITATION STATUS Dispo -From home w/services, wheelchair bound -PT/OT evals pending Could potentially dc to home with HH on Thursday if not worse after starting po Levaquin today
[2017-09-26] MEDS: DOCUSATE SODIUM 100 MG CAP PO SCH (20:03)
[2017-09-26 22:52] VITALS: BP 96/58; PULSE 88; TEMP 37.2; O2SAT 95
[2017-09-27] MEDS: MONTELUKAST SOD 10 MG TAB PO SCH (07:51)
[2017-09-27] MEDS: SERTRALINE HCL 50 MG TAB PO SCH (07:51)
[2017-09-27] MEDS: CILOSTAZOL 100 MG TAB PO SCH (07:51)
[2017-09-27] MEDS: DOCUSATE SODIUM 100 MG CAP PO SCH (07:51)
[2017-09-27] MEDS: MAGNESIUM OXIDE 400 MG TAB PO SCH (07:51)
[2017-09-27] MEDS: PANTOprazole SOD 40 MG TAB PO SCH (07:51)
[2017-09-27] MEDS: THIAMINE HCL 100 MG TAB PO SCH (07:51)
[2017-09-27] MEDS: ASPIRIN 81 MG ECTAB PO SCH (07:51)
[2017-09-27] MEDS: ATORVASTATIN 20 MG TAB PO SCH (07:51)
[2017-09-27] MEDS: IPRATROPIUM BROMIDE/ALBUTEROL respimat INH INH SCH ×2 (07:52→11:09)
[2017-09-27] MEDS: FLUTICASONE PROP HFA INH 44 MCG INHALER INH SCH (07:52)
[2017-09-27] MEDS: BOOST PLUS VANILLA PO SCH (07:52)
[2017-09-27] MEDS: NYSTATIN SUSP 500,000 U/5 ML UDC PO SCH ×2 (07:52→11:09)
[2017-09-27] MEDS: OXYCODONE HCL IR 5 MG TAB (IMMEDIATE RELEASE) PO PRN ×2 (07:57→14:26)
[2017-09-27] MEDS: HEPARIN SOD 5000 UNIT/0.5 ML CARP SQ SCH (08:00)
[2017-09-27 08:02] VITALS: BP 103/63; PULSE 89; TEMP 36.6; O2SAT 96
[2017-09-27 08:35] LABS: HEMATOCRIT 34.8 % (42-52); HEMOGLOBIN 12.1 g/dL (14.0-18.0); MEAN CELL VOLUME 84.7 fL (80-100); MEAN CORPUSCULAR HEMOGLOBIN 29.4 pg (25-34); MEAN CORPUSCULAR HGB CONC 34.8 g/dl (32-36); MEAN PLATELET VOLUME 9.1 fL (7.4-10.4); PLATELET COUNT 212 K/uL (130-400); WHITE BLOOD COUNT 28.86 K/uL (4.8-10.8)
[2017-09-27 09:10] LABS: ALBUMIN 2.2 gm/dl (3.4-5.0); ALT/SGPT 25 U/L (12-78); AST/SGOT 24 U/L (15-37); BLOOD UREA NITROGEN 2 mg/dl (7-18); CALCIUM 8.1 mg/dl (8.5-10.1); CARBON DIOXIDE 24 mmol/L (21-32); CREATININE 0.38 mg/dl (0.60-1.40); GLUCOSE 109 mg/dl (70-99); POTASSIUM 3.4 mmol/L (3.5-5.1); SODIUM 137 mmol/L (136-145)
[2017-09-27 09:14] LABS: ALKALINE PHOSPHATASE 273 U/L (45-117); TOTAL PROTEIN 5.8 gm/dl (6.4-8.2)
[2017-09-27 09:31] LABS: BASO % 0.3 %; BASO ABS # 0.09 K/uL (0-0.2); EOS % 3.5 %; EOS ABS # 1.01 K/uL (0-0.5); IG# 0.07 K/uL (0.00-0.02); LYMPH % 67.9 %; MONO % 6.4 %; MONO ABS # 1.86 K/uL (0.11-0.59); NEUT % 21.7 %; NEUT ABS # 6.23 K/uL (1.4-6.5)
[2017-09-27] MEDS ORDERED: POTASSIUM CHLORIDE 20 MEQ TABCR PO STA (10:05)
[2017-09-27] MEDS ORDERED: LEVOFLOXACIN 500 MG TAB PO SCH (11:00)
[2017-09-27] MEDS ORDERED: FLV1 PO (12:23)
[2017-09-27] MEDS ORDERED: OXYC-164 PO (12:23)
[2017-09-27] MEDS ORDERED: MRLP17X PO (12:23)
[2017-09-27] MEDS ORDERED: CLC100 PO (12:23)
[2017-09-27] MEDS ORDERED: NYSS5 PO (12:23)
[2017-09-27] MEDS ORDERED: CLOP1TAB15 PO (12:23)
[2017-09-27] MEDS ORDERED: THM100 PO (12:23)
[2017-09-27] MEDS ORDERED: LVQ500 PO (12:23)
--- NOTE | 2017-09-27 12:43 | Discharge Instructions ---
Discharge Instructions Date of Service Sep 27, 2017. Admission Reason for Admission: Cellulitis Of Right Foot Discharge Discharge Diagnosis / Problem: Right foot cellulitis, possible osteomyelitis, peripheral artery disease Discharge Goals Goal(s): Decrease discomfort, Improve function, Diagnostic testing, Therapeutic intervention Activity Recommendations Activity Limitations: resume your previous activity (as tolerated) . Instructions / Follow-Up Instructions / Follow-Up You were admitted to the hospital with worsening redness, pain and swelling in your right foot. You were initially treated with IV antibiotics. Ultrasounds of your legs showed blockages in the arteries, which is contributing to your wounds not healing. You underwent an arteriogram with vascular surgery and had stents placed in the blocked arteries, which will improve blood flow to your lower extremities. Due to the stents, you have been started on an anti- platelet medicine called Plavix to take in addition to your aspirin. Infectious disease followed along during your hospital stay, and you can be discharged home with oral Levaquin. A 6 week supply has been sent to your pharmacy. You are now medically stable for discharge to home with your previous home health services. Medications: *STOP Cipro and Bactrim. These antibiotics have been changed. *Please take Levaquin 500 mg daily. You will likely need a prolonged course. A 6 week supply has been sent to your pharmacy. *Please take Plavix (clopidogrel) 75 mg daily. This is an anti-platelet medication to take with your aspirin due to the stents that were placed. You may STOP taking the Pletal. *You may take oxycodone 10 mg up to every 4 hours as needed for pain. *Please take Nystatin 5 mL (1 teaspoon) by mouth four times a day for 5 more days to complete the course. This is to treat the thrush (yeast) in your mouth. *Please take Colace (docusate) 100 mg twice a day. This a stool softener. You may also take MiraLax 17 gm daily as needed for constipation. This is a laxative. Please take the MiraLax every day for the first few days you are home until you are moving your bowels, then you can just use as needed. *Please take folic acid 1 mg daily and thiamine 200 mg twice a day. These are vitamin supplements due to your previous alcohol use. *STOP taking your losartan until you follow up with your primary care provider. This is your blood pressure medicine. Your blood pressure has been low while in the hospital, so this has been stopped for now. *Continue your other home medications as prescribed. Follow up: *You will be scheduled to follow up with your primary care provider, the wound care clinic, and infectious disease within the next 1-2 weeks regarding your hospital stay and current infection/wounds. Someone will be in contact with you regarding the appointment information. *You will also be scheduled to follow up with gastroenterology regarding your liver disease. Please seek medical attention if you experience fevers, chills, sweats, dizziness/lightheadedness, loss of consciousness, chest pain, shortness of breath, nausea, vomiting, numbness or tingling. Current Hospital Diet Patient's current hospital diet: Regular Diet Discharge Diet Recommended Diet: AHA Diet (Heart Healthy) Procedures Procedures Performed: Right Leg Angiogram Percutaneous Transluminal Angioplasty and Stenting Left Common Iliac Artery Percutaneous Transluminal Angioplasty and Stenting of Right Popliteal and Superficial Femoral Artery Moderate Sedation from 1122- 1244. Pending Studies Studies pending at discharge: no Medical Emergencies . Who to Call and When: Medical Emergencies: If at any time you feel your situation is an emergency, please call 911 immediately. . Non-Emergent Contact Non-Emergency issues call your: Primary Care Provider, Insurance Solicitor, Specialist (Wound care, infectious disease) Call Non-Emergent contact if: you have a fever, your pain is not controlled, your pain is worsening, your pain is unusual for you, your pain is concerning you, wound has increased drainage, wound has increased redness, wound has increased pain, you have any medication questions . Past History Medical & Surgical History: (1) Peripheral arterial disease (2) Cellulitis . "Provider Documentation" section prepared by Lucretia Ordonez. . [place] Drug Monitoring Program Search Results: patient reviewed within database, no issues identified
--- NOTE | 2017-09-27 12:59 | Discharge Summary ---
Discharge Summary Date of Service Sep 27, 2017. Discharge Summary Admission Date: Sep 22, 2017 at 16:30 Discharge Date: Sep 27, 2017 Discharge Disposition: Home with services Principal Diagnosis: Right lower extremity cellulitis, possible osteomyelitis, RLE chronic wound Problems/Secondary Diagnoses: Peripheral artery disease s/p stents to R popliteal artery, R superficial femoral artery, and L common iliac artery; hypotension; elevated LFTs; h/o HTN ; HLD; former heavy ETOH use; current tobacco use; COPD/emphysema; hepatitis C; alcoholic fatty liver; chronic right foot wound; CLL stage I; Hyponatremia - resolved; Mild-moderate protein calorie malnutrition Immunizations: Have You Had Influenza Vaccine: Unknown History of Tetanus Vaccine?: Unknown History of Pneumococcal: Unknown History of Hepatitis B Vaccine: Unknown Procedures: Immediate Operative Summary Operative Date Sep 25, 2017. 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 Surgeon Dr. Coughlin Adjunct Spanish Instructor Surgeon(s) None Estimated Blood Loss 10 Findings Consistent with Post-Op Diagnosis Specimens None Drains None Anesthesia Type IV Sedat Cons RN Only Complication(s) none 1. RLE venous doppler negative for DVT 2. RLE arterial doppler - IMPRESSION: Segmental occlusion of the mid right superficial femoral artery. There is distal reconstitution with dampened flow distally. 3. liver ultrasound - IMPRESSION: 1. 21 cm liver. No focal hepatic masses identified 2. Gallbladder sludge. No shadowing calculi identified 3. No evidence of significant ductal dilatation 4. Mildly prominent lymph nodes at the level of the pancreatic head 4. bone scan - IMPRESSION: 1. Three-phase positive bone scan about the right lower leg and right ankle is suspicious for possible acute osteomyelitis. 2. Focal photopenic area of the of the right ankle on the blood flow and blood pool images suggests soft tissue necrosis/skin ulcer. 3. Increased delayed uptake about the right knee may be degenerative. Consultations: Infectious disease Vascular surgery Orthopedics Medication Reconciliation New Medications: Clopidogrel (Plavix) 75 Mg Tab 75 MG PO DAILY for 30 Days, #30 TAB Docusate Sodium (Docusate Sodium) 100 Mg Cap 100 MG PO BID for 30 Days, #60 CAP Folic Acid (Folic Acid) 1 Mg Tab 1 MG PO QAM for 30 Days, #30 TAB Levofloxacin (Levofloxacin) 500 Mg Tab 500 MG PO DAILY@11 for 42 Days, #42 TAB Nystatin (Nystatin) 5 Ml Susp 5 ML PO QID for 5 Days, #20 DOSE Oxycodone Hcl (Oxycodone Hcl) 10 Mg Tab 1 TAB PO Q4H PRN for Pain for 3 Days, #12 TAB Polyethylene (Miralax) 17 Gm Pow 17 GM PO DAILY PRN for Constipation for 30 Days, #30 DOSE Thiamine HCl (Vitamin B-1) 100 Mg Tab 200 MG PO BID for 30 Days, #120 TAB Continued Medications: Aspirin (Aspirin EC Low Dose) 81 Mg Ectab 81 MG PO QAM, #30 TAB Atorvastatin (Lipitor) 40 Mg Tab 40 MG PO HS, TAB Fluticasone Propionate (Flovent Hfa) 120 Puffs/5280 Mcg Aero 2 PUFFS INH BID for 30 Days, #10.6 GM 2 Refills Ibuprofen (Motrin) 600 Mg Tab 600 MG PO TID PRN for Pain, TAB Ipratropium-Albuterol (Combivent Respimat) 1 Aer Aer 1 PUFFS INH QID, INH Pantoprazole (Protonix) 40 Mg Tab 40 MG PO DAILY, TAB Sertraline (Zoloft) 50 Mg Tab 50 MG PO DAILY, TAB Discontinued Medications: Cilostazol (Cilostazol) 100 Mg Tab 100 MG PO BID, #60 TAB Ciprofloxacin Hcl (Cipro) 500 Mg Tab 500 MG PO BID for 30 Days, #60 TAB 2 Refills Losartan Potassium (Cozaar) 100 Mg Tab 100 MG PO DAILY, TAB Sulfa/Trimethoprim (Bactrim Ds 800MG/160MG) Tab 1 TAB PO BID for 30 Days, #60 TAB 2 Refills Discharge Exam Patient reports feeling well. His pain has been a bit improved since his stents were placed. He currently complains of a 6/10 pain in his right knee and right foot. He still reports decreased appetite but states he has been eating a bit every meal. He still has not had a bowel movement. He reports that does not typically move his bowels every day at baseline. . Constitutional: No fever, No chills, No sweats Eyes: No worsening of vision, No eye pain, No diplopia ENT: No hearing loss, No nasal symptoms, No trouble swallowing Respiratory: No cough, No wheezing, No shortness of breath Cardiovascular: No chest pain, No claudication, No palpitations Abdomen: No pain, No nausea, No vomiting Musculoskeletal: +Right knee and foot pain. Right foot erythema. No muscle pain, No swelling Genitourinary - Male: No dysuria, No urinary retention, No hematuria Neurologic: +Tingling in lower extremities at nighttime. No paralysis, No weakness Integumentary: No rash, No itch, No color change General appearance: +Thin, appears chronically ill. Well-developed, no apparent distress Head: Normocephalic, atraumatic Eyes: Normal inspection, PERRL, EOMI ENT: +Poor dentition. Oral candidiasis resolving. Normal ENT inspection, hearing grossly normal Neck: Supple, no JVD, trachea midline Respiratory/Chest: Lungs clear to auscultation, normal breath sounds, no respiratory distress Cardiovascular: Regular rate & rhythm, no gallop, no murmur Abdomen/GI: Normal bowel sounds, non-tender, soft Extremities/Musculoskeletal: +Dorsum of right foot with erythema which is stable, no notable edema. TTP. Large wounds on lateral and medial aspects of right ankle covered in Optifoam. Drainage appears improved. Right knee medial aspect TTP. No calf tenderness, no pedal edema Neurological/Psych: Alert, normal mood/affect, oriented x 3 Skin: Normal color, warm/dry, no rash Hospital Course 56 y/o male with a history of HTN, PAD, former heavy ETOH use, current tobacco use, COPD/emphysema, Hepatitis C, fatty liver, and chronic right foot wound who presents to the ED with increased pain, redness, and swelling of right foot x 4 days. R Foot/Ankle cellulitis, chronic wound--improving - Previous cultures Apr 2017 with enterobacter cloacae and MSSA, tx w/ ertapenem. Follows w/Dr. Sheriff, had been on cipro/bactrim prior to admission - Wound care nurse consulted. Will schedule f/u at wound care clinic as outpatient - Blood cultures NGTD - Infectious disease consulted, appreciate recs: Can d/c IV abx and continue with Levaquin 500 mg PO qd - D/C vanc and Zosyn. Levaquin 500 mg PO qd. Likely will need prolonged course , will d/c with 6 week supply - D/C with oxycodone 10 mg PO q4h prn pain. Has not required IV morphine in several days - Orthopedics was consulted; no surgical intervention needed at this time - Unable to obtain MRI as pt cannot keep leg still. Bone scan results suspicious for acute osteomyelitis PAD- - Consult vascular surgery, appreciate recs: Spoke with Dr. Coughlin, pt will need to be on Plavix given stents - S/p arteriogram, stents placed in right popliteal artery and right SFA, left common iliac - Continue ASA. Will stop Pletal and d/c with Plavix 75 mg PO qd COPD/Emphysema--stable, without exacerbation - Encourage tobacco cessation - Fluticasone BID, Combivent QID, Singulair 10 mg daily, Duonebs PRN HTN--remains borderline hypotensive - Hold losartan 100 mg PO qd. Will stop at discharge HLD-stable - Continue Lipitor 40 mg PO qd Former ETOH use, hepatitis C, fatty liver, elevated LFTs--improving -Reportedly stopped drinking since last admission -Continue folic acid and thiamine supplementation, provided at discharge -Liver ultrasound shows 21 cm liver. No focal hepatic masses identified. Gallbladder sludge. No evidence of significant ductal dilatation. Mildly prominent lymph nodes at the level of the pancreatic head -LFTs trending down -Will schedule follow up with GI CLL stage I -Pt follows with Dr. Casey -Due for next follow up in October -No current treatment, just monitoring for now Right knee pain--improved following stent placement -Pain control as above -Right knee x-ray negative for acute fracture or osseous injury Oral candidiasis--improving -Nystatin 5 mL PO QID x 10 days. Completed 5 of 10 days inpatient, will complete course outpatient Constipation -Little PO intake while inpatient -Colace 100 mg PO BID and Miralax daily prn at discharge. Instructed to take Miralax every day first few days, then prn when bowels moving again DVT prophylaxis -Heparin 5000 units SC q12h Code Status -Level I, FULL RESUSCITATION STATUS Dispo -From home w/services, wheelchair bound -PT/OT cleared to return home w/services Attending Discharge Note & Attestation - Pt seen/examined, chart reviewed, discharge care plan d/w TONYA Ordonez. I agree w/ the salmeron components of her documentation. 57yo male with PAD, prior heavy alcohol dependence/abuse, tobacco dependence, ambulatory dysfunction, neuropathy of lower extremities, HepC, and COPD - presented with worsening cellulitis of his right foot. He had been followed by the wound care center for some time due to 2 wounds of the right foot/ankle. He had been taking chronic oral antibiotics for these wounds. He was treated with broad-spectrum IV antibiotics and seen in consult by orthopedics, vascular surgery, infectious disease, and the wound care team. It was discovered that he had severe PAD of the LEs and Dr. Coughlin from vascular performed angioplasty with stent placement of 3 vessels, 2 of which were in the right leg (Right Popliteal and Right Superficial Femoral Artery). He tolerated this procedure well. After re-vascularization and several days of IV antibiotic therapy his right foot cellulitis improved. His wounds remained stable while hospitalized. Wound care recommended ongoing use of SILVERCEL AND OPTIFOAM to both ulcers on the right foot/ankle region. At discharge he will continue with dressing changes (via home health) as well as levaquin 500mg once daily. He has been started on plavix due to the placement of the [address] Coughlin. Discharge exam - gen - thin, malnourished, looks older than stated age neck - no jvd mouth - resolving thrush; poor dentition heart - RRR, s1, s2 lungs - mild end-exp wheezes b/l abd - soft, NT, no HSM ext - right DP and pos tib pulses about 1-2+, cap refill < 2 seconds right foot ; left foot pulses also 1-2+; no edema skin - large ulceration lateral portion of right foot/ankle; center of wound is pink with granulation at periphery; no drainage or odor; smaller ulceration medial aspect of ankle, no drainage/odor; mild erythema especially of dorsal aspect of distal right foot extending into the mid-foot; no tenderness left groin with intact dressings from recent vascular surgery; no hematoma He will need close follow-up with the Wound Care Center, ID, orthopedics, and vascular surgery, especially in light of his previously nonhealing wounds as well as concern of possible osteomyelitis. Daniel Clemente MD Total Time Spent: Greater than 30 minutes This includes examination of the patient, discharge planning, medication reconciliation, and communication with other providers. Discharge Instructions Please refer to the electronic Patient Visit Report (Discharge Instructions) for additional information. Follow-Up PCP Infectious disease and wound care clinic GI Additional Copies To Charli Hayes D.O.; Marcus Sheriff MD; Darci Johnston M.D.; Edmund Figueroa, ; Benjamín Coughlin M.D.
[2017-09-27 13:45] VITALS: BP 103/63; PULSE 89; TEMP 36.6; O2SAT 96
== END 2017-09-27 15:00 | disposition home health service (06) | DRG 252 ==
LOC: C.EDB 12:38 → C.MS4W 16:30 → ENRESERV 16:47
PROVIDERS: ADMIT Family Medicine; ATTEND Internal Medicine
PROC: 047M3DZ Dilation of Right Popliteal Artery with Intraluminal Device, Percutaneous Approach (ICD-10-PCS; principal; 2017-09-25 11:30)
PROC: 047K3DZ Dilation of Right Femoral Artery with Intraluminal Device, Percutaneous Approach (ICD-10-PCS; principal; 2017-09-25 11:30)
PROC: 047D3DZ Dilation of Left Common Iliac Artery with Intraluminal Device, Percutaneous Approach (ICD-10-PCS; principal; 2017-09-25 11:30)
PROC: B41FYZZ Fluoroscopy of Right Lower Extremity Arteries using Other Contrast (ICD-10-PCS; principal; 2017-09-25 11:30)
DX: I73.9 Peripheral vascular disease, unspecified (principal); E43 Unspecified severe protein-calorie malnutrition; Z68.1 Body mass index [BMI] 19.9 or less, adult; L97.319 Non-pressure chronic ulcer of right ankle with unspecified severity; L03.115 Cellulitis of right lower limb; M86.171 Other acute osteomyelitis, right ankle and foot; B37.0 Candidal stomatitis; E87.2 Acidosis; C95.10 Chronic leukemia of unspecified cell type not having achieved remission; M25.561 Pain in right knee; J44.9 Chronic obstructive pulmonary disease, unspecified; I10 Essential (primary) hypertension; B18.2 Chronic viral hepatitis C; K70.0 Alcoholic fatty liver; F32.9 Major depressive disorder, single episode, unspecified; F17.210 Nicotine dependence, cigarettes, uncomplicated; F10.21 Alcohol dependence, in remission; Z99.3 Dependence on wheelchair; Z98.890 Other specified postprocedural states; Z86.19 Personal history of other infectious and parasitic diseases; Z79.02 Long term (current) use of antithrombotics/antiplatelets; Z79.2 Long term (current) use of antibiotics; Z79.82 Long term (current) use of aspirin; Z79.899 Other long term (current) drug therapy; Z83.3 Family history of diabetes mellitus; Z82.49 Family history of ischemic heart disease and other diseases of the circulatory system

== ENCOUNTER → 2017-10-22 | Outpatient (CLI) | payer OTHER ==
[~2017-10-22] MED LIST changes: +ATOR-24 PO; -Boost Plus Vanilla PO; -CIPR-255 PO; +CLC100 PO; +CLOP1TAB15 PO; -CNT PO; -ERGO500037 PO; +IBUP-1450 PO; -LPT20 PO; +LVQ500 PO; -MGNO400 PO; -MONT1TAB3 PO; +MRLP17X PO; -NICO14DI5 TD; +NYSS5 PO; -OMEP40CA41 PO; +PANT40TA PO; -PLT100 PO; -RXC5 PO; -SULF800T23 PO
[2017-10-22 12:58] LABS: HEMATOCRIT 37.7 % (42-52); HEMOGLOBIN 12.7 g/dL (14.0-18.0); MEAN CELL VOLUME 85.5 fL (80-100); MEAN CORPUSCULAR HEMOGLOBIN 28.8 pg (25-34); MEAN CORPUSCULAR HGB CONC 33.7 g/dl (32-36); PLATELET COUNT 287 K/uL (130-400); RED CELL DISTRIBUTION WIDTH CV 14.2 % (11.5-14.5); RED CELL DISTRIBUTION WIDTH SD 43.9 fL (36.4-46.3); WHITE BLOOD COUNT 24.14 K/uL (4.8-10.8)
[2017-10-22 13:18] LABS: ALBUMIN 3.1 gm/dl (3.4-5.0); ALKALINE PHOSPHATASE 172 U/L (45-117); ALT/SGPT 30 U/L (12-78); AST/SGOT 27 U/L (15-37); BLOOD UREA NITROGEN 9 mg/dl (7-18); CALCIUM 8.7 mg/dl (8.5-10.1); CARBON DIOXIDE 26 mmol/L (21-32); CREATININE 0.52 mg/dl (0.60-1.40); GLUCOSE 98 mg/dl (70-99); POTASSIUM 3.5 mmol/L (3.5-5.1); SODIUM 135 mmol/L (136-145); TOTAL PROTEIN 7.1 gm/dl (6.4-8.2)
[2017-10-22 13:43] LABS: BASO % 0.3 %; BASO ABS # 0.08 K/uL (0-0.2); EOS % 3.9 %; EOS ABS # 0.93 K/uL (0-0.5); IG# 0.05 K/uL (0.00-0.02); LYMPH % 74.5 %; LYMPH ABS # 17.98 K/uL (1.2-3.4); MONO % 5.9 %; MONO ABS # 1.43 K/uL (0.11-0.59); NEUT % 15.2 %; NEUT ABS # 3.67 K/uL (1.4-6.5)
== END | disposition home or self-care (01) ==
LOC: C.LABBFT 09:36
PROVIDERS: ATTEND Internal Medicine Hematology & Oncology
DX: C91.10 Chronic lymphocytic leukemia of B-cell type not having achieved remission (principal); R82.99 Other abnormal findings in urine; Z12.5 Encounter for screening for malignant neoplasm of prostate; I73.9 Peripheral vascular disease, unspecified

== ENCOUNTER → 2018-01-04 | Outpatient (CLI) | payer OTHER ==
[~2018-01-04] MED LIST changes: -ASPI-320 PO; +ASPI81TA28 PO; -CLC100 PO; -FLV1 PO; +IBUP-1428 PO; -IBUP-1450 PO; -LVQ500 PO; -MRLP17X PO; +NRV5 PO; -NYSS5 PO; -THM100 PO
--- NOTE | 2018-01-04 14:29 | DIAGNOSTIC IMAGING REPORT ---
PET/CT SKULL-THIGH CLINICAL HISTORY: 57 years-old Male with PULMONARY NODULE. Follow-up study in a patient with emphysema and left upper lung irregular nodule. Patient presents with history of leukemia. COMPARISON: CTA of the chest 11/17/2017, CT chest 05/26/2017 TECHNIQUE: The patient was injected with 12.25 mCi of F-18 fluorodeoxyglucose (FDG) and an emission scan was performed from the skull vertex to the toes. Noncontrast CT was performed for attenuation correction and anatomic localization. The blood glucose level was 101 mg/dl. FINDINGS: HEAD AND NECK: Mildly increased uptake about the bilateral parotid and submandibular glands with in a symmetric distribution is likely physiologic. Mildly enlarged left level 2 lymph node measures 1.7 x 1.0 cm, with SUV max of 2.1. Mildly increased uptake about the glottis is likely physiologic. CHEST: Prominent lymph nodes about the bilateral axillary chains with enlarged 1.7 x 1.1 cm left axillary lymph node on image 58 series 2 demonstrating hypermetabolic activity with SUV max of 2.3. Irregular linear and spiculated nodule of the apical posterior segment left upper lobe redemonstrated, 1.5 x 0.9 cm, previously measuring 2.0 x 1.8 cm on study dated 11/17/2017. This lesion demonstrates mildly increased metabolic activity with SUV max of 1.8 (background lung parenchyma demonstrates SUV max of 0.5). Hypermetabolic nodule of the right upper lobe measuring 7 mm is seen on image 89 series 2 with SUV max of 3.0. 6 mm area of increased metabolic activity is also noted within the more medial right upper lung on image 90 of series 311 without correlate on the CT images suspicious for a possible additional solid pulmonary nodule. There is an irregular solid 8 x 8 mm nodule of the medial segment right middle lobe with adjacent groundglass density on image 106 series 2 which demonstrates SUV max of 3.3. This nodule appears new from 11/17/2017 exam. Prominent 8 mm precarinal lymph node. No hypermetabolic lymph nodes of the mediastinum. ABDOMEN AND PELVIS: There is a physiologic distribution of activity within the liver, spleen, adrenal glands, gastrointestinal and urinary tracts. There are multiple enlarged and prominent lymph nodes about the retroperitoneum including pericaval, periaortic, iliac and inguinal chain lymph nodes. 1.2 x 1.8 cm periaortic lymph node at the level of the kidneys is seen on image 169 series 2 demonstrating no significant hypermetabolic activity. 8 mm right pelvic sidewall lymph node seen on image 223 series 2. 1.6 x 2.5 cm right inguinal lymph node with 2.5 x 1.7 cm left inguinal lymph node. There is SUV max of 2.1 on the right and 2.2 on the left. MUSCULOSKELETAL SYSTEM AND EXTREMITIES: Mildly increased metabolic activity is noted throughout the axial and appendicular skeletal system, SUV max measuring up to 2.2. No discrete suspicious lytic or blastic bony lesions. There are degenerative changes noted in the spine and pelvis. ADDITIONAL CT FINDINGS: Mild polypoid mucosal thickening of the maxillary sinuses. Mastoid air cells are clear. Multilevel degenerative changes of the spine, notably within the cervical spine. Prominent calcification of the aorta and great vessels. Coronary arterial calcifications are noted. Emphysema without pneumothorax or pleural effusion. Spleen appears normal in size. Moderate stool volume throughout the colon suggest constipation. Colonic diverticulosis without diverticulitis. Prostate is mildly enlarged. IMPRESSION: 1. Irregular spiculated nodule of the left lung apex appears decreased in size from comparison study 11/17/2017 measuring up to 1.5 cm and demonstrates only slightly increased metabolic activity above background lung parenchyma with SUV max of 1.8. Scar formation or low-grade neoplasm are differential considerations. 2. Hypermetabolic 7 mm nodule of the right upper lobe and hypermetabolic 8 mm nodule of the right middle lobe. Differential considerations would include neoplasm or inflammatory nodules. 3. Prominent and enlarged cervical chain, axillary, periaortic, iliac chain, pelvic sidewall and inguinal lymph nodes as detailed above with mildly increased FDG uptake noted within the axillary and inguinal lymph nodes are suspicious for lymphoproliferative disorder. If not already conducted, these may be amenable to tissue sampling with FNA. 4. Mildly increased metabolic activity about the skeletal structures without discrete sclerotic or lytic lesion may also be related to lymphoproliferative disorder. 5. Emphysema. The above report was generated using voice recognition software. It may contain grammatical, syntax or spelling errors. Electronically signed by: Donnell Saeed M.D. 01/04/2018 2:28 PM Dictated Date/Time: 01/04/2018 1:58 PM
== END | disposition home or self-care (01) ==
LOC: C.PET 10:35
PROVIDERS: ATTEND Physician Assistant
DX: R91.8 Other nonspecific abnormal finding of lung field (principal); R91.1 Solitary pulmonary nodule; F17.200 Nicotine dependence, unspecified, uncomplicated; J43.9 Emphysema, unspecified

== ENCOUNTER → 2018-01-08 | Outpatient (CLI) | payer OTHER ==
[2018-01-08 13:05] LABS: BLOOD UREA NITROGEN 15 mg/dl (7-18); CALCIUM 9.1 mg/dl (8.5-10.1); CARBON DIOXIDE 25 mmol/L (21-32); CREATININE 0.61 mg/dl (0.60-1.40); GLUCOSE 102 mg/dl (70-99); SODIUM 133 mmol/L (136-145)
== END | disposition home or self-care (01) ==
LOC: C.LABSPEC 10:47
PROVIDERS: ATTEND Physician Assistant Medical
DX: I10 Essential (primary) hypertension (principal)

== ENCOUNTER 2018-08-14 14:15 | Inpatient (IN) ==
[2018-08-14] MEDS ORDERED: SODIUM CHLORIDE 0.9% 1000ML 1,000 ML IV ONE (14:44)
--- NOTE | 2018-08-14 15:12 | XRay Report ---
XR chest 1V portable HISTORY: epigastric pain COMPARISON: Chest 11/17/2017. FINDINGS: Mild emphysema. Spiculated left apical density is again noted and better appreciated on the recent PET/CT. No new focal lung consolidations to suggest pneumonia. No evidence for pulmonary mat a. The heart is normal in size. No pleural effusions. No pneumothorax. IMPRESSION: 1. No acute process within the chest. 2. Mild emphysema. 3. Spiculated left apical density is again noted and better appreciated on the recent PET/CT. Electronically signed by: Gee Santamaria M.D. 08/14/2018 3:11 PM
[2018-08-14 15:14] LABS: Hemoglobin 13.9 g/dL (14.0-18.0); Mean Corpuscular Hgb Conc 33.9 g/dL (32-36); Mean Corpuscular Volume 89.5 fL (80-100); Mean Platelet Volume 10.6 fL (7.4-10.4); Platelet Count 189 K/uL (130-400); RDW Coefficient of Variation 14.4 % (11.5-14.5); RDW Standard Deviation 47.2 fL (36.4-46.3); Red Blood Count 4.58 M/uL (4.7-6.1); White Blood Count 28.23 K/uL (4.8-10.8)
[2018-08-14 15:27] LABS: INR 1.1 (0.9-1.1); Partial Thromboplastin Ratio 0.9; Prothrombin Time 11.2 Seconds (9.0-12.0)
[2018-08-14 15:30] LABS: Alanine Aminotransferase 37 U/L (12-78); Albumin Level 3.1 gm/dl (3.4-5.0); Aspartate Aminotransferase 66 U/L (15-37); Bilirubin Direct 0.5 mg/dl (0-0.2); Blood Urea Nitrogen 16 mg/dl (7-18); Calcium 8.8 mg/dl (8.5-10.1); Carbon Dioxide 26 mmol/L (21-32); Chloride 102 mmol/L (98-107); Est GFR (African American) 132.1; Glucose 98 mg/dl (70-99); Magnesium 1.8 mg/dl (1.8-2.4); Potassium 3.4 mmol/L (3.5-5.1); Sodium 135 mmol/L (136-145)
[2018-08-14] MEDS ORDERED: ONDANSETRON INJ 2 MG/ML 2 ML VIAL IV STA (15:33)
[2018-08-14] MEDS ORDERED: MoRPHine SULFATE 4 MG/ML 1 ML CARP\\VIAL IV STA (15:33)
[2018-08-14 15:36] LABS: Alkaline Phosphatase 127 U/L (45-117); Bilirubin,Total 0.8 mg/dl (0.2-1); Total Protein 6.8 gm/dl (6.4-8.2); Troponin I < 0.015 ng/ml (0-0.045)
[2018-08-14 16:09] LABS: Basophils # (auto) 0.04 K/uL (0-0.2); Basophils % (auto) 0.1 %; Eosinophils # (auto) 0.11 K/uL (0-0.5); Eosinophils % (auto) 0.4 %; Immature Granulocytes # (auto) 0.05 K/uL (0.00-0.02); Immature Granulocytes % (auto) 0.2 %; Lymphocytes # (auto) 23.47 K/uL (1.2-3.4); Lymphocytes % (auto) 83.1 %; Monocytes # (auto) 0.54 K/uL (0.11-0.59); Monocytes % (auto) 1.9 %; Neutrophils # (auto) 4.02 K/uL (1.4-6.5); Neutrophils % (auto) 14.3 %; Smudge Cells Present
[2018-08-14] MEDS ORDERED: OPTIRAY 320 125ml IV PRN (16:36)
[2018-08-14 16:53] LABS: Influenza A virus by PCR Neg for Influ A (Neg); Influenza B virus by PCR Neg for Influ B (Neg)
--- NOTE | 2018-08-14 17:12 | CT Scan Report ---
CHEST CTA for PULMONARY ARTERIES, ABDOMEN AND PELVIS CT WITH INTRAVENOUS CONTRAST CT DOSE: 563.24 mGy.cm HISTORY: Short of breath. Generalized abdominal pain. TECHNIQUE: Multiaxial CT images of the chest were performed following the intravenous administration of contrast to evaluate the pulmonary arteries. Maximal intensity projection images were also obtaine d. Multiaxial CT images of the abdomen and pelvis were performed from the use of intravenous contras t. A dose lowering technique was utilized adhering to the principles of ALARA. COMPARISON STUDY: PET CT 01/04/2018. Chest CTA and abdomen and pelvis CT 11/17/2017. FINDINGS: CHEST CTA: Moderate calcified plaque throughout the normal caliber thoracic aorta. The heart is dorota l in size. No pleural or pericardial effusions. No filling defects within the pulmonary arteries to s uggest pulmonary embolus. No suspicious lytic or blastic osseous lesions. No mediastinal or hilar lym phadenopathy. Small spiculated left apical density remains unchanged. Emphysema. There is a new 6 mm groundglass nodule within the left upper lobe on image 215. 4 mm nodule within the left lower lobe on image 133. The previously described nodules within the nodules within the right lung have resolved o r improved. ABDOMEN AND PELVIS: No pneumoperitoneum. No pneumatosis. The right femoral arterial stent appears occ luded. Mildly enlarged left inguinal lymph node measuring 1.7 x 1.1 cm. This is slightly improved. Th e right inguinal lymphadenopathy has also improved. Nodular contour to the liver consistent with cirr hosis. No hepatic or splenic masses. The gallbladder, adrenal glands, and pancreas are unremarkable. The kidneys enhance normally. No hydronephrosis. The main portal vein and its branches are thrombosed . Periportal and retroperitoneal lymphadenopathy remains unchanged. The IVC is patent. Normal bladder . Trace ascites. There is thickening and pericolonic fat stranding throughout the majority of the col on. This is consistent with a nonspecific pancolitis. The visualized appendix is unremarkable. No alan dence for bowel obstruction. IMPRESSION: 1. No evidence for pulmonary embolus. 2. No significant change in the spiculated left apical density/lesion. 3. There is thickening and pericolonic fat stranding throughout the majority of the colon. This is co nsistent with a pancolitis and likely due to an infectious or inflammatory process. 4. Portal vein thrombosis. The portal vein appears completely occluded. 5. No significant change in the periportal and retroperitoneal lymphadenopathy. 6. Cirrhotic liver with trace ascites. 7. Slight improvement in the inguinal lymphadenopathy. 8. The right femoral arterial stent appears occluded. 9. Additional findings as described above. Electronically signed by: Gee Santamaria M.D. 08/14/2018 5:10 PM
[2018-08-14] MEDS ORDERED: KETOROLAC (**for OR use only**) 30 MG/ML VIAL IV ONE (17:20)
[2018-08-14] MEDS ORDERED: KETOROLAC TROMETHAMINE 15 MG/ML VIAL ONE (18:03)
--- NOTE | 2018-08-14 19:40 | History & Physical Report ---
Date of Service August 14, 2018 Assessment & Plan (1) Abdominal pain: CT AP noted for possible portal vein thrombosis Will start on heparin drip Vasc surg c/s pending Full liquids with IVF (2) Failure to thrive: Uncertain etiology Pt with possible health issues that could be causing this as noted above HIV testing pending (3) Thyroid mass: States he was to have a bx but missed the appt (4) Leukocytosis: At baseline, hx of CLL Monitor (5) Hepatitis C: No hx of tx (6) CLL (chronic lymphocytic leukemia): No hx of tx, currently being monitored to determine when tx would be appropriate (7) COPD (chronic obstructive pulmonary disease): continue home meds (8) Lung mass: States was told it is not malignant and is being monitored (9) Peripheral arterial disease: Has followed with ?? Dr. Coughlin in the past (10) GERD (gastroesophageal reflux disease): continue home meds (11) HTN (hypertension): continue home meds (12) Tobacco use disorder: Nicotine patch (13) Depression: continue home meds (14) Anxiety: continue home meds (15) DVT prophylaxis: Heparin drip History of Present Illness Primary Care Provider: Darci Johnston MD 57 y/o M c/o abd pain. Pt states that he has been bedridden due to this abd pain for about 5 days. He states the pain will come and go for no reason that he can determine. He will be pain free for 2-3 hours at a time and then pain will suddenly return. It does not seem to be timed with food. His PO intake has been minimal due to the pain and intermittent nausea. He has not had any emesis with this. He has has occasional bowel movements but not diarrhea. Pt states that prior to 5 days ago he was having a decreased appetite but was eating small frequent meals without issue. He states that he has had a decreased appetite regularly for quite some time, but it got worse about 2.5 weeks ago and then abd pain started about 5 days ago with further decreased appetite. He has been losing weight despite the fact that he has been trying to gain weight. Pt states he regularly has chest pain, substernal and more epigastric. He is uncertain why this comes and goes also. Pt states he had some sort of upper endoscopy "probe". He states it was performed at [facility], but he uncertain who performed this or what was done. Pt was supposed to have a thyroid bx done but was unable to make this appt. Pt has a lung mass that he states he was told is not cancer and it is being watched. Pt has CLL. It is currently being monitored. No hx of chemo or other interventions yet. Pt denies fever, SOB, LE pain or swelling. Allergies Allergy/AdvReac Type Severity Reaction Status Date / Time No Known Allergies Allergy Mild NONE Verified 08/14/18 14:39 Home Medications Home Medications Medication Instructions Recorded Confirmed Type amlodipine [Norvasc] 2.5 mg PO DAILY 08/14/18 08/14/18 History aspirin [Aspir-81] 81 mg PO DAILY 08/14/18 08/14/18 History atorvastatin [Lipitor] 40 mg PO DAILY 08/14/18 08/14/18 History cilostazol 100 mg PO BID 08/14/18 08/14/18 History fluticasone [Flovent HFA] 2 puff INHALATION BID 08/14/18 08/14/18 History ibuprofen [IBU] 800 mg PO TID PRN 08/14/18 08/14/18 History ipratropium-albuterol [Combivent 1 puff INHALATION QID 08/14/18 08/14/18 History Respimat] losartan [Cozaar] 100 mg PO DAILY 08/14/18 08/14/18 History pantoprazole [Protonix] 40 mg PO DAILY 08/14/18 08/14/18 History sertraline [Zoloft] 50 mg PO DAILY 08/14/18 08/14/18 History Past Med/Surg History Medical History Hyperlipemia, retention Fatty liver Hepatitis C CLL (chronic lymphocytic leukemia) Leukemia COPD (chronic obstructive pulmonary disease) Alcohol abuse (Chronic) Family History Other CVA (cerebral vascular accident) Heart attack Social History Feels Safe at Home: Yes Smoking Status: Current every day smoker Hx Alcohol Use: Yes Hx Substance Use: Yes Review of Systems Pertinent positives and negatives reviewed in HPI--all others negative Physical Exam Vital Signs (Past 24 Hours): Last Vital Signs Temp 36.4 C L 08/14/18 14:23 Pulse 72 08/14/18 19:16 Resp 16 08/14/18 19:16 BP 105/64 08/14/18 19:16 Pulse Ox 98 08/14/18 19:16 Constitutional: + cachectic; not in distress Eyes: normal visual vick by confrontation and + anicteric sclerae Neck: normal visual inspection and trachea midline Respiratory: normal respiratory effort, lungs clear to auscultation Cardiovascular: Rate/Rhythm: regular rate and regular rhythm Gastrointestinal (Abdomen): Inspection/Auscultation: abdomen not distended Percussion/Palpation: + abdomen tender (diffuse, worse in the lower abd) and + abdomen firm; + abdomen not soft Musculoskeletal: Head/Neck/Chest: normocephalic and head atraumatic negative for edema, peripheral pulses intact Skin: no rashes, warm and dry multiple skin lesions noted along face, hands Neurologic: awake; not confused Speech / Cognition: normal speech Psychiatric: A+Ox3, euthymic affect Results & Data Diagnostic Findings CTA/CT AP: 1. No evidence for pulmonary embolus. 2. No significant change in the spiculated left apical density/lesion. 3. There is thickening and pericolonic fat stranding throughout the majority of the colon. This is consistent with a pancolitis and likely due to an infectious or inflammatory process. 4. Portal vein thrombosis. The portal vein appears completely occluded. 5. No significant change in the periportal and retroperitoneal lymphadenopathy. 6. Cirrhotic liver with trace ascites. 7. Slight improvement in the inguinal lymphadenopathy. 8. The right femoral arterial stent appears occluded. 9. Additional findings as described above. CXR: neg for acute ECG Rhythm: normal sinus Code Status & VTE Plan Code Status Other: Full code, although pt states no prolonged mechanical life support, feeding tubes, etc VTE Prophylaxis Plan VTE Prophylaxis will be ordered: Yes (1) Abdominal pain Abdominal location: unspecified location Qualified Code(s): R10.9 - Unspecified abdominal pain (2) Leukocytosis Leukocytosis type: unspecified Qualified Code(s): D72.829 - Elevated white blood cell count, unspecified
--- NOTE | 2018-08-14 20:13 | Emergency Department Note ---
Entered by Ron Romero acting as a scribe for History of Present Illness General Chief complaint: Abdominal Pain Stated complaint: SEVERE STOMACH PROBLEMS Time Seen by Provider: 08/14/18 14:29 Source: patient and family (animal care worker) Limitations: no limitations History of Present Illness Onset (ago): week(s) 1 Location: abdomen Pain Consistency: + intermittent Maximum Pain Intensity: 6 Quality: + other (worsening) Associated symptoms: + denies other symptoms (difficulties breathing); no chest pain The patient is a 57 year old male who presents to the Emergency Room with complaints of intermittent and worsening abdominal pain starting a week ago. The patient's animal care worker notes the patient had the pain for 4 days and then received TUMs and laxatives and felt better the next day. The patient denies chest pain and difficulties breathing. Home Medications Home Medications Medication Instructions Recorded Confirmed Type amlodipine [Norvasc] 2.5 mg PO DAILY 08/14/18 08/14/18 History aspirin [Aspir-81] 81 mg PO DAILY 08/14/18 08/14/18 History atorvastatin [Lipitor] 40 mg PO DAILY 08/14/18 08/14/18 History cilostazol 100 mg PO BID 08/14/18 08/14/18 History fluticasone [Flovent HFA] 2 puff INHALATION BID 08/14/18 08/14/18 History ibuprofen [IBU] 800 mg PO TID PRN 08/14/18 08/14/18 History ipratropium-albuterol [Combivent 1 puff INHALATION QID 08/14/18 08/14/18 History Respimat] losartan [Cozaar] 100 mg PO DAILY 08/14/18 08/14/18 History pantoprazole [Protonix] 40 mg PO DAILY 08/14/18 08/14/18 History sertraline [Zoloft] 50 mg PO DAILY 08/14/18 08/14/18 History Allergies Allergy/AdvReac Type Severity Reaction Status Date / Time No Known Allergies Allergy Mild NONE Verified 08/14/18 14:39 Past Med/Surg History Medical History Hyperlipemia, retention Fatty liver Hepatitis C CLL (chronic lymphocytic leukemia) Leukemia COPD (chronic obstructive pulmonary disease) Alcohol abuse (Chronic) Social History Feels Safe at Home: Yes Smoking Status: Current every day smoker Hx Alcohol Use: Yes Hx Substance Use: Yes Review of Systems See HPI for pertinent positives & negatives. and A total of 10 systems reviewed and were otherwise negative Physical Exam Vital Signs Vital Signs - 24 hr 08/14/18 14:23 08/14/18 16:29 08/14/18 18:06 Temperature 36.4 C L Temperature Source Oral Sepsis New/Unexplained Change in Mental Status No Sepsis Action Taken by Nursing No Action Required Pulse Rate 92 H Pulse Rate [Apical] 87 76 Respiratory Rate 20 18 18 Respiratory Depth Normal Blood Pressure 101/67 Blood Pressure [Left Arm] 100/65 98/65 L Blood Pressure Mean 78 Blood Pressure Mean [Left Arm] 76 76 Blood Pressure Position Sitting Pulse Oximetry 100 97 97 Oxygen Delivery Method Room Air Room Air Room Air 08/14/18 19:16 Temperature Temperature Source Sepsis New/Unexplained Change in Mental Status Sepsis Action Taken by Nursing Pulse Rate Pulse Rate [Apical] 72 Respiratory Rate 16 Respiratory Depth Blood Pressure Blood Pressure [Left Arm] 105/64 Blood Pressure Mean Blood Pressure Mean [Left Arm] 77 Blood Pressure Position Pulse Oximetry 98 Oxygen Delivery Method Room Air GENERAL: Patient is cachectic. HENT: Exam performed. - Head: Normocephalic and atraumatic. - Right Ear: External ear normal. No mastoid tenderness. - Left Ear: External ear normal. No mastoid tenderness. - Mouth/Throat: The oropharynx is clear and moist. No trismus in the jaw. No dental abscesses or uvula swelling. No oropharyngeal exudate or tonsillar abscesses. EYES: Conjunctivae and EOM are normal. Pupils are equal, round, and reactive to light. Right eye exhibits no discharge. Left eye exhibits no discharge. No scleral icterus. NECK: Normal range of motion. Neck supple. No JVD present. No spinous process tenderness present. No carotid bruit present. No rigidity. No tracheal deviation and normal range of motion present. No Brudzinski's sign and no Kernig's sign noted. CV: Normal rate, regular rhythm, normal heart sounds and intact distal pulses. There is no peripheral edema. Palpable radial pulses bue. PULM/CHEST: Effort normal normal. No respiratory distress. No stridor. He has no wheezes. He has no rales. Diminished breath sounds bilaterally. - Chest Wall: He exhibits no tenderness. ABD: The abdomen is soft. Bowel sounds are normal. He has no distension. No mass is present. There is no rebound, no guarding, no Izaguirre's sign and no tenderness at McBurney's point. Rovsig negative. Diffuse pain to palpation. MUSC/SKEL: Normal range of motion. There is no peripheral edema, tenderness or deformity. LYMPH: No cervical adenopathy. NEURO: He is alert and oriented to person, place, and time. He has normal strength. No cranial nerve deficit or sensory deficit. Coordination and gait normal. GCS eye subscore is 4. GCS verbal subscore is 5. GCS motor subscore is 6. Cerebellar tests wnl. SKIN: Skin is warm and dry. He is not diaphoretic. Warts all over the body. PSYCH: He has a normal mood and affect. Behavior is normal. Judgment and thought content normal. Course 1430: Past medical records reviewed. The patient was evaluated in room D6, and a complete history and physical examination were performed. The patient's EMR was reviewed. Patient has a history of lung mass, peripheral artery disease, ret ention hyperlipemia, CLL, hepatitis C, alcohol abuse, and fatty liver. 1532: I reevaluated the patient. He is agreeable to get HIV testing. 1721: Total signs stable. Patient's labs show leukocytosis of 28.23, appears to be at the patient's baseline. Bilirubin level 0.5. AST 66, ALT 37. Ammonia level 53.4. Urine negative. Chest CT as well as CT of the chest negative for pulmonary embolus. No significant change in the left lung mass. Thickening throughout the colon suggested of inflammatory process. Portal vein thrombosis. Patient continues to report abdominal pain despite double dose of analgesia in the emergency department. I reviewed the patient's case with Dr. Raina casarez - [facility] Hospitalist. She will evaluate the patient for further management. Administered Medications Discontinued Medications Sodium Chloride (Nss 1000ml) 1,000 mls @ 999 mls/hr IV .Q1H1M ONE Stop: 08/14/18 15:44 Last Infusion: 08/14/18 16:50 Dose: 0 mls/hr Documented by: [id number] Admin: 08/14/18 15:43 Dose: 999 mls/hr Documented by: [id number] Ketorolac Tromethamine (Toradol (For Or Use Only)) 15 mg IV ONE ONE Stop: 08/14/18 17:21 Last Admin: 08/14/18 18:05 Dose: Not Given Documented by: [id number] Ketorolac Tromethamine (Toradol) Confirm Administered Dose 15 mg .ROUTE .STK-MED ONE Stop: 08/14/18 18:04 Last Admin: 08/14/18 18:05 Dose: 15 mg Documented by: [id number] Morphine Sulfate (Morphine Sulfate) 4 mg IV NOW STA Stop: 08/14/18 15:34 Last Admin: 08/14/18 15:43 Dose: 4 mg Documented by: [id number] Ondansetron HCl (Zofran) 4 mg IV NOW STA Stop: 08/14/18 15:34 Last Admin: 08/14/18 15:42 Dose: 4 mg Documented by: [id number] Medical Decision Making Medical Records Attestation: I reviewed the patient's medical records. Home Medications Current Medication List: was personally reviewed by me Laboratory Data Attestation: I reviewed the patient's lab results. Result diagrams: 08/14/18 15:05 08/14/18 15:05 Lab Results 08/14/18 08/14/18 08/14/18 Range/Units 15:05 15:05 15:05 WBC 28.23 H (4.8-10.8) K/uL RBC 4.58 L (4.7-6.1) M/uL Hgb 13.9 L (14.0-18.0) g/dL Hct 41.0 L (42-52) % MCV 89.5 (80-100) fL MCH 30.3 (25-34) pg MCHC 33.9 (32-36) g/dL RDW Std Deviation 47.2 H (36.4-46.3) fL RDW Coeff of Eliz 14.4 (11.5-14.5) % Plt Count 189 (130-400) K/uL MPV 10.6 H (7.4-10.4) fL Immature Gran % (Auto) 0.2 % Neut % (Auto) 14.3 % Lymph % (Auto) 83.1 % Crosby % (Auto) 1.9 % Eos % (Auto) 0.4 % Baso % (Auto) 0.1 % Immature Gran # (Auto) 0.05 H (0.00-0.02) K/uL Neut # (Auto) 4.02 (1.4-6.5) K/uL Lymph # (Auto) 23.47 H (1.2-3.4) K/uL Crosby # (Auto) 0.54 (0.11-0.59) K/uL Eos # (Auto) 0.11 (0-0.5) K/uL Baso # (Auto) 0.04 (0-0.2) K/uL Smudge Cells Present PT (9.0-12.0) Seconds INR (0.9-1.1) APTT (21.0-31.0) Seconds PTT Ratio Sodium 135 L (136-145) mmol/L Potassium 3.4 L (3.5-5.1) mmol/L Chloride 102 (98-107) mmol/L Carbon Dioxide 26 (21-32) mmol/L Anion Gap 7.0 (3-11) BUN 16 (7-18) mg/dl Creatinine 0.56 L (0.6-1.4) mg/dl Est Cr Clr Drug Dosing Not Reportable Est GFR ( Amer) 132.1 Est GFR (Non-Af Amer) 114.0 BUN/Creatinine Ratio 29.0 H (10-20) Glucose 98 (70-99) mg/dl Calcium 8.8 (8.5-10.1) mg/dl Magnesium 1.8 (1.8-2.4) mg/dl Total Bilirubin 0.8 (0.2-1) mg/dl Direct Bilirubin 0.5 H (0-0.2) mg/dl AST 66 H (15-37) U/L ALT 37 (12-78) U/L Alkaline Phosphatase 127 H (45-117) U/L Ammonia (11-32) umol/L Troponin I < 0.015 (0-0.045) ng/ml Total Protein 6.8 (6.4-8.2) gm/dl Albumin 3.1 L (3.4-5.0) gm/dl Lipase 138 (73-393) U/L HIV 1&2 Ab/P24 Ag 4thGn (Neg) Influenza Type A (PCR) (Neg) Influenza Type B (PCR) (Neg) Blood Type A Positive Antibody Screen NEGATIVE 08/14/18 08/14/18 08/14/18 Range/Units 15:05 15:05 15:10 WBC (4.8-10.8) K/uL RBC (4.7-6.1) M/uL Hgb (14.0-18.0) g/dL Hct (42-52) % MCV (80-100) fL MCH (25-34) pg MCHC (32-36) g/dL RDW Std Deviation (36.4-46.3) fL RDW Coeff of Eliz (11.5-14.5) % Plt Count (130-400) K/uL MPV (7.4-10.4) fL Immature Gran % (Auto) % Neut % (Auto) % Lymph % (Auto) % Crosby % (Auto) % Eos % (Auto) % Baso % (Auto) % Immature Gran # (Auto) (0.00-0.02) K/uL Neut # (Auto) (1.4-6.5) K/uL Lymph # (Auto) (1.2-3.4) K/uL Crosby # (Auto) (0.11-0.59) K/uL Eos # (Auto) (0-0.5) K/uL Baso # (Auto) (0-0.2) K/uL Smudge Cells PT 11.2 (9.0-12.0) Seconds INR 1.1 (0.9-1.1) APTT 25.0 (21.0-31.0) Seconds PTT Ratio 0.9 Sodium (136-145) mmol/L Potassium (3.5-5.1) mmol/L Chloride (98-107) mmol/L Carbon Dioxide (21-32) mmol/L Anion Gap (3-11) BUN (7-18) mg/dl Creatinine (0.6-1.4) mg/dl Est Cr Clr Drug Dosing Est GFR ( Amer) Est GFR (Non-Af Amer) BUN/Creatinine Ratio (10-20) Glucose (70-99) mg/dl Calcium (8.5-10.1) mg/dl Magnesium (1.8-2.4) mg/dl Total Bilirubin (0.2-1) mg/dl Direct Bilirubin (0-0.2) mg/dl AST (15-37) U/L ALT (12-78) U/L Alkaline Phosphatase (45-117) U/L Ammonia 53.4 H (11-32) umol/L Troponin I (0-0.045) ng/ml Total Protein (6.4-8.2) gm/dl Albumin (3.4-5.0) gm/dl Lipase (73-393) U/L HIV 1&2 Ab/P24 Ag 4thGn Neg (Neg) Influenza Type A (PCR) (Neg) Influenza Type B (PCR) (Neg) Blood Type Antibody Screen 08/14/18 Range/Units 16:05 WBC (4.8-10.8) K/uL RBC (4.7-6.1) M/uL Hgb (14.0-18.0) g/dL Hct (42-52) % MCV (80-100) fL MCH (25-34) pg MCHC (32-36) g/dL RDW Std Deviation (36.4-46.3) fL RDW Coeff of Eliz (11.5-14.5) % Plt Count (130-400) K/uL MPV (7.4-10.4) fL Immature Gran % (Auto) % Neut % (Auto) % Lymph % (Auto) % Crosby % (Auto) % Eos % (Auto) % Baso % (Auto) % Immature Gran # (Auto) (0.00-0.02) K/uL Neut # (Auto) (1.4-6.5) K/uL Lymph # (Auto) (1.2-3.4) K/uL Crosby # (Auto) (0.11-0.59) K/uL Eos # (Auto) (0-0.5) K/uL Baso # (Auto) (0-0.2) K/uL Smudge Cells PT (9.0-12.0) Seconds INR (0.9-1.1) APTT (21.0-31.0) Seconds PTT Ratio Sodium (136-145) mmol/L Potassium (3.5-5.1) mmol/L Chloride (98-107) mmol/L Carbon Dioxide (21-32) mmol/L Anion Gap (3-11) BUN (7-18) mg/dl Creatinine (0.6-1.4) mg/dl Est Cr Clr Drug Dosing Est GFR ( Amer) Est GFR (Non-Af Amer) BUN/Creatinine Ratio (10-20) Glucose (70-99) mg/dl Calcium (8.5-10.1) mg/dl Magnesium (1.8-2.4) mg/dl Total Bilirubin (0.2-1) mg/dl Direct Bilirubin (0-0.2) mg/dl AST (15-37) U/L ALT (12-78) U/L Alkaline Phosphatase (45-117) U/L Ammonia (11-32) umol/L Troponin I (0-0.045) ng/ml Total Protein (6.4-8.2) gm/dl Albumin (3.4-5.0) gm/dl Lipase (73-393) U/L HIV 1&2 Ab/P24 Ag 4thGn (Neg) Influenza Type A (PCR) Neg for Influ A (Neg) Influenza Type B (PCR) Neg for Influ B (Neg) Blood Type Antibody Screen Imaging Data Radiologist's Impression: Radiology results as stated below per my review and the radiologist's interpretation: XR chest 1V portable HISTORY: epigastric pain COMPARISON: Chest 11/17/2017. FINDINGS: Mild emphysema. Spiculated left apical density is again noted and better appreciated on the recent PET/CT. No new focal lung consolidations to suggest pneumonia. No evidence for pulmonary edema. The heart is normal in size. No pleural effusions. No pneumothorax. IMPRESSION: 1. No acute process within the chest. 2. Mild emphysema. 3. Spiculated left apical density is again noted and better appreciated on the recent PET/CT. Electronically signed by: Gee Santamaria M.D. 08/14/2018 3:11 PM CHEST CTA for PULMONARY ARTERIES, ABDOMEN AND PELVIS CT WITH INTRAVENOUS CONTRAST CT DOSE: 563.24 mGy.cm HISTORY: Short of breath. Generalized abdominal pain. TECHNIQUE: Multiaxial CT images of the chest were performed following the intravenous administration of contrast to evaluate the pulmonary arteries. Maximal intensity projection images were also obtained. Multiaxial CT images of the abdomen and pelvis were performed from the use of intravenous contrast. A dose lowering technique was utilized adhering to the principles of ALARA. COMPARISON STUDY: PET CT 01/04/2018. Chest CTA and abdomen and pelvis CT 11/17/2017. FINDINGS: CHEST CTA: Moderate calcified plaque throughout the normal caliber thoracic aorta. The heart is normal in size. No pleural or pericardial effusions. No filling defects within the pulmonary arteries to suggest pulmonary embolus. No suspicious lytic or blastic osseous lesions. No mediastinal or hilar lymphadenopathy. Small spiculated left apical density remains unchanged. Emphysema. There is a new 6 mm groundglass nodule within the left upper lobe on image 215. 4 mm nodule within the left lower lobe on image 133. The previously described nodules within the nodules within the right lung have resolved or improved. ABDOMEN AND PELVIS: No pneumoperitoneum. No pneumatosis. The right femoral arterial stent appears occluded. Mildly enlarged left inguinal lymph node measuring 1.7 x 1.1 cm. This is slightly improved. The right inguinal lymphadenopathy has also improved. Nodular contour to the liver consistent with cirrhosis. No hepatic or splenic masses. The gallbladder, adrenal glands, and pancreas are unremarkable. The kidneys enhance normally. No hydronephrosis. The main portal vein and its branches are thrombosed. Periportal and retroperitoneal lymphadenopathy remains unchanged. The IVC is patent. Normal bladder. Trace ascites. There is thickening and pericolonic fat stranding throughout the majority of the colon. This is consistent with a nonspecific pancolitis. The visualized appendix is unremarkable. No evidence for bowel obstruction. IMPRESSION: 1. No evidence for pulmonary embolus. 2. No significant change in the spiculated left apical density/lesion. 3. There is thickening and pericolonic fat stranding throughout the majority of the colon. This is consistent with a pancolitis and likely due to an infectious or inflammatory process. 4. Portal vein thrombosis. The portal vein appears completely occluded. 5. No significant change in the periportal and retroperitoneal lymphadenopathy. 6. Cirrhotic liver with trace ascites. 7. Slight improvement in the inguinal lymphadenopathy. 8. The right femoral arterial stent appears occluded. 9. Additional findings as described above. Electronically signed by: Gee Santamaria M.D. 08/14/2018 5:10 PM ECG Data Attestation: I personally reviewed and interpreted this ECG as follows: Indication: abdominal pain Rate (beats per minute): 80 Rhythm: sinus rhythm Findings: + other (LA, QRS, and QTc intervals wnls. ); no ST depression and no ST elevation Blood Pressure Blood Pressure Findings: Normal blood pressure Blood Pressure Disposition: further management by hospitalist [facility] Narrative 1430: Past medical records reviewed. The patient was evaluated in room D6, and a complete history and physical examination were performed. The patient's EMR was reviewed. Patient has a history of lung mass, peripheral artery disease, retention hyperlipemia, CLL, hepatitis C, alcohol abuse, and fatty liver. 1532: I reevaluated the patient. He is agreeable to get HIV testing. 1721: Total signs stable. Patient's labs show leukocytosis of 28.23, appears to be at the patient's baseline. Bilirubin level 0.5. AST 66, ALT 37. Ammonia level 53.4. Urine negative. Chest CT as well as CT of the chest negative for pulmonary embolus. No significant change in the left lung mass. Thickening throughout the colon suggested of inflammatory process. Portal vein thrombosis. Patient continues to report abdominal pain despite double dose of analgesia in the emergency department. I reviewed the patient's case with Dr. Raina Solomon - [facility] Hospitalist. She will evaluate the patient for further management. Impression & Plan Lung mass, Abdominal pain, Leukocytosis, Portal vein thrombosis Discharge Plan Visit Data Chief Complaint: Abdominal Pain Stated Complaint: SEVERE STOMACH PROBLEMS ED Provider: Charly French Discharge Problem: Lung mass, Abdominal pain, Leukocytosis, Portal vein thrombosis Patient Disposition: Being Evaluated by Hospitalist Forms Stand Alone Forms: Call Back Authorization, My [facility] Prescriptions Prescriptions: No Action atorvastatin [Lipitor] 40 mg tablet 40 mg PO DAILY RF: 0 cilostazol 100 mg tablet 100 mg PO BID RF: 0 ibuprofen [IBU] 800 mg tablet 800 mg PO TID PRN (Reason: Pain) RF: 0 amlodipine [Norvasc] 5 mg tablet 2.5 mg PO DAILY RF: 0 aspirin [Aspir-81] 81 mg Tablet,Delayed Release (Dr/Ec) 81 mg PO DAILY RF: 0 pantoprazole [Protonix] 40 mg tablet,delayed release (DR/EC) 40 mg PO DAILY RF: 0 Flovent HFA 220 mcg/actuation HFA aerosol inhaler 2 puff Inhalation BID RF: 0 losartan [Cozaar] 100 mg tablet 100 mg PO DAILY RF: 0 sertraline [Zoloft] 50 mg tablet 50 mg PO DAILY RF: 0 Combivent Respimat 20-100 mcg/actuation mist 1 puff Inhalation QID RF: 0 Referrals Referrals: Ge Johnston MD [Primary Care Provider] - Discharge Problem: Abdominal pain Qualifiers: Abdominal location: unspecified location Qualified Code(s): R10.9 - Unspecified abdominal pain Leukocytosis Qualifiers: Leukocytosis type: unspecified Qualified Code(s): D72.829 - Elevated white blood cell count, unspecified The scribe's documentation has been prepared under my direction and personally reviewed by me in its entirety. I confirm that the note above accurately reflects all work, treatment, procedures, and medical decision making performed by me.
[2018-08-14] MEDS ORDERED: ACETAMINOPHEN 325 MG TAB PO PRN (20:53)
[2018-08-14] MEDS ORDERED: MAGNESIUM HYDROXIDE SUSP 30 ML UDC PO PRN (20:53)
[2018-08-14] MEDS ORDERED: IBUPROFEN 800 MG TAB PO PRN (20:53)
[2018-08-14] MEDS ORDERED: HEPARIN IV BOLUS 3,000 UNITS in SYRINGE 0 ML IV ONE (22:00)
[2018-08-14 22:16] LABS: Appearance Urine Clear (Clear); Bacteria Urine Automated Negative (Negative); Bilirubin Urine Negative (Negative); Blood Urine Negative (Negative); Color Urine Dark Yellow; Epithelial Cell Urine Auto >30 /lpf (0-5); Glucose Urine UA Negative (Negative); Ketones Urine Negative (Negative); Leukocyte Esterase Urine Negative (Negative); Nitrite Urine Negative (Negative); Protein Urine Trace (Negative); RBC Urine Automated 0-4 /hpf (0-4); Specific Gravity Urine > 1.045 (1.000-1.030); Urobilinogen Urine Negative (Negative); pH Urine 6.5 (4.5-7.5)
[2018-08-14] MEDS: HEPARIN SODIUM/DEXTROSE 25,000 UNITS/500 ML BAG IV SCH (22:21)
[2018-08-14] MEDS: NSS + 20MEQ KCL 20 MEQ/1,000 ML BAG IV SCH (22:23)
[2018-08-14] MEDS: MoRPHine SULFATE 2 MG/ML CARP IV PRN (22:25)
[2018-08-14] MEDS: CILOSTAZOL 100 MG TAB PO SCH (22:29)
[2018-08-14 22:30] LABS: Calcium Oxalate Crystals Urine Present (None Prsent); Renal Epithelial Cells Urine 0-5 /lpf (0-5); Sperm Urine Present (None Prsent)
[2018-08-14] MEDS: FLUTICASONE HFA 220 MCG INHALER INH SCH (22:31)
[2018-08-14] MEDS: IPRATROPIUM BROMIDE/ALBUTEROL respimat INH INH SCH (22:32)
[2018-08-15 05:01] LABS: Partial Thromboplastin Ratio 1.5; Partial Thromboplastin Time 41.1 Seconds (21.0-31.0)
[2018-08-15 05:07] LABS: Albumin Level 2.5 gm/dl (3.4-5.0); BUN Creatinine Ratio 28.8 (10-20); Bilirubin Direct 0.4 mg/dl (0-0.2); Calcium 7.6 mg/dl (8.5-10.1); Est GFR (African American) 137.3; Est GFR (Non-African American) 118.5; Magnesium 1.7 mg/dl (1.8-2.4); Potassium 3.6 mmol/L (3.5-5.1)
[2018-08-15] MEDS: MoRPHine SULFATE 2 MG/ML CARP IV PRN (05:16)
[2018-08-15 05:20] LABS: Bilirubin,Total 0.6 mg/dl (0.2-1); Phosphorus 3.2 mg/dl (2.5-4.9); Total Protein 5.4 gm/dl (6.4-8.2)
[2018-08-15 05:29] LABS: Hemoglobin 11.8 g/dL (14.0-18.0); Mean Corpuscular Hgb Conc 33.7 g/dL (32-36); Mean Corpuscular Volume 90.4 fL (80-100); Mean Platelet Volume 10.7 fL (7.4-10.4); Platelet Count 144 K/uL (130-400); RDW Coefficient of Variation 14.5 % (11.5-14.5); RDW Standard Deviation 47.5 fL (36.4-46.3); Red Blood Count 3.87 M/uL (4.7-6.1)
[2018-08-15] MEDS ORDERED: HEPARIN IV BOLUS 2,000 UNITS in SYRINGE 0 ML IV ONE (05:30)
[2018-08-15 05:53] LABS: iSTAT Creatinine 0.5 mg/dl (0.6-1.3); iSTAT Hemoglobin 14.6 g/dl (14.0-18.0); iSTAT Ionized Calcium 1.19 mmol/l (1.12-1.32); iSTAT Potassium 3.2 mEq/L (3.3-5.0)
[2018-08-15] MEDS ORDERED: INFLUENZA VIRUS QUAD VACCINE 0.5 ML SYR IM ONE (06:00)
[2018-08-15] MEDS ORDERED: INFLUENZA ADMINISTRATION CHARGE ONE (06:00)
[2018-08-15 06:16] LABS: Eosinophils # (manual) 0.45 K/uL (0-0.5); Monocytes # (manual) 1.13 K/uL (0.11-0.59)
[2018-08-15] MEDS: SERTRALINE HCL 50 MG TABLET PO SCH (08:48)
[2018-08-15] MEDS: AMLODIPINE BESYLATE 5 MG TAB PO SCH (08:48)
[2018-08-15] MEDS: NICOTINE 14 MG/24 HR PATCH TD SCH (08:48)
[2018-08-15] MEDS: ASPIRIN 81 MG ECTAB PO SCH (08:48)
[2018-08-15] MEDS: ATORVASTATIN 40 MG TAB PO SCH (08:48)
[2018-08-15] MEDS: LOSARTAN POTASSIUM 50 MG TAB PO SCH (08:48)
[2018-08-15] MEDS: PANTOprazole 40 MG TAB PO SCH (08:48)
[2018-08-15] MEDS: IPRATROPIUM BROMIDE/ALBUTEROL respimat INH INH SCH ×4 (08:48→20:12)
[2018-08-15] MEDS: CILOSTAZOL 100 MG TAB PO SCH ×2 (08:48→20:12)
[2018-08-15] MEDS: FLUTICASONE HFA 220 MCG INHALER INH SCH ×2 (08:49→20:12)
[2018-08-15 11:28] LABS: Partial Thromboplastin Ratio 1.4; Partial Thromboplastin Time 38.7 Seconds (21.0-31.0)
[2018-08-15] MEDS ORDERED: OPTIRAY 320 125ml IV PRN (11:37)
--- NOTE | 2018-08-15 11:56 | CT Scan Report ---
Study: CT angiogram abdomen, pelvis, and runoffs HISTORY: Pain. Claudication. FINDINGS: 1. Severe atherosclerotic change abdominal aorta. No major stenotic or aneurysmal process of the of t he abdominal aorta. 2.Abdominal findings consistent with pancolitis, hepatic cirrhosis, and portal venous thrombosis. Sta ble adenopathy. 3. 80% stenosis origin of the iliac arteries bilaterally. 50-80% stenosis of the proximal to distal i liac arteries bilaterally. This is a multilevel multi focal locations. 4. 50-90% stenosis proximal right femoral artery with complete occlusion of the patient's right femor al arterial graft. Multilevel graft throughout the entire right superficial femoral artery are presen t and show near complete and/or complete occlusion. Partial collateral flow within the right popliteal vessel. Considerable multilevel arterial occlusive change of the arterial structures of the right lower leg. There is confirmation of flow although multilevel significant stenotic changes are present. Left lower leg also shows moderate arterial occlusive change. Mild left atherosclerotic change of the popliteal artery on the left. There is multilevel arterial occlusive change with 50-60% narrowing of multiple regions of the left superficial femoral artery. IMPRESSION: 1. Severe atherosclerotic change throughout all major arterial structures of the abdomen and pelvis a nd all runoff vessels. 2. No major stenotic process the abdominal aorta. 3. 80% stenosis origin of the iliac arteries bilaterally with 50-80% multifocal stenosis of the mid t o distal iliac arterial structures bilaterally. 4. High-grade stenosis proximal right femoral artery with occlusion/near occlusion of the patient's r ight femoral arterial stents. 5. Partial collateral flow to the right popliteal vessel and 3 runoff vessels lower leg. 6. Moderate atherosclerotic change throughout all major arterial structures of the left leg with mult ifocal levels of atherosclerotic narrowing 7. No major stenotic process of the left leg arterial structures. 8.. All additional findings of the abdomen and pelvis procedure described are stable and unchanged. Electronically signed by: Edmund Wiggins M.D. 08/15/2018 11:53 AM
--- NOTE | 2018-08-15 12:03 | Family Medicine Progress Note ---
Date of Service August 15, 2018 Assessment & Plan (1) Abdominal pain: Portal Vein Thrombosis vs. pancolitis vs. less likely splenomegaly crom CLL on heparin drip Vasc surg c/s pending Full liquids with IVF Increased Morphine dose to 4mg q4hr IV. blood cultures x2 pending (2) Portal vein thrombosis: Found on CT Abd in ED Consult vascular surg placed on admission Consult placed today for GI since complicated history with liver cirrhosis (3) Diarrhea: Findings of pancolitis on CT abdomen - Stool studies ordered to determine if inflammatory vs. infectious vs secretory - ordered stool WBC stool smear, stool culture, stool hemocult once, calprotectin, giardia (4) Alcoholic cirrhosis of liver with ascites: cirrhotic liver with trace ascites on CT abd history of ETOH abuse, last drink 1.5 years ago INR yesterday of 1.1 Total bili 0.4 AST: ALT near 2:1 55:29 (5) CLL (chronic lymphocytic leukemia): No hx of tx, splenomegaly on CT scan - leukocytosis appears consistent with disease - smudge cells present (6) Leukocytosis: with lymphocytosis on labs At baseline, hx of CLL follow with CBC (7) Peripheral arterial disease: Dr. Coughlin consulted for Portal Vein Thrombosis also with finding of right femoral artery shunt occlusion on CT Abd, he states history of bilateral stent placement one year ago Dr. Coughlin has placed an order for CT angio abd arota with run off currently on heparin drip continue with home cilosazol 100mg PO BID continue with ASA 81 po daily (8) Hypomagnesemia: 1.7 this morning ordered mag-ox 400mg PO x1 follow mag (9) Thyroid mass: Was supposed to have a biopsy but missed appointment will need help getting appointment re-scheduled on discharge (10) Hepatitis C: No history of treatment (11) COPD (chronic obstructive pulmonary disease): continue home inhalers Albuterol and Flovent (12) Lung mass: Spiculated left apical denisity/lesion - appears unchanged from previous study. also noted two new groundglass nodules ORTIZ 6mm and LLL 4mm States was told not malignant and is being monitored (13) GERD (gastroesophageal reflux disease): continue home med Protonix 40mg PO daily (14) HTN (hypertension): stable this morning 114/67 continue with home Losartan 100mg PO continue with home Amlodipine 2.5 mg PO (15) Tobacco use disorder: Nicotine patch smoking cessation provided (16) Depression: continue with Zoloft 50mg PO daily (17) Anxiety: continue with Zoloft 50mg PO daily (18) DVT prophylaxis: Heparin drip Supervising Physician Co-Signing Physician Notes I saw and examined the patient independently. I discussed the plan of care with the resident with the following summary/exceptions: 57yo M w/ hx of HCV & alcoholic cirrhosis, COPD, HTN who presents with 1-2 weeks of abdominal pain, found to have portal vein thrombosis and pancolitis. Today, he reports continued pain, but looks fairly comfortable in bed. Tender throughout abdomen. 1) Portal vein thrombosis - If this is the etiology of his abdominal pain for the last 1-2 weeks, would consider it acute. Currently on heparin gtt with approval of vascular team as well. Per UTD, could consider GI eval for varices prior to continuing anticoagulation indefinitely. GI consult pending. 2) Pancolitis - Reports diarrhea over the last 1-2 weeks as well. None inpatient. Unclear whether pancolitis is infectious vs. inflammatory. Possibly ischemic/edema due to the portal vein thrombosis. Will get stool studies if he has continued diarrhea. 3) Cirrhosis - Appears well-compensated at this time. GI consult pending. Trend liver labs. 4) HTN - Normotensive inpatient. Continue home meds. Subjective Mr. Martins states he continues to have abdominal pain. He states his last BM had loose stools and he states he has a problem with chronic diarrhea and cannot differentiate any acute changes. He denies any black or blood BMs. He states he had abdominal pain for 2 weeks that was intermitttent than worsened over the past 5 days. He states with episodes of abdominal pain he had intermittent radiation into his testicles that resolved this morning. But still have abdominal pain that is the same in intensity. He states he has not had this pa in previously. He denies nausea or vomiting. He states he had subjective fever and chills at home. Cyrus states his last alcohol intake was 1.5 years ago. Physical Exam Vital Signs (Past 24 Hours): Last Vital Signs Temp 36.6 C 08/15/18 07:02 Pulse 67 08/15/18 08:00 Resp 18 08/15/18 07:02 BP 115/67 08/15/18 07:02 Pulse Ox 98 08/15/18 07:02 Constitutional: + cachectic, + frail appearing and cooperative; no acute distress and no altered mental status Eyes: EOM intact bilaterally ENMT: Mouth / Teeth: 1. missing 2. missing Neck: normal visual inspection and trachea midline Respiratory: normal respiratory effort, lungs clear to auscultation Cardiovascular: RRR, no murmur, no edema Gastrointestinal (Abdomen): Inspection/Auscultation: normal bowel sounds Percussion/Palpation: + abdomen tender (mod diffuse no rebound), + guarding and + abdomen rigid inspection mild umbilical veins noted Musculoskeletal: Head/Neck/Chest: normocephalic and head atraumatic decreased motor ability of right foot compared to left; no sensory deficit; both feet are warm and pink Skin: verrugous growths on dorsal hands diffuse and bilateral Neurologic: moves all extremities and awake Psychiatric: A+Ox3, euthymic affect Results & Data Laboratory Results Laboratory Results - last 24 hr 08/14/18 08/14/18 08/14/18 15:05 15:05 15:05 WBC 28.23 H RBC 4.58 L Hgb 13.9 L POC Hgb Hct 41.0 L POC Hct MCV 89.5 MCH 30.3 MCHC 33.9 RDW Std Deviation 47.2 H RDW Coeff of Eliz 14.4 Plt Count 189 MPV 10.6 H Immature Gran % (Auto) 0.2 Neut % (Auto) 14.3 Lymph % (Auto) 83.1 Stanly % (Auto) 1.9 Eos % (Auto) 0.4 Baso % (Auto) 0.1 Immature Gran # (Auto) 0.05 H Neut # (Auto) 4.02 Lymph # (Auto) 23.47 H Stanly # (Auto) 0.54 Eos # (Auto) 0.11 Baso # (Auto) 0.04 Neutrophils % (Manual) Lymphocytes % (Manual) Monocytes % (Manual) Eosinophils % (Manual) Basophils % (Manual) Neutrophils # (Manual) Total Absolute Neuts Lymphocytes # (Manual) Total Abs Lymphocytes Monocytes # (Manual) Eosinophils # (Manual) Basophils # (Manual) Smudge Cells Present PT INR APTT PTT Ratio POC Sodium Sodium 135 L POC Potassium Potassium 3.4 L POC Chloride Chloride 102 Carbon Dioxide 26 POC Total CO2 Anion Gap 7.0 POC Anion Gap POC BUN BUN 16 Creatinine 0.56 L POC Creatinine Est Cr Clr Drug Dosing Not Reportable Est GFR ( Amer) 132.1 Est GFR (Non-Af Amer) 114.0 BUN/Creatinine Ratio 29.0 H Glucose 98 POC Glucose (other) POC Lactic Acid Kodi Calcium 8.8 POC Ioniz Calcium José Miguel Phosphorus Magnesium 1.8 Total Bilirubin 0.8 Direct Bilirubin 0.5 H AST 66 H ALT 37 Alkaline Phosphatase 127 H Ammonia Troponin I < 0.015 Total Protein 6.8 Albumin 3.1 L Lipase 138 TSH Urine Color Urine Appearance Urine pH Ur Specific [place] Urine Protein Urine Glucose (UA) Urine Ketones Urine Blood Urine Nitrite Urine Bilirubin Urine Urobilinogen Ur Leukocyte Esterase Urine WBC (Auto) Urine RBC (Auto) U Hyaline Cast (Auto) U Epithel Cells (Auto) Urine Bacteria (Auto) Ur Renal Epithelial Cell Calcium Oxalate Crystal Urine Sperm HIV 1&2 Ab/P24 Ag 4thGn Influenza Type A (PCR) Influenza Type B (PCR) Blood Type A Positive Antibody Screen NEGATIVE 08/14/18 08/14/18 08/14/18 15:05 15:05 15:08 WBC RBC Hgb POC Hgb Hct POC Hct MCV MCH MCHC RDW Std Deviation RDW Coeff of Eliz Plt Count MPV Immature Gran % (Auto) Neut % (Auto) Lymph % (Auto) Stan[place] % (Auto) Eos % (Auto) Baso % (Auto) Immature Gran # (Auto) Neut # (Auto) Lymph # (Auto) Stanly # (Auto) Eos # (Auto) Baso # (Auto) Neutrophils % (Manual) Lymphocytes % (Manual) Monocytes % (Manual) Eosinophils % (Manual) Basophils % (Manual) Neutrophils # (Manual) Total Absolute Neuts Lymphocytes # (Manual) Total Abs Lymphocytes Monocytes # (Manual) Eosinophils # (Manual) Basophils # (Manual) Smudge Cells PT 11.2 INR 1.1 APTT 25.0 PTT Ratio 0.9 POC Sodium Sodium POC Potassium Potassium POC Chloride Chloride Carbon Dioxide POC Total CO2 Anion Gap POC Anion Gap POC BUN BUN Creatinine POC Creatinine Est Cr Clr Drug Dosing Est GFR ( Amer) Est GFR (Non-Af Amer) BUN/Creatinine Ratio Glucose POC Glucose (other) POC Lactic Acid [place] 1.03 Calcium POC Ioniz Calcium José Miguel Phosphorus Magnesium Total Bilirubin Direct Bilirubin AST ALT Alkaline Phosphatase Ammonia 53.4 H Troponin I Total Protein Albumin Lipase TSH Urine Color Urine Appearance Urine pH Ur Specific [place] Urine Protein Urine Glucose (UA) Urine Ketones Urine Blood Urine Nitrite Urine Bilirubin Urine Urobilinogen Ur Leukocyte Esterase Urine WBC (Auto) Urine RBC (Auto) U Hyaline Cast (Auto) U Epithel Cells (Auto) Urine Bacteria (Auto) Ur Renal Epithelial Cell Calcium Oxalate Crystal Urine Sperm HIV 1&2 Ab/P24 Ag 4thGn Influenza Type A (PCR) Influenza Type B (PCR) Blood Type Antibody Screen 08/14/18 08/14/18 08/14/18 15:10 15:12 16:05 WBC RBC Hgb POC Hgb 14.6 Hct POC Hct 43 MCV MCH MCHC RDW Std Deviation RDW Coeff of Eliz Plt Count MPV Immature Gran % (Auto) Neut % (Auto) Lymph % (Auto) Stanly % (Auto) Eos % (Auto) Baso % (Auto) Immature Gran # (Auto) Neut # (Auto) Lymph # (Auto) Stanly # (Auto) Eos # (Auto) Baso # (Auto) Neutrophils % (Manual) Lymphocytes % (Manual) Monocytes % (Manual) Eosinophils % (Manual) Basophils % (Manual) Neutrophils # (Manual) Total Absolute Neuts Lymphocytes # (Manual) Total Abs Lymphocytes Monocytes # (Manual) Eosinophils # (Manual) Basophils # (Manual) Smudge Cells PT INR APTT PTT Ratio POC Sodium 137 Sodium POC Potassium 3.2 L Potassium POC Chloride 99 L Chloride Carbon Dioxide POC Total CO2 24 Anion Gap POC Anion Gap 18.0 POC BUN 16 BUN Creatinine POC Creatinine 0.5 L Est Cr Clr Drug Dosing Est GFR ( Amer) Est GFR (Non-Af Amer) BUN/Creatinine Ratio Glucose POC Glucose (other) 99 POC Lactic Acid [place] Calcium POC Ioniz Calcium José Miguel 1.19 Phosphorus Magnesium Total Bilirubin Direct Bilirubin AST ALT Alkaline Phosphatase Ammonia Troponin I Total Protein Albumin Lipase TSH Urine Color Urine Appearance Urine pH Ur Specific [place] Urine Protein Urine Glucose (UA) Urine Ketones Urine Blood Urine Nitrite Urine Bilirubin Urine Urobilinogen Ur Leukocyte Esterase Urine WBC (Auto) Urine RBC (Auto) U Hyaline Cast (Auto) U Epithel Cells (Auto) Urine Bacteria (Auto) Ur Renal Epithelial Cell Calcium Oxalate Crystal Urine Sperm HIV 1&2 Ab/P24 Ag 4thGn Neg Influenza Type A (PCR) Neg for Influ A Influenza Type B (PCR) Neg for Influ B Blood Type Antibody Screen 08/14/18 08/15/18 08/15/18 21:30 04:34 04:34 WBC 22.60 H RBC 3.87 L Hgb 11.8 L POC Hgb Hct 35.0 L POC Hct MCV 90.4 MCH 30.5 MCHC 33.7 RDW Std Deviation 47.5 H RDW Coeff of Eliz 14.5 Plt Count 144 MPV 10.7 H Immature Gran % (Auto) Neut % (Auto) Lymph % (Auto) Stanly % (Auto) Eos % (Auto) Baso % (Auto) Immature Gran # (Auto) Neut # (Auto) Lymph # (Auto) Stanly # (Auto) Eos # (Auto) Baso # (Auto) Neutrophils % (Manual) 39.0 Lymphocytes % (Manual) 50.0 Monocytes % (Manual) 5.0 Eosinophils % (Manual) 2.0 Basophils % (Manual) 4.0 Neutrophils # (Manual) 8.81 H Total Absolute Neuts 8.81 H Lymphocytes # (Manual) 11.30 H Total Abs Lymphocytes 11.30 H Monocytes # (Manual) 1.13 H Eosinophils # (Manual) 0.45 Basophils # (Manual) 0.90 H Smudge Cells PT INR APTT 41.1 H PTT Ratio 1.5 POC Sodium Sodium POC Potassium Potassium POC Chloride Chloride Carbon Dioxide POC Total CO2 Anion Gap POC Anion Gap POC BUN BUN Creatinine POC Creatinine Est Cr Clr Drug Dosing Est GFR ( Amer) Est GFR (Non-Af Amer) BUN/Creatinine Ratio Glucose POC Glucose (other) POC Lactic Acid [place] Calcium POC Ioniz Calcium José Miguel Phosphorus Magnesium Total Bilirubin Direct Bilirubin AST ALT Alkaline Phosphatase Ammonia Troponin I Total Protein Albumin Lipase TSH Urine Color Dark Yellow Urine Appearance Clear Urine pH 6.5 Ur Specific [place] > 1.045 H Urine Protein Trace H Urine Glucose (UA) Negative Urine Ketones Negative Urine Blood Negative Urine Nitrite Negative Urine Bilirubin Negative Urine Urobilinogen Negative Ur Leukocyte Esterase Negative Urine WBC (Auto) 1-5 Urine RBC (Auto) 0-4 U Hyaline Cast (Auto) 5-10 H U Epithel Cells (Auto) >30 H Urine Bacteria (Auto) Negative Ur Renal Epithelial Cell 0-5 Calcium Oxalate Crystal Present H Urine Sperm Present H HIV 1&2 Ab/P24 Ag 4thGn Influenza Type A (PCR) Influenza Type B (PCR) Blood Type Antibody Screen 08/15/18 08/15/18 04:34 11:05 WBC RBC Hgb POC Hgb Hct POC Hct MCV MCH MCHC RDW Std Deviation RDW Coeff of Eliz Plt Count MPV Immature Gran % (Auto) Neut % (Auto) Lymph % (Auto) Stan[place] % (Auto) Eos % (Auto) Baso % (Auto) Immature Gran # (Auto) Neut # (Auto) Lymph # (Auto) Stanly # (Auto) Eos # (Auto) Baso # (Auto) Neutrophils % (Manual) Lymphocytes % (Manual) Monocytes % (Manual) Eosinophils % (Manual) Basophils % (Manual) Neutrophils # (Manual) Total Absolute Neuts Lymphocytes # (Manual) Total Abs Lymphocytes Monocytes # (Manual) Eosinophils # (Manual) Basophils # (Manual) Smudge Cells PT INR APTT 38.7 H PTT Ratio 1.4 POC Sodium Sodium 136 POC Potassium Potassium 3.6 POC Chloride Chloride 107 Carbon Dioxide 24 POC Total CO2 Anion Gap 5.0 POC Anion Gap POC BUN BUN 15 Creatinine 0.51 L POC Creatinine Est Cr Clr Drug Dosing 121.0 Est GFR ( Amer) 137.3 Est GFR (Non-Af Amer) 118.5 BUN/Creatinine Ratio 28.8 H Glucose 95 POC Glucose (other) POC Lactic Acid [place] Calcium 7.6 L POC Ioniz Calcium José Miguel Phosphorus 3.2 Magnesium 1.7 L Total Bilirubin 0.6 Direct Bilirubin 0.4 H AST 55 H ALT 29 Alkaline Phosphatase 98 Ammonia Troponin I Total Protein 5.4 L D Albumin 2.5 L Lipase TSH 2.220 Urine Color Urine Appearance Urine pH Ur Specific [place] Urine Protein Urine Glucose (UA) Urine Ketones Urine Blood Urine Nitrite Urine Bilirubin Urine Urobilinogen Ur Leukocyte Esterase Urine WBC (Auto) Urine RBC (Auto) U Hyaline Cast (Auto) U Epithel Cells (Auto) Urine Bacteria (Auto) Ur Renal Epithelial Cell Calcium Oxalate Crystal Urine Sperm HIV 1&2 Ab/P24 Ag 4thGn Influenza Type A (PCR) Influenza Type B (PCR) Blood Type Antibody Screen Diagnostic Findings IMPRESSION: 1. No evidence for pulmonary embolus. 2. No significant change in the spiculated left apical density/lesion. 3. There is thickening and pericolonic fat stranding throughout the majority of the colon. This is consistent with a pancolitis and likely due to an infectious or inflammatory process. 4. Portal vein thrombosis. The portal vein appears completely occluded. 5. No significant change in the periportal and retroperitoneal lymphadenopathy. 6. Cirrhotic liver with trace ascites. 7. Slight improvement in the inguinal lymphadenopathy. 8. The right femoral arterial stent appears occluded. Medications Administered Albuterol (Combivent Respimat) 1 puffs INH QID [facility] Stop: 09/13/18 20:59 Last Admin: 08/15/18 08:48 Dose: 1 puffs Documented by: [id number] Admin: 08/14/18 22:32 Dose: 1 puffs Documented by: [id number] Amlodipine Besylate (Norvasc) 2.5 mg PO DAILY [facility] Stop: 09/14/18 08:59 Last Admin: 08/15/18 08:48 Dose: 2.5 mg Documented by: [id number] Aspirin (Ecotrin Ectab) 81 mg PO DAILY [facility] Stop: 09/14/18 08:59 Last Admin: 08/15/18 08:48 Dose: 81 mg Documented by: [id number] Atorvastatin Calcium (Lipitor) 40 mg PO DAILY [facility] Stop: 09/14/18 08:59 Last Admin: 08/15/18 08:48 Dose: 40 mg Documented by: [id number] Cilostazol (Pletal) 100 mg PO BID [facility] Stop: 09/13/18 20:59 Last Admin: 08/15/18 08:48 Dose: 100 mg Documented by: [id number] Admin: 08/14/18 22:29 Dose: 100 mg Documented by: [id number] Fluticasone Propionate (Flovent Hfa 220mcg) 2 puffs INH BID [facility] Stop: 09/13/18 20:59 Last Admin: 08/15/18 08:49 Dose: 2 puffs Documented by: [id number] Admin: 08/14/18 22:31 Dose: 2 puffs Documented by: [id number] Heparin Sodium/Dextrose (Heparin Sodium/Dextrose) 25,000 units in 500 mls @ 14 mls/hr IV .Q24H [facility]; Protocol Stop: 09/13/18 20:52 Last Titration: 08/15/18 07:02 Dose: 700 units/hr, 14 mls/hr Documented by: [id number] Cosigned by: [id number] Titration: 08/15/18 05:11 Dose: 700 units/hr, 14 mls/hr Documented by: [id number] Cosigned by: [id number] Titration: 08/14/18 23:25 Dose: 650 units/hr, 13 mls/hr Documented by: [id number] Cosigned by: [id number] Admin: 08/14/18 22:21 Dose: 650 units/hr, 13 mls/hr Documented by: [id number] Cosigned by: [id number] Potassium Chloride/Sodium Chloride (Normal Saline W/20 Meq Kcl) 20 meq in 1,000 mls @ 60 mls/hr IV .[id number] [facility] Stop: 09/13/18 21:29 Last Admin: 08/14/18 22:23 Dose: 60 mls/hr Documented by: [id number] Losartan Potassium (Cozaar) 100 mg PO DAILY [facility] Stop: 09/14/18 08:59 Last Admin: 08/15/18 08:48 Dose: 100 mg Documented by: [id number] Miscellaneous (Remove Nicoderm Patch) 1 ea N/A HS [facility] Stop: 09/13/18 20:59 Last Admin: 08/14/18 22:27 Dose: Not Given Documented by: [id number] Nicotine (Nicoderm Cq) 14 mg TD QAM [facility] Stop: 09/14/18 08:59 Last Admin: 08/15/18 08:48 Dose: 14 mg Documented by: [id number] Pantoprazole Sodium (Protonix) 40 mg PO DAILY [facility] Stop: 09/14/18 08:59 Last Admin: 08/15/18 08:48 Dose: 40 mg Documented by: [id number] Sertraline HCl (Zoloft) 50 mg PO DAILY [facility] Stop: 09/14/18 08:59 Last Admin: 08/15/18 08:48 Dose: 50 mg Documented by: [id number] (1) Leukocytosis Leukocytosis type: unspecified Qualified Code(s): D72.829 - Elevated white blood cell count, unspecified (2) Abdominal pain Abdominal location: unspecified location Qualified Code(s): R10.9 - Unspecified abdominal pain
[2018-08-15] MEDS: ONDANSETRON INJ 2 MG/ML 2 ML VIAL IV PRN ×2 (12:08→20:03)
[2018-08-15] MEDS: MoRPHine SULFATE 4 MG/ML 1 ML CARP\\VIAL IV PRN ×3 (12:12→20:03)
[2018-08-15] MEDS ORDERED: MAGNESIUM OXIDE 400 MG TAB PO ONE (12:15)
--- NOTE | 2018-08-15 13:32 | History & Physical Report ---
Date of Service August 15, 2018 Assessment & Plan (1) Aortoiliac occlusive disease: Patient is nonambulatory and he does not have either extremities or jeopardy no intervention is needed for his aortoiliac occlusive disease or his distal runoff occlusive disease of the lower extremities. If he should develop rest pain in the future or nonhealing ulcers then consideration will be given for endovascular revascularization. (2) Portal vein thrombosis: At this point I would continue treating his portal vein thrombosis on anticoagulation. No surgical intervention is indicated unless complications should develop. Thank you very much for letting us participate in the care of this patient. History of Present Illness Chief Complaint: Abdominal pain for approximately 2 weeks Primary Care Provider: Darci Johnston MD This is a 57-year-old male who was admitted for abdominal pain for last 2 weeks. He claims it comes and goes but has been getting progressively worse.He denied any postprandial pain either at this time or prior to this. He denies any Rest pain of the lower extremities. Denies any symptoms to vascular insufficiency.He is nonambulatory and uses a powered wheelchair. Allergies Allergy/AdvReac Type Severity Reaction Status Date / Time No Known Allergies Allergy Mild NONE Verified 08/14/18 14:39 Home Medications Home Medications Medication Instructions Recorded Confirmed Type amlodipine [Norvasc] 2.5 mg PO DAILY 08/14/18 08/14/18 History aspirin [Aspir-81] 81 mg PO DAILY 08/14/18 08/14/18 History atorvastatin [Lipitor] 40 mg PO DAILY 08/14/18 08/14/18 History cilostazol 100 mg PO BID 08/14/18 08/14/18 History fluticasone [Flovent HFA] 2 puff INHALATION BID 08/14/18 08/14/18 History ibuprofen [IBU] 800 mg PO TID PRN 08/14/18 08/14/18 History ipratropium-albuterol [Combivent 1 puff INHALATION QID 08/14/18 08/14/18 History Respimat] losartan [Cozaar] 100 mg PO DAILY 08/14/18 08/14/18 History pantoprazole [Protonix] 40 mg PO DAILY 08/14/18 08/14/18 History sertraline [Zoloft] 50 mg PO DAILY 08/14/18 08/14/18 History Past Med/Surg History Medical History Hyperlipemia, retention Fatty liver Hepatitis C CLL (chronic lymphocytic leukemia) Leukemia COPD (chronic obstructive pulmonary disease) Alcohol abuse (Chronic) Family History Other CVA (cerebral vascular accident) Heart attack Social History Preferred Language: [place] Communication Ability: Effective Lead Machinist Required: No Beliefs That Will Affect Care: None Current Living Situation: Alone Current Living Situation Comment: HAS HOME HEALTH Feels Safe at Home: Yes Safety Concerns: Feels Safe At This Time Smoking Status: Current every day smoker Hx Alcohol Use: No Hx Substance Use: Yes Review of Systems All systems reviewed & are unremarkable except as noted in HPI & below Physical Exam Vital Signs (Past 24 Hours): Last Vital Signs Temp 36.5 C 08/15/18 11:50 Pulse 67 08/15/18 11:50 Resp 20 08/15/18 11:50 BP 136/70 08/15/18 11:50 Pulse Ox 96 08/15/18 11:50 The patient is awake and alert. He is in no apparent distress. Is very cachectic. Lungs are clear heart had a regular rate and rhythm abdominal exam was benign his abdomen was soft with no rigidity. No peritoneal signs are present. Radials carotid superficial temporal arteries are +2 bilaterally. No carotid bruits. Femorals are weakly palpable in both groins I cannot appreciate pedal pulses in the foot. Capillary refill in both lower extremities are somewhat decreased. There was evidence of an ulceration present over his right lateral malleolus which is now completely healed. He does have early pressure signs noted in the right heel. Code Status & VTE Plan VTE Prophylaxis Plan VTE Prophylaxis will be ordered: Yes
[2018-08-15] MEDS: NSS + 20MEQ KCL 20 MEQ/1,000 ML BAG IV SCH (13:52)
[2018-08-15] MEDS ORDERED: HEPARIN IV BOLUS 4,000 UNITS in SYRINGE 0 ML IV ONE (15:30)
[2018-08-15] MEDS ORDERED: Nursing to Pharmacy Communication ONE ×2 (20:15→22:41)
[2018-08-15 22:18] LABS: Partial Thromboplastin Ratio 2.7
[2018-08-16] MEDS: MoRPHine SULFATE 4 MG/ML 1 ML CARP\\VIAL IV PRN ×2 (00:10→03:51)
[2018-08-16] MEDS: ONDANSETRON INJ 2 MG/ML 2 ML VIAL IV PRN ×3 (03:52→21:09)
[2018-08-16 04:31] LABS: Hematocrit (blood only) 32.1 % (42-52); Hemoglobin 10.8 g/dL (14.0-18.0); Mean Corpuscular Hgb Conc 33.6 g/dL (32-36); Mean Corpuscular Volume 89.9 fL (80-100); Mean Platelet Volume 9.9 fL (7.4-10.4); Platelet Count 113 K/uL (130-400); RDW Coefficient of Variation 14.3 % (11.5-14.5); RDW Standard Deviation 47.3 fL (36.4-46.3); Red Blood Count 3.57 M/uL (4.7-6.1); White Blood Count 16.32 K/uL (4.8-10.8)
[2018-08-16 04:55] LABS: INR 1.1 (0.9-1.1); Prothrombin Time 11.5 Seconds (9.0-12.0)
[2018-08-16 05:02] LABS: Albumin Globulin Ratio 0.8 (0.9-2); Albumin Level 2.5 gm/dl (3.4-5.0); BUN Creatinine Ratio 16.9 (10-20); Bilirubin,Total 0.6 mg/dl (0.2-1); Calcium 7.4 mg/dl (8.5-10.1); Creatinine Clr Calc Pharmacy 118.4 ml/min; Est GFR (African American) 133.1; Est GFR (Non-African American) 114.9; Magnesium 1.9 mg/dl (1.8-2.4); Potassium 3.8 mmol/L (3.5-5.1); Total Protein 5.5 gm/dl (6.4-8.2)
[2018-08-16 05:36] LABS: Basophils # (auto) 0.04 K/uL (0-0.2); Basophils % (auto) 0.2 %; Eosinophils # (auto) 0.14 K/uL (0-0.5); Eosinophils % (auto) 0.9 %; Immature Granulocytes # (auto) 0.02 K/uL (0.00-0.02); Immature Granulocytes % (auto) 0.1 %; Lymphocytes # (auto) 12.35 K/uL (1.2-3.4); Lymphocytes % (auto) 75.7 %; Monocytes # (auto) 0.46 K/uL (0.11-0.59); Monocytes % (auto) 2.8 %; Neutrophils # (auto) 3.31 K/uL (1.4-6.5); Neutrophils % (auto) 20.3 %
[2018-08-16] MEDS: NSS + 20MEQ KCL 20 MEQ/1,000 ML BAG IV SCH ×2 (06:06→22:04)
[2018-08-16] MEDS: CILOSTAZOL 100 MG TAB PO SCH ×2 (08:16→21:07)
[2018-08-16] MEDS: FLUTICASONE HFA 220 MCG INHALER INH SCH ×2 (08:16→21:06)
[2018-08-16] MEDS: ATORVASTATIN 40 MG TAB PO SCH (08:16)
[2018-08-16] MEDS: PANTOprazole 40 MG TAB PO SCH (08:16)
[2018-08-16] MEDS: AMLODIPINE BESYLATE 5 MG TAB PO SCH (08:16)
[2018-08-16] MEDS: SERTRALINE HCL 50 MG TABLET PO SCH (08:16)
[2018-08-16] MEDS: ASPIRIN 81 MG ECTAB PO SCH (08:16)
[2018-08-16] MEDS: LOSARTAN POTASSIUM 50 MG TAB PO SCH (08:16)
[2018-08-16] MEDS: IPRATROPIUM BROMIDE/ALBUTEROL respimat INH INH SCH ×4 (08:16→21:06)
[2018-08-16] MEDS: NICOTINE 14 MG/24 HR PATCH TD SCH (08:16)
[2018-08-16] MEDS: HEPARIN SODIUM/DEXTROSE 25,000 UNITS/500 ML BAG IV SCH (08:20)
[2018-08-16] MEDS: MoRPHine SULFATE 2 MG/ML CARP IV PRN ×4 (08:52→21:12)
--- NOTE | 2018-08-16 09:12 | Family Medicine Progress Note ---
Date of Service August 16, 2018 Assessment & Plan (1) Abdominal pain: Pt is a 57yo male with a PMHx significant for lung mass, thyroid mass, HCV, liver cirrhosis and PAD who presented with abd pain and was found to have portal vein thrombosis and pancolitis. Abdominal Pain- IMPROVING -likely secondary to portal vein thrombosis -on prn morphine but has been getting it q4hrs. Transitioned to q2hrs today. -will attempt to wean with possible transition to tramadol [id number] for cirrhosis dosing -Full liquids with IVF -Blood Cx X2- PENDING -GI Consult-PENDING Portal Vein Thrombosis vs. pancolitis -Vascular surgery consult- NO SURGERY. -Continue anticoagulation with heparin. Will need to discuss duration. -Pain management as above Diarrhea-IMPROVING STool cultures not collected yet Thyroid mass, Lung mass, CLL -Likely contributing to cachectic appearance -Thyroid mass and lung mass workup pending. States was told lung mass nonmalignant. -CLL- lymphocytosis currently of 12.35, splenomegaly on CT. no treatment to date -Outpt records reveal PET scan done with multiple "lightups" Alcoholic cirrhosis -trace ascites on CT, Hx of alcohol abuse. Last drink 1.5 yrs ago. -INR normal, AST: ALT ratio ~2:1, alk phos normal -GI consulted Hx of HCV -No Rx to date PAD -continue home cilosazol, ASA Hypomagnesemia- RESOLVED HTN- CONTROLLED -cont home Losartan and amlodipine COPD -cont home albuterol and flovent GERD -cont home protonix Depression/ANxiety -cont home Zoloft Tobacco use -Nicotine patch -smoking cessation provided. DVT Prophylaxis: Heparin drip Code Status: FULL CODE Dispo: (2) Portal vein thrombosis: (3) Diarrhea: (4) Alcoholic cirrhosis of liver with ascites: (5) CLL (chronic lymphocytic leukemia): (6) Leukocytosis: (7) Peripheral arterial disease: (8) Hypomagnesemia: (9) Thyroid mass: (10) Hepatitis C: (11) COPD (chronic obstructive pulmonary disease): (12) Lung mass: (13) GERD (gastroesophageal reflux disease): (14) HTN (hypertension): (15) Tobacco use disorder: (16) Depression: c (17) Anxiety: (18) DVT prophylaxis: Supervising Physician Co-Signing Physician Notes Resident Physician Supervision Note: I independently interviewed and examined the patient and verified the salmeron history and physical, reviewed labs and image studies, discussed the case with the resident Dr. Molina, made edits to above note and agree with the findings and care plan. Subjective Mr. Martins states that he is doing better than when he came in. States he still has abdominal pain but denies N/V, loss of appetite. States his pain is currently well controlled. Review of Systems All systems reviewed & are unremarkable except as noted in HPI & below Physical Exam Vital Signs (Past 24 Hours): Last Vital Signs Temp 36.6 C 08/16/18 07:29 Pulse 67 08/16/18 07:29 Resp 18 08/16/18 07:29 BP 96/64 L 08/16/18 07:29 Pulse Ox 98 08/16/18 07:29 General: Alert, oriented. Thin, cachectic gentleman sitting up in bed. HEENT: NC/AT, Round nodules on forehead, PERRLA, EOMI, oropharynx moist. Chest: Nontender to palpation. CV: RRR, Normal s1, s2. No murmurs appreciated Resp: Breath sounds clear bilaterally, no increased effort of breathing. Abdomen: BS+. Soft, nontender, nondistended. No guarding. No organomegaly appreciated. Extremities: Significant muscle wasting in arms and legs. Extremities: No edema. Results & Data Laboratory Results Laboratory Results - last 24 hr 08/15/18 08/15/18 08/15/18 04:34 11:05 21:45 WBC RBC Hgb Hct MCV MCH MCHC RDW Std Deviation RDW Coeff of Eliz Plt Count MPV Immature Gran % (Auto) Neut % (Auto) Lymph % (Auto) [place] % (Auto) Eos % (Auto) Baso % (Auto) Immature Gran # (Auto) Neut # (Auto) Lymph # (Auto) [place] # (Auto) Eos # (Auto) Baso # (Auto) PT INR APTT 38.7 H 72.0 H* PTT Ratio 1.4 2.7 Sodium Potassium Chloride Carbon Dioxide Anion Gap BUN Creatinine Est Cr Clr Drug Dosing Est GFR ( Amer) Est GFR (Non-Af Amer) BUN/Creatinine Ratio Glucose Calcium Magnesium Total Bilirubin AST ALT Alkaline Phosphatase Total Protein Albumin Globulin Albumin/Globulin Ratio Vitamin B12 346 08/16/18 08/16/18 08/16/18 04:20 04:20 04:20 WBC 16.32 H RBC 3.57 L Hgb 10.8 L Hct 32.1 L MCV 89.9 MCH 30.3 MCHC 33.6 RDW Std Deviation 47.3 H RDW Coeff of Eliz 14.3 Plt Count 113 L MPV 9.9 Immature Gran % (Auto) 0.1 Neut % (Auto) 20.3 Lymph % (Auto) 75.7 [place] % (Auto) 2.8 Eos % (Auto) 0.9 Baso % (Auto) 0.2 Immature Gran # (Auto) 0.02 Neut # (Auto) 3.31 Lymph # (Auto) 12.35 H [place] # (Auto) 0.46 Eos # (Auto) 0.14 Baso # (Auto) 0.04 PT 11.5 INR 1.1 APTT 54.0 H* PTT Ratio 2.0 Sodium 135 L Potassium 3.8 Chloride 106 Carbon Dioxide 24 Anion Gap 5.0 BUN 9 D Creatinine 0.55 L Est Cr Clr Drug Dosing 118.4 Est GFR ( Amer) 133.1 Est GFR (Non-Af Amer) 114.9 BUN/Creatinine Ratio 16.9 Glucose 90 Calcium 7.4 L Magnesium 1.9 Total Bilirubin 0.6 AST 54 H ALT 29 Alkaline Phosphatase 95 Total Protein 5.5 L Albumin 2.5 L Globulin 3.0 Albumin/Globulin Ratio 0.8 L Vitamin B12 Medications Administered Home Medications amlodipine [Norvasc] 2.5 mg PO DAILY 08/14/18 [History Confirmed 08/14/18] aspirin [Aspir-81] 81 mg PO DAILY 08/14/18 [History Confirmed 08/14/18] atorvastatin [Lipitor] 40 mg PO DAILY 08/14/18 [History Confirmed 08/14/18] cilostazol 100 mg PO BID 08/14/18 [History Confirmed 08/14/18] fluticasone [Flovent HFA] 2 puff INHALATION BID 08/14/18 [History Confirmed 08/14/18] ibuprofen [IBU] 800 mg PO TID PRN 08/14/18 [History Confirmed 08/14/18] ipratropium-albuterol [Combivent Respimat] 1 puff INHALATION QID 08/14/18 [History Confirmed 08/14/18] losartan [Cozaar] 100 mg PO DAILY 08/14/18 [History Confirmed 08/14/18] pantoprazole [Protonix] 40 mg PO DAILY 08/14/18 [History Confirmed 08/14/18] sertraline [Zoloft] 50 mg PO DAILY 08/14/18 [History Confirmed 08/14/18] Active Medications Acetaminophen (Tylenol) 650 mg PO Q4H PRN PRN Reason: Pain or Fever Stop: 09/13/18 20:52 Albuterol (Combivent Respimat) 1 puffs INH QID [facility] Stop: 09/13/18 20:59 Last Admin: 08/16/18 08:16 Dose: 1 puffs Documented by: Amlodipine Besylate (Norvasc) 2.5 mg PO DAILY [facility] Stop: 09/14/18 08:59 Last Admin: 08/16/18 08:16 Dose: 2.5 mg Documented by: Aspirin (Ecotrin Ectab) 81 mg PO DAILY [facility] Stop: 09/14/18 08:59 Last Admin: 08/16/18 08:16 Dose: 81 mg Documented by: Atorvastatin Calcium (Lipitor) 40 mg PO DAILY [facility] Stop: 09/14/18 08:59 Last Admin: 08/16/18 08:16 Dose: 40 mg Documented by: Cilostazol (Pletal) 100 mg PO BID [facility] Stop: 09/13/18 20:59 Last Admin: 08/16/18 08:16 Dose: 100 mg Documented by: Fluticasone Propionate (Flovent Hfa 220mcg) 2 puffs INH BID [facility] Stop: 09/13/18 20:59 Last Admin: 08/16/18 08:16 Dose: 2 puffs Documented by: Heparin Sodium/Dextrose (Heparin Sodium/Dextrose) 25,000 units in 500 mls @ 15 mls/hr IV .Q24H [facility]; Protocol Stop: 09/13/18 20:52 Last Admin: 08/16/18 08:20 Dose: 750 units/hr, 15 mls/hr Documented by: Potassium Chloride/Sodium Chloride (Normal Saline W/20 Meq Kcl) 20 meq in 1,000 mls @ 60 mls/hr IV .[id number] [facility] Stop: 09/13/18 21:29 Last Admin: 08/16/18 06:06 Dose: 60 mls/hr Documented by: Ibuprofen (Motrin) 800 mg PO TID PRN PRN Reason: Pain Stop: 09/13/18 20:52 Ioversol (Optiray 320 125ml) 119 ml IV ONCE PRN PRN Reason: Interaction Checking Stop: 08/18/18 16:35 Losartan Potassium (Cozaar) 100 mg PO DAILY [facility] Stop: 09/14/18 08:59 Last Admin: 08/16/18 08:16 Dose: 100 mg Documented by: Magnesium Hydroxide (Milk Of Magnesia) 30 ml PO Q12H PRN PRN Reason: Constipation Stop: 09/13/18 20:52 Miscellaneous (Remove Nicoderm Patch) 1 ea N/A HS [facility] Stop: 09/13/18 20:59 Last Admin: 08/15/18 20:14 Dose: 1 ea Documented by: Morphine Sulfate (Morphine Sulfate) 2 mg IV Q4H PRN PRN Reason: Pain Stop: 08/28/18 19:33 Last Admin: 08/16/18 08:52 Dose: 2 mg Documented by: Nicotine (Nicoderm Cq) 14 mg TD QAM [facility] Stop: 09/14/18 08:59 Last Admin: 08/16/18 08:16 Dose: 14 mg Documented by: Ondansetron HCl (Zofran) 4 mg IV Q6H PRN PRN Reason: Nausea Stop: 09/13/18 20:52 Last Admin: 08/16/18 03:52 Dose: 4 mg Documented by: Pantoprazole Sodium (Protonix) 40 mg PO DAILY [facility] Stop: 09/14/18 08:59 Last Admin: 08/16/18 08:16 Dose: 40 mg Documented by: Sertraline HCl (Zoloft) 50 mg PO DAILY [facility] Stop: 09/14/18 08:59 Last Admin: 08/16/18 08:16 Dose: 50 mg Documented by: Resident Activity Tracking Resident Involvement: Resident Care Provided Care Provided: Adult Hospital Medicine (1) Leukocytosis Leukocytosis type: unspecified Qualified Code(s): D72.829 - Elevated white blood cell count, unspecified (2) Abdominal pain Abdominal location: unspecified location Qualified Code(s): R10.9 - Unspecified abdominal pain
--- NOTE | 2018-08-16 23:10 | Consultation Report ---
DATE OF CONSULTATION: 08/16/2018 REASON FOR EVALUATION: Portal vein thrombosis. HISTORY OF PRESENT ILLNESS: The patient is a 57-year-old male with severe chronic diseases including peripheral vascular disease, chronic hepatitis C with cirrhosis, COPD, peripheral vascular disease, and chronic lymphocytic leukemia, who presented with a 2-week history of abdominal pain. The pain was intermittent at the beginning and then became more progressively worse over the last 5 days prompting him to present to the hospital. CT scan was performed and showed complete thrombosis of the portal vein and congestion and edema of the colon as expected. The patient has been started on IV heparin and will need to be transitioned over eventually to an oral antithrombotic. PAST MEDICAL HISTORY: Remarkable for cirrhosis from chronic hepatitis C and alcohol. He has got thyroid mass, hepatitis C, chronic lymphocytic leukemia, COPD, peripheral arterial disease, acid reflux, hypertension, tobacco use, depression, anxiety. HOME MEDICATIONS: Norvasc, baby aspirin, Lipitor, cilostazol, Flovent, ibuprofen, Combivent, Cozaar, Protonix, and Zoloft. ALLERGIES: None. FAMILY HISTORY: Positive for CVA and heart attack. SOCIAL HISTORY: The patient smokes 2-4 cigars a day, has not had any alcohol in 2 years. He is essentially bedbound. REVIEW OF SYSTEMS: Positive for pain in his hands and feet. PHYSICAL EXAMINATION: GENERAL: The patient is very cachectic. VITAL SIGNS: Normal. SKIN: Showed skin breakdown on both feet. He has contractures in his hands. He has multiple comedones on his forehead. HEENT: Mouth shows multiple missing teeth. HEART: Showed a regular rate and rhythm. LUNGS: Showed decreased breath sounds. ABDOMEN: Shows significantly enlarged liver particularly of the right lobe down to the level of his umbilicus. It was slightly tender to palpation. IMPRESSION AND PLAN: The patient has cirrhosis from chronic hepatitis C and probably alcohol. He is currently not a candidate for treatment of his hepatitis C. He presents with portal vein thrombosis and some colonic congestion. He has been started on heparin, but will need to be transitioned to an oral antithrombotic agent so that he can be transitioned home. It is unclear what the status of his cirrhosis is. He does not appear to have any evidence of hepatoma on his CT scan, but I plan on getting an alpha-fetoprotein. There are some reports that he had an EGD, but I cannot find those in the record to determine whether or not he has evidence of esophageal varices. He is obviously not a great candidate at this point to do an upper endoscopy on. We will follow him clinically and I will order an alpha-fetoprotein.
[2018-08-17] MEDS: MoRPHine SULFATE 2 MG/ML CARP IV PRN ×3 (01:14→12:38)
[2018-08-17] MEDS: AMLODIPINE BESYLATE 5 MG TAB PO SCH (08:22)
[2018-08-17] MEDS: IPRATROPIUM BROMIDE/ALBUTEROL respimat INH INH SCH ×3 (08:22→16:13)
[2018-08-17] MEDS: SERTRALINE HCL 50 MG TABLET PO SCH (08:22)
[2018-08-17] MEDS: ONDANSETRON INJ 2 MG/ML 2 ML VIAL IV PRN ×2 (08:22→16:10)
[2018-08-17] MEDS: FLUTICASONE HFA 220 MCG INHALER INH SCH (08:22)
[2018-08-17] MEDS: CILOSTAZOL 100 MG TAB PO SCH (08:22)
[2018-08-17] MEDS: NICOTINE 14 MG/24 HR PATCH TD SCH (08:22)
[2018-08-17] MEDS: PANTOprazole 40 MG TAB PO SCH (08:22)
[2018-08-17] MEDS: LOSARTAN POTASSIUM 50 MG TAB PO SCH (08:22)
[2018-08-17] MEDS: ATORVASTATIN 40 MG TAB PO SCH (08:22)
[2018-08-17] MEDS: ASPIRIN 81 MG ECTAB PO SCH (08:22)
[2018-08-17 08:40] LABS: Hematocrit (blood only) 35.2 % (42-52); Mean Corpuscular Hgb Conc 34.1 g/dL (32-36); Mean Corpuscular Volume 89.6 fL (80-100); Mean Platelet Volume 10.2 fL (7.4-10.4); Platelet Count 104 K/uL (130-400); RDW Coefficient of Variation 14.5 % (11.5-14.5); RDW Standard Deviation 47.7 fL (36.4-46.3); Red Blood Count 3.93 M/uL (4.7-6.1)
[2018-08-17 08:50] LABS: Partial Thromboplastin Ratio 1.6; Partial Thromboplastin Time 42.9 Seconds (21.0-31.0)
[2018-08-17 09:19] LABS: Albumin Level 2.8 gm/dl (3.4-5.0); BUN Creatinine Ratio 12.2 (10-20); Calcium 8.3 mg/dl (8.5-10.1); Creatinine Clr Calc Pharmacy 134.8 ml/min; Est GFR (African American) 140.8; Est GFR (Non-African American) 121.5; Potassium 3.9 mmol/L (3.5-5.1)
[2018-08-17 09:21] LABS: Albumin Globulin Ratio 0.9 (0.9-2); Bilirubin,Total 0.8 mg/dl (0.2-1); Globulin 3.3 gm/dl (2.5-4.0); Total Protein 6.1 gm/dl (6.4-8.2)
[2018-08-17 09:58] LABS: Basophils # (auto) 0.04 K/uL (0-0.2); Basophils % (auto) 0.3 %; Eosinophils # (auto) 0.15 K/uL (0-0.5); Eosinophils % (auto) 1.1 %; Immature Granulocytes # (auto) 0.02 K/uL (0.00-0.02); Immature Granulocytes % (auto) 0.1 %; Lymphocytes # (auto) 10.96 K/uL (1.2-3.4); Lymphocytes % (auto) 77.2 %; Monocytes # (auto) 0.35 K/uL (0.11-0.59); Monocytes % (auto) 2.5 %; Neutrophils # (auto) 2.68 K/uL (1.4-6.5); Neutrophils % (auto) 18.8 %; Smudge Cells Present
[2018-08-17] MEDS ORDERED: HEPARIN IV BOLUS 2,000 UNITS in SYRINGE 0 ML IV ONE (10:19)
[2018-08-17] MEDS ORDERED: OXYCODONE HCL SOLN 5 MG/5 ML UDC PO PRN (13:46)
[2018-08-17] MEDS ORDERED: ENOXAPARIN INJ 60 MG/0.6 ML SYR SQ SCH (14:30)
[2018-08-17] MEDS ORDERED: HEPARIN DRIP~STOP ORDER ONE (14:30)
[2018-08-17] MEDS ORDERED: WARFARIN SOD 4 MG TAB PO ONE (15:00)
--- NOTE | 2018-08-17 16:11 | Discharge Summary ---
Date of Service August 17, 2018 Admission HPI Per Admitting Provider [place] [address] History & Physical Report Signed Patient: Miranda EDUARDO Date: 08/14/18 MR#: [id number] Phy: Acct ID:[id number] Phy: Darci Johnston MD Date: 1960Fam Phy: Age: 57Location: ED Sex: M Room/Bed: cc: Darci Johnston MD; Raina Solomon, ~ *NOTICE TO RECEIVING DEMOCRAT/AGENCY This information is strictly Confidential and protected under [place] law. [place] law prohibits you from making any further disclosure of this information unless further disclosure is expressly permitted by the written consent of the person to whom it pertains or is authorized by law. A general authorization for the release of medical or other information is not sufficient for this purpose. Hospital accepts no responsibility if the information is made available to any other person, INCLUDING THE PATIENT. Date of Service August 14, 2018 Assessment & Plan (1) Abdominal pain: CT AP noted for possible portal vein thrombosis Will start on heparin drip Vasc surg c/s pending Full liquids with IVF (2) Failure to thrive: Uncertain etiology Pt with possible health issues that could be causing this as noted above HIV testing pending (3) Thyroid mass: States he was to have a bx but missed the appt (4) Leukocytosis: At baseline, hx of CLL Monitor (5) Hepatitis C: No hx of tx (6) CLL (chronic lymphocytic leukemia): No hx of tx, currently being monitored to determine when tx would be appropriate (7) COPD (chronic obstructive pulmonary disease): continue home meds (8) Lung mass: States was told it is not malignant and is being monitored (9) Peripheral arterial disease: Has followed with ?? Dr. Coughlin in the past (10) GERD (gastroesophageal reflux disease): continue home meds (11) HTN (hypertension): continue home meds (12) Tobacco use disorder: Nicotine patch (13) Depression: continue home meds (14) Anxiety: continue home meds (15) DVT prophylaxis: Heparin drip History of Present Illness Primary Care Provider: Darci Johnston MD 57 y/o M c/o abd pain. Pt states that he has been bedridden due to this abd pain for about 5 days. He states the pain will come and go for no reason that he can determine. He will be pain free for 2-3 hours at a time and then pain will suddenly return. It does not seem to be timed with food. His PO intake has been minimal due to the pain and intermittent nausea. He has not had any emesis with this. He has has occasional bowel movements but not diarrhea. Pt states that prior to 5 days ago he was having a decreased appetite but was eating small frequent meals without issue. He states that he has had a decreased appetite regularly for quite some time, but it got worse about 2.5 weeks ago and then abd pain started about 5 days ago with further decreased appetite. He has been losing weight despite the fact that he has been trying to gain weight. Pt states he regularly has chest pain, substernal and more epigastric. He is uncertain why this comes and goes also. Pt states he had some sort of upper endoscopy "probe". He states it was performed at [facility], but he uncertain who performed this or what was done. Pt was supposed to have a thyroid bx done but was unable to make this appt. Pt has a lung mass that he states he was told is not cancer and it is being watched. Pt has CLL. It is currently being monitored. No hx of chemo or other interventions yet. Pt denies fever, SOB, LE pain or swelling. Admission Exam Per Admitting Provider Constitutional: + cachectic; not in distress Eyes: normal visual vick by confrontation and + anicteric sclerae Neck: normal visual inspection and trachea midline Respiratory: normal respiratory effort, lungs clear to auscultation Cardiovascular: Rate/Rhythm: regular rate and regular rhythm Gastrointestinal (Abdomen): Inspection/Auscultation: abdomen not distended Percussion/Palpation: + abdomen tender (diffuse, worse in the lower abd) and + abdomen firm; + abdomen not soft Musculoskeletal: Head/Neck/Chest: normocephalic and head atraumatic negative for edema, peripheral pulses intact Skin: no rashes, warm and dry multiple skin lesions noted along face, hands Neurologic: awake; not confused Speech / Cognition: normal speech Psychiatric: A+Ox3, euthymic affect Principal Diagnosis Portal Vein thrombosis Discharge Exam General: Alert, oriented. Thin, cachectic gentleman sitting up in bed. HEENT: NC/AT, Round nodules on forehead, PERRLA, EOMI, oropharynx moist with missing teeth. Chest: Nontender to palpation. CV: RRR, Normal s1, s2. No murmurs appreciated Resp: Breath sounds clear bilaterally, no increased effort of breathing. Abdomen: BS+. Soft, nontender, nondistended. No guarding. No organomegaly appreciated. Extremities: Significant muscle wasting in arms and legs. Extremities: No edema. Discharge Data Allergies Allergy/AdvReac Type Severity Reaction Status Date / Time No Known Allergies Allergy Mild NONE Verified 08/14/18 14:39 Consultations 08/14/18 17:23 ED Decision to Admit Stat 08/14/18 20:53 Consult Case Management - Discharge Planning Routine Consult Vascular Surgery Routine 08/15/18 11:14 Consult Gastroenterology Routine Ordered Studies 08/14/18 15:27 CT abd pelvis IV con only Stat 08/14/18 15:28 CT angio chest PE protocol Stat 08/15/18 07:23 CT angio abd aorta runof w con Routine Hospital Course (1) Abdominal pain: Pt is a 57yo male with a PMHx significant for lung mass, thyroid mass, HCV, liver cirrhosis and PAD who presented with abd pain and was found to have portal vein thrombosis and pancolitis. Abdominal Pain- IMPROVED on discharge. Was likely secondary to portal vein thrombosis. Was on prn morphine for pain. Transitioned to oxycodone 5mg q6h prn. Discharged with 10 tabs to be taken TID. Was on full liquids with IVF initially and later diet was advanced which he tolerated well. GI Consult-No endoscopy due to current health status, AFP levels pending upon discharge. Portal Vein Thrombosis with CT finding of bowel edema/pancolitis -Vascular surgery consult- stated NO SURGERY was necessary. Anticoagulation with heparin while hospitalized. Upon discharge transitioned to Lovenox x 5 days and Coumadin 8mg loading dose with 4mg daily thereafter. Coumadin INR checks at coumadin clinic here at [facility]. Pancolitis likely due to edema/congestion from portal vein thrombosis. Blood Cx negative. Diarrhea-Improved on discharge. Thyroid mass, Lung mass, CLL -Likely contributing to cachectic appearance. Thyroid mass and lung mass workup pending outpt. States was told lung mass nonmalignant. Possible paraneoplastic picture with new onset thrombosis, however given portal vein thrombosis likely related to cirrhotic picture. Upon discharge concerning CLL- lymphocytosis currently of 12.35, splenomegaly on CT. No treatment to date. Outpt records revealed PET scan done with multiple avid uptake. Alcoholic cirrhosis Trace ascites on CT with Hx of alcohol abuse. Last drink 1.5 yrs ago. INR normal, AST: ALT ratio ~2:1, alk phos normal upon discharge. Hx of HCV -No Rx to date PAD -home cilosazol, ASA was continued Hypomagnesemia- RESOLVED on discharge HTN- CONTROLLED - home Losartan and amlodipine was continued. COPD -home albuterol and flovent was continued. GERD -home protonix was continued. Depression/ANxiety -home Zoloft was continued. Tobacco use -Nicotine patch while hospitalized. smoking cessation provided. Upon discharge f/u scheduled with pulmonology, PCP and cancer center. (2) Portal vein thrombosis: (3) Diarrhea: (4) Alcoholic cirrhosis of liver with ascites: (5) CLL (chronic lymphocytic leukemia): (6) Leukocytosis: (7) Peripheral arterial disease: (8) Hypomagnesemia: (9) Thyroid mass: (10) Hepatitis C: (11) COPD (chronic obstructive pulmonary disease): (12) Lung mass: (13) GERD (gastroesophageal reflux disease): (14) HTN (hypertension): (15) Tobacco use disorder: (16) Depression: (17) Anxiety: (18) DVT prophylaxis: Total Time Total Time Spent Total Time Spent (In Minutes): 60 Discharge Plan Discharge Items Patient Disposition: Home - Home Health Services Reason For Visit: ABD PAIN Discharge Diagnosis: Portal Vein Thrombosis Discharge Goals: Decrease discomfort, Improve function and Learn about illness Activity: Per 'Additional Instructions' section Non-emergency contact: Primary Care Provider Call non-emergency contact if: you have any medication questions, your symptoms worsen, your pain is not controlled and your pain is worsening Follow-up/Referrals: [facility] [Provider Group] - 08/23/18 8:45 am (Please, follow up at [facility] (Coumadin Clinic) on ThursdayAugust 23 at 9:00 am (arrive 8:45 am). *The clinic is located in the rear of [facility]. You will park behind the hospital in [address] and enter via [facility]. If you need to change this appointment, call the office at [phone].) Vasquez Goddard PA-C [Physician Wardrobe Supervisor] - 08/26/18 3:00 pm (Please, follow up with [facility]mon[facility] on August 26 at 3:00 pm. *This office is located in [address] of [facility] - big building next to this hospital. If you need to change this appointment, call the office at [phone].) Ge Johnston MD [Primary Care Provider] - 08/19/18 11:00 am (Please, follow up at Dr. Johnston's office with his cancer genetics assistant, FERNANDO Bolivar, on August 19 at 11:00 am. *If you need to change this appointment, call the office at [phone]. PLEASE, REMIND HER TO SEND REFERRALS TO: [facility]MON[facility] ON[facility]OGY THESE REFERRALS ARE REQUIRED BY YOUR INSURANCE.) Charli Rey DO [Physician] - 08/24/18 10:10 am (Please, follow up at [facility] with Dr. Rey's associate, Catalina PINZON, on ThursdayAugust 24 at 10:10 am. *The office is located in the rear of this [facility]. You will park behind the hospital in [address] and enter via [facility]. If you need to change/cancel this appointment, call the office at [phone].) Diet: Heart Healthy Add Provider Instructions: You have been diagnosed with a blood clot in the vein leading to your liver. Your Right Femoral Artery stent also appears to be blocked. Our vascular surgeon did not recommend any surgeries. Our heel attacher wood did not recommend any interventions. The blood clot in your portal vein requires blood thinning medications. You will need to be on a blood thinning medication for at least 6 months. It is unclear why you developed a blood clot in your portal vein. Our heel attacher wood ordered a blood test called Alpha Protein. The result of this test is pending on discharge. Your primary care doctor will be able to follow this up for you. You will be discharged on 5 days of Lovenox. Lovenox is an immediate acting injectable blood thinning medication. Please take this injectable medication twice a day as demonstrated in the hospital. You will also be discharge on Coumadin. Coumadin is a blood thinning medication that takes around 5 days to start working. Coumadin requires weekly blood work to monitor your INR Level. A prescription will be given to do blood work on morning. Please get this lab work either at the hospital or the [facility]. Please take Coumadin as prescribed. You may need to alter your Coumadin dose based on your blood work. Information on Lovenox, Coumadin and INR levels (the blood work) will be printed for you on discharge. Please read this information carefully. Follow up with the Coumadin Clinic, Dr. Johnston's office, Oncology and Pulmonology will be made for you on discharge. Please keep these appointments. You will also be discharged on Oxycodone pain medication - please take this medication as prescribed. Please try to limit or reduce the amount of pain medications you take, this includes the amount of Ibuprofen and other NSAIDS you take. Return to the Emergency Room if your pain worsens significantly or you are unable to eat or drink anything. Prescriptions: New enoxaparin [Lovenox] 60 mg/0.6 mL syringe 60 mg SQ Q12H 5 Days Qty: 6 RF: 0 warfarin 4 mg tablet 4 mg PO DAILY 10 Days Qty: 10 RF: 0 Continued atorvastatin [Lipitor] 40 mg tablet 40 mg PO DAILY RF: 0 cilostazol 100 mg tablet 100 mg PO BID RF: 0 ibuprofen [IBU] 800 mg tablet 800 mg PO TID PRN (Reason: Pain) RF: 0 amlodipine [Norvasc] 5 mg tablet 2.5 mg PO DAILY RF: 0 aspirin [Aspir-81] 81 mg Tablet,Delayed Release (Dr/Ec) 81 mg PO DAILY RF: 0 pantoprazole [Protonix] 40 mg tablet,delayed release (DR/EC) 40 mg PO DAILY RF: 0 Flovent HFA 220 mcg/actuation HFA aerosol inhaler 2 puff Inhalation BID RF: 0 losartan [Cozaar] 100 mg tablet 100 mg PO DAILY RF: 0 sertraline [Zoloft] 50 mg tablet 50 mg PO DAILY RF: 0 Combivent Respimat 20-100 mcg/actuation mist 1 puff Inhalation QID RF: 0 Stand-Alone Forms: Call Back Authorization, [facility]/Other Patient Handouts: Warfarin Sodium Oral tablet, Enoxaparin Sodium Porcine Solution for injection, International Normalized Ratio Discharge Orders: Discharge Order (Routine); Ordered 08/17/18 Ordered By: Antonina Meyer Admission Data Admit Date/Time: 08/14/18 19:32 Attending Provider: Kenna Jackson Admit Provider: Raina Solomon Primary Care Provider: Ge Johnston Other Providers: Benjamín Coughlin ; Yemi Brown ; Corey Taylor Service: Telemetry Other Interventions: Discharge Summary Assessment (RN) Last Done: 08/17/18 17:25 DC Date/Time DO NOT enter until pt leaves facility: 08/17/18 18:18 Supervising Physician Co-Signing Physician Notes Resident Physician Supervision Note: I independently interviewed and examined the patient and verified the salmeron history and physical, reviewed labs and image studies, discussed the case with the resident Dr. Meyer and agree with the findings and care plan. Time spent in discharge 35 min Resident Activity Tracking Resident Involvement: Resident Care Provided Care Provided: Adult Hospital Medicine
[2018-08-17 16:58] LABS: Partial Thromboplastin Ratio 1.2; Partial Thromboplastin Time 32.2 Seconds (21.0-31.0)
--- NOTE | 2018-08-17 17:49 | Progress Note ---
DATE: 08/17/2018 SUBJECTIVE: The patient reports no abdominal pain today. The patient has normal vital signs. He is afebrile. His white count is still elevated at 14.2, hemoglobin 12, platelets 104,000. Alpha-fetoprotein is pending at this time. ABDOMEN: Shows an enlarged nodular firm right lobe of the liver consistent with cirrhosis. I reviewed his radiologic findings with the radiologist who concurs that the colonic findings are due to passive congestion from his portal vein thrombosis and I do not believe that further endoscopic evaluation is necessary at this time. The patient's heparin has been stopped and he has been transitioned to Lovenox subcutaneous which will be administered through home nursing where he lives. IMPRESSION: The patient has portal vein thrombosis. He will be maintained on Lovenox at home. I have no further suggestions at this time.
== END 2018-08-17 18:18 | disposition home health service (06) | DRG 442 ==
LOC: ED 14:15 → 2W 19:32 → SUATTDRO 19:32 → 2W 20:24

== ENCOUNTER 2018-10-27 10:36 | Inpatient (IN) ==
[2018-10-27] MEDS ORDERED: SODIUM CHLORIDE 0.9% 1000ML 1,000 ML IV SCH (11:00)
[2018-10-27] MEDS ORDERED: SODIUM CHLORIDE 0.9% 1000ML 1,000 ML IV ONE (11:19)
[2018-10-27 11:28] LABS: iSTAT Creatinine 0.8 mg/dl (0.6-1.3); iSTAT Hemoglobin 9.9 g/dl (14.0-18.0); iSTAT Ionized Calcium 1.1 mmol/l (1.12-1.32); iSTAT Potassium 3.9 mEq/L (3.3-5.0)
[2018-10-27 11:31] LABS: Hematocrit (blood only) 29.2 % (42-52); Mean Corpuscular Hgb Conc 34.2 g/dL (32-36); Mean Corpuscular Volume 87.4 fL (80-100); Mean Platelet Volume 9.2 fL (7.4-10.4); Platelet Count 358 K/uL (130-400); RDW Coefficient of Variation 15.7 % (11.5-14.5); RDW Standard Deviation 49.2 fL (36.4-46.3); Red Blood Count 3.34 M/uL (4.7-6.1)
--- NOTE | 2018-10-27 11:31 | XRay Report ---
XR chest 1V portable CLINICAL HISTORY: code sepsis dyspnea COMPARISON STUDY: 08/14/2018 FINDINGS: Small parenchymal infiltrate versus atelectasis medial aspect right base. Lungs otherwise a ppear clear. Baseline emphysematous changes present. No significant cardiac enlargement. IMPRESSION: Small parenchymal infiltrate medial aspect right base. Emphysematous change. The above report was generated using voice recognition software. It may contain grammatical, syntax or spelling errors. Electronically signed by: Edmund Wiggins M.D. 10/27/2018 11:30 AM
[2018-10-27] MEDS ORDERED: PANTOprazole 80 MG in DEXTROSE 5% 100 ML IV ONE (11:45)
[2018-10-27 11:46] LABS: Alanine Aminotransferase 149 U/L (12-78); Albumin Level 2.1 gm/dl (3.4-5.0); Aspartate Aminotransferase 207 U/L (15-37); Bilirubin Direct 0.5 mg/dl (0-0.2); Bilirubin,Total 0.8 mg/dl (0.2-1); Magnesium 2.4 mg/dl (1.8-2.4)
[2018-10-27 11:47] LABS: Partial Thromboplastin Ratio 1.6; Partial Thromboplastin Time 42.1 Seconds (21.0-31.0)
[2018-10-27 11:51] LABS: INR 4.2 (0.9-1.1); Prothrombin Time 39.1 Seconds (9.0-12.0)
[2018-10-27 11:53] LABS: Alkaline Phosphatase 166 U/L (45-117); BUN Creatinine Ratio 36.9 (10-20); Blood Urea Nitrogen 33 mg/dl (7-18); Calcium 8.4 mg/dl (8.5-10.1); Carbon Dioxide 16 mmol/L (21-32); Chloride 112 mmol/L (98-107); Creatinine Clr Calc Pharmacy 57.3 ml/min; Est GFR (African American) 108.5; Est GFR (Non-African American) 93.6; Glucose 103 mg/dl (70-99); Potassium 3.9 mmol/L (3.5-5.1); Sodium 140 mmol/L (136-145); Total Protein 5.9 gm/dl (6.4-8.2); Troponin I < 0.015 ng/ml (0-0.045)
[2018-10-27] MEDS ORDERED: LIDOCAINE/EPINEPHRINE 1% 20 ML VIAL ONE (11:55)
[2018-10-27] MEDS ORDERED: VANCOMYCIN HCL 1,000 MG in SODIUM CHLORIDE 0.9% 500 ML IV STA (12:10)
[2018-10-27] MEDS ORDERED: VANCOMYCIN CONSULT ACTIVE PRN (12:10)
[2018-10-27] MEDS ORDERED: CEFEPIME 2,000 MG/20 ML VIAL IV STA (12:10)
[2018-10-27 12:11] LABS: Basophils # (auto) 0.03 K/uL (0-0.2); Basophils % (auto) 0.1 %; Echinocytes 2+; Immature Granulocytes # (auto) 0.13 K/uL (0.00-0.02); Immature Granulocytes % (auto) 0.3 %; Lymphocytes # (auto) 26.49 K/uL (1.2-3.4); Lymphocytes % (auto) 68.4 %; Monocytes # (auto) 1.03 K/uL (0.11-0.59); Monocytes % (auto) 2.7 %; Neutrophils # (auto) 11.02 K/uL (1.4-6.5); Neutrophils % (auto) 28.5 %; Smudge Cells Present
[2018-10-27] MEDS ORDERED: SODIUM CHLORIDE 0.9% 1000ML 500 ML IV ONE (12:12)
[2018-10-27] MEDS ORDERED: IOVERSOL 100ml IV PRN (12:31)
[2018-10-27] MEDS: PANTOprazole 40 MG in DEXTROSE 5% 100 ML IV SCH ×4 (12:33→21:40)
--- NOTE | 2018-10-27 12:48 | CT Scan Report ---
ABDOMEN AND PELVIS CT WITH IV CONTRAST CT DOSE: 895.94 mGycm HISTORY: Analyzed abdominal pain diarrhea TECHNIQUE: Multiaxial CT images of the abdomen and pelvis were performed following the use of intrave nous contrast. A dose lowering technique was utilized adhering to the principles of ALARA. COMPARISON STUDY: Abdomen and pelvis CTA 08/15/2018. FINDINGS: Patchy groundglass densities within the right middle lobe and left upper lobe. There are al so linear densities within the right lower lobe with partial mucoid opacification the right lower lob e bronchi. Small bilateral pleural effusions. The heart is normal in size. No pneumoperitoneum. No pn eumatosis. Right superficial femoral artery stent is again noted. No suspicious lytic or blastic osse ous lesions. Redemonstration of the sclerotic liver with a few scattered hypodense lesions. Dominant lesion within the posterior 7 of the right hepatic lobe measures 13 mm. The gallbladder, spleen, adre nal glands, and pancreas are unremarkable. The kidneys enhance normally. No hydronephrosis. Extensive calcified plaque within the normal caliber abdominal aorta. Large amount of ascites which has progre ssed. The bladder is mildly distended. Diffuse body wall edema. No change in the retroperitoneal lymp hadenopathy. Mildly enlarged left inguinal lymph node is also unchanged. Diffuse bowel wall thickenin g is likely due to the patient's edematous state. Rectal hemorrhoids are noted. The portal vein is co mpletely thrombosed. IMPRESSION: 1. Thrombosed portal veins. 2. Small bilateral pleural effusions. 3. Groundglass densities within the right middle lobe and lingula as well as patchy/linear densities within the right lower lobe. This may represent a pneumonia could be secondary to aspiration. 4. Large amount of ascites has progressed. 5. Small scattered hypodense lesions within the liver. These could represent dysplastic nodules or po ssibly multifocal hepatocellular carcinoma. GI consultation recommended. 6. Diffuse bowel wall thickening is and body wall edema is likely due to the patient's edematous stat e. 7. Persistent retroperitoneal lymphadenopathy. 8. Additional findings as described above. Electronically signed by: Gee Santamaria M.D. 10/27/2018 12:47 PM
[2018-10-27 13:13] LABS: Appearance Peritoneal Fluid CLEAR; Color Peritoneal Fluid STRAW; RBC Peritoneal Fluid (A) < 3000 /uL; WBC Peritoneal Fluid (A) 213 /ul (0-300)
[2018-10-27] MEDS ORDERED: OCTREOTIDE ACETATE 50 MCG in SYRINGE 9.5 ML IV STA (13:20)
[2018-10-27] MEDS ORDERED: OCTREOTIDE BOLUS FROM BAG IV ONE (13:30)
[2018-10-27 13:32] LABS: Mononuclear WBC Peritoneal 70.5 %; Polynuclear WBC Peritoneal 29.5 %
--- NOTE | 2018-10-27 15:21 | Emergency Department Note ---
Entered by Adrian Amezquita acting as a scribe for Charly French History of Present Illness General Chief complaint: Weakness Stated complaint: WEAKNESS, ABD PAIN, DIARRHEA Time Seen by Provider: 10/27/18 10:53 Source: patient History of Present Illness Provider complaint: weakness Onset (ago): week(s) 1 Location: left and right Maximum Pain Intensity: 8 Quality: + other (weakness) Associated symptoms: + shortness of breath and + other (diarrhea); no fever/chills The patient is a 58 y/o male who presents to the emergency department for constant weakness for a week. The family notes that the patient has been feeling sick and been bed ridden for a week and had diarrhea during this time. The family states that the patient has "blood clots in his stomach, and had clogged stents in his legs". The patient stated he is short of breath and having issues breathing. He also stated he is having abdominal pain. He denies any falls and fevers. Patient family states he is Coumadin and pain relievers. The patient denies fall or chest pain. No fevers. Home Medications Home Medications Medication Instructions Recorded Confirmed Type Combivent Respimat 1 puff INHALATION QID 08/14/18 10/27/18 History Flovent HFA 2 puff INHALATION BID 08/14/18 10/27/18 History amlodipine [Norvasc] 2.5 mg PO DAILY 08/14/18 10/27/18 History aspirin [Aspir-81] 81 mg PO DAILY 08/14/18 10/27/18 History atorvastatin [Lipitor] 40 mg PO DAILY 08/14/18 10/27/18 History cilostazol 100 mg PO BID 08/14/18 10/27/18 History ibuprofen [IBU] 800 mg PO TID PRN 08/14/18 10/27/18 History losartan [Cozaar] 100 mg PO DAILY 08/14/18 10/27/18 History pantoprazole [Protonix] 40 mg PO DAILY 08/14/18 10/27/18 History sertraline [Zoloft] 50 mg PO DAILY 08/14/18 10/27/18 History diphenhydramine 25 1 tab PO .1 tablet po prn ever tab 10/15/18 10/27/18 History mg-acetaminophen 500 mg tablet warfarin 6 mg PO DIRECTED 10/27/18 10/27/18 History warfarin 9 mg PO DIRECTED 10/27/18 10/27/18 History Allergies Allergy/AdvReac Type Severity Reaction Status Date / Time No Known Allergies Allergy Mild NONE Verified 10/27/18 11:40 Past Med/Surg History Medical History Weakness (Acute) Vitamin D deficiency (Acute) Vitamin B1 deficiency (Acute) Social anxiety disorder (Acute) Pulmonary nodule (Acute) Polyarthropathy or polyarthritis of multiple sites (Acute) Male erectile disorder of organic origin (Acute) Low back pain (Acute) Hypergammaglobulinemia (Acute) Esophageal spasm (Acute) Dupuytren's contracture of both hands (Acute) Cirrhosis (Acute) Cataracts, bilateral (Acute) Abnormal weight loss (Acute) Abnormal positron emission tomography (PET) scan (Acute) Hyperlipemia, retention Fatty liver Hepatitis C CLL (chronic lymphocytic leukemia) Leukemia COPD (chronic obstructive pulmonary disease) Alcohol abuse (Chronic) Hepatitis Family History Other Myocardial infarction Stroke Social History Preferred Language: Nigerien Communication Ability: Effective Beliefs That Will Affect Care: None Current Living Situation: Alone Current Living Situation Comment: HAS HOME HEALTH Other Information That Helps Us Care for You: No Feels Safe at Home: Yes Safety Concerns: Feels Safe At This Time Smoking Status: Current every day smoker Tobacco Type: cigarettes Cigarettes Per Day: 4 Hx Alcohol Use: No Hx Substance Use: Yes substance use type: marijuana Substance Use Type Other:: medical marijuana, 2 times per day Last Used Substance: Days (ago) Review of Systems See HPI for pertinent positives & negatives. and A total of 10 systems reviewed and were otherwise negative Physical Exam Vital Signs Vital Signs - 24 hr 10/27/18 10:43 10/27/18 11:06 10/27/18 11:09 Temperature 36.4 C L Temperature Source Oral Sepsis Recent Fever Within 48 Hours Yes Sepsis Action Taken by Nursing Physician Notified Pulse Rate 106 H 98 H 98 H Pulse Rate from SpO2 Sensor Pulse Rhythm Regular Pulse Strength Normal Respiratory Rate 24 16 13 Respiratory Effort / Characteristics Non-Labored Respiratory Depth Normal Respiratory Pattern Regular Blood Pressure 88/58 L 81/48 L Blood Pressure Mean 68 59 Blood Pressure Position Sitting Pulse Oximetry 90 Oxygen Delivery Method Room Air 10/27/18 11:15 10/27/18 11:16 10/27/18 11:17 Temperature Temperature Source Sepsis Recent Fever Within 48 Hours Sepsis Action Taken by Nursing Pulse Rate 98 H 103 H 91 H Pulse Rate from SpO2 Sensor 97 H 94 H 91 H Pulse Rhythm Pulse Strength Respiratory Rate 18 20 22 Respiratory Effort / Characteristics Respiratory Depth Respiratory Pattern Blood Pressure 106/64 Blood Pressure Mean 78 Blood Pressure Position Pulse Oximetry 93 95 97 Oxygen Delivery Method 10/27/18 11:30 10/27/18 11:31 10/27/18 11:37 Temperature Temperature Source Sepsis Recent Fever Within 48 Hours Sepsis Action Taken by Nursing Pulse Rate 91 H 91 H 91 H Pulse Rate from SpO2 Sensor 90 91 H 92 H Pulse Rhythm Pulse Strength Respiratory Rate 17 14 17 Respiratory Effort / Characteristics Respiratory Depth Respiratory Pattern Blood Pressure 101/61 101/61 Blood Pressure Mean 74 74 Blood Pressure Position Pulse Oximetry 90 92 91 Oxygen Delivery Method 10/27/18 11:45 10/27/18 11:48 10/27/18 12:00 Temperature Temperature Source Sepsis Recent Fever Within 48 Hours Sepsis Action Taken by Nursing Pulse Rate 89 93 H 93 H Pulse Rate from SpO2 Sensor 90 94 H 96 H Pulse Rhythm Pulse Strength Respiratory Rate 15 17 14 Respiratory Effort / Characteristics Respiratory Depth Respiratory Pattern Blood Pressure 104/62 114/73 Blood Pressure Mean 76 86 Blood Pressure Position Pulse Oximetry 97 93 94 Oxygen Delivery Method 10/27/18 12:01 10/27/18 12:31 10/27/18 12:32 Temperature Temperature Source Sepsis Recent Fever Within 48 Hours Sepsis Action Taken by Nursing Pulse Rate 94 H 93 H Pulse Rate from SpO2 Sensor 95 H 97 H 92 H Pulse Rhythm Pulse Strength Respiratory Rate 14 15 Respiratory Effort / Characteristics Respiratory Depth Respiratory Pattern Blood Pressure 105/61 Blood Pressure Mean 75 Blood Pressure Position Pulse Oximetry 91 94 92 Oxygen Delivery Method 10/27/18 12:33 10/27/18 12:45 10/27/18 12:46 Temperature Temperature Source Sepsis Recent Fever Within 48 Hours Sepsis Action Taken by Nursing Pulse Rate 94 H 89 91 H Pulse Rate from SpO2 Sensor 94 H 90 89 Pulse Rhythm Pulse Strength Respiratory Rate 16 13 15 Respiratory Effort / Characteristics Respiratory Depth Respiratory Pattern Blood Pressure 117/61 Blood Pressure Mean 79 Blood Pressure Position Pulse Oximetry 92 93 92 Oxygen Delivery Method 10/27/18 13:00 10/27/18 13:01 10/27/18 13:12 Temperature Temperature Source Sepsis Recent Fever Within 48 Hours Sepsis Action Taken by Nursing Pulse Rate 89 90 89 Pulse Rate from SpO2 Sensor 83 90 89 Pulse Rhythm Pulse Strength Respiratory Rate 10 L 12 14 Respiratory Effort / Characteristics Respiratory Depth Respiratory Pattern Blood Pressure 95/51 L 105/63 Blood Pressure Mean 65 77 Blood Pressure Position Pulse Oximetry 96 93 Oxygen Delivery Method 10/27/18 13:15 10/27/18 13:30 10/27/18 13:31 Temperature Temperature Source Sepsis Recent Fever Within 48 Hours Sepsis Action Taken by Nursing Pulse Rate 88 90 89 Pulse Rate from SpO2 Sensor 88 91 H 89 Pulse Rhythm Pulse Strength Respiratory Rate 17 13 16 Respiratory Effort / Characteristics Respiratory Depth Respiratory Pattern Blood Pressure 103/75 103/65 Blood Pressure Mean 84 77 Blood Pressure Position Pulse Oximetry 92 90 90 Oxygen Delivery Method 10/27/18 13:45 10/27/18 13:46 10/27/18 13:54 Temperature Temperature Source Sepsis Recent Fever Within 48 Hours Sepsis Action Taken by Nursing Pulse Rate 93 H 92 H Pulse Rate from SpO2 Sensor 94 H 92 H Pulse Rhythm Pulse Strength Respiratory Rate 13 14 Respiratory Effort / Characteristics Non-Labored Spontaneous Respiratory Depth Normal Respiratory Pattern Regular Blood Pressure 102/61 Blood Pressure Mean 74 Blood Pressure Position Pulse Oximetry 90 Oxygen Delivery Method Room Air 10/27/18 14:00 10/27/18 14:01 10/27/18 14:15 Temperature Temperature Source Sepsis Recent Fever Within 48 Hours Sepsis Action Taken by Nursing Pulse Rate 91 H 93 H 94 H Pulse Rate from SpO2 Sensor 89 93 H 93 H Pulse Rhythm Pulse Strength Respiratory Rate 18 15 17 Respiratory Effort / Characteristics Respiratory Depth Respiratory Pattern Blood Pressure 102/58 L 100/52 L Blood Pressure Mean 72 68 Blood Pressure Position Pulse Oximetry 94 94 92 Oxygen Delivery Method 10/27/18 14:30 10/27/18 14:31 10/27/18 14:45 Temperature Temperature Source Sepsis Recent Fever Within 48 Hours Sepsis Action Taken by Nursing Pulse Rate 93 H 94 H 92 H Pulse Rate from SpO2 Sensor 94 H 93 H 94 H Pulse Rhythm Pulse Strength Respiratory Rate 21 19 14 Respiratory Effort / Characteristics Respiratory Depth Respiratory Pattern Blood Pressure 99/65 L 106/59 L Blood Pressure Mean 76 74 Blood Pressure Position Pulse Oximetry 90 90 95 Oxygen Delivery Method 10/27/18 14:46 10/27/18 15:00 10/27/18 15:01 Temperature Temperature Source Sepsis Recent Fever Within 48 Hours Sepsis Action Taken by Nursing Pulse Rate 92 H 90 92 H Pulse Rate from SpO2 Sensor 92 H 92 H 92 H Pulse Rhythm Pulse Strength Respiratory Rate 13 13 16 Respiratory Effort / Characteristics Respiratory Depth Respiratory Pattern Blood Pressure 98/59 L Blood Pressure Mean 72 Blood Pressure Position Pulse Oximetry 95 93 95 Oxygen Delivery Method GENERAL:cachectic. He does appear distressed. HENT: Exam performed. - Head: Normocephalic and atraumatic. - Right Ear: External ear normal. No mastoid tenderness. - Left Ear: External ear normal. No mastoid tenderness. - Mouth/Throat: The oropharynx is clear and moist. No trismus in the jaw. No dental abscesses or uvula swelling. No oropharyngeal exudate or tonsillar abscesses. EYES: Conjunctivae and EOM are normal. Pupils are equal, round, and reactive to light. Right eye exhibits no discharge. Left eye exhibits no discharge. No scleral icterus. NECK: Normal range of motion. Neck supple. No JVD present. No spinous process tenderness present. No carotid bruit present. No rigidity. No tracheal deviation and normal range of motion present. No Brudzinski's sign and no Kernig's sign noted. CV: Tachycardic, regular rhythm, normal heart sounds and intact distal pulses. There is no peripheral edema. Palpable radial pulses bue. PULM/CHEST: Rhonchi bilaterally - Chest Wall: He exhibits no tenderness. ABD: Mildly distended. MUSC/SKEL: Normal range of motion. There is no peripheral edema, tenderness or deformity. LYMPH: No cervical adenopathy. NEURO: He is alert and oriented to person, place, and time. He has normal strength. No cranial nerve deficit or sensory deficit. Coordination and gait normal. GCS eye subscore is 4. GCS verbal subscore is 5. GCS motor subscore is 6. Cerebellar tests wnl. SKIN: Ecchymosis over the bilateral upper extremities. Warts over entire body, including forehead. PSYCH: He has a normal mood and affect. Behavior is normal. Judgment and thought content normal. Procedures Paracentesis Time Out Performed: Yes Indication: possible spontaneous bacterial peritonitis Procedure: diagnostic paracentesis Location: RLQ Local Anesthetic: lidocaine 1% and with epi Amount of anesthesia used (mL): 2 Bedside Ultrasound Used: yes, real-time guidance Preparation: sterile prep and drape Amount of fluid obtained (mL): 20 Fluid: clear Size of Needle Used: 20 Post Procedure Exam: awake, alert, normal BP, normal HR and normal SpO2 Patient Tolerated Procedure: well Complications: none Course 1053: The patient was evaluated in room B12. A complete history and physical exam was performed. Given the patient's tachycardia and hypotension, a code sepsis was immediately called. Large-bore IV access was immediately obtained and fluid resuscitation was immediately begun with normal saline. 1103: I reviewed past medical history for the patient. He has a history of of portal vein thrombosis, CLL, hepatitis C, COPD, lung mass, peripheral artery disease, and alcohol abuse. He was previously seen in ED on 08/14/18, discharged from hospital on 08/17/18. During admission the patient received Coumadin for portal vein thrombosis. Patient had a CTA of abdominal preformed during admission and it showed severe atherosclerotic changes in the abdomen and pelvic. Vascular surgery stated there was no surgery indicated, and was put on anticoagulation. There is also 80% stenosis of iliac artery bilaterally. High grade stenosis of the proximal right femoral artery. With partial occlusions by the patients right arterial stents. Partial collateral flow. The patient was negative for HIV in August but positive or hepatitis c. 1113: Bedside ultrasound showed small amount ascites. 1119: Patients POC lactic acid is 1.73, POC Creatinine is 0.8, and POC hemoglobin is 9.9 approximately 1 g lower than his baseline. 1131: Rectal exam showed black tarry stool and positive hemoccult. Patient will be started on Protonix drip. 1148: Bed side diagnostic paracentesis procedure performed guided by ultrasound. Performed with patient informed and consent signed. See procedure notes. 1315: Vital signs stable. Labs show leukocytosis of 38.7. Hemoglobin of 10, but lower than his baseline. Given the patient's melena, patient was started on Protonix and Protonix drip. Chest x-ray showed acute infiltrate. Bedside diagnostic ultrasound-guided paracentesis fluid was clear with peritoneal white blood cell count of 213. Patient will be started on antibiotics cefepime and vancomycin for sepsis presumed to be due to pulmonary source. I spoke with Dr. Schuler-hospitalist, she recommends that the patient be admitted to ICU. She would like a Octreotide drip be started. She will evaluate the patient for further management. The CT of abdomen showed thrombosis of portal vein and ascites. Also show right lower lobe pneumonia. Reevaluation(s) Reevaluation #1: I spoke with Dr. Schuler-hospitalist, she recommends that the patient be admitted to ICU. She would like a Octreotide drip be started. She will evaluate the patient for further management. Time: 13:15 Administered Medications Pantoprazole Sodium 40 mg/ (Dextrose) 100 mls @ 20 mls/hr IV Q5H LIZETT Stop: 11/26/18 11:59 Last Admin: 10/27/18 12:33 Dose: 8 mg/hr, 20 mls/hr Documented by: [id number] Ioversol (Optiray 320 100ml) 94 ml IV ONCE PRN PRN Reason: Interaction Checking Stop: 10/31/18 12:30 Last Admin: 10/27/18 12:31 Dose: 94 ml Documented by: [id number] Discontinued Medications Sodium Chloride (Nss 1000ml) 1,000 mls @ 999 mls/hr IV .Q1H1M LIZETT Stop: 10/27/18 12:00 Last Infusion: 10/27/18 12:33 Dose: 0 mls/hr Documented by: [id number] Admin: 10/27/18 11:05 Dose: 999 mls/hr Documented by: [id number] Sodium Chloride (Nss 1000ml) 1,000 mls @ 999 mls/hr IV .Q1H1M ONE Stop: 10/27/18 12:19 Last Infusion: 10/27/18 12:35 Dose: 0 mls/hr Documented by: [id number] Admin: 10/27/18 11:22 Dose: 999 mls/hr Documented by: [id number] Pantoprazole Sodium 80 mg/ (Dextrose) 120 mls @ 480 mls/hr IV ONE ONE Stop: 10/27/18 11:59 Last Infusion: 10/27/18 12:33 Dose: 0 mls/hr Documented by: [id number] Admin: 10/27/18 11:44 Dose: 480 mls/hr Documented by: [id number] Vancomycin HCl 1,000 mg/ (Sodium Chloride) 520 mls @ 200 mls/hr IV NOW STA Stop: 10/27/18 14:39 Last Admin: 10/27/18 12:47 Dose: 200 mls/hr Documented by: [id number] Cefepime HCl (Maxipime) 2,000 mg in 20 mls @ 5 mls/min IV NOW STA; Protocol Stop: 10/27/18 12:13 Last Admin: 10/27/18 13:07 Dose: 5 mls/min Documented by: [id number] Sodium Chloride (Nss 1000ml) 500 mls @ 999 mls/hr IV .Q31M ONE Stop: 10/27/18 12:42 Last Infusion: 10/27/18 13:11 Dose: 0 mls/hr Documented by: [id number] Admin: 10/27/18 12:38 Dose: 999 mls/hr Documented by: [id number] Lidocaine/Epinephrine (Xylocaine/Epinephrine 1%) Confirm Administered Dose 20 ml .ROUTE .STK-MED ONE Stop: 10/27/18 11:56 Last Admin: 10/27/18 12:33 Dose: 20 ml Documented by: [id number] Medical Decision Making Medical Records Attestation: I reviewed the patient's medical records. Home Medications Current Medication List: was personally reviewed by me Laboratory Data Attestation: I reviewed the patient's lab results. Result diagrams: 10/27/18 11:06 10/27/18 11:06 Lab Results 10/27/18 10/27/18 10/27/18 Range/Units 11:06 11:06 11:06 WBC 38.70 H* (4.8-10.8) K/uL RBC 3.34 L (4.7-6.1) M/uL Hgb 10.0 L (14.0-18.0) g/dL POC Hgb (14.0-18.0) g/dl Hct 29.2 L (42-52) % POC Hct (42-52) % MCV 87.4 (80-100) fL MCH 29.9 (25-34) pg MCHC 34.2 (32-36) g/dL RDW Std Deviation 49.2 H (36.4-46.3) fL RDW Coeff of Eliz 15.7 H (11.5-14.5) % Plt Count 358 (130-400) K/uL MPV 9.2 (7.4-10.4) fL Immature Gran % (Auto) 0.3 % Neut % (Auto) 28.5 % Lymph % (Auto) 68.4 % [place] % (Auto) 2.7 % Eos % (Auto) 0.0 % Baso % (Auto) 0.1 % Immature Gran # (Auto) 0.13 H (0.00-0.02) K/uL Neut # (Auto) 11.02 H (1.4-6.5) K/uL Lymph # (Auto) 26.49 H (1.2-3.4) K/uL [place] # (Auto) 1.03 H (0.11-0.59) K/uL Eos # (Auto) 0.00 (0-0.5) K/uL Baso # (Auto) 0.03 (0-0.2) K/uL Smudge Cells Present Echinocytes 2+ PT 39.1 H (9.0-12.0) Seconds INR 4.2 H (0.9-1.1) APTT 42.1 H (21.0-31.0) Seconds PTT Ratio 1.6 POC Sodium (135-144) mEq/L Sodium (136-145) mmol/L POC Potassium (3.3-5.0) mEq/L Potassium (3.5-5.1) mmol/L POC Chloride (101-112) mEq/L Chloride (98-107) mmol/L Carbon Dioxide (21-32) mmol/L POC Total CO2 (24-31) mEq/l Anion Gap (3-11) POC Anion Gap (16-25) mmol/L POC BUN (7-18) mg/dl BUN (7-18) mg/dl Creatinine (0.6-1.4) mg/dl POC Creatinine (0.6-1.3) mg/dl Est Cr Clr Drug Dosing ml/min Est GFR ( Amer) Est GFR (Non-Af Amer) BUN/Creatinine Ratio (10-20) Glucose (70-99) mg/dl POC Glucose (other) (70-99) mg/dl POC Lactic Acid [place] (0.90-1.70) mmol/L Calcium (8.5-10.1) mg/dl POC Ioniz Calcium José Miguel (1.12-1.32) mmol/l Magnesium (1.8-2.4) mg/dl Total Bilirubin (0.2-1) mg/dl Direct Bilirubin (0-0.2) mg/dl AST (15-37) U/L ALT (12-78) U/L Alkaline Phosphatase (45-117) U/L Ammonia 48.9 H (11-32) umol/L Troponin I (0-0.045) ng/ml Total Protein (6.4-8.2) gm/dl Albumin (3.4-5.0) gm/dl Lipase (73-393) U/L Peritoneal Color Peritoneal Appearance Peritoneal WBC (0-300) /ul Peritoneal RBC /uL Mononuclear WBCs % % Polynuclear WBCs % % Peritoneal Tot Protein g/dl Peritoneal Albumin g/dl Peritoneal Glucose mg/dl 10/27/18 10/27/18 10/27/18 Range/Units 11:06 11:10 11:14 WBC (4.8-10.8) K/uL RBC (4.7-6.1) M/uL Hgb (14.0-18.0) g/dL POC Hgb 9.9 L (14.0-18.0) g/dl Hct (42-52) % POC Hct 29 L (42-52) % MCV (80-100) fL MCH (25-34) pg MCHC (32-36) g/dL RDW Std Deviation (36.4-46.3) fL RDW Coeff of Eliz (11.5-14.5) % Plt Count (130-400) K/uL MPV (7.4-10.4) fL Immature Gran % (Auto) % Neut % (Auto) % Lymph % (Auto) % [place] % (Auto) % Eos % (Auto) % Baso % (Auto) % Immature Gran # (Auto) (0.00-0.02) K/uL Neut # (Auto) (1.4-6.5) K/uL Lymph # (Auto) (1.2-3.4) K/uL [place] # (Auto) (0.11-0.59) K/uL Eos # (Auto) (0-0.5) K/uL Baso # (Auto) (0-0.2) K/uL Smudge Cells Echinocytes PT (9.0-12.0) Seconds INR (0.9-1.1) APTT (21.0-31.0) Seconds PTT Ratio POC Sodium 137 (135-144) mEq/L Sodium 140 (136-145) mmol/L POC Potassium 3.9 (3.3-5.0) mEq/L Potassium 3.9 (3.5-5.1) mmol/L POC Chloride 107 (101-112) mEq/L Chloride 112 H (98-107) mmol/L Carbon Dioxide 16 L (21-32) mmol/L POC Total CO2 18 L (24-31) mEq/l Anion Gap 12.0 H (3-11) POC Anion Gap 17.0 (16-25) mmol/L POC BUN 35 H (7-18) mg/dl BUN 33 H (7-18) mg/dl Creatinine 0.89 (0.6-1.4) mg/dl POC Creatinine 0.8 (0.6-1.3) mg/dl Est Cr Clr Drug Dosing 57.3 ml/min Est GFR ( Amer) 108.5 Est GFR (Non-Af Amer) 93.6 BUN/Creatinine Ratio 36.9 H (10-20) Glucose 103 H (70-99) mg/dl POC Glucose (other) 104 H (70-99) mg/dl POC Lactic Acid [place] 1.73 H (0.90-1.70) mmol/L Calcium 8.4 L (8.5-10.1) mg/dl POC Ioniz Calcium José Miguel 1.10 L (1.12-1.32) mmol/l Magnesium 2.4 (1.8-2.4) mg/dl Total Bilirubin 0.8 (0.2-1) mg/dl Direct Bilirubin 0.5 H (0-0.2) mg/dl AST 207 H (15-37) U/L ALT 149 H (12-78) U/L Alkaline Phosphatase 166 H (45-117) U/L Ammonia (11-32) umol/L Troponin I < 0.015 (0-0.045) ng/ml Total Protein 5.9 L (6.4-8.2) gm/dl Albumin 2.1 L (3.4-5.0) gm/dl Lipase 89 (73-393) U/L Peritoneal Color Peritoneal Appearance Peritoneal WBC (0-300) /ul Peritoneal RBC /uL Mononuclear WBCs % % Polynuclear WBCs % % Peritoneal Tot Protein g/dl Peritoneal Albumin g/dl Peritoneal Glucose mg/dl 10/27/18 10/27/18 10/27/18 Range/Units 12:05 12:05 12:05 WBC (4.8-10.8) K/uL RBC (4.7-6.1) M/uL Hgb (14.0-18.0) g/dL POC Hgb (14.0-18.0) g/dl Hct (42-52) % POC Hct (42-52) % MCV (80-100) fL MCH (25-34) pg MCHC (32-36) g/dL RDW Std Deviation (36.4-46.3) fL RDW Coeff of Eliz (11.5-14.5) % Plt Count (130-400) K/uL MPV (7.4-10.4) fL Immature Gran % (Auto) % Neut % (Auto) % Lymph % (Auto) % [place] % (Auto) % Eos % (Auto) % Baso % (Auto) % Immature Gran # (Auto) (0.00-0.02) K/uL Neut # (Auto) (1.4-6.5) K/uL Lymph # (Auto) (1.2-3.4) K/uL [place] # (Auto) (0.11-0.59) K/uL Eos # (Auto) (0-0.5) K/uL Baso # (Auto) (0-0.2) K/uL Smudge Cells Echinocytes PT (9.0-12.0) Seconds INR (0.9-1.1) APTT (21.0-31.0) Seconds PTT Ratio POC Sodium (135-144) mEq/L Sodium (136-145) mmol/L POC Potassium (3.3-5.0) mEq/L Potassium (3.5-5.1) mmol/L POC Chloride (101-112) mEq/L Chloride (98-107) mmol/L Carbon Dioxide (21-32) mmol/L POC Total CO2 (24-31) mEq/l Anion Gap (3-11) POC Anion Gap (16-25) mmol/L POC BUN (7-18) mg/dl BUN (7-18) mg/dl Creatinine (0.6-1.4) mg/dl POC Creatinine (0.6-1.3) mg/dl Est Cr Clr Drug Dosing ml/min Est GFR ( Amer) Est GFR (Non-Af Amer) BUN/Creatinine Ratio (10-20) Glucose (70-99) mg/dl POC Glucose (other) (70-99) mg/dl POC Lactic Acid [place] (0.90-1.70) mmol/L Calcium (8.5-10.1) mg/dl POC Ioniz Calcium José Miguel (1.12-1.32) mmol/l Magnesium (1.8-2.4) mg/dl Total Bilirubin (0.2-1) mg/dl Direct Bilirubin (0-0.2) mg/dl AST (15-37) U/L ALT (12-78) U/L Alkaline Phosphatase (45-117) U/L Ammonia (11-32) umol/L Troponin I (0-0.045) ng/ml Total Protein (6.4-8.2) gm/dl Albumin (3.4-5.0) gm/dl Lipase (73-393) U/L Peritoneal Color STRAW Peritoneal Appearance CLEAR Peritoneal WBC 213 (0-300) /ul Peritoneal RBC < 3000 /uL Mononuclear WBCs % 70.5 % Polynuclear WBCs % 29.5 % Peritoneal Tot Protein 0.6 g/dl Peritoneal Albumin < 0.6 g/dl Peritoneal Glucose mg/dl 10/27/18 Range/Units 12:05 WBC (4.8-10.8) K/uL RBC (4.7-6.1) M/uL Hgb (14.0-18.0) g/dL POC Hgb (14.0-18.0) g/dl Hct (42-52) % POC Hct (42-52) % MCV (80-100) fL MCH (25-34) pg MCHC (32-36) g/dL RDW Std Deviation (36.4-46.3) fL RDW Coeff of Eliz (11.5-14.5) % Plt Count (130-400) K/uL MPV (7.4-10.4) fL Immature Gran % (Auto) % Neut % (Auto) % Lymph % (Auto) % [place] % (Auto) % Eos % (Auto) % Baso % (Auto) % Immature Gran # (Auto) (0.00-0.02) K/uL Neut # (Auto) (1.4-6.5) K/uL Lymph # (Auto) (1.2-3.4) K/uL [place] # (Auto) (0.11-0.59) K/uL Eos # (Auto) (0-0.5) K/uL Baso # (Auto) (0-0.2) K/uL Smudge Cells Echinocytes PT (9.0-12.0) Seconds INR (0.9-1.1) APTT (21.0-31.0) Seconds PTT Ratio POC Sodium (135-144) mEq/L Sodium (136-145) mmol/L POC Potassium (3.3-5.0) mEq/L Potassium (3.5-5.1) mmol/L POC Chloride (101-112) mEq/L Chloride (98-107) mmol/L Carbon Dioxide (21-32) mmol/L POC Total CO2 (24-31) mEq/l Anion Gap (3-11) POC Anion Gap (16-25) mmol/L POC BUN (7-18) mg/dl BUN (7-18) mg/dl Creatinine (0.6-1.4) mg/dl POC Creatinine (0.6-1.3) mg/dl Est Cr Clr Drug Dosing ml/min Est GFR ( Amer) Est GFR (Non-Af Amer) BUN/Creatinine Ratio (10-20) Glucose (70-99) mg/dl POC Glucose (other) (70-99) mg/dl POC Lactic Acid [place] (0.90-1.70) mmol/L Calcium (8.5-10.1) mg/dl POC Ioniz Calcium José Miguel (1.12-1.32) mmol/l Magnesium (1.8-2.4) mg/dl Total Bilirubin (0.2-1) mg/dl Direct Bilirubin (0-0.2) mg/dl AST (15-37) U/L ALT (12-78) U/L Alkaline Phosphatase (45-117) U/L Ammonia (11-32) umol/L Troponin I (0-0.045) ng/ml Total Protein (6.4-8.2) gm/dl Albumin (3.4-5.0) gm/dl Lipase (73-393) U/L Peritoneal Color Peritoneal Appearance Peritoneal WBC (0-300) /ul Peritoneal RBC /uL Mononuclear WBCs % % Polynuclear WBCs % % Peritoneal Tot Protein g/dl Peritoneal Albumin g/dl Peritoneal Glucose 103 mg/dl Imaging Data Radiologist's Impression: Radiology results as stated below per my review and the radiologist's interpretation: XR chest 1V portable CLINICAL HISTORY: code sepsis dyspnea COMPARISON STUDY: 08/14/2018 FINDINGS: Small parenchymal infiltrate versus atelectasis medial aspect right base. Lungs otherwise appear clear. Baseline emphysematous changes present. No significant cardiac enlargement. IMPRESSION: Small parenchymal infiltrate medial aspect right base. Emphysemato us change. The above report was generated using voice recognition software. It may contain grammatical, syntax or spelling errors. Electronically signed by: Edmund Wiggins M.D. 10/27/2018 11:30 AM ABDOMEN AND PELVIS CT WITH IV CONTRAST CT DOSE: 895.94 mGycm HISTORY: Analyzed abdominal pain diarrhea TECHNIQUE: Multiaxial CT images of the abdomen and pelvis were performed following the use of intravenous contrast. A dose lowering technique was utilized adhering to the principles of ALARA. COMPARISON STUDY: Abdomen and pelvis CTA 08/15/2018. FINDINGS: Patchy groundglass densities within the right middle lobe and left upper lobe. There are also linear densities within the right lower lobe with partial mucoid opacification the right lower lobe bronchi. Small bilateral pleural effusions. The heart is normal in size. No pneumoperitoneum. No pneumatosis. Right superficial femoral artery stent is again noted. No suspicious lytic or blastic osseous lesions. Redemonstration of the sclerotic liver with a few scattered hypodense lesions. Dominant lesion within the posterior 7 of the right hepatic lobe measures 13 mm. The gallbladder, spleen, adrenal glands, and pancreas are unremarkable. The kidneys enhance normally. No hydronephrosis. Extensive calcified plaque within the normal caliber abdominal aorta. Large amount of ascites which has progressed. The bladder is mildly distended. Diffuse body wall edema. No change in the retroperitoneal lymphadenopathy. Mildly enlarged left inguinal lymph node is also unchanged. Diffuse bowel wall thickening is likely due to the patient's edematous state. Rectal hemorrhoids are noted. 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 IMPRESSION: 1. Thrombosed portal veins. 2. Small bilateral pleural effusions. 3. Groundglass densities within the right middle lobe and lingula as well as patchy/linear densities within the right lower lobe. This may represent a pneumonia could be secondary to aspiration. 4. Large amount of ascites has progressed. 5. Small scattered hypodense lesions within the liver. These could represent dysplastic nodules or possibly multifocal hepatocellular carcinoma. GI consultation recommended. 6. Diffuse bowel wall thickening is and body wall edema is likely due to the patient's edematous state. 7. Persistent retroperitoneal lymphadenopathy. 8. Additional findings as described above. Electronically signed by: Gee Santamaria M.D. 10/27/2018 12:47 PM ECG Data Attestation: I personally reviewed and interpreted this ECG as follows: Indication: weakness Rhythm: normal sinus Findings: + other (PRQRS and QRC intervals normal ); no ST depression and no ST elevation MDM Narrative 1053: The patient was evaluated in room B12. A complete history and physical exam was performed. Given the patient's tachycardia and hypotension, a code sepsis was immediately called. Large-bore IV access was immediately obtained and fluid resuscitation was immediately begun with normal saline. 1103: I reviewed past medical history for the patient. He has a history of of portal vein thrombosis, CLL, hepatitis C, COPD, lung mass, peripheral artery disease, and alcohol abuse. He was previously seen in ED on 08/14/18, discharged from hospital on 08/17/18. During admission the patient received Coumadin for portal vein thrombosis. Patient had a CTA of abdominal preformed during admission and it showed severe atherosclerotic changes in the abdomen and pelvic. Vascular surgery stated there was no surgery indicated, and was put on anticoagulation. There is also 80% stenosis of iliac artery bilaterally. High grade stenosis of the proximal right femoral artery. With partial occlusions by the patients right arterial stents. Partial collateral flow. The patient was negative for HIV in August but positive or hepatitis c. 1113: Bedside ultrasound showed small amount ascites. 1119: Patients POC lactic acid is 1.73, POC Creatinine is 0.8, and POC hemoglobin is 9.9 approximately 1 g lower than his baseline. 1131: Rectal exam showed black tarry stool and positive hemoccult. Patient will be started on Protonix drip. 1148: Bed side diagnostic paracentesis procedure performed guided by ultrasound. Performed with patient informed and consent signed. See procedure notes. 1315: Vital signs stable. Labs show leukocytosis of 38.7. Hemoglobin of 10, but lower than his baseline. Given the patient's melena, patient was started on Protonix and Protonix drip. Chest x-ray showed acute infiltrate. Bedside diagnostic ultrasound-guided paracentesis fluid was clear with peritoneal white blood cell count of 213. Patient will be started on antibiotics cefepime and vancomycin for sepsis presumed to be due to pulmonary source. I spoke with Dr. Schuler-hospitalist, she recommends that the patient be admitted to ICU. She would like a Octreotide drip be started. She will evaluate the patient for further management. The CT of abdomen showed thrombosis of portal vein and ascites. Also show right lower lobe pneumonia. Impression & Plan Sepsis, Pneumonia, GI bleed Critical Care Time I have personally spent 59 minutes of critical care time in the direct management of this patient. This includes bedside care, interpretation of diagnostic studies, and testing, discussion with consultants, patient, and family members, and other required patient management activities. This 59 minutes is in excess of all separately billable procedures. Critical Care Time: Yes Total Critical Care Time: 59 Discharge Plan Visit Data Chief Complaint: Weakness Stated Complaint: WEAKNESS, ABD PAIN, DIARRHEA ED Provider: Charly French Discharge Problem: Sepsis, Pneumonia, GI bleed Patient Disposition: Being Evaluated by Hospitalist Forms Stand Alone Forms: My [facility] Prescriptions Prescriptions: No Action diphenhydramine-acetaminophen 25-500 mg tablet 1 tab PO .1 tablet po prn ever RF: 0 warfarin 6 mg Tablet 9 mg PO DIRECTED RF: 0 warfarin 6 mg tablet 6 mg PO DIRECTED RF: 0 atorvastatin [Lipitor] 40 mg tablet 40 mg PO DAILY RF: 0 cilostazol 100 mg tablet 100 mg PO BID RF: 0 ibuprofen [IBU] 800 mg tablet 800 mg PO TID PRN (Reason: Pain) RF: 0 amlodipine [Norvasc] 5 mg tablet 2.5 mg PO DAILY RF: 0 aspirin [Aspir-81] 81 mg Tablet,Delayed Release (Dr/Ec) 81 mg PO DAILY RF: 0 pantoprazole [Protonix] 40 mg tablet,delayed release (DR/EC) 40 mg PO DAILY RF: 0 Flovent HFA 220 mcg/actuation HFA aerosol inhaler 2 puff Inhalation BID RF: 0 losartan [Cozaar] 100 mg tablet 100 mg PO DAILY RF: 0 sertraline [Zoloft] 50 mg tablet 50 mg PO DAILY RF: 0 Combivent Respimat 20-100 mcg/actuation mist 1 puff Inhalation QID RF: 0 Referrals Referrals: Ge Johnston MD [Primary Care Provider] - Discharge Problem: Sepsis Qualifiers: Sepsis type: sepsis due to unspecified organism Qualified Code(s): A41.9 - Sepsis, unspecified organism Pneumonia Qualifiers: Pneumonia type: due to unspecified organism Laterality: right Lung location: lower lobe of lung Qualified Code(s): J18.1 - Lobar pneumonia, unspecified organism GI bleed Qualifiers: GI bleed type/associated pathology: melena Qualified Code(s): K92.1 - Melena The emibmagan's documentation has been prepared under my direction and personally reviewed by me in its entirety. I confirm that the note above accurately reflects all work, treatment, procedures, and medical decision making performed by me.
[2018-10-27] MEDS: OCTREOTIDE ACETATE 500 MCG in 0.9 % SODIUM CHLORIDE 100 ML IV SCH ×2 (15:29→23:07)
[2018-10-27] MEDS ORDERED: PIPERACILL/TAZOBAC CONSULT ACTIVE PRN (16:47)
[2018-10-27] MEDS ORDERED: ONDANSETRON INJ 2 MG/ML 2 ML VIAL IV PRN (16:47)
[2018-10-27] MEDS ORDERED: PIPERACILLIN/TAZOBACTAM 3.375 GM in DEXTROSE 5% 100 ML IV ONE (17:30)
[2018-10-27 17:48] LABS: Appearance Urine Clear (Clear); Bacteria Urine Automated Negative (Negative); Bilirubin Urine Negative (Negative); Blood Urine Negative (Negative); Color Urine Yellow; Epithelial Cell Urine Auto >30 /lpf (0-5); Glucose Urine UA Negative (Negative); Ketones Urine 1+ (Negative); Leukocyte Esterase Urine Negative (Negative); Nitrite Urine Negative (Negative); Protein Urine Trace (Negative); RBC Urine Automated 0-4 /hpf (0-4); Specific Gravity Urine 1.036 (1.000-1.030); Urobilinogen Urine Negative (Negative); WBC Urine Automated >30 /hpf (0-5)
[2018-10-27] MEDS: NICOTINE 14 MG/24 HR PATCH TD SCH (18:19)
[2018-10-27] MEDS: IPRATROPIUM BROMIDE/ALBUTEROL respimat INH INH SCH ×2 (18:19→20:28)
[2018-10-27 18:21] LABS: Renal Epithelial Cells Urine 0-5 /lpf (0-5); Sperm Urine Present (None Prsent)
[2018-10-27] MEDS ORDERED: OCTREOTIDE ACETATE 100 MCG in SYRINGE 9 ML IV ONE (19:00)
[2018-10-27] MEDS: ALBUMIN 25% 50 ML IV SCH ×2 (20:27→21:02)
[2018-10-27] MEDS: FLUTICASONE HFA 220 MCG INHALER INH SCH (20:28)
--- NOTE | 2018-10-27 21:06 | History & Physical Report ---
Date of Service October 27, 2018 Assessment & Plan (1) Abdominal pain: 58yo male with multiple medical problems to include liver cirrhosis secondary to HCV/EtOH, CLL, COPD presenting with failure to thrive, abdominal pain 1. Neuro: Patient AA&O x 4, neurological exam grossly nonfocal. No asterixis to suggest encephalopathy despite elevated ammonia level. History of depression -Delirium prevention strategies -Nicotine patch -Continue Zoloft 2. Pulm: Patient with COPD. Groundglass opacities suggestive of PNA, also with productive cough and progressive SOB. Lungs CTA, no wheezing appreciated. -Check Procalcitonin -Continue Combivent and Flovent -Encourage tobacco cessation -nicotine patch -Zosyn for possible PNA, ?aspiration. Patient with poor dentition 3. Cardiovascular: patient presented with hypotension which improved with IVF. Appears to be clinically volume contracted. Expect that he runs a low BP at baseline given history of cirrhosis. -Hold Losartan. This should most likely be discontinued on discharge due to r/o HRS and changed to diuretics, possible Nadolol/Propranolol use -Hold Amlodipine. -Hold ASA for now given elevated INR, Heme + stools and elevated INR -Hold Statin -Monitor BP. 4. GI: Patient with Cirrhosis secondary to HCV and EtOH. Presents with worsening ascites, elevated INR. Diagnostic paracentesis obtained in ER does not suggest SBP. Patient with history of PVT and is anticoagulated on Coumadin with supratherapeutic INR of 4.2 (elevation may be secondary to decompensated cirrhosis as well). CT demonstrates thrombosed portal veins, large amount of ascites and hypodense lesions in the liver which may be secondary to HCC. Also with Heme + stools. Does not appear to have had EGD in records - was evaluated by GI in 11/2017 and documented that EGD was refused at that time. -Protonix gtt -Octreotide gtt -Check AFP -GI Consult - appreciate assistance with this case -Daily INR -Daily LFTs -Hold Coumadin -Hold Statin -Consider initiating Lasix/Spironolactone for ascites management when BP and acute issues improve -Albumin 25% x 2 bottles -Na restriction 5. - Mildly elevated BUN, concern for GIB. Cr at baseline. Patient making urine. UA poor catch with >30 epis, no evidence of UTI -Monitor BUN, Cr, electrolytes and UOP 6. Heme - CLL, presently unreated. Elevated WBC at 38.7. Normochromic/normocytic anemia, Hg=10 from 12 in setting of heme + stools. Plt = 358 -Check peripheral smear -Trend CBC -Oncology consultation - assistance appreciated 7. ID - afebrile, leukocytosis in setting of CLL -Follow culutres -Zosyn as above for possible PNA/aspiration 8. Endocrine - CHINTAN F/E/N - Albumin x 2 bottles, monitor electrolytes and correct as needed, low Na diet as tolerated Ppx - INR=4.2, hold chemoprophylaxis for now Code - Full per discussion with patient Dispo - PCU History of Present Illness Chief Complaint: abdominal pain Primary Care Provider: Darci Johnston MD Cyrus Martins is a 58yo C male with multiple medical comorbidities. Patient with remote history of EtOh abuse and IVDU, HCV and cirrhosis, CLL and lung mass. Patient was admitted to our service August 17, 2018 with severe abdominal pain. He was diagnosed with portal vein thrombosis and pancolitis. He was started on anticoagulation with Coumadin and discharged home. Patient followed up with Dr. Johnston on 08/19 and was given Oxycodone and Zofran for pain and and nausea. He followed up with Pulmonary on 08/26 as well. Patient reports that he has been doing poorly overall since that admission. He has had progressive weakness and functional decline over the last two months with rapid worsening over the last 1-2 weeks. Patient spends most of his time in bed and is too weak to get up and care for himself. He also has diffuse abdominal pain. Also with diarrhea - small, frequent BMs, watery and black in color. Denies nausea/vomiting/hematemesis. Denies dysuria/frequency/urgency. He does report worsening of abdominal fullness and swelling. Also with cough productive of yellowish sputum, SOB and worsening hoarseness. Poor appetite and decreased PO intake. Patient has CLL diagnosed by flow cytometry 04/28/17. He follows infrequently with Oncology. PET scan obtained on 01/04/18 with spiculated nodule of left lung apex, hypermetabolic nodules in RUL/RML, enlarged lymph nodes, increased activity in skeletal structures. He was told that the nodule in the ORTIZ is not cancer and it has never been biopsied. Allergies Allergy/AdvReac Type Severity Reaction Status Date / Time No Known Allergies Allergy Mild NONE Verified 10/27/18 11:40 Home Medications Home Medications Medication Instructions Recorded Confirmed Type Combivent Respimat 1 puff INHALATION QID 08/14/18 10/27/18 History Flovent HFA 2 puff INHALATION BID 08/14/18 10/27/18 History amlodipine [Norvasc] 2.5 mg PO DAILY 08/14/18 10/27/18 History aspirin [Aspir-81] 81 mg PO DAILY 08/14/18 10/27/18 History atorvastatin [Lipitor] 40 mg PO DAILY 08/14/18 10/27/18 History cilostazol 100 mg PO BID 08/14/18 10/27/18 History ibuprofen [IBU] 800 mg PO TID PRN 08/14/18 10/27/18 History losartan [Cozaar] 100 mg PO DAILY 08/14/18 10/27/18 History pantoprazole [Protonix] 40 mg PO DAILY 08/14/18 10/27/18 History sertraline [Zoloft] 50 mg PO DAILY 08/14/18 10/27/18 History diphenhydramine 25 1 tab PO .1 tablet po prn ever tab 10/15/18 10/27/18 History mg-acetaminophen 500 mg tablet warfarin 6 mg PO DIRECTED 10/27/18 10/27/18 History warfarin 9 mg PO DIRECTED 10/27/18 10/27/18 History Past Med/Surg History Medical History Weakness (Acute) Vitamin D deficiency (Acute) Vitamin B1 deficiency (Acute) Social anxiety disorder (Acute) Pulmonary nodule (Acute) Polyarthropathy or polyarthritis of multiple sites (Acute) Male erectile disorder of organic origin (Acute) Low back pain (Acute) Hypergammaglobulinemia (Acute) Esophageal spasm (Acute) Dupuytren's contracture of both hands (Acute) Cirrhosis (Acute) Cataracts, bilateral (Acute) Abnormal weight loss (Acute) Abnormal positron emission tomography (PET) scan (Acute) Hyperlipemia, retention Fatty liver Hepatitis C CLL (chronic lymphocytic leukemia) Leukemia COPD (chronic obstructive pulmonary disease) Alcohol abuse (Chronic) Hepatitis Surgical History History of ankle surgery History of tonsillectomy Family History Other Myocardial infarction Stroke Social History Preferred Language: Macedonian Communication Ability: Effective Beliefs That Will Affect Care: None Current Living Situation: Alone Current Living Situation Comment: HAS HOME HEALTH Other Information That Helps Us Care for You: No Feels Safe at Home: Yes Safety Concerns: Feels Safe At This Time Smoking Status: Current every day smoker Tobacco Type: cigarettes Cigarettes Per Day: 4 Hx Alcohol Use: No Hx Substance Use: Yes substance use type: marijuana Substance Use Type Other:: medical marijuana, 2 times per day Last Used Substance: Days (ago) Review of Systems Review of Systems: All systems reviewed & are unremarkable except as noted in HPI & below Unable to comment on weight loss Physical Exam Physical Exam: General: patient severely cachectic, temporal wasting, chronically ill in appearance, NAD, AA&O x 4 Skin: dry, flaking, scattered vargas hemangiomas on abdominal wall, warm, darkening of skin of LE, onychomycosis with bunions on feet, thick callous on right heel HEENT: NC/AT, PERRL, EOMI, anicteric sclera, conjunctiva without injection, external ear normal to inspection and nontender, nares patent, dry mucus membranes, poor dentition with broken teeth, no oropharyngeal lesions, neck supple, trachea midline, no LAD, no thyromegaly, no JVD Heart: +S1/S2, regular, no m/r/g Lungs: equal air entry bilaterally, diminished in bases, no rales/rhonchi/wheezes Abd: +BS, soft, diffusely tender with deep palpation, no rebound/guarding/peritoneal signs, + ascites Ext: warm, 2+ pulses in UE/LE bilaterally, Dupuytren's contractures bilateral hands, +clubbing Neuro: nonfocal, patient AA&O x 4, speech intact, no facial droop, moving all extremities on command with equal strength 5/5 Results & Data Vital Signs (Past 12 Hours) Vital Signs Temp Pulse Pulse Resp BP BP Pulse Ox 10/27/18 19:18 36.4 C L 97 H 16 95/62 L 95 10/27/18 16:46 36.3 C L 95 H 16 95/63 L 95 10/27/18 15:45 95 H 22 116/70 10/27/18 15:31 91 H 14 95 10/27/18 15:30 90 18 99/65 L 10/27/18 15:28 95 H 20 99/61 L 94 10/27/18 15:27 91 H 18 99/61 L 95 10/27/18 15:16 95 H 23 94 10/27/18 15:15 95 H 16 109/68 95 10/27/18 15:01 92 H 16 95 10/27/18 15:00 90 13 98/59 L 93 10/27/18 14:46 92 H 13 95 10/27/18 14:45 92 H 14 106/59 L 95 10/27/18 14:31 94 H 19 90 10/27/18 14:30 93 H 21 99/65 L 90 10/27/18 14:15 94 H 17 100/52 L 92 10/27/18 14:01 93 H 15 94 10/27/18 14:00 91 H 18 102/58 L 94 10/27/18 13:46 92 H 14 90 10/27/18 13:45 93 H 13 102/61 10/27/18 13:31 89 16 90 10/27/18 13:30 90 13 103/65 90 10/27/18 13:15 88 17 103/75 92 10/27/18 13:12 89 14 105/63 93 10/27/18 13:01 90 12 95/51 L 96 10/27/18 13:00 89 10 L 10/27/18 12:46 91 H 15 117/61 92 10/27/18 12:45 89 13 93 10/27/18 12:33 94 H 16 92 10/27/18 12:32 93 H 15 105/61 92 10/27/18 12:31 94 10/27/18 12:01 94 H 14 91 10/27/18 12:00 93 H 14 114/73 94 10/27/18 11:48 93 H 17 104/62 93 10/27/18 11:45 89 15 97 10/27/18 11:37 91 H 17 101/61 91 10/27/18 11:31 91 H 14 92 10/27/18 11:30 91 H 17 101/61 90 10/27/18 11:17 91 H 22 97 10/27/18 11:16 103 H 20 106/64 95 10/27/18 11:15 98 H 18 93 10/27/18 11:09 98 H 13 81/48 L 10/27/18 11:06 98 H 16 10/27/18 10:43 36.4 C L 106 H 24 88/58 L 90 Laboratory Results Lab Results 10/27/18 10/27/18 10/27/18 Range/Units 11:06 11:06 11:06 WBC 38.70 H* (4.8-10.8) K/uL RBC 3.34 L (4.7-6.1) M/uL Hgb 10.0 L (14.0-18.0) g/dL POC Hgb (14.0-18.0) g/dl Hct 29.2 L (42-52) % POC Hct (42-52) % MCV 87.4 (80-100) fL MCH 29.9 (25-34) pg MCHC 34.2 (32-36) g/dL RDW Std Deviation 49.2 H (36.4-46.3) fL RDW Coeff of Eliz 15.7 H (11.5-14.5) % Plt Count 358 (130-400) K/uL MPV 9.2 (7.4-10.4) fL Immature Gran % (Auto) 0.3 % Neut % (Auto) 28.5 % Lymph % (Auto) 68.4 % Holmes % (Auto) 2.7 % Eos % (Auto) 0.0 % Baso % (Auto) 0.1 % Immature Gran # (Auto) 0.13 H (0.00-0.02) K/uL Neut # (Auto) 11.02 H (1.4-6.5) K/uL Lymph # (Auto) 26.49 H (1.2-3.4) K/uL Holmes # (Auto) 1.03 H (0.11-0.59) K/uL Eos # (Auto) 0.00 (0-0.5) K/uL Baso # (Auto) 0.03 (0-0.2) K/uL Smudge Cells Present Echinocytes 2+ PT 39.1 H (9.0-12.0) Seconds INR 4.2 H (0.9-1.1) APTT 42.1 H (21.0-31.0) Seconds PTT Ratio 1.6 POC Sodium (135-144) mEq/L Sodium (136-145) mmol/L POC Potassium (3.3-5.0) mEq/L Potassium (3.5-5.1) mmol/L POC Chloride (101-112) mEq/L Chloride (98-107) mmol/L Carbon Dioxide (21-32) mmol/L POC Total CO2 (24-31) mEq/l Anion Gap (3-11) POC Anion Gap (16-25) mmol/L POC BUN (7-18) mg/dl BUN (7-18) mg/dl Creatinine (0.6-1.4) mg/dl POC Creatinine (0.6-1.3) mg/dl Est Cr Clr Drug Dosing ml/min Est GFR ( Amer) Est GFR (Non-Af Amer) BUN/Creatinine Ratio (10-20) Glucose (70-99) mg/dl POC Glucose (other) (70-99) mg/dl POC Lactic Acid Kodi (0.90-1.70) mmol/L Calcium (8.5-10.1) mg/dl POC Ioniz Calcium José Miguel (1.12-1.32) mmol/l Phosphorus (2.5-4.9) mg/dl Magnesium (1.8-2.4) mg/dl Total Bilirubin (0.2-1) mg/dl Direct Bilirubin (0-0.2) mg/dl AST (15-37) U/L ALT (12-78) U/L Alkaline Phosphatase (45-117) U/L Ammonia 48.9 H (11-32) umol/L Troponin I (0-0.045) ng/ml Total Protein (6.4-8.2) gm/dl Albumin (3.4-5.0) gm/dl Lipase (73-393) U/L Procalcitonin (0-0.5) ng/ml Urine Color Urine Appearance (Clear) Urine pH (4.5-7.5) Ur Specific [place] (1.000-1.030) Urine Protein (Negative) Urine Glucose (UA) (Negative) Urine Ketones (Negative) Urine Blood (Negative) Urine Nitrite (Negative) Urine Bilirubin (Negative) Urine Urobilinogen (Negative) Ur Leukocyte Esterase (Negative) Urine WBC (Auto) (0-5) /hpf Urine RBC (Auto) (0-4) /hpf U Hyaline Cast (Auto) (0-5) /lpf U Epithel Cells (Auto) (0-5) /lpf Urine Bacteria (Auto) (Negative) Ur Renal Epithelial Cell (0-5) /lpf Urine Sperm (None Prsent) Peritoneal Color Peritoneal Appearance Peritoneal WBC (0-300) /ul Peritoneal RBC /uL Mononuclear WBCs % % Polynuclear WBCs % % Peritoneal Tot Protein g/dl Peritoneal Albumin g/dl Peritoneal Glucose mg/dl 10/27/18 10/27/18 10/27/18 Range/Units 11:06 11:10 11:14 WBC (4.8-10.8) K/uL RBC (4.7-6.1) M/uL Hgb (14.0-18.0) g/dL POC Hgb 9.9 L (14.0-18.0) g/dl Hct (42-52) % POC Hct 29 L (42-52) % MCV (80-100) fL MCH (25-34) pg MCHC (32-36) g/dL RDW Std Deviation (36.4-46.3) fL RDW Coeff of Eliz (11.5-14.5) % Plt Count (130-400) K/uL MPV (7.4-10.4) fL Immature Gran % (Auto) % Neut % (Auto) % Lymph % (Auto) % Holmes % (Auto) % Eos % (Auto) % Baso % (Auto) % Immature Gran # (Auto) (0.00-0.02) K/uL Neut # (Auto) (1.4-6.5) K/uL Lymph # (Auto) (1.2-3.4) K/uL Holmes # (Auto) (0.11-0.59) K/uL Eos # (Auto) (0-0.5) K/uL Baso # (Auto) (0-0.2) K/uL Smudge Cells Echinocytes PT (9.0-12.0) Seconds INR (0.9-1.1) APTT (21.0-31.0) Seconds PTT Ratio POC Sodium 137 (135-144) mEq/L Sodium 140 (136-145) mmol/L POC Potassium 3.9 (3.3-5.0) mEq/L Potassium 3.9 (3.5-5.1) mmol/L POC Chloride 107 (101-112) mEq/L Chloride 112 H (98-107) mmol/L Carbon Dioxide 16 L (21-32) mmol/L POC Total CO2 18 L (24-31) mEq/l Anion Gap 12.0 H (3-11) POC Anion Gap 17.0 (16-25) mmol/L POC BUN 35 H (7-18) mg/dl BUN 33 H (7-18) mg/dl Creatinine 0.89 (0.6-1.4) mg/dl POC Creatinine 0.8 (0.6-1.3) mg/dl Est Cr Clr Drug Dosing 57.3 ml/min Est GFR ( Amer) 108.5 Est GFR (Non-Af Amer) 93.6 BUN/Creatinine Ratio 36.9 H (10-20) Glucose 103 H (70-99) mg/dl POC Glucose (other) 104 H (70-99) mg/dl POC Lactic Acid Kodi 1.73 H (0.90-1.70) mmol/L Calcium 8.4 L (8.5-10.1) mg/dl POC Ioniz Calcium José Miguel 1.10 L (1.12-1.32) mmol/l Phosphorus (2.5-4.9) mg/dl Magnesium 2.4 (1.8-2.4) mg/dl Total Bilirubin 0.8 (0.2-1) mg/dl Direct Bilirubin 0.5 H (0-0.2) mg/dl AST 207 H (15-37) U/L ALT 149 H (12-78) U/L Alkaline Phosphatase 166 H (45-117) U/L Ammonia (11-32) umol/L Troponin I < 0.015 (0-0.045) ng/ml Total Protein 5.9 L (6.4-8.2) gm/dl Albumin 2.1 L (3.4-5.0) gm/dl Lipase 89 (73-393) U/L Procalcitonin (0-0.5) ng/ml Urine Color Urine Appearance (Clear) Urine pH (4.5-7.5) Ur Specific [place] (1.000-1.030) Urine Protein (Negative) Urine Glucose (UA) (Negative) Urine Ketones (Negative) Urine Blood (Negative) Urine Nitrite (Negative) Urine Bilirubin (Negative) Urine Urobilinogen (Negative) Ur Leukocyte Esterase (Negative) Urine WBC (Auto) (0-5) /hpf Urine RBC (Auto) (0-4) /hpf U Hyaline Cast (Auto) (0-5) /lpf U Epithel Cells (Auto) (0-5) /lpf Urine Bacteria (Auto) (Negative) Ur Renal Epithelial Cell (0-5) /lpf Urine Sperm (None Prsent) Peritoneal Color Peritoneal Appearance Peritoneal WBC (0-300) /ul Peritoneal RBC /uL Mononuclear WBCs % % Polynuclear WBCs % % Peritoneal Tot Protein g/dl Peritoneal Albumin g/dl Peritoneal Glucose mg/dl 10/27/18 10/27/18 10/27/18 Range/Units 12:05 12:05 12:05 WBC (4.8-10.8) K/uL RBC (4.7-6.1) M/uL Hgb (14.0-18.0) g/dL POC Hgb (14.0-18.0) g/dl Hct (42-52) % POC Hct (42-52) % MCV (80-100) fL MCH (25-34) pg MCHC (32-36) g/dL RDW Std Deviation (36.4-46.3) fL RDW Coeff of Eliz (11.5-14.5) % Plt Count (130-400) K/uL MPV (7.4-10.4) fL Immature Gran % (Auto) % Neut % (Auto) % Lymph % (Auto) % Holmes % (Auto) % Eos % (Auto) % Baso % (Auto) % Immature Gran # (Auto) (0.00-0.02) K/uL Neut # (Auto) (1.4-6.5) K/uL Lymph # (Auto) (1.2-3.4) K/uL Holmes # (Auto) (0.11-0.59) K/uL Eos # (Auto) (0-0.5) K/uL Baso # (Auto) (0-0.2) K/uL Smudge Cells Echinocytes PT (9.0-12.0) Seconds INR (0.9-1.1) APTT (21.0-31.0) Seconds PTT Ratio POC Sodium (135-144) mEq/L Sodium (136-145) mmol/L POC Potassium (3.3-5.0) mEq/L Potassium (3.5-5.1) mmol/L POC Chloride (101-112) mEq/L Chloride (98-107) mmol/L Carbon Dioxide (21-32) mmol/L POC Total CO2 (24-31) mEq/l Anion Gap (3-11) POC Anion Gap (16-25) mmol/L POC BUN (7-18) mg/dl BUN (7-18) mg/dl Creatinine (0.6-1.4) mg/dl POC Creatinine (0.6-1.3) mg/dl Est Cr Clr Drug Dosing ml/min Est GFR ( Amer) Est GFR (Non-Af Amer) BUN/Creatinine Ratio (10-20) Glucose (70-99) mg/dl POC Glucose (other) (70-99) mg/dl POC Lactic Acid [place]odi (0.90-1.70) mmol/L Calcium (8.5-10.1) mg/dl POC Ioniz Calcium José Miguel (1.12-1.32) mmol/l Phosphorus (2.5-4.9) mg/dl Magnesium (1.8-2.4) mg/dl Total Bilirubin (0.2-1) mg/dl Direct Bilirubin (0-0.2) mg/dl AST (15-37) U/L ALT (12-78) U/L Alkaline Phosphatase (45-117) U/L Ammonia (11-32) umol/L Troponin I (0-0.045) ng/ml Total Protein (6.4-8.2) gm/dl Albumin (3.4-5.0) gm/dl Lipase (73-393) U/L Procalcitonin (0-0.5) ng/ml Urine Color Urine Appearance (Clear) Urine pH (4.5-7.5) Ur Specific [place] (1.000-1.030) Urine Protein (Negative) Urine Glucose (UA) (Negative) Urine Ketones (Negative) Urine Blood (Negative) Urine Nitrite (Negative) Urine Bilirubin (Negative) Urine Urobilinogen (Negative) Ur Leukocyte Esterase (Negative) Urine WBC (Auto) (0-5) /hpf Urine RBC (Auto) (0-4) /hpf U Hyaline Cast (Auto) (0-5) /lpf U Epithel Cells (Auto) (0-5) /lpf Urine Bacteria (Auto) (Negative) Ur Renal Epithelial Cell (0-5) /lpf Urine Sperm (None Prsent) Peritoneal Color STRAW Peritoneal Appearance CLEAR Peritoneal WBC 213 (0-300) /ul Peritoneal RBC < 3000 /uL Mononuclear WBCs % 70.5 % Polynuclear WBCs % 29.5 % Peritoneal Tot Protein 0.6 g/dl Peritoneal Albumin < 0.6 g/dl Peritoneal Glucose mg/dl 10/27/18 10/27/18 10/27/18 Range/Units 12:05 17:07 17:07 WBC (4.8-10.8) K/uL RBC (4.7-6.1) M/uL Hgb (14.0-18.0) g/dL POC Hgb (14.0-18.0) g/dl Hct (42-52) % POC Hct (42-52) % MCV (80-100) fL MCH (25-34) pg MCHC (32-36) g/dL RDW Std Deviation (36.4-46.3) fL RDW Coeff of Eliz (11.5-14.5) % Plt Count (130-400) K/uL MPV (7.4-10.4) fL Immature Gran % (Auto) % Neut % (Auto) % Lymph % (Auto) % Holmes % (Auto) % Eos % (Auto) % Baso % (Auto) % Immature Gran # (Auto) (0.00-0.02) K/uL Neut # (Auto) (1.4-6.5) K/uL Lymph # (Auto) (1.2-3.4) K/uL Holmes # (Auto) (0.11-0.59) K/uL Eos # (Auto) (0-0.5) K/uL Baso # (Auto) (0-0.2) K/uL Smudge Cells Echinocytes PT (9.0-12.0) Seconds INR (0.9-1.1) APTT (21.0-31.0) Seconds PTT Ratio POC Sodium (135-144) mEq/L Sodium (136-145) mmol/L POC Potassium (3.3-5.0) mEq/L Potassium (3.5-5.1) mmol/L POC Chloride (101-112) mEq/L Chloride (98-107) mmol/L Carbon Dioxide (21-32) mmol/L POC Total CO2 (24-31) mEq/l Anion Gap (3-11) POC Anion Gap (16-25) mmol/L POC BUN (7-18) mg/dl BUN (7-18) mg/dl Creatinine (0.6-1.4) mg/dl POC Creatinine (0.6-1.3) mg/dl Est Cr Clr Drug Dosing ml/min Est GFR ( Amer) Est GFR (Non-Af Amer) BUN/Creatinine Ratio (10-20) Glucose (70-99) mg/dl POC Glucose (other) (70-99) mg/dl POC Lactic Acid [place] (0.90-1.70) mmol/L Calcium (8.5-10.1) mg/dl POC Ioniz Calcium José Miguel (1.12-1.32) mmol/l Phosphorus 3.4 (2.5-4.9) mg/dl Magnesium (1.8-2.4) mg/dl Total Bilirubin (0.2-1) mg/dl Direct Bilirubin (0-0.2) mg/dl AST (15-37) U/L ALT (12-78) U/L Alkaline Phosphatase (45-117) U/L Ammonia (11-32) umol/L Troponin I (0-0.045) ng/ml Total Protein (6.4-8.2) gm/dl Albumin (3.4-5.0) gm/dl Lipase (73-393) U/L Procalcitonin 0.38 (0-0.5) ng/ml Urine Color Urine Appearance (Clear) Urine pH (4.5-7.5) Ur Specific [place] (1.000-1.030) Urine Protein (Negative) Urine Glucose (UA) (Negative) Urine Ketones (Negative) Urine Blood (Negative) Urine Nitrite (Negative) Urine Bilirubin (Negative) Urine Urobilinogen (Negative) Ur Leukocyte Esterase (Negative) Urine WBC (Auto) (0-5) /hpf Urine RBC (Auto) (0-4) /hpf U Hyaline Cast (Auto) (0-5) /lpf U Epithel Cells (Auto) (0-5) /lpf Urine Bacteria (Auto) (Negative) Ur Renal Epithelial Cell (0-5) /lpf Urine Sperm (None Prsent) Peritoneal Color Peritoneal Appearance Peritoneal WBC (0-300) /ul Peritoneal RBC /uL Mononuclear WBCs % % Polynuclear WBCs % % Peritoneal Tot Protein g/dl Peritoneal Albumin g/dl Peritoneal Glucose 103 mg/dl 10/27/18 Range/Units 17:20 WBC (4.8-10.8) K/uL RBC (4.7-6.1) M/uL Hgb (14.0-18.0) g/dL POC Hgb (14.0-18.0) g/dl Hct (42-52) % POC Hct (42-52) % MCV (80-100) fL MCH (25-34) pg MCHC (32-36) g/dL RDW Std Deviation (36.4-46.3) fL RDW Coeff of Eliz (11.5-14.5) % Plt Count (130-400) K/uL MPV (7.4-10.4) fL Immature Gran % (Auto) % Neut % (Auto) % Lymph % (Auto) % Holmes % (Auto) % Eos % (Auto) % Baso % (Auto) % Immature Gran # (Auto) (0.00-0.02) K/uL Neut # (Auto) (1.4-6.5) K/uL Lymph # (Auto) (1.2-3.4) K/uL Holmes # (Auto) (0.11-0.59) K/uL Eos # (Auto) (0-0.5) K/uL Baso # (Auto) (0-0.2) K/uL Smudge Cells Echinocytes PT (9.0-12.0) Seconds INR (0.9-1.1) APTT (21.0-31.0) Seconds PTT Ratio POC Sodium (135-144) mEq/L Sodium (136-145) mmol/L POC Potassium (3.3-5.0) mEq/L Potassium (3.5-5.1) mmol/L POC Chloride (101-112) mEq/L Chloride (98-107) mmol/L Carbon Dioxide (21-32) mmol/L POC Total CO2 (24-31) mEq/l Anion Gap (3-11) POC Anion Gap (16-25) mmol/L POC BUN (7-18) mg/dl BUN (7-18) mg/dl Creatinine (0.6-1.4) mg/dl POC Creatinine (0.6-1.3) mg/dl Est Cr Clr Drug Dosing ml/min Est GFR ( Amer) Est GFR (Non-Af Amer) BUN/Creatinine Ratio (10-20) Glucose (70-99) mg/dl POC Glucose (other) (70-99) mg/dl POC Lactic Acid [place] (0.90-1.70) mmol/L Calcium (8.5-10.1) mg/dl POC Ioniz Calcium José Miguel (1.12-1.32) mmol/l Phosphorus (2.5-4.9) mg/dl Magnesium (1.8-2.4) mg/dl Total Bilirubin (0.2-1) mg/dl Direct Bilirubin (0-0.2) mg/dl AST (15-37) U/L ALT (12-78) U/L Alkaline Phosphatase (45-117) U/L Ammonia (11-32) umol/L Troponin I (0-0.045) ng/ml Total Protein (6.4-8.2) gm/dl Albumin (3.4-5.0) gm/dl Lipase (73-393) U/L Procalcitonin (0-0.5) ng/ml Urine Color Yellow Urine Appearance Clear (Clear) Urine pH 6.0 (4.5-7.5) Ur Specific [place] 1.036 H (1.000-1.030) Urine Protein Trace H (Negative) Urine Glucose (UA) Negative (Negative) Urine Ketones 1+ H (Negative) Urine Blood Negative (Negative) Urine Nitrite Negative (Negative) Urine Bilirubin Negative (Negative) Urine Urobilinogen Negative (Negative) Ur Leukocyte Esterase Negative (Negative) Urine WBC (Auto) >30 H (0-5) /hpf Urine RBC (Auto) 0-4 (0-4) /hpf U Hyaline Cast (Auto) 5-10 H (0-5) /lpf U Epithel Cells (Auto) >30 H (0-5) /lpf Urine Bacteria (Auto) Negative (Negative) Ur Renal Epithelial Cell 0-5 (0-5) /lpf Urine Sperm Present A (None Prsent) Peritoneal Color Peritoneal Appearance Peritoneal WBC (0-300) /ul Peritoneal RBC /uL Mononuclear WBCs % % Polynuclear WBCs % % Peritoneal Tot Protein g/dl Peritoneal Albumin g/dl Peritoneal Glucose mg/dl Diagnostic Findings ABDOMEN AND PELVIS CT WITH IV CONTRAST CT DOSE: 895.94 mGycm HISTORY: Analyzed abdominal pain diarrhea TECHNIQUE: Multiaxial CT images of the abdomen and pelvis were performed following the use of intravenous contrast. A dose lowering technique was utilized adhering to the principles of ALARA. COMPARISON STUDY: Abdomen and pelvis CTA 08/15/2018. FINDINGS: Patchy groundglass densities within the right middle lobe and left upper lobe. There are also linear densities within the right lower lobe with partial mucoid opacification the right lower lobe bronchi. Small bilateral pleural effusions. The heart is normal in size. No pneumoperitoneum. No pneumatosis. Right superficial femoral artery stent is again noted. No suspicious lytic or blastic osseous lesions. Redemonstration of the sclerotic liver with a few scattered hypodense lesions. Dominant lesion within the posterior 7 of the right hepatic lobe measures 13 mm. The gallbladder, spleen, adrenal glands, and pancreas are unremarkable. The kidneys enhance normally. No hydronephrosis. Extensive calcified plaque within the normal caliber abdominal aorta. Large amount of ascites which has progressed. The bladder is mildly distended. Diffuse body wall edema. No change in the retroperitoneal lymphadenopathy. Mildly enlarged left inguinal lymph node is also unchanged. Diffuse bowel wall thickening is likely due to the patient's edematous state. Rectal hemorrhoids are noted. 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 IMPRESSION: 1. Thrombosed portal veins. 2. Small bilateral pleural effusions. 3. Groundglass densities within the right middle lobe and lingula as well as pa tchy/linear densities within the right lower lobe. This may represent a pneumonia could be secondary to aspiration. 4. Large amount of ascites has progressed. 5. Small scattered hypodense lesions within the liver. These could represent dysplastic nodules or possibly multifocal hepatocellular carcinoma. GI consultation recommended. 6. Diffuse bowel wall thickening is and body wall edema is likely due to the patient's edematous state. 7. Persistent retroperitoneal lymphadenopathy. 8. Additional findings as described above. Electronically signed by: Gee Santamaria M.D. 10/27/2018 12:47 PM Dictated: 10/27/18 1235 Transcribed: 10/27/18 1235 XR chest 1V portable CLINICAL HISTORY: code sepsis dyspnea COMPARISON STUDY: 08/14/2018 FINDINGS: Small parenchymal infiltrate versus atelectasis medial aspect right base. Lungs otherwise appear clear. Baseline emphysematous changes present. No significant cardiac enlargement. IMPRESSION: Small parenchymal infiltrate medial aspect right base. Emphysematous change. The above report was generated using voice recognition software. It may contain grammatical, syntax or spelling errors. Electronically signed by: Edmund Wiggins M.D. 10/27/2018 11:30 AM Dictated: 10/27/18 1129 Transcribed: 10/27/18 1129 ECG Additional Comments: NSR at 90, low voltage, no acute ischemic changes Code Status & VTE Plan Code Status Full VTE Prophylaxis Plan VTE Prophylaxis will be ordered: Yes (1) Abdominal pain Abdominal location: unspecified location Qualified Code(s): R10.9 - Unspecified abdominal pain
[2018-10-27] MEDS: PIPERACILLIN/TAZOBACTAM 3.375 GM in DEXTROSE 5% 100 ML IV SCH (21:18)
[2018-10-28 05:50] LABS: Hemoglobin 8.4 g/dL (14.0-18.0); Mean Corpuscular Volume 86.6 fL (80-100); Mean Platelet Volume 8.5 fL (7.4-10.4); Platelet Count 217 K/uL (130-400); RDW Coefficient of Variation 15.8 % (11.5-14.5); RDW Standard Deviation 49.6 fL (36.4-46.3); Red Blood Count 2.77 M/uL (4.7-6.1); White Blood Count 26.01 K/uL (4.8-10.8)
[2018-10-28 06:06] LABS: Prothrombin Time 52.5 Seconds (9.0-12.0)
[2018-10-28] MEDS: PIPERACILLIN/TAZOBACTAM 3.375 GM in DEXTROSE 5% 100 ML IV SCH ×3 (06:14→21:45)
[2018-10-28 06:25] LABS: INR 5.8 (0.9-1.1)
[2018-10-28 06:34] LABS: BUN Creatinine Ratio 36.1 (10-20); Bilirubin Direct 0.5 mg/dl (0-0.2); Bilirubin,Total 0.8 mg/dl (0.2-1); Calcium 7.3 mg/dl (8.5-10.1); Creatinine Clr Calc Pharmacy 108.7 ml/min; Est GFR (African American) 125.8; Est GFR (Non-African American) 108.6; Potassium 3.3 mmol/L (3.5-5.1); Total Protein 5.1 gm/dl (6.4-8.2)
[2018-10-28 07:07] LABS: Basophils # (auto) 0.01 K/uL (0-0.2); Echinocytes 1+; Eosinophils # (auto) 0.01 K/uL (0-0.5); Immature Granulocytes # (auto) 0.06 K/uL (0.00-0.02); Immature Granulocytes % (auto) 0.2 %; Lymphocytes # (auto) 15.94 K/uL (1.2-3.4); Lymphocytes % (auto) 61.3 %; Monocytes % (auto) 3.5 %; Neutrophils # (auto) 9.09 K/uL (1.4-6.5)
[2018-10-28] MEDS: FLUTICASONE HFA 220 MCG INHALER INH SCH ×2 (07:33→21:45)
[2018-10-28] MEDS: IPRATROPIUM BROMIDE/ALBUTEROL respimat INH INH SCH ×4 (07:34→21:45)
[2018-10-28] MEDS: PANTOprazole 40 MG in DEXTROSE 5% 100 ML IV SCH ×4 (07:34→23:22)
[2018-10-28] MEDS: SERTRALINE HCL 50 MG TABLET PO SCH (07:34)
--- NOTE | 2018-10-28 11:06 | Consultation Report ---
DATE OF CONSULTATION: 10/28/2018 HEMATOLOGY CONSULTATION REASON FOR CONSULTATION: A 58-year-old gentleman with multiple comorbidities with history of chronic lymphocytic leukemia, admitted to [facility] on October 27 with general decline. HISTORY OF PRESENT ILLNESS: Cyrus Martins is a 58-year-old gentleman well known to [facility], currently under my care with a diagnosis of chronic lymphocytic leukemia. According to Cyrus, he has been declining over the past several weeks and for the past week has not been able to get out of bed. He had been previously admitted shortly after seeing our physician shift commander with severe abdominal pain, diagnosed with a portal vein thrombosis and pancolitis. He was started on Coumadin anticoagulation and subsequently sent home. Since that admission, he has been in steady decline, progressive weakness, functional decline over the past couple of months. In the past week or so, again, has not been able to even get out of bed and care for himself. He complains of diffuse abdominal pain and diarrhea which are watery and melena in color. Negative for nausea or vomiting. He has had no fever or chills, but also notes a progressive productive cough, yellowish sputum with shortness of breath. His appetite has been suboptimal. Again, Cyrus's CLL is probably the least significant of his clinical issues. He was originally diagnosed in April of 2017. Radiographic studies determined, he does have scattered lymphadenopathy. More specifically, a PET scan in December of 2017 revealed a spiculated left lung apical nodule. The nodule in question has never been biopsied. Cyrus was last seen by our physician shift commander on 08/24/2018 at which time treatment for CLL was not recommended. According to the shift commander's note, he was undergoing a pulmonary workup for COPD and surveillance of the left apical lesion. His anticoagulation has been maintained by his primary care physician. PAST MEDICAL HISTORY: Extensive including rheumatoid arthritis, pulmonary nodule, multiple vitamin deficiencies, hypergammaglobulinemia, esophageal spasm, Dupuytren's contracture, cirrhosis, fatty liver, hepatitis C, history of drug and alcohol abuse, CLL, and COPD. PAST SURGICAL HISTORY: Includes ankle surgery and tonsillectomy. MEDICATIONS: Prior to admission include Combivent 1 puff inhaled q.i.d., Flovent 2 puffs inhaled b.i.d., amlodipine 2.5 mg p.o. daily, aspirin 81 mg p.o. daily, atorvastatin 40 mg p.o. daily, cilostazol 100 mg p.o. b.i.d., ibuprofen 800 mg p.o. t.i.d. p.r.n., losartan 100 mg p.o. daily, Protonix 40 mg p.o. daily, Zoloft 50 mg p.o. daily, warfarin 6 mg alternating with 9 mg as directed. ALLERGIES: No known drug allergies. SOCIAL HISTORY: The patient is permanently disabled. He is a cigarette smoker. He utilizes medical marijuana. He no longer drinks alcohol, but has history of alcoholism. He is cared for by a significant other. FAMILY HISTORY: Positive for coronary artery disease, cerebrovascular disease. REVIEW OF SYSTEMS: GENERAL: For the most part, decline cachexia, anorexia. Negative for fevers, chills or sweats. SKIN: Multiple nonpalpable purpura, sun damage. No history of dermatoses otherwise. HEENT: Negative for headaches, lightheadedness or dizziness present. No acute visual or hearing deficits. No sinus symptoms, sore throat or dysphagia. LYMPH: Positive for diffuse lymphadenopathy, attributable to lymphoproliferative disease. CARDIAC: No history of coronary artery disease, no angina or palpitations. PULMONARY: He does suffer from COPD. He is not acutely short of breath. He does complain of some productive cough. No hemoptysis reported. GASTROINTESTINAL: Diffuse abdominal pain, history of portal vein thromboses, currently on anticoagulation. Positive for intermittent diarrhea. No current nausea and vomiting. GENITOURINARY: No history of prostate disease. No hematuria, dysuria, urinary incontinence. MUSCULOSKELETAL: Positive for generalized weakness. Positive for osteoarthritis by history. ENDOCRINE: Negative for diabetes or thyroid disease. NEUROLOGIC: Negative for seizure, stroke, or migraine headache. HEMATOLOGIC: Positive for lymphocytosis, attributable to CLL. PHYSICAL EXAMINATION: GENERAL: Cyrus is a cachectic 58-year-old gentleman, appears much older than his stated age in no acute distress. VITAL SIGNS: Temperature 36.5, pulse 94, respiratory rate 19, blood pressure 97/61. SKIN: Again multiple senile purpuras seen in his upper extremities, predominantly. HEENT: Atraumatic, normocephalic. Eyes: PERRLA, EOMI. Sclerae nonicteric. Nares patent without rhinorrhea or discharge. Throat is clear. Tongue midline. Dentition in very poor repair. No buccal lesions or ulcerations. NECK: Supple. Trachea is midline. HEART: Regular rate and rhythm. No clicks, rubs, murmurs or gallops. LUNGS: Clear to auscultation bilaterally. ABDOMEN: Distended, firm, palpable liver edge. Bowel sounds hypoactive. No rigidity or guarding per se. EXTREMITIES: No clubbing, cyanosis, or edema. Strength and pulses are equal in all 4 quadrants. NEUROLOGICAL: Awake, alert and oriented x3. His cranial nerves are grossly intact. LABORATORY DATA: WBC count 26,010, hemoglobin 8.4, platelet count 217,000 with an absolute lymphocytosis of 16,000. PT 52.5 seconds, INR 5.8. Sodium 139, potassium 3.3, chloride 115, carbon dioxide 16, creatinine 0.62, BUN 22, AST 191, ALT 128, albumin 2. RADIOGRAPHIC DATA: CT scan of the abdomen and pelvis confirms a thrombosed portal vein, small bilateral pleural effusion, ground-glass densities in the right middle lobe and lingula, may represent pneumonia secondary to aspiration, large amounts of ascites which is progressive, small scattered hypodense lesions within the liver, diffuse bowel wall thickening, persistent retroperitoneal lymphadenopathy. IMPRESSION: 1. Abdominal pain. 2. Chronic obstructive pulmonary disease/suspected pneumonia. 3. Alcoholic cirrhosis. 4. Hypoalbuminemia. 5. General clinical decline. 6. Anorexia/cachexia. PLAN: Cyrus is a pleasant but very unfortunate 58-year-old gentleman well known to [facility], diagnosed with chronic lymphocytic leukemia little over 2 years ago. The patient has not required any intervention. His peripheral blood accounts for the most part have remained stable. He does sustain a chronic anemia which I believe is multifactorial. Clearly, he has significant comorbid issues with a recently diagnosed vasculopathy (portal vein thromboses). His most recent CT scan of the abdomen and pelvis suggests he may be acutely in trouble. From a hematologic standpoint, transfusional support is certainly reasonable. Cyrus's lymphoproliferative process does not require emergent treatment and addditionally, Cyrus's comorbid issues would prohibit aggressive approach to pursuing any form of salvage treatment. His overall prognosis is poor and focus should be the vascular issues as well as a suspected pneumonia and nutritional status moving forward. Would definitely recommend PT and OT and consider placement for this gentleman moving forward if he does not make strides despite medical management. We will continue to follow Cyrus along with you. Unfortunately, I do not believe his prognosis is very good. If you have any questions or concerns regarding my recommendations, feel free to contact me at any time. Thank you very much for allowing me to participate in his care. SERJIO
[2018-10-28] MEDS: OCTREOTIDE ACETATE 500 MCG in 0.9 % SODIUM CHLORIDE 100 ML IV SCH ×2 (11:08→21:44)
[2018-10-28] MEDS: HYDROmorphone INJ 0.5 MG/0.5 ML SYR IV PRN ×2 (11:50→15:39)
[2018-10-28 12:05] LABS: Hematocrit (blood only) 23.9 % (42-52); Hemoglobin 8.6 g/dL (14.0-18.0)
[2018-10-28] MEDS: POTASSIUM CHLORIDE / WTR 10 MEQ/100 ML PLCT IV SCH ×2 (13:27→14:22)
[2018-10-28] MEDS ORDERED: PHYTONADIONE 5 MG in SODIUM CHLORIDE 0.9% 50 ML IV ONE (15:30)
[2018-10-28] MEDS: DICLOFENAC SOD 1% GEL 100 GM TUBE EXT SCH ×2 (16:07→21:45)
--- NOTE | 2018-10-28 18:07 | Consultation Report ---
DATE OF CONSULTATION: 10/28/2018 REASON FOR EVALUATION: Rectal bleeding and anemia. HISTORY OF PRESENT ILLNESS: The patient is a 58-year-old with significant comorbid conditions, who presents to the hospital with weakness and 2-week history of rectal bleeding. The patient reports he has been looking at his stools, but has been told that there is blood in his stool. He presented to the Emergency Room yesterday. His blood count had dropped from a baseline of about 10 down to about 8.6 with rehydration. He obviously is malnourished and dehydrated and cachectic. He does have a spiculated lesion in the left upper lobe of the lung, which is being followed which is presumed to be a lung tumor. This has not been more aggressively evaluated due to his overall poor health and comorbidity. He also has cirrhosis on the basis of hepatitis C and alcohol, but again this has not been treated due to his comorbidities. CT scan of the abdomen showed a lot of ascites, cirrhotic liver with some nodules suggestive of possible hepatoma or metastatic disease. A peritoneal aspirate was done in the ER and it showed what looked like a transudate with a low number of white cell count indicating it was probably not infected. Cytology is pending at this time as well as an alpha-fetoprotein. Two months ago, his alpha-fetoprotein was 5.4. He is currently on an octreotide drip. He is not really a candidate for endoscopy given all of his comorbid health problems. PAST MEDICAL HISTORY: Remarkable for COPD. He has got chronic lymphocytic leukemia, vitamin deficiencies including B1 and D. He has got a left upper lobe lung nodule. He has got polyarthritis with a contracture of his right leg. He has got a pressure sore over the sacrum. He has protein-calorie malnutrition, hyperlipidemia, history of alcohol use. PAST SURGICAL HISTORY: He has had surgery on his ankle and a tonsillectomy. ALLERGIES: None. MEDICATIONS: Per list including warfarin. His INR at presentation was 4.4. FAMILY HISTORY: Positive for myocardial infarction and stroke. SOCIAL HISTORY: The patient lives alone in a care facility in [place]. Smokes tobacco every day. No alcohol currently. Has used marijuana in the past. REVIEW OF SYSTEMS: Positive for abdominal discomfort. PHYSICAL EXAMINATION: GENERAL: The patient is severely cachectic, has multiple bruises and ecchymoses. He has contracture of his right leg. SKIN: Shows large impacted comedones on his forehead. MOUTH: Shows multiple missing and carious teeth. ABDOMEN: Protuberant. There is a Band-Aid in the right lower quadrant where he has paracentesis. The liver is enlarged and tender today. IMPRESSION AND PLAN: The patient has severe multiple chronic illnesses. He is a terrible candidate to be sedated for either bronchoscopy or endoscopy. Currently he is on octreotide, which I do not disagree with. Alpha-fetoprotein is pending as well as ascites cytology. I spoke with Dr. Clemente, who will be discussing his care and prognosis with his brother who will be arriving later today. After we have this information, then we can hopefully come up with an ongoing plan which may include palliative care. I will continue to follow the patient.
[2018-10-28] MEDS: HYDROCORTISONE ACETATE 25 MG SUPP PR SCH ×2 (18:34→23:22)
--- NOTE | 2018-10-28 19:38 | Hospitalist Progress Note ---
Date of Service October 28, 2018 Assessment & Plan (1) Upper GI bleeding: could be variceal vs PUD vs gastritis vs other. remains on PPI drip and octreotide drip. H/H have stabilized. I have reversed his INR with vitamin K due to significant drop in H/H overnight and grossly melena stools. Dr Taylor has consulted. In light of numerous comorbidities, high risk for sedation, and uncertain goals for care we are holding off on EGD at this time. Repeat H/H in am. (2) Advanced hepatic cirrhosis: Hep C and alcohol. Very poor prognosis. Could consider paracentesis for comfort. (3) Hepatitis C: with resulting cirrhosis. (4) Pneumonia: day #2 zosyn. continue such. stable in room air. (5) Sepsis: 2nd to pneumonia. (6) Tobacco use disorder: (7) Alcoholic cirrhosis of liver with ascites: as above in HepC. (8) Lung mass: ORTIZ. Known. Previously refused work-up. Now with liver masses -- this easily could be stage 4 lung ca or some other form of metastatic cancer. Poor prognosis and not a good candidate for any Rx. Hospice would be best. (9) Liver masses: AFP pending. Cytologies from ascites pending. concerning for mets from unknown primary (lung?). (10) Severe protein-calorie malnutrition: very severe MVI, boost, etc (11) Supratherapeutic INR: in light of GI bleeding and acute blood loss anemia - vitamin k 5mg IV x 1 repeat INR am very poor candidate for ongoing use of coumadin (12) Hypokalemia: replace repeat levels AM (13) Diarrhea: awaiting c diff testing (14) Hemorrhoid: anusol q6h FL when he has bright red blood it is likely his hemorrhoids (15) Portal vein thrombosis: on coumadin for such High INR in setting of GI bleeding coumadin reversed; I don't think we have any other option poor candidate for coumadin moving forward (16) Acute blood loss anemia: H/H have plateaued cbc am presumed upper GI bleeding +/- Lower GI bleeding (from hemorrhoids) (17) CLL (chronic lymphocytic leukemia): no Rx needed (18) DVT prophylaxis: SCDs spoke with pt's son he will come tomorrow need long talk to discuss code status and potentially hospice Subjective patient complains of right knee pain, abd distension, abd discomfort, cough, weakness, fatigue, poor appetite. hasn't been able to walk in months. cannot bend his right knee for months. overall feels very poorly. tele stable overnight. he states "I want to get better" when asked what his goals were for his care. Review of Systems Constitutional: + weight loss (30 pounds); no fever and no chills Respiratory: + cough; no dyspnea Cardiovascular: no chest pain Gastrointestinal: + abdominal pain, + nausea and + diarrhea/loose stools; no vomiting Physical Exam Constitutional: + thin and + cachectic; no acute distress and no altered mental status ENMT: Mouth: + oral mucosal abnormality (MM dry) Respiratory: normal respiratory effort; no labored breathing Auscultation: + diminished lung sounds and + wheezes Cardiovascular: Rate/Rhythm: regular rate and regular rhythm Heart Sounds: normal S1 and normal S2 Vessels: posterior tibial pulses present and dorsalis pedis pulses present; no JVD Gastrointestinal (Abdomen): Inspection/Auscultation: + abdomen distended and normal bowel sounds Percussion/Palpation: + abdomen tender (minimal) and + ascites; no hepatosplenomegaly LIA - hemorrhoid, tender, 6 o'clock; stool - melanotic Musculoskeletal: advanced OA changes of both knees; I cannot passively fully extend his right knee due to pain profound/advanced muscle wasting of facial muscles, arms and legs Skin: prolific # of petechiae especially on back, arms, legs; stage 1 sacral decub buttocks Psychiatric: Orientation: alert and oriented x 3 Results & Data Vital Signs (Past 12 Hours) Vital Signs Temp Pulse Pulse Resp BP Pulse Ox 10/28/18 16:10 91 H 18 90/50 L 94 10/28/18 16:00 36.5 C 94 H 20 105/60 92 10/28/18 10:55 36.5 C 90 19 96/62 L 98 Laboratory Results Laboratory Results - last 24 hr 10/27/18 10/27/18 10/28/18 11:06 17:07 05:36 WBC 26.01 H D RBC 2.77 L Hgb 8.4 L Hct 24.0 L MCV 86.6 MCH 30.3 MCHC 35.0 RDW Std Deviation 49.6 H RDW Coeff of Eliz 15.8 H Plt Count 217 MPV 8.5 Immature Gran % (Auto) 0.2 Neut % (Auto) 35.0 Lymph % (Auto) 61.3 Catron % (Auto) 3.5 Eos % (Auto) 0.0 Baso % (Auto) 0.0 Immature Gran # (Auto) 0.06 H Neut # (Auto) 9.09 H Lymph # (Auto) 15.94 H Catron # (Auto) 0.90 H Eos # (Auto) 0.01 Baso # (Auto) 0.01 Echinocytes 1+ Peripher Smr Path Cons Cancelled PT INR Sodium Potassium Chloride Carbon Dioxide Anion Gap BUN Creatinine Est Cr Clr Drug Dosing Est GFR ( Amer) Est GFR (Non-Af Amer) BUN/Creatinine Ratio Glucose Calcium Total Bilirubin Direct Bilirubin AST ALT Alkaline Phosphatase Total Protein Albumin 10/28/18 10/28/18 10/28/18 05:36 05:36 11:46 WBC RBC Hgb 8.6 L Hct 23.9 L MCV MCH MCHC RDW Std Deviation RDW Coeff of Eliz Plt Count MPV Immature Gran % (Auto) Neut % (Auto) Lymph % (Auto) Catron % (Auto) Eos % (Auto) Baso % (Auto) Immature Gran # (Auto) Neut # (Auto) Lymph # (Auto) Catron # (Auto) Eos # (Auto) Baso # (Auto) Echinocytes Peripher Smr Path Cons PT 52.5 H INR 5.8 H* Sodium 139 Potassium 3.3 L D Chloride 115 H Carbon Dioxide 16 L Anion Gap 8.0 BUN 22 H Creatinine 0.62 Est Cr Clr Drug Dosing 108.7 Est GFR ( Amer) 125.8 Est GFR (Non-Af Amer) 108.6 BUN/Creatinine Ratio 36.1 H Glucose 119 H Calcium 7.3 L Total Bilirubin 0.8 Direct Bilirubin 0.5 H AST 191 H ALT 128 H Alkaline Phosphatase 126 H Total Protein 5.1 L Albumin 2.0 L (1) Hepatitis C Viral hepatitis chronicity: chronic Hepatic coma status: without hepatic coma Qualified Code(s): B18.2 - Chronic viral hepatitis C (2) Pneumonia Laterality: right Lung location: lower lobe of lung Pneumonia type: due to unspecified organism Qualified Code(s): J18.1 - Lobar pneumonia, unspecified organism (3) Sepsis Sepsis type: sepsis due to unspecified organism Qualified Code(s): A41.9 - Sepsis, unspecified organism (4) Diarrhea Diarrhea type: unspecified type Qualified Code(s): R19.7 - Diarrhea, unspecified (5) Hemorrhoid Hemorrhoid type: other Qualified Code(s): K64.8 - Other hemorrhoids
[2018-10-29 02:24] LABS: Cdiff Antigen Positive
[2018-10-29 02:25] LABS: Cdiff Toxin A+B Positive Cdiff Toxin (Negative)
[2018-10-29] MEDS: PANTOprazole 40 MG in DEXTROSE 5% 100 ML IV SCH ×5 (05:01→23:25)
[2018-10-29] MEDS: PIPERACILLIN/TAZOBACTAM 3.375 GM in DEXTROSE 5% 100 ML IV SCH ×3 (05:01→22:06)
[2018-10-29 06:01] LABS: Hematocrit (blood only) 26.2 % (42-52); Hemoglobin 9.3 g/dL (14.0-18.0); Mean Corpuscular Hgb Conc 35.5 g/dL (32-36); Mean Corpuscular Volume 86.8 fL (80-100); Mean Platelet Volume 8.7 fL (7.4-10.4); Platelet Count 187 K/uL (130-400); RDW Standard Deviation 50.2 fL (36.4-46.3); Red Blood Count 3.02 M/uL (4.7-6.1); White Blood Count 26.64 K/uL (4.8-10.8)
[2018-10-29 06:11] LABS: INR 1.4 (0.9-1.1); Prothrombin Time 14.1 Seconds (9.0-12.0)
[2018-10-29] MEDS: VANCOMYCIN HCL 125 MG/2.5ML SOLN PO SCH ×3 (06:13→17:00)
[2018-10-29] MEDS: RASPBERRY SYRUP 5 ML UDP PO SCH ×3 (06:13→17:00)
[2018-10-29] MEDS: HYDROCORTISONE ACETATE 25 MG SUPP PR SCH ×3 (06:13→18:12)
[2018-10-29 06:29] LABS: Albumin Level 1.9 gm/dl (3.4-5.0); BUN Creatinine Ratio 26.5 (10-20); Bilirubin Direct 0.5 mg/dl (0-0.2); Calcium 7.9 mg/dl (8.5-10.1); Creatinine Clr Calc Pharmacy 134.1 ml/min; Est GFR (African American) 138.6; Est GFR (Non-African American) 119.6; Potassium 3.1 mmol/L (3.5-5.1)
[2018-10-29 06:43] LABS: Bilirubin,Total 0.9 mg/dl (0.2-1)
[2018-10-29 07:30] LABS: Basophils # (auto) 0.03 K/uL (0-0.2); Basophils % (auto) 0.1 %; Echinocytes 2+; Eosinophils # (auto) 0.08 K/uL (0-0.5); Eosinophils % (auto) 0.3 %; Immature Granulocytes # (auto) 0.07 K/uL (0.00-0.02); Immature Granulocytes % (auto) 0.3 %; Lymphocytes # (auto) 16.32 K/uL (1.2-3.4); Lymphocytes % (auto) 61.3 %; Monocytes # (auto) 0.46 K/uL (0.11-0.59); Monocytes % (auto) 1.7 %; Neutrophils # (auto) 9.68 K/uL (1.4-6.5); Neutrophils % (auto) 36.3 %; Smudge Cells Present
[2018-10-29] MEDS: HYDROmorphone INJ 0.5 MG/0.5 ML SYR IV PRN ×4 (08:26→20:16)
[2018-10-29] MEDS: OCTREOTIDE ACETATE 500 MCG in 0.9 % SODIUM CHLORIDE 100 ML IV SCH ×2 (08:44→16:54)
[2018-10-29] MEDS: IPRATROPIUM BROMIDE/ALBUTEROL respimat INH INH SCH ×4 (08:47→20:18)
[2018-10-29] MEDS: NICOTINE 14 MG/24 HR PATCH TD SCH (08:48)
[2018-10-29] MEDS: DICLOFENAC SOD 1% GEL 100 GM TUBE EXT SCH ×4 (08:48→20:17)
[2018-10-29] MEDS: FLUTICASONE HFA 220 MCG INHALER INH SCH ×2 (08:48→20:18)
[2018-10-29] MEDS: SERTRALINE HCL 50 MG TABLET PO SCH (08:48)
[2018-10-29] MEDS: POTASSIUM CHLORIDE / WTR 10 MEQ/100 ML PLCT IV SCH ×2 (09:19→10:22)
[2018-10-29] MEDS: NYSTATIN SUSP 500,000 U/5 ML UDC PO SCH ×3 (15:32→20:18)
--- NOTE | 2018-10-29 16:52 | Progress Note ---
DATE: 10/29/2018 SUBJECTIVE: The patient reports having some loose stools. Stool was checked and was positive for C. diff and the patient has been started on vancomycin 125 q.i.d. in addition to the antibiotic he is taking for his lungs. His hemoglobin has stabilized at 9.3 after equilibration and his alpha-fetoprotein returned normal at 3.2. We are still waiting on his ascitic fluid cytology. PHYSICAL EXAMINATION: GENERAL: The patient continues to be markedly cachectic. ABDOMEN: Distended with fluid. VITAL SIGNS: Blood pressure is 122/62, pulse 81, temperature is 36.5, room air saturations 93%. IMPRESSION AND PLAN: The patient has multiple significant health risks and is not a great candidate for any form of endoscopy. At this time, I would treat him conservatively and supportively. We can probably stop the octreotide and switch him to oral proton pump inhibitor. At some point, we may want to do a therapeutic paracentesis with some IV albumin for palliation and in that same line it may be prudent to consider a palliative care consult to assist with long-term treatment goals and disposition.
--- NOTE | 2018-10-29 20:36 | Hospitalist Progress Note ---
Date of Service October 29, 2018 Assessment & Plan (1) C. difficile colitis: started on PO vancomycin last pm. plan 14-day course. contact precautions. asked pt's son to go to his father's house to clean his apartment so that room- mate would not aquire c. diff. Present on Admission?: Yes (2) Upper GI bleeding: could be variceal vs PUD vs gastritis vs other. remains on PPI drip and octreotide drip. H/H remain stable. I had reversed his INR with vitamin K due to significant drop in H/H and grossly melena stools. In light of numerous comorbidities, high risk for sedation, and likely transition to hospice we are holding off on EGD at this time. Cont PPI/octreotide drips. Plan 5 days of therapy? Repeat H/H in am. Appreciate GI consultation. (3) Advanced hepatic cirrhosis: due to Hep C and alcohol. Very poor prognosis. Could consider paracentesis for comfort. Maybe this weekend. Recent diagnostic paracentesis with normal cell counts/no SBP. awaiting path from ascites. (4) Hepatitis C: with resulting cirrhosis. AFP returned normal making liver nodules unlikely to be hepatocellular ca. (5) Pneumonia: day #3 zosyn. continue such. stable in room air. (6) Sepsis: 2nd to pneumonia +/- c.diff colitis. (7) Tobacco use disorder: (8) Alcoholic cirrhosis of liver with ascites: as above in HepC. (9) Lung mass: ORTIZ. Known. Previously refused work-up. Now with liver masses -- this easily could be stage 4 lung ca or some other form of metastatic cancer. Poor prognosis and not a good candidate for any Rx. Hospice would be best. I recommended hospice to patient and his son today. (10) Liver masses: AFP wnl. Cytologies from ascites without malignant cells. concerning for metastatic disease - lung ca w/ liver mets? other? poor candidate for biopsy. (11) Severe protein-calorie malnutrition: very severe MVI, boost ordered (12) Supratherapeutic INR: in light of GI bleeding and acute blood loss anemia - vitamin k 5mg IV x 1 given with INR of 1.4 today following that vitamin K. repeat INR am very poor candidate for ongoing use of coumadin (13) Hypokalemia: ongoing potassium 20meq TID BMP am (14) Hemorrhoid: anusol q6h UT when he has bright red blood it is likely his hemorrhoids (15) Portal vein thrombosis: on coumadin for such pre-admission High INR in setting of GI bleeding coumadin reversed poor candidate for coumadin moving forward (16) Acute blood loss anemia: H/H have plateaued cbc am presumed upper GI bleeding +/- Lower GI bleeding (from hemorrhoids) (17) CLL (chronic lymphocytic leukemia): no Rx needed (18) Candidiasis of mouth and esophagus: start nystatin 5cc po ac/hs swish and swallow (19) DVT prophylaxis: SCDs spoke with pt's son and the patient himself at bedside today spent 30+ minutes discussing test results, current situation of patient, concern for liver mets, concern for lung cancer, failure to thrive, etc. advised against aggressive measures in light of poor status advised against biopsy of any lesion advised against EGD recommended SNF placement recommended hospice likely will be in hospital another 3-4 days total time spent today over 2 visits - about 65 minutes Subjective patient continued with diarrhea overnight and stool was sent for c.diff; gene and toxin were both positive. started on vancomycin. he continues with cough but not severe. tele stable overnight. he got into the chair today but was quite weak with doing so. son came to visit today - we had very lengthy discussion about goals of care, current issues, failure to thrive, etc. I recommended hospice in light of advanced cirrhosis and probable underlying cancer. also recommended SNF placement. patient reports he was living in an apartment in [place] with another gentleman. he was so weak he couldn't get to the bathroom. Review of Systems Constitutional: + fatigue; no fever Respiratory: + cough and + dyspnea on exertion; no sputum production Cardiovascular: no chest pain Gastrointestinal: + abdominal pain and + diarrhea/loose stools; no nausea and no vomiting Genitourinary: + difficulty urinating Musculoskeletal: + joint pain Physical Exam Constitutional: + thin and + cachectic; no acute distress and no altered mental status ENMT: Mouth: + oral mucosal abnormality (copious thrush plaques tongue/buccal mucosa) Respiratory: normal respiratory effort; no labored breathing Auscultation: + diminished lung sounds Cardiovascular: Rate/Rhythm: regular rate and regular rhythm Heart Sounds: normal S1 and normal S2 Vessels: posterior tibial pulses present and dorsalis pedis pulses present; no JVD Gastrointestinal (Abdomen): Inspection/Auscultation: + abdomen distended and normal bowel sounds Percussion/Palpation: + abdomen tender (minimal) and + ascites; no hepatosplenomegaly Musculoskeletal: osteoarthritic changes both knees Skin: large # of petechiae and ecchymoses on back, arms, legs, etc Psychiatric: Orientation: alert and oriented x 3 Results & Data Vital Signs (Past 12 Hours) Vital Signs Temp Pulse Pulse Pulse Resp BP Pulse Ox 10/29/18 19:56 36.5 C 94 H 16 91/52 L 10/29/18 15:27 122/62 10/29/18 14:56 36.5 C 81 16 80/55 L 93 10/29/18 14:20 82 10/29/18 12:43 96 10/29/18 11:32 36.4 C L 81 17 92/61 L 91 Laboratory Results Laboratory Results - last 24 hr 10/27/18 10/28/18 10/29/18 17:07 23:50 05:47 WBC 26.64 H RBC 3.02 L Hgb 9.3 L Hct 26.2 L MCV 86.8 MCH 30.8 MCHC 35.5 RDW Std Deviation 50.2 H RDW Coeff of Eliz 16.0 H Plt Count 187 MPV 8.7 Immature Gran % (Auto) 0.3 Neut % (Auto) 36.3 Lymph % (Auto) 61.3 [place] % (Auto) 1.7 Eos % (Auto) 0.3 Baso % (Auto) 0.1 Immature Gran # (Auto) 0.07 H Neut # (Auto) 9.68 H Lymph # (Auto) 16.32 H [place] # (Auto) 0.46 Eos # (Auto) 0.08 Baso # (Auto) 0.03 Smudge Cells Present Echinocytes 2+ PT INR Sodium Potassium Chloride Carbon Dioxide Anion Gap BUN Creatinine Est Cr Clr Drug Dosing Est GFR ( Amer) Est GFR (Non-Af Amer) BUN/Creatinine Ratio Glucose Calcium Total Bilirubin Direct Bilirubin AST ALT Alkaline Phosphatase Total Protein Albumin Tumor Marker AFP 3.2 Stl C. diff Tox B Gene Positive Cdiff Gene H Stl C.difficile Tox A&B Positive Cdiff Toxin A* 10/29/18 10/29/18 05:47 05:47 WBC RBC Hgb Hct MCV MCH MCHC RDW Std Deviation RDW Coeff of Eliz Plt Count MPV Immature Gran % (Auto) Neut % (Auto) Lymph % (Auto) [place] % (Auto) Eos % (Auto) Baso % (Auto) Immature Gran # (Auto) Neut # (Auto) Lymph # (Auto) [place] # (Auto) Eos # (Auto) Baso # (Auto) Smudge Cells Echinocytes PT 14.1 H INR 1.4 H Sodium 140 Potassium 3.1 L Chloride 115 H Carbon Dioxide 17 L Anion Gap 7.0 BUN 13 Creatinine 0.49 L Est Cr Clr Drug Dosing 134.1 Est GFR ( Amer) 138.6 Est GFR (Non-Af Amer) 119.6 BUN/Creatinine Ratio 26.5 H Glucose 142 H Calcium 7.9 L Total Bilirubin 0.9 Direct Bilirubin 0.5 H AST 122 H ALT 100 H Alkaline Phosphatase 126 H Total Protein 5.0 L Albumin 1.9 L Tumor Marker AFP Stl C. diff Tox B Gene Stl C.difficile Tox A&B (1) Hepatitis C Viral hepatitis chronicity: chronic Hepatic coma status: without hepatic coma Qualified Code(s): B18.2 - Chronic viral hepatitis C (2) Pneumonia Laterality: right Lung location: lower lobe of lung Pneumonia type: due to unspecified organism Qualified Code(s): J18.1 - Lobar pneumonia, unspecified organism (3) Sepsis Sepsis type: sepsis due to unspecified organism Qualified Code(s): A41.9 - Sepsis, unspecified organism (4) Hemorrhoid Hemorrhoid type: other Qualified Code(s): K64.8 - Other hemorrhoids
[2018-10-30] MEDS: POTASSIUM CHLORIDE 20 MEQ TABCR PO SCH ×3 (00:49→13:33)
[2018-10-30] MEDS: HYDROmorphone INJ 0.5 MG/0.5 ML SYR IV PRN ×6 (00:49→21:18)
[2018-10-30] MEDS: HYDROCORTISONE ACETATE 25 MG SUPP PR SCH ×4 (00:50→17:32)
[2018-10-30] MEDS: RASPBERRY SYRUP 5 ML UDP PO SCH ×4 (00:50→17:30)
[2018-10-30] MEDS: VANCOMYCIN HCL 125 MG/2.5ML SOLN PO SCH ×4 (00:51→17:36)
[2018-10-30] MEDS: OCTREOTIDE ACETATE 500 MCG in 0.9 % SODIUM CHLORIDE 100 ML IV SCH ×3 (02:50→23:19)
[2018-10-30] MEDS: PANTOprazole 40 MG in DEXTROSE 5% 100 ML IV SCH ×4 (05:06→19:37)
[2018-10-30] MEDS: PIPERACILLIN/TAZOBACTAM 3.375 GM in DEXTROSE 5% 100 ML IV SCH ×3 (05:06→21:11)
[2018-10-30 06:03] LABS: Hematocrit (blood only) 24.7 % (42-52); Hemoglobin 8.5 g/dL (14.0-18.0); Mean Corpuscular Hgb Conc 34.4 g/dL (32-36); Mean Corpuscular Volume 87.3 fL (80-100); Platelet Count 161 K/uL (130-400); RDW Coefficient of Variation 15.9 % (11.5-14.5); RDW Standard Deviation 50.3 fL (36.4-46.3); Red Blood Count 2.83 M/uL (4.7-6.1); White Blood Count 26.73 K/uL (4.8-10.8)
[2018-10-30 06:12] LABS: INR 1.4 (0.9-1.1); Prothrombin Time 13.6 Seconds (9.0-12.0)
[2018-10-30 06:36] LABS: Albumin Level 1.6 gm/dl (3.4-5.0); BUN Creatinine Ratio 19.4 (10-20); Bilirubin Direct 0.4 mg/dl (0-0.2); Calcium 6.9 mg/dl (8.5-10.1); Creatinine Clr Calc Pharmacy 111.7 ml/min; Est GFR (African American) 128.4; Est GFR (Non-African American) 110.8
[2018-10-30 06:38] LABS: Bilirubin,Total 0.9 mg/dl (0.2-1); Total Protein 4.4 gm/dl (6.4-8.2)
[2018-10-30 06:47] LABS: Basophils # (auto) 0.02 K/uL (0-0.2); Basophils % (auto) 0.1 %; Echinocytes 2+; Eosinophils # (auto) 0.12 K/uL (0-0.5); Eosinophils % (auto) 0.4 %; Immature Granulocytes # (auto) 0.08 K/uL (0.00-0.02); Immature Granulocytes % (auto) 0.3 %; Lymphocytes # (auto) 16.24 K/uL (1.2-3.4); Lymphocytes % (auto) 60.8 %; Monocytes # (auto) 0.45 K/uL (0.11-0.59); Monocytes % (auto) 1.7 %; Neutrophils # (auto) 9.82 K/uL (1.4-6.5); Neutrophils % (auto) 36.7 %; Polychromasia 1+; Smudge Cells Present
[2018-10-30] MEDS: IPRATROPIUM BROMIDE/ALBUTEROL respimat INH INH SCH ×4 (08:55→21:14)
[2018-10-30] MEDS: FLUTICASONE HFA 220 MCG INHALER INH SCH ×2 (08:56→21:13)
[2018-10-30] MEDS: NYSTATIN SUSP 500,000 U/5 ML UDC PO SCH ×4 (08:57→21:15)
[2018-10-30] MEDS: CEROVITE ADV FORMULA TAB PO SCH (08:57)
[2018-10-30] MEDS: NICOTINE 14 MG/24 HR PATCH TD SCH (08:57)
[2018-10-30] MEDS: DICLOFENAC SOD 1% GEL 100 GM TUBE EXT SCH ×4 (08:59→21:15)
[2018-10-30] MEDS: SERTRALINE HCL 50 MG TABLET PO SCH (09:00)
[2018-10-30] MEDS: POTASSIUM CHLORIDE / WTR 10 MEQ/100 ML PLCT IV SCH ×3 (10:21→13:37)
[2018-10-30] MEDS ORDERED: COLESTIPOL HCL 1 GM TAB PO SCH (18:15)
[2018-10-30] MEDS ORDERED: SODIUM CHLORIDE 0.9% 1000ML 500 ML IV ONE (19:07)
[2018-10-30] MEDS: MIDODRINE HCL 2.5 MG TAB PO SCH (19:39)
--- NOTE | 2018-10-30 21:27 | Hospitalist Progress Note ---
Date of Service October 30, 2018 Assessment & Plan (1) Hypotension: due to GI bleeding? hypovolemia from diarrhea? combination? start midodrine 2.5mg TID. NS bolus 500cc x 1. consider albumin. (2) C. difficile colitis: ongoing. day #2 of 14 of PO vancomycin course. contact precautions. add colestipol 1gm BID due to severity of illness. (3) Upper GI bleeding: could be variceal vs PUD vs gastritis vs other. remains on PPI drip and octreotide drip. H/H have trended down last 24 hours -- may need blood. cut diet to full liquids due to this plus his severe diarrhea. I had reversed his INR with vitamin K due to significant drop in H/H and grossly melena stools. In light of numerous comorbidities, high risk for sedation, and likely transition to hospice we are holding off on EGD at this time. Cont PPI/octreotide drips. Plan 5 days of therapy? Repeat H/H in am. Appreciate GI consultation. (4) Advanced hepatic cirrhosis: due to Hep C and alcohol. Very poor prognosis. Could consider paracentesis for comfort. Maybe this weekend. Recent diagnostic paracentesis with normal cell counts/no SBP. ascites pathology w/o malignant cells. AFP level normal. (5) Hepatitis C: with resulting cirrhosis. AFP returned normal making liver nodules unlikely to be hepatocellular ca. (6) Pneumonia: day #4 zosyn. continue such. stable in room air. (7) Sepsis: 2nd to pneumonia +/- c.diff colitis. (8) Tobacco use disorder: nicoderm patch. (9) Alcoholic cirrhosis of liver with ascites: as above in HepC. has pain due to ascites -- increase dilaudid to 0.5mg IV q3h prn. takes oxy chronically at home as confirmed with PDMP (10) Lung mass: ORTIZ. Known. Previously refused work-up. Now with liver masses -- this easily could be stage 4 lung ca or some other form of metastatic cancer. Poor prognosis and not a good candidate for any Rx. Hospice would be best. I recommended hospice to patient and his son today. They are agreeable. (11) Liver masses: AFP wnl. Cytologies from ascites without malignant cells. concerning for metastatic disease - lung ca w/ liver mets? other? poor candidate for biopsy. (12) Severe protein-calorie malnutrition: very severe MVI, boost ordered (13) Supratherapeutic INR: in light of GI bleeding and acute blood loss anemia - vitamin k 5mg IV x 1 given with INR of 1.4 today following that vitamin K. repeat INR 1.4 today. very poor candidate for ongoing use of coumadin need to hold because of ongoing melena. (14) Hypokalemia: ongoing potassium 20meq TID and will give KCL 10meq IV x 3 bags 2nd to severe diarrhea BMP am (15) Hemorrhoid: anusol q6h ID when he has bright red blood it is likely his hemorrhoids (16) Portal vein thrombosis: on coumadin for such pre-admission High INR in setting of GI bleeding coumadin reversed poor candidate for coumadin moving forward (17) Acute blood loss anemia: may need PRBCs cbc am presumed upper GI bleeding +/- Lower GI bleeding (from hemorrhoids) (18) CLL (chronic lymphocytic leukemia): no Rx needed (19) Candidiasis of mouth and esophagus: nystatin 5cc po ac/hs swish and swallow improved (20) DVT prophylaxis: SCDs confirmed with patient today --- DNR/DNI per his wishes Subjective code status discussed - requests DNR status. states he discussed this with son and told him "don't put me on any machines." he knows that if he ever needed CPR he would surely have numerous rib and sternal fractures due to cachexia. he continues with severe diarrhea; pure liquid; melena as well. BPs low today. very weak. he asks "how are things going getting me to that place ([facility])?" asks if dilaudid can be increased; reports abd pain, right knee pain, etc. takes chronic opiates at home. Review of Systems Constitutional: + fatigue and + weakness; no fever and no chills Respiratory: + cough; no dyspnea Cardiovascular: no chest pain Gastrointestinal: + abdominal pain, + diarrhea/loose stools and + melena; no nausea and no vomiting Physical Exam Constitutional: + thin and + cachectic; no acute distress and no altered mental status speech mildy slurry ENMT: Mouth: + oral mucosal abnormality (thrush improved) Respiratory: normal respiratory effort; no labored breathing Auscultation: + diminished lung sounds Cardiovascular: Rate/Rhythm: regular rate and regular rhythm Heart Sounds: normal S1 and normal S2 Vessels: posterior tibial pulses present and dorsalis pedis pulses present; no JVD Gastrointestinal (Abdomen): Inspection/Auscultation: + abdomen distended and normal bowel sounds Percussion/Palpation: + abdomen tender and + ascites; no hepatosplenomegaly Musculoskeletal: extensive atrophy-legs, arms, face Skin: + ecchymosis (extensive most surfaces ) and + pallor; no jaundice petechiae - extensive Psychiatric: Orientation: alert and oriented x 3 Results & Data Vital Signs (Past 12 Hours) Vital Signs Temp Pulse Resp BP Pulse Ox 10/30/18 19:46 36.8 C 88 18 88/52 L 90 10/30/18 15:36 36.5 C 84 20 82/55 L 92 10/30/18 11:40 36.4 C L 82 20 82/46 L 90 Laboratory Results Laboratory Results - last 24 hr 10/30/18 10/30/18 10/30/18 05:37 05:37 05:37 WBC 26.73 H RBC 2.83 L Hgb 8.5 L Hct 24.7 L MCV 87.3 MCH 30.0 MCHC 34.4 RDW Std Deviation 50.3 H RDW Coeff of Eliz 15.9 H Plt Count 161 MPV 9.0 Immature Gran % (Auto) 0.3 Neut % (Auto) 36.7 Lymph % (Auto) 60.8 [place] % (Auto) 1.7 Eos % (Auto) 0.4 Baso % (Auto) 0.1 Immature Gran # (Auto) 0.08 H Neut # (Auto) 9.82 H Lymph # (Auto) 16.24 H [place] # (Auto) 0.45 Eos # (Auto) 0.12 Baso # (Auto) 0.02 Smudge Cells Present Polychromasia 1+ Echinocytes 2+ PT 13.6 H INR 1.4 H Sodium 136 Potassium 3.0 L Chloride 112 H Carbon Dioxide 20 L Anion Gap 4.0 BUN 11 Creatinine 0.59 L Est Cr Clr Drug Dosing 111.7 Est GFR ( Amer) 128.4 Est GFR (Non-Af Amer) 110.8 BUN/Creatinine Ratio 19.4 Glucose 119 H Calcium 6.9 L Total Bilirubin 0.9 Direct Bilirubin 0.4 H AST 76 H ALT 73 Alkaline Phosphatase 106 Total Protein 4.4 L Albumin 1.6 L (1) Sepsis Sepsis type: sepsis due to unspecified organism Qualified Code(s): A41.9 - Sepsis, unspecified organism (2) Hepatitis C Hepatic coma status: without hepatic coma Viral hepatitis chronicity: chronic Qualified Code(s): B18.2 - Chronic viral hepatitis C (3) Hemorrhoid Hemorrhoid type: other Qualified Code(s): K64.8 - Other hemorrhoids (4) Pneumonia Laterality: right Lung location: lower lobe of lung Pneumonia type: due to unspecified organism Qualified Code(s): J18.1 - Lobar pneumonia, unspecified organism (5) Hypotension Hypotension type: other hypotension type Qualified Code(s): I95.89 - Other hypotension
[2018-10-31] MEDS: PANTOprazole 40 MG in DEXTROSE 5% 100 ML IV SCH ×5 (00:42→22:23)
[2018-10-31] MEDS: VANCOMYCIN HCL 125 MG/2.5ML SOLN PO SCH ×4 (00:42→17:13)
[2018-10-31] MEDS: RASPBERRY SYRUP 5 ML UDP PO SCH ×4 (00:42→17:14)
[2018-10-31] MEDS: HYDROCORTISONE ACETATE 25 MG SUPP PR SCH ×5 (00:42→23:35)
[2018-10-31] MEDS: PIPERACILLIN/TAZOBACTAM 3.375 GM in DEXTROSE 5% 100 ML IV SCH (05:43)
[2018-10-31 06:59] LABS: Hematocrit (blood only) 27.1 % (42-52); Hemoglobin 9.3 g/dL (14.0-18.0); Mean Corpuscular Hgb Conc 34.3 g/dL (32-36); Mean Corpuscular Volume 87.4 fL (80-100); Mean Platelet Volume 8.9 fL (7.4-10.4); Platelet Count 158 K/uL (130-400); RDW Standard Deviation 49.7 fL (36.4-46.3); White Blood Count 31.76 K/uL (4.8-10.8)
[2018-10-31 07:04] LABS: BUN Creatinine Ratio 15.8 (10-20); Calcium 6.8 mg/dl (8.5-10.1); Creatinine Clr Calc Pharmacy 129.5 ml/min; Est GFR (African American) 136.4; Est GFR (Non-African American) 117.7; Magnesium 1.7 mg/dl (1.8-2.4); Potassium 3.7 mmol/L (3.5-5.1)
[2018-10-31] MEDS: HYDROmorphone INJ 0.5 MG/0.5 ML SYR IV PRN ×4 (09:00→20:35)
[2018-10-31] MEDS: CEROVITE ADV FORMULA TAB PO SCH (09:01)
[2018-10-31] MEDS: IPRATROPIUM BROMIDE/ALBUTEROL respimat INH INH SCH ×4 (09:01→20:37)
[2018-10-31] MEDS: MAGNESIUM SULFATE / D5W 1 GM/100 ML BAG IV SCH ×2 (09:01→10:09)
[2018-10-31] MEDS: FLUTICASONE HFA 220 MCG INHALER INH SCH ×2 (09:01→20:37)
[2018-10-31] MEDS: OCTREOTIDE ACETATE 500 MCG in 0.9 % SODIUM CHLORIDE 100 ML IV SCH ×2 (09:02→20:33)
[2018-10-31] MEDS: NYSTATIN SUSP 500,000 U/5 ML UDC PO SCH ×4 (09:02→20:39)
[2018-10-31] MEDS: NICOTINE 14 MG/24 HR PATCH TD SCH (09:02)
[2018-10-31] MEDS: DICLOFENAC SOD 1% GEL 100 GM TUBE EXT SCH ×4 (09:03→20:39)
[2018-10-31] MEDS: COLESTIPOL HCL 1 GM TAB PO SCH ×2 (09:03→22:23)
[2018-10-31] MEDS: SERTRALINE HCL 50 MG TABLET PO SCH (09:03)
[2018-10-31] MEDS: MIDODRINE HCL 2.5 MG TAB PO SCH ×3 (09:04→17:12)
--- NOTE | 2018-10-31 10:41 | Progress Note ---
DATE: 10/31/2018 DIAGNOSES: 1. Clostridium difficile colitis. 2. Hypotension attributable to ongoing gastrointestinal bleeding. 3. Upper gastrointestinal bleeding. 4. Advanced hepatic cirrhosis. 5. History of hepatitis C. 6. Pneumonia. SUBJECTIVE: The patient was seen and examined at bedside. Clearly not making significant inroads from a clinical perspective. He no longer ambulates and p.o. intake is marginal. Pain is well controlled. He is receiving quality supportive care, but ultimately I agree with the primary service that the patient probably would be better served in an outpatient hospice at this juncture. I believe Mr. Martins is in end-stage liver disease and therefore coagulopathic. I would discontinue all blood thinners at this time. The patient seems to be comfortable with the decision to move on to palliation. OBJECTIVE: GENERAL: A cachectic appearing 58-year-old gentleman, appears much older than his stated age, in no acute distress. VITAL SIGNS: Temperature 36.5, pulse 78, respiratory rate 19, blood pressure 89/59. SKIN: Multiple nonpalpable purpuras involving his upper and lower extremities. HEENT: Oral mucosa is dry. Dentition is in poor repair. No buccal lesions or ulcerations. NECK: Supple. Trachea midline. HEART: Regular rate and rhythm. LUNGS: Clear to auscultation. ABDOMEN: Firm, somewhat tender diffusely. Bowel sounds are hypoactive. EXTREMITIES: No clubbing, cyanosis or edema. NEUROLOGIC: Grossly intact. LABORATORY DATA: WBC count 31,760, hemoglobin 9.3, platelet count 158,000. Sodium 136, potassium 3.7, chloride 113, carbon dioxide 20, creatinine 0.51, BUN 8, magnesium 1.7, calcium 6.8, ammonia 49.6. IMPRESSION: 1. Electrolyte dysfunction. 2. Hypertension. 3. Clostridium difficile colitis. 4. Gastrointestinal bleeding. 5. Coagulopathy. 6. CLL by history. 7. Lung mass, etiology unclear. PLAN: I had a chance to speak to the patient this morning at bedside. He understands the rapid clinical decline and need for hospice. His pain seems to be well controlled. Appetite has been marginal at best. He is no longer able to get out of bed and therefore placement is inevitable. Would discontinue all blood thinners at this time and provide a strict supportive care. I will officially sign off today. I wished the patient well moving forward. Thank you for allowing me to participate in his care. SERJIO
[2018-10-31] MEDS: levoFLOXacin 500 MG TAB PO SCH (12:35)
--- NOTE | 2018-10-31 20:20 | Hospitalist Progress Note ---
Date of Service October 31, 2018 Assessment & Plan (1) Hypotension: suspect hypovolemia in setting of diarrhea and severe hypoalbuminemia. slightly improved with midodrine. increase to 5mg TID. H/H stable today. consider albumin. (2) C. difficile colitis: ongoing. day #3 of 14 of PO vancomycin course. contact precautions. added colestipol 1gm BID with improved frequency of stooling. (3) Upper GI bleeding: could be variceal vs PUD vs gastritis vs other. remains on PPI drip and octreotide drip. day #4/5. would stop both TOMORROW on 11/01. change to protonix 40mg PO BID tomorrow. cont full liquids. I had reversed his INR with vitamin K due to significant drop in H/H and grossly melena stools. In light of numerous comorbidities, high risk for sedation, and likely transition to hospice we are holding off on EGD at this time. Repeat H/H in am. Appreciate GI consultation. (4) Advanced hepatic cirrhosis: due to Hep C and alcohol. Very poor prognosis. Recent diagnostic paracentesis with normal cell counts/no SBP. ascites pathology w/o malignant cells. AFP level normal. I performed a bedside u/s today and only found one pocket of fluid in the LLQ th at may have been accessible for therapeutic paracentesis. However, he has distended loops of bowel from his c.diff and would hold off on tap for now. (5) Hepatitis C: with resulting cirrhosis. AFP returned normal making liver nodules unlikely to be hepatocellular ca. (6) Pneumonia: day #5 zosyn. d/c zosyn. change to PO levaquin x 3 days then stop abx. cont NC O2. (7) Sepsis: 2nd to pneumonia + c.diff colitis. (8) Tobacco use disorder: nicoderm patch. (9) Alcoholic cirrhosis of liver with ascites: as above in HepC. has pain due to ascites -- cont dilaudid 0.5mg IV q3h prn. takes oxy chronically at home as confirmed with PDMP (10) Lung mass: ORTIZ. Known. Previously refused work-up. Now with liver masses -- this easily could be stage 4 lung ca or some other form of metastatic cancer. Poor prognosis and not a good candidate for any Rx. Hospice would be best. I recommended hospice to patient and his son. They are agreeable. (11) Liver masses: AFP wnl. Cytologies from ascites without malignant cells. concerning for metastatic disease - lung ca w/ liver mets? other? poor candidate for biopsy. (12) Severe protein-calorie malnutrition: very severe MVI, boost ordered (13) Supratherapeutic INR: in light of GI bleeding and acute blood loss anemia - vitamin k 5mg IV x 1 given with reversal of coumadin. very poor candidate for ongoing use of coumadin thus, would stop it indefinitely. (14) Hypokalemia: resolved (15) Hemorrhoid: anusol q6h DC (16) Portal vein thrombosis: was on coumadin for such pre-admission High INR in setting of GI bleeding coumadin reversed poor candidate for coumadin moving forward stop it indefinitely (17) Acute blood loss anemia: presumed upper GI bleeding (varices, gastritis, etc) +/- Lower GI bleeding (from hemorrhoids) (18) CLL (chronic lymphocytic leukemia): no Rx needed (19) Candidiasis of mouth and esophagus: nystatin 5cc po ac/hs swish and swallow improved (20) DVT prophylaxis: SCDs disposition --- [facility]/patient [facility] for SN[facility] son lives close to [place] patient now DNR if any worsening of status would transition to comfort care measures Subjective quantity of stools has decreased through the day. nursing staff report the stools are trying to form. eating is unchanged. mild dyspnea overnight - requiring O2. abd pain/bloating continue - requiring ongoing IV dilaudid. tele stable. Review of Systems Constitutional: + fatigue and + anorexia; no fever and no chills Respiratory: + cough and + dyspnea; no wheezing Cardiovascular: no chest pain and no orthopnea Gastrointestinal: + abdominal pain and + diarrhea/loose stools; no nausea and no vomiting Physical Exam Constitutional: + thin and + cachectic; no acute distress and no altered mental status speech slightly garbled but awake/alert ENMT: Mouth: + oral mucosal abnormality (thrush resolved) Respiratory: normal respiratory effort; no labored breathing Auscultation: + diminished lung sounds (bases) Cardiovascular: Rate/Rhythm: regular rate and regular rhythm Heart Sounds: normal S1 and normal S2 Vessels: posterior tibial pulses present and dorsalis pedis pulses present; no JVD Gastrointestinal (Abdomen): Inspection/Auscultation: + abdomen distended and normal bowel sounds Percussion/Palpation: + abdomen tender (lower quadrants) and + ascites; no hepatosplenomegaly Skin: + ecchymosis (extensive most surfaces along w/ copious petechiae) and + pallor; no jaundice Psychiatric: Orientation: alert and oriented x 3 Results & Data Vital Signs (Past 12 Hours) Vital Signs Temp Pulse Resp BP Pulse Ox 10/31/18 18:41 36.6 C 85 19 98/61 L 92 10/31/18 15:22 36.2 C L 83 21 90/61 L 97 10/31/18 11:56 36.3 C L 78 18 87/58 L 94 Laboratory Results Laboratory Results - last 24 hr 10/31/18 10/31/18 10/31/18 06:20 06:20 06:26 WBC 31.76 H* RBC 3.10 L Hgb 9.3 L Hct 27.1 L MCV 87.4 MCH 30.0 MCHC 34.3 RDW Std Deviation 49.7 H RDW Coeff of Eliz 16.0 H Plt Count 158 MPV 8.9 Sodium 136 Potassium 3.7 D Chloride 113 H Carbon Dioxide 20 L Anion Gap 3.0 BUN 8 Creatinine 0.51 L Est Cr Clr Drug Dosing 129.5 Est GFR ( Amer) 136.4 Est GFR (Non-Af Amer) 117.7 BUN/Creatinine Ratio 15.8 Glucose 112 H Calcium 6.8 L Magnesium 1.7 L Ammonia 49.6 H Diagnostic Findings bedside abd u/s for ascites - I performed by myself - largest pocket only 2.5-3cm in depth in LLQ loops of bowel present in these narrow pockets (1) Hypotension Hypotension type: other hypotension type Qualified Code(s): I95.89 - Other hypotension (2) Hepatitis C Viral hepatitis chronicity: chronic Hepatic coma status: without hepatic coma Qualified Code(s): B18.2 - Chronic viral hepatitis C (3) Pneumonia Laterality: right Lung location: lower lobe of lung Pneumonia type: due to unspecified organism Qualified Code(s): J18.1 - Lobar pneumonia, unspecified organism (4) Sepsis Sepsis type: sepsis due to unspecified organism Qualified Code(s): A41.9 - Sepsis, unspecified organism (5) Hemorrhoid Hemorrhoid type: other Qualified Code(s): K64.8 - Other hemorrhoids
[2018-11-01] MEDS: VANCOMYCIN HCL 125 MG/2.5ML SOLN PO SCH ×5 (00:38→23:43)
[2018-11-01] MEDS: RASPBERRY SYRUP 5 ML UDP PO SCH ×5 (00:39→23:43)
[2018-11-01] MEDS: HYDROmorphone INJ 0.5 MG/0.5 ML SYR IV PRN ×5 (00:50→21:24)
[2018-11-01] MEDS: PANTOprazole 40 MG in DEXTROSE 5% 100 ML IV SCH ×3 (02:30→12:03)
[2018-11-01] MEDS: HYDROCORTISONE ACETATE 25 MG SUPP PR SCH ×4 (05:11→23:43)
[2018-11-01 05:51] LABS: Hematocrit (blood only) 25.1 % (42-52); Hemoglobin 8.9 g/dL (14.0-18.0); Mean Corpuscular Hgb Conc 35.5 g/dL (32-36); Mean Corpuscular Volume 86.6 fL (80-100); Mean Platelet Volume 9.2 fL (7.4-10.4); Platelet Count 161 K/uL (130-400); RDW Coefficient of Variation 16.1 % (11.5-14.5); RDW Standard Deviation 49.9 fL (36.4-46.3); White Blood Count 28.43 K/uL (4.8-10.8)
[2018-11-01] MEDS: OCTREOTIDE ACETATE 500 MCG in 0.9 % SODIUM CHLORIDE 100 ML IV SCH (06:07)
[2018-11-01 06:21] LABS: BUN Creatinine Ratio 17.4 (10-20); Calcium 7.1 mg/dl (8.5-10.1); Creatinine Clr Calc Pharmacy 153.7 ml/min; Est GFR (African American) 144.9; Magnesium 2.4 mg/dl (1.8-2.4); Potassium 3.7 mmol/L (3.5-5.1)
[2018-11-01] MEDS: MIDODRINE HCL 2.5 MG TAB PO SCH ×3 (09:29→16:49)
[2018-11-01] MEDS: NYSTATIN SUSP 500,000 U/5 ML UDC PO SCH ×4 (09:29→21:19)
[2018-11-01] MEDS: COLESTIPOL HCL 1 GM TAB PO SCH ×2 (09:30→22:09)
[2018-11-01] MEDS: SERTRALINE HCL 50 MG TABLET PO SCH (09:30)
[2018-11-01] MEDS: NICOTINE 14 MG/24 HR PATCH TD SCH (09:30)
[2018-11-01] MEDS: DICLOFENAC SOD 1% GEL 100 GM TUBE EXT SCH ×4 (09:31→21:20)
[2018-11-01] MEDS: FLUTICASONE HFA 220 MCG INHALER INH SCH ×2 (09:31→21:18)
[2018-11-01] MEDS: IPRATROPIUM BROMIDE/ALBUTEROL respimat INH INH SCH ×4 (09:31→21:18)
[2018-11-01] MEDS: CEROVITE ADV FORMULA TAB PO SCH (09:31)
[2018-11-01] MEDS: levoFLOXacin 500 MG TAB PO SCH (11:23)
--- NOTE | 2018-11-01 12:11 | Hospitalist Progress Note ---
Date of Service November 01, 2018 Assessment & Plan (1) Hypotension: suspect hypovolemia in setting of diarrhea and severe hypoalbuminemia with cirrhosis there could be a component of normal hypotension slightly improved with midodrine. increase to 5mg TID, will continue this dose on discharge H/H stable today. no plans for albumin as he would only lose it with ascites (2) C. difficile colitis: ongoing. day #4 of 14 of PO vancomycin course. contact precautions. added colestipol 1gm BID with improved frequency of stooling symptoms much improved, diarrhea nearly gone will continue above treatment on discharge (3) Upper GI bleeding: could be variceal vs PUD vs gastritis vs other. remains on PPI drip and octreotide drip. day #5/5. change to protonix 40mg PO BID today cont full liquids. I had reversed his INR with vitamin K due to significant drop in H/H and grossly melena stools. In light of numerous comorbidities, high risk for sedation, and likely transition to hospice we are holding off on EGD at this time. H/H is 8.9 today, was 9.3 yesterday (4) Advanced hepatic cirrhosis: due to Hep C and alcohol. Very poor prognosis. Recent diagnostic paracentesis with normal cell counts/no SBP. ascites pathology w/o malignant cells. AFP level normal. no plans for further tap (5) Hepatitis C: with resulting cirrhosis. AFP returned normal making liver nodules unlikely to be hepatocellular ca. (6) Pneumonia: completed 5 days of Zosyn change to PO levaquin x 3 days then stop abx. 1 more day of Levaquin planned (7) Sepsis: 2nd to pneumonia + c.diff colitis. (8) Tobacco use disorder: nicoderm patch. (9) Alcoholic cirrhosis of liver with ascites: as above in HepC. has pain due to ascites -- cont dilaudid 0.5mg IV q3h prn. takes oxy chronically at home as confirmed with PDMP (10) Lung mass: ORTIZ. Known. Previously refused work-up. Now with liver masses -- this easily could be stage 4 lung ca or some other form of metastatic cancer. Poor prognosis and not a good candidate for any Rx. patient and his son agree to hospice. (11) Liver masses: AFP wnl. Cytologies from ascites without malignant cells. concerning for metastatic disease - lung ca w/ liver mets? other? poor candidate for biopsy. (12) Severe protein-calorie malnutrition: very severe MVI, boost ordered evidence of diffuse muscle wasting (13) Supratherapeutic INR: in light of GI bleeding and acute blood loss anemia - vitamin k 5mg IV x 1 given with reversal of coumadin. very poor candidate for ongoing use of coumadin thus, would stop it indefinitely. (14) Hypokalemia: resolved (15) Hemorrhoid: anusol q6h [place] (16) Portal vein thrombosis: was on coumadin for such pre-admission High INR in setting of GI bleeding coumadin reversed poor candidate for coumadin moving forward stop it indefinitely (17) Acute blood loss anemia: presumed upper GI bleeding (varices, gastritis, etc) +/- Lower GI bleeding (from hemorrhoids) (18) CLL (chronic lymphocytic leukemia): no Rx needed (19) Candidiasis of mouth and esophagus: nystatin 5cc po ac/hs swish and swallow improved (20) DVT prophylaxis: SCDs disposition --- son/patient prefer [facility] for SNF son lives close to [place] patient now DNR if any worsening of status would transition to comfort care measures will ask CM to arrange for discharge plans, SNF with hospice transfer to medical floor Subjective patient appears very weak, debilitated in bed no strength, says he has not gotten out of bed in a "long time" appetite not great, tolerating some full liquids but doesn't want to eat, makes abdominal pain worse no longer having diarrhea, good response to Vanco and colestipol discussed plan for hospice care at SNF, he is on board with this plan reviewed labs, CBC with anemia and leukocytosis but stable Cr and electrolytes stable discussed transfer to medical floor Review of Systems Review of Systems: All systems reviewed & are unremarkable except as noted in HPI & below Constitutional: + fatigue, + weakness and + weight loss; no fever Respiratory: + dyspnea on exertion Cardiovascular: + edema; no chest pain Gastrointestinal: + abdominal pain and + bloating; no nausea, no vomiting and no constipation Physical Exam Constitutional: well developed, + ill appearing and + cachectic; no acute distress Eyes: PERRL, conjunctivae normal, anicteric sclerae ENMT: external ear and nose normal, oropharynx normal Neck: trachea midline, no thyromegaly Respiratory: normal respiratory effort; no respiratory distress Auscultation: + diminished lung sounds (bases); no wheezes Cardiovascular: RRR, no murmur, no edema Gastrointestinal (Abdomen): Inspection/Auscultation: + abdomen distended and normal bowel sounds; + abdomen abnormal to inspection Percussion/Palpation: abdomen soft and + ascites; abdomen nontender Musculoskeletal: Head/Neck/Chest: normocephalic and head atraumatic Extremities: + muscle atrophy (diffuse, temporal wasting, profound loss of muscles in arms and legs); + extremities abnormal to inspection (contractures in hands/fingers), no cyanosis and no clubbing Skin: + turgor decreased and + lesion (numerous dry, skin tag lesions on face, extremities); no rashes and no ulcers Neurologic: patellar DTR's 2+ bilat, sensation intact and PERRL, EOMI, accommodation nl, no face palsy, no dysarthria Psychiatric: Orientation: alert and oriented x 3 Affect: + depressed affect Mood: + depressed mood Lymphatic: no cervical or axillary lymphadenopathy Results & Data Vital Signs (Past 12 Hours) Vital Signs Temp Pulse Pulse Resp BP Pulse Ox 11/01/18 10:57 36.8 C 81 22 97/62 L 93 11/01/18 10:07 81 11/01/18 07:08 36.2 C L 78 20 93/63 L 91 11/01/18 03:42 36.4 C L 77 20 81/46 L 92 Laboratory Results Laboratory Results - last 24 hr 11/01/18 11/01/18 05:33 05:33 WBC 28.43 H RBC 2.90 L Hgb 8.9 L Hct 25.1 L MCV 86.6 MCH 30.7 MCHC 35.5 RDW Std Deviation 49.9 H RDW Coeff of Eliz 16.1 H Plt Count 161 MPV 9.2 Sodium 137 Potassium 3.7 Chloride 110 H Carbon Dioxide 18 L Anion Gap 9.0 BUN 8 Creatinine 0.44 L Est Cr Clr Drug Dosing 153.7 Est GFR ( Amer) 144.9 Est GFR (Non-Af Amer) 125.0 BUN/Creatinine Ratio 17.4 Glucose 122 H Calcium 7.1 L Magnesium 2.4 Medications Administered Current Inpatient Medications Albuterol (Combivent Respimat) 1 puffs INH QID [facility] Stop: 11/26/18 17:29 Last Admin: 11/01/18 13:26 Dose: 1 puffs Documented by: Colestipol HCl (Colestid) 1 gm PO BID@1000,2200 [facility] Stop: 11/30/18 09:59 Last Admin: 11/01/18 09:30 Dose: 1 gm Documented by: Diclofenac Sodium (Voltaren 1% Top) 1 appln EXT QID [facility] Stop: 11/27/18 16:59 Last Admin: 11/01/18 13:26 Dose: 1 appln Documented by: Fluticasone Propionate (Flovent Hfa 220mcg) 2 puffs INH BID [facility] Stop: 11/26/18 20:59 Last Admin: 11/01/18 09:31 Dose: 2 puffs Documented by: Hydrocortisone (Anusol Hc) 25 mg [place] Q6 [facility] Stop: 11/27/18 15:29 Last Admin: 11/01/18 11:23 Dose: Not Given Documented by: Hydromorphone HCl (Dilaudid) 0.5 mg IV Q3H PRN PRN Reason: Pain Stop: 11/11/18 11:35 Last Admin: 11/01/18 13:47 Dose: 0.5 mg Documented by: Levofloxacin (Levaquin) 500 mg PO DAILY@1100 [facility] Stop: 11/02/18 11:01 Last Admin: 11/01/18 11:23 Dose: 500 mg Documented by: Midodrine (Proamatine) 5 mg PO TID@0800,1200,1700 [facility] Stop: 12/01/18 07:59 Last Admin: 11/01/18 11:23 Dose: 5 mg Documented by: Miscellaneous (Remove Nicoderm Patch) 1 ea N/A HS [facility] Stop: 11/27/18 20:59 Last Admin: 10/31/18 20:40 Dose: 1 ea Documented by: Multivitamins/Minerals (Multivitamin W/ Minerals Tab) 1 tab PO QAM [facility] Stop: 11/29/18 08:59 Last Admin: 11/01/18 09:31 Dose: 1 tab Documented by: Nicotine (Nicoderm Cq) 14 mg TD QAM [facility] Stop: 11/26/18 17:14 Last Admin: 11/01/18 09:30 Dose: 14 mg Documented by: Nystatin (Mycostatin) 5 ml PO QID [facility] Stop: 11/08/18 13:59 Last Admin: 11/01/18 13:26 Dose: 5 ml Documented by: Ondansetron HCl (Zofran) 4 mg IV Q6H PRN PRN Reason: Nausea Stop: 11/26/18 16:46 Pantoprazole Sodium (Protonix) 40 mg PO BID [facility] Stop: 12/01/18 20:59 Raspberry (Raspberry) 5 ml PO Q6 [facility] Stop: 11/12/18 05:59 Last Admin: 11/01/18 11:22 Dose: 5 ml Documented by: Sertraline HCl (Zoloft) 50 mg PO DAILY [facility] Stop: 11/27/18 08:59 Last Admin: 11/01/18 09:30 Dose: 50 mg Documented by: Vancomycin HCl (Vancomycin Hcl) 125 mg PO Q6 [facility] Stop: 11/08/18 05:59 Last Admin: 11/01/18 11:22 Dose: 125 mg Documented by: (1) Sepsis Sepsis type: sepsis due to unspecified organism Qualified Code(s): A41.9 - Sepsis, unspecified organism (2) Hepatitis C Hepatic coma status: without hepatic coma Viral hepatitis chronicity: chronic Qualified Code(s): B18.2 - Chronic viral hepatitis C (3) Hemorrhoid Hemorrhoid type: other Qualified Code(s): K64.8 - Other hemorrhoids (4) Hypotension Hypotension type: other hypotension type Qualified Code(s): I95.89 - Other hypotension (5) Pneumonia Laterality: right Lung location: lower lobe of lung Pneumonia type: due to unspecified organism Qualified Code(s): J18.1 - Lobar pneumonia, unspecified organism
[2018-11-01] MEDS: PANTOprazole 40 MG TAB PO SCH (21:20)
[2018-11-02] MEDS: HYDROmorphone INJ 0.5 MG/0.5 ML SYR IV PRN ×4 (01:03→23:58)
[2018-11-02] MEDS: RASPBERRY SYRUP 5 ML UDP PO SCH ×4 (06:17→23:53)
[2018-11-02] MEDS: VANCOMYCIN HCL 125 MG/2.5ML SOLN PO SCH ×4 (06:17→23:53)
[2018-11-02] MEDS: HYDROCORTISONE ACETATE 25 MG SUPP PR SCH ×4 (06:17→23:53)
[2018-11-02] MEDS: IPRATROPIUM BROMIDE/ALBUTEROL respimat INH INH SCH ×4 (08:24→21:31)
[2018-11-02] MEDS: PANTOprazole 40 MG TAB PO SCH ×2 (08:25→21:32)
[2018-11-02] MEDS: NICOTINE 14 MG/24 HR PATCH TD SCH (08:25)
[2018-11-02] MEDS: SERTRALINE HCL 50 MG TABLET PO SCH (08:25)
[2018-11-02] MEDS: FLUTICASONE HFA 220 MCG INHALER INH SCH ×2 (08:25→21:31)
[2018-11-02] MEDS: MIDODRINE HCL 2.5 MG TAB PO SCH ×3 (08:25→18:05)
[2018-11-02] MEDS: CEROVITE ADV FORMULA TAB PO SCH (08:25)
[2018-11-02] MEDS: DICLOFENAC SOD 1% GEL 100 GM TUBE EXT SCH ×4 (08:26→21:31)
[2018-11-02] MEDS: NYSTATIN SUSP 500,000 U/5 ML UDC PO SCH ×4 (08:26→21:33)
[2018-11-02] MEDS: COLESTIPOL HCL 1 GM TAB PO SCH ×2 (10:22→21:32)
[2018-11-02] MEDS: levoFLOXacin 500 MG TAB PO SCH (11:11)
[2018-11-02] MEDS: MoRPHine SULFATE 10 MG/0.5 ML UDP PO PRN ×4 (12:39→21:57)
--- NOTE | 2018-11-02 15:14 | Hospitalist Progress Note ---
Date of Service November 02, 2018 Assessment & Plan (1) Hypotension: suspect hypovolemia in setting of diarrhea and severe hypoalbuminemia with cirrhosis there could be a component of normal hypotension slightly improved with midodrine. continue Midodrine at 5mg TID, will continue this dose on discharge H/H stable when last checked (2) C. difficile colitis: ongoing. day #5 of 14 of PO vancomycin course. contact precautions. added colestipol 1gm BID with improved frequency of stooling symptoms much improved, diarrhea nearly gone will continue above treatment on discharge (3) Upper GI bleeding: could be variceal vs PUD vs gastritis vs other. treated with protonix and octreotide drip, now stopped changed to protonix 40mg PO BID today cont full liquids. I had reversed his INR with vitamin K due to significant drop in H/H and grossly melena stools. In light of numerous comorbidities, high risk for sedation, and likely transition to hospice we are holding off on EGD at this time. H/H was 8.9 when last checked (4) Advanced hepatic cirrhosis: due to Hep C and alcohol. Very poor prognosis. Recent diagnostic paracentesis with normal cell counts/no SBP. ascites pathology w/o malignant cells. AFP level normal. no plans for further tap (5) Hepatitis C: with resulting cirrhosis. AFP returned normal making liver nodules unlikely to be hepatocellular ca. (6) Pneumonia: completed 5 days of Zosyn change to PO levaquin x 3 days then stop abx. last day of Levaquin (7) Sepsis: 2nd to pneumonia + c.diff colitis. (8) Tobacco use disorder: nicoderm patch. (9) Alcoholic cirrhosis of liver with ascites: as above in HepC. has pain due to ascites -- cont dilaudid 0.5mg IV q3h prn. started on Morphine liquid, 10mg PO PRN, helping some, will increase the dose as needed (10) Lung mass: ORTIZ. Known. Previously refused work-up. Now with liver masses -- this easily could be stage 4 lung ca or some other form of metastatic cancer. Poor prognosis and not a good candidate for any Rx. patient and his son agree to hospice. (11) Liver masses: AFP wnl. Cytologies from ascites without malignant cells. concerning for metastatic disease - lung ca w/ liver mets? other? poor candidate for biopsy. (12) Severe protein-calorie malnutrition: very severe MVI, boost ordered evidence of diffuse muscle wasting (13) Supratherapeutic INR: in light of GI bleeding and acute blood loss anemia - vitamin k 5mg IV x 1 given with reversal of coumadin. very poor candidate for ongoing use of coumadin thus, would stop it indefinitely. (14) Hypokalemia: resolved (15) Hemorrhoid: anusol q6h [place] (16) Portal vein thrombosis: was on coumadin for such pre-admission High INR in setting of GI bleeding coumadin reversed poor candidate for coumadin moving forward stop it indefinitely (17) Acute blood loss anemia: presumed upper GI bleeding (varices, gastritis, etc) +/- Lower GI bleeding (from hemorrhoids) (18) CLL (chronic lymphocytic leukemia): no Rx needed (19) Candidiasis of mouth and esophagus: nystatin 5cc po ac/hs swish and swallow improved (20) DVT prophylaxis: SCDs disposition --- planning on SNF or personal [facility] for hospice working with CM to make arrangements Subjective patient was in some pain in the morning, offered liquid morphine which seemed to help his pain a lot still with poor appetite was able to get into a chair in the afternoon with full assistance from staff discussed with CM, she offered patient list of personal care homes and SNF, will need to determine where he wants to go cost will be issue, since hospice does not cover facility cost Review of Systems Review of Systems: All systems reviewed & are unremarkable except as noted in HPI & below Constitutional: + fatigue and + weakness; no fever Respiratory: no cough and no dyspnea Cardiovascular: no chest pain and no edema Gastrointestinal: + abdominal pain; no nausea, no vomiting, no constipation, no diarrhea/loose stools and no melena Physical Exam Constitutional: well developed, + ill appearing and + cachectic; no acute distress Eyes: PERRL, conjunctivae normal, anicteric sclerae ENMT: external ear and nose normal, oropharynx normal Neck: trachea midline, no thyromegaly Respiratory: normal respiratory effort; no respiratory distress Auscultation: + diminished lung sounds (bases); no wheezes Cardiovascular: RRR, no murmur, no edema Gastrointestinal (Abdomen): Inspection/Auscultation: + abdomen distended and normal bowel sounds; + abdomen abnormal to inspection Percussion/Palpation: abdomen soft and + ascites; abdomen nontender Musculoskeletal: Head/Neck/Chest: normocephalic and head atraumatic Extremities: + muscle atrophy (diffuse, temporal wasting, profound loss of muscles in arms and legs); + extremities abnormal to inspection (contractures in hands/fingers), no cyanosis and no clubbing Skin: + turgor decreased and + lesion (numerous dry, skin tag lesions on face, extremities); no rashes and no ulcers Neurologic: patellar DTR's 2+ bilat, sensation intact and PERRL, EOMI, accommodation nl, no face palsy, no dysarthria Psychiatric: Orientation: alert and oriented x 3 Lymphatic: no cervical or axillary lymphadenopathy Results & Data Vital Signs (Past 12 Hours) Vital Signs Temp Pulse Resp BP Pulse Ox 11/02/18 11:21 36.3 C L 80 18 98/53 L 96 11/02/18 11:10 96 11/02/18 08:07 36.2 C L 75 18 92/58 L 95 (1) Sepsis Sepsis type: sepsis due to unspecified organism Qualified Code(s): A41.9 - Sepsis, unspecified organism (2) Hepatitis C Hepatic coma status: without hepatic coma Viral hepatitis chronicity: chronic Qualified Code(s): B18.2 - Chronic viral hepatitis C (3) Hemorrhoid Hemorrhoid type: other Qualified Code(s): K64.8 - Other hemorrhoids (4) Hypotension Hypotension type: other hypotension type Qualified Code(s): I95.89 - Other hypotension (5) Pneumonia Laterality: right Lung location: lower lobe of lung Pneumonia type: due to unspecified organism Qualified Code(s): J18.1 - Lobar pneumonia, unspecified organism
[2018-11-03] MEDS: HYDROCORTISONE ACETATE 25 MG SUPP PR SCH ×4 (06:00→23:35)
[2018-11-03] MEDS: VANCOMYCIN HCL 125 MG/2.5ML SOLN PO SCH ×4 (06:00→23:33)
[2018-11-03] MEDS: RASPBERRY SYRUP 5 ML UDP PO SCH ×4 (06:00→23:33)
[2018-11-03] MEDS: MoRPHine SULFATE 10 MG/0.5 ML UDP PO PRN ×5 (06:02→23:31)
[2018-11-03] MEDS: PANTOprazole 40 MG TAB PO SCH ×2 (07:59→19:30)
[2018-11-03] MEDS: SERTRALINE HCL 50 MG TABLET PO SCH (07:59)
[2018-11-03] MEDS: CEROVITE ADV FORMULA TAB PO SCH (07:59)
[2018-11-03] MEDS: IPRATROPIUM BROMIDE/ALBUTEROL respimat INH INH SCH ×4 (08:00→19:30)
[2018-11-03] MEDS: FLUTICASONE HFA 220 MCG INHALER INH SCH ×2 (08:00→19:30)
[2018-11-03] MEDS: MIDODRINE HCL 2.5 MG TAB PO SCH ×3 (08:00→15:46)
[2018-11-03] MEDS: NICOTINE 14 MG/24 HR PATCH TD SCH (08:01)
[2018-11-03] MEDS: DICLOFENAC SOD 1% GEL 100 GM TUBE EXT SCH ×4 (08:01→19:31)
[2018-11-03] MEDS: NYSTATIN SUSP 500,000 U/5 ML UDC PO SCH ×4 (08:02→19:31)
[2018-11-03] MEDS: COLESTIPOL HCL 1 GM TAB PO SCH ×2 (09:16→21:27)
--- NOTE | 2018-11-03 17:21 | Hospitalist Progress Note ---
Date of Service November 03, 2018 Assessment & Plan (1) Hypotension: suspect hypovolemia in setting of diarrhea and severe hypoalbuminemia with cirrhosis there could be a component of normal hypotension slightly improved with midodrine. continue Midodrine at 5mg TID, will continue this dose on discharge H/H stable when last checked (2) C. difficile colitis: ongoing. day #5 of 14 of PO vancomycin course. contact precautions. added colestipol 1gm BID with improved frequency of stooling symptoms much improved, diarrhea nearly gone will continue above treatment on discharge (3) Upper GI bleeding: could be variceal vs PUD vs gastritis vs other. treated with protonix and octreotide drip, now stopped changed to protonix 40mg PO BID today cont full liquids. I had reversed his INR with vitamin K due to significant drop in H/H and grossly melena stools. In light of numerous comorbidities, high risk for sedation, and likely transition to hospice we are holding off on EGD at this time. H/H was 8.9 when last checked (4) Advanced hepatic cirrhosis: due to Hep C and alcohol. Very poor prognosis. Recent diagnostic paracentesis with normal cell counts/no SBP. ascites pathology w/o malignant cells. AFP level normal. no plans for further tap (5) Hepatitis C: with resulting cirrhosis. AFP returned normal making liver nodules unlikely to be hepatocellular ca. (6) Pneumonia: completed 5 days of Zosyn change to PO levaquin x 3 days then stop abx. last day of Levaquin (7) Sepsis: 2nd to pneumonia + c.diff colitis. (8) Tobacco use disorder: nicoderm patch. (9) Alcoholic cirrhosis of liver with ascites: as above in HepC. has pain due to ascites -- cont dilaudid 0.5mg IV q3h prn. started on Morphine liquid, 10mg PO PRN, helping some, will increase the dose as needed (10) Lung mass: ORTIZ. Known. Previously refused work-up. Now with liver masses -- this easily could be stage 4 lung ca or some other form of metastatic cancer. Poor prognosis and not a good candidate for any Rx. patient and his son agree to hospice. (11) Liver masses: AFP wnl. Cytologies from ascites without malignant cells. concerning for metastatic disease - lung ca w/ liver mets? other? poor candidate for biopsy. (12) Severe protein-calorie malnutrition: very severe MVI, boost ordered evidence of diffuse muscle wasting (13) Supratherapeutic INR: in light of GI bleeding and acute blood loss anemia - vitamin k 5mg IV x 1 given with reversal of coumadin. very poor candidate for ongoing use of coumadin thus, would stop it indefinitely. (14) Hypokalemia: resolved (15) Hemorrhoid: anusol q6h [place] (16) Portal vein thrombosis: was on coumadin for such pre-admission High INR in setting of GI bleeding coumadin reversed poor candidate for coumadin moving forward stop it indefinitely (17) Acute blood loss anemia: presumed upper GI bleeding (varices, gastritis, etc) +/- Lower GI bleeding (from hemorrhoids) (18) CLL (chronic lymphocytic leukemia): no Rx needed (19) Candidiasis of mouth and esophagus: nystatin 5cc po ac/hs swish and swallow improved (20) DVT prophylaxis: SCDs disposition --- planning on SNF or personal alf for hospice working with CM to make arrangements Subjective patient reports that pain a little better with the Morphine liquid form able to sit at the edge of the bed today updated patient's friends at the bedside discussed again with CM and with patient, needs to select a personal care or SNF to figure out costs cannot go home because he does not have 24/7 care available to him no diarrhea little appetite Review of Systems Review of Systems: All systems reviewed & are unremarkable except as noted in HPI & below Constitutional: + weakness; no fever Respiratory: no cough and no dyspnea Cardiovascular: no chest pain and no edema Gastrointestinal: + abdominal pain; no nausea, no vomiting, no constipation and no diarrhea/loose stools Musculoskeletal: + muscle weakness Physical Exam Constitutional: well developed, + ill appearing and + cachectic; no acute dist ress Eyes: PERRL, conjunctivae normal, anicteric sclerae ENMT: external ear and nose normal, oropharynx normal Neck: trachea midline, no thyromegaly Respiratory: normal respiratory effort; no respiratory distress Auscultation: + diminished lung sounds (bases); no wheezes Cardiovascular: RRR, no murmur, no edema Gastrointestinal (Abdomen): Inspection/Auscultation: + abdomen distended and normal bowel sounds; + abdomen abnormal to inspection Percussion/Palpation: abdomen soft and + ascites; abdomen nontender Musculoskeletal: Head/Neck/Chest: normocephalic and head atraumatic Extremities: + muscle atrophy (diffuse, temporal wasting, profound loss of muscles in arms and legs); + extremities abnormal to inspection (contractures in hands/fingers), no cyanosis and no clubbing Skin: + turgor decreased and + lesion (numerous dry, skin tag lesions on face, extremities); no rashes and no ulcers Neurologic: patellar DTR's 2+ bilat, sensation intact and PERRL, EOMI, accommodation nl, no face palsy, no dysarthria Psychiatric: Orientation: alert and oriented x 3 Affect: + depressed affect Mood: + depressed mood Lymphatic: no cervical or axillary lymphadenopathy Results & Data Vital Signs (Past 12 Hours) Vital Signs Temp Pulse Pulse Resp BP Pulse Ox 11/03/18 15:00 37.1 C 77 20 100/62 93 11/03/18 11:37 36.3 C L 72 20 93/63 L 94 11/03/18 07:00 36.5 C 73 20 90/51 L 93 Medications Administered Current Inpatient Medications Albuterol (Combivent Respimat) 1 puffs INH QID [facility] Stop: 11/26/18 17:29 Last Admin: 11/03/18 15:45 Dose: 1 puffs Documented by: Colestipol HCl (Colestid) 1 gm PO BID@1000,2200 [facility] Stop: 11/30/18 09:59 Last Admin: 11/03/18 09:16 Dose: 1 gm Documented by: Diclofenac Sodium (Voltaren 1% Top) 1 appln EXT QID [facility] Stop: 11/27/18 16:59 Last Admin: 11/03/18 15:48 Dose: 1 appln Documented by: Fluticasone Propionate (Flovent Hfa 220mcg) 2 puffs INH BID [facility] Stop: 11/26/18 20:59 Last Admin: 11/03/18 08:00 Dose: 2 puffs Documented by: Hydrocortisone (Anusol Hc) 25 mg [place] Q6 [facility] Stop: 11/27/18 15:29 Last Admin: 11/03/18 11:19 Dose: 25 mg Documented by: Hydromorphone HCl (Dilaudid) 0.5 mg IV Q3H PRN PRN Reason: Pain Stop: 11/11/18 11:35 Last Admin: 11/02/18 23:58 Dose: 0.5 mg Documented by: Midodrine (Proamatine) 5 mg PO TID@0800,1200,1700 [facility] Stop: 12/01/18 07:59 Last Admin: 11/03/18 15:46 Dose: 5 mg Documented by: Miscellaneous (Remove Nicoderm Patch) 1 ea N/A HS [facility] Stop: 11/27/18 20:59 Last Admin: 11/02/18 21:33 Dose: 1 ea Documented by: Morphine Sulfate (Roxanol) 10 mg PO Q3H PRN PRN Reason: Pain Stop: 11/16/18 11:09 Last Admin: 11/03/18 15:44 Dose: 10 mg Documented by: Multivitamins/Minerals (Multivitamin W/ Minerals Tab) 1 tab PO QAM [facility] Stop: 11/29/18 08:59 Last Admin: 11/03/18 07:59 Dose: 1 tab Documented by: Nicotine (Nicoderm Cq) 14 mg TD QAM [facility] Stop: 11/26/18 17:14 Last Admin: 11/03/18 08:01 Dose: 14 mg Documented by: Nystatin (Mycostatin) 5 ml PO QID [facility] Stop: 11/08/18 13:59 Last Admin: 11/03/18 15:45 Dose: 5 ml Documented by: Ondansetron HCl (Zofran) 4 mg IV Q6H PRN PRN Reason: Nausea Stop: 11/26/18 16:46 Pantoprazole Sodium (Protonix) 40 mg PO BID [facility] Stop: 12/01/18 20:59 Last Admin: 11/03/18 07:59 Dose: 40 mg Documented by: Raspberry (Raspberry) 5 ml PO Q6 [facility] Stop: 11/12/18 05:59 Last Admin: 11/03/18 11:18 Dose: 5 ml Documented by: Sertraline HCl (Zoloft) 50 mg PO DAILY [facility] Stop: 11/27/18 08:59 Last Admin: 11/03/18 07:59 Dose: 50 mg Documented by: Vancomycin HCl (Vancomycin Hcl) 125 mg PO Q6 [facility] Stop: 11/08/18 05:59 Last Admin: 11/03/18 11:18 Dose: 125 mg Documented by: (1) Hypotension Hypotension type: other hypotension type Qualified Code(s): I95.89 - Other hypotension (2) Hepatitis C Viral hepatitis chronicity: chronic Hepatic coma status: without hepatic coma Qualified Code(s): B18.2 - Chronic viral hepatitis C (3) Pneumonia Laterality: right Lung location: lower lobe of lung Pneumonia type: due to u nspecified organism Qualified Code(s): J18.1 - Lobar pneumonia, unspecified organism (4) Sepsis Sepsis type: sepsis due to unspecified organism Qualified Code(s): A41.9 - Sepsis, unspecified organism (5) Hemorrhoid Hemorrhoid type: other Qualified Code(s): K64.8 - Other hemorrhoids
[2018-11-04] MEDS: MoRPHine SULFATE 10 MG/0.5 ML UDP PO PRN ×4 (04:44→21:45)
[2018-11-04] MEDS: HYDROCORTISONE ACETATE 25 MG SUPP PR SCH ×4 (05:45→23:36)
[2018-11-04] MEDS: RASPBERRY SYRUP 5 ML UDP PO SCH ×4 (06:32→23:33)
[2018-11-04] MEDS: VANCOMYCIN HCL 125 MG/2.5ML SOLN PO SCH ×4 (06:32→23:33)
[2018-11-04] MEDS: SERTRALINE HCL 50 MG TABLET PO SCH (07:36)
[2018-11-04] MEDS: MIDODRINE HCL 2.5 MG TAB PO SCH ×3 (07:36→15:57)
[2018-11-04] MEDS: CEROVITE ADV FORMULA TAB PO SCH (07:36)
[2018-11-04] MEDS: PANTOprazole 40 MG TAB PO SCH ×2 (07:36→20:29)
[2018-11-04] MEDS: IPRATROPIUM BROMIDE/ALBUTEROL respimat INH INH SCH ×4 (07:37→20:26)
[2018-11-04] MEDS: FLUTICASONE HFA 220 MCG INHALER INH SCH ×2 (07:37→20:25)
[2018-11-04] MEDS: NYSTATIN SUSP 500,000 U/5 ML UDC PO SCH ×4 (07:37→20:27)
[2018-11-04] MEDS: DICLOFENAC SOD 1% GEL 100 GM TUBE EXT SCH ×4 (07:37→20:30)
[2018-11-04] MEDS: NICOTINE 14 MG/24 HR PATCH TD SCH (07:38)
[2018-11-04] MEDS: COLESTIPOL HCL 1 GM TAB PO SCH ×2 (09:43→21:45)
[2018-11-05] MEDS: HYDROCORTISONE ACETATE 25 MG SUPP PR SCH ×3 (05:35→17:22)
[2018-11-05] MEDS: VANCOMYCIN HCL 125 MG/2.5ML SOLN PO SCH ×4 (05:35→23:53)
[2018-11-05] MEDS: RASPBERRY SYRUP 5 ML UDP PO SCH ×4 (05:35→23:54)
[2018-11-05] MEDS: CEROVITE ADV FORMULA TAB PO SCH (08:18)
[2018-11-05] MEDS: MoRPHine SULFATE 10 MG/0.5 ML UDP PO PRN ×5 (08:18→23:52)
[2018-11-05] MEDS: MIDODRINE HCL 2.5 MG TAB PO SCH ×3 (08:19→17:22)
[2018-11-05] MEDS: IPRATROPIUM BROMIDE/ALBUTEROL respimat INH INH SCH ×4 (08:19→20:07)
[2018-11-05] MEDS: NYSTATIN SUSP 500,000 U/5 ML UDC PO SCH ×4 (08:19→20:07)
[2018-11-05] MEDS: PANTOprazole 40 MG TAB PO SCH ×2 (08:19→20:06)
[2018-11-05] MEDS: FLUTICASONE HFA 220 MCG INHALER INH SCH ×2 (08:19→20:07)
[2018-11-05] MEDS: NICOTINE 14 MG/24 HR PATCH TD SCH (08:20)
[2018-11-05] MEDS: SERTRALINE HCL 50 MG TABLET PO SCH (08:20)
[2018-11-05] MEDS: DICLOFENAC SOD 1% GEL 100 GM TUBE EXT SCH ×4 (08:20→20:06)
[2018-11-05] MEDS: COLESTIPOL HCL 1 GM TAB PO SCH ×2 (10:33→20:06)
--- NOTE | 2018-11-05 22:51 | Hospitalist Progress Note ---
Date of Service November 05, 2018 Assessment & Plan (1) Abdominal pain: this is his main complaint every day constant due to liver mass, ascites started on Morphine liquid 10mg q3 helped a little, increased to 20mg and helped a little more but still uncomfortable will start Fentanyl patch 12mcg tomorrow goal is comfort and he continues to have pain he understands that more narcotics will make him fatigued and less responsive he is okay with this (2) Hypotension: suspect hypovolemia in setting of diarrhea and severe hypoalbuminemia with cirrhosis there could be a component of normal hypotension slightly improved with midodrine. continue Midodrine at 5mg TID, will continue this dose on discharge H/H stable when last checked (3) C. difficile colitis: ongoing. day #7 of 14 of PO vancomycin course. contact precautions. added colestipol 1gm BID with improved frequency of stooling symptoms much improved, diarrhea gone will continue above treatment on discharge (4) Upper GI bleeding: could be variceal vs PUD vs gastritis vs other. treated with protonix and octreotide drip, now stopped changed to protonix 40mg PO BID today cont full liquids. I had reversed his INR with vitamin K due to significant drop in H/H and grossly melena stools. In light of numerous comorbidities, high risk for sedation, and likely transition to hospice we are holding off on EGD at this time. H/H was 8.9 when last checked (5) Advanced hepatic cirrhosis: due to Hep C and alcohol. Very poor prognosis. Recent diagnostic paracentesis with normal cell counts/no SBP. ascites pathology w/o malignant cells. AFP level normal. no plans for further tap (6) Hepatitis C: with resulting cirrhosis. AFP returned normal making liver nodules unlikely to be hepatocellular ca. (7) Pneumonia: completed 5 days of Zosyn change to PO levaquin x 3 days then stop abx. last day of Levaquin (8) Sepsis: 2nd to pneumonia + c.diff colitis. (9) Tobacco use disorder: nicoderm patch. (10) Alcoholic cirrhosis of liver with ascites: as above in HepC. has pain due to ascites -- cont dilaudid 0.5mg IV q3h prn. started on Morphine liquid, 10mg PO PRN, helping some, will increase the dose as needed (11) Lung mass: ORTIZ. Known. Previously refused work-up. Now with liver masses -- this easily could be stage 4 lung ca or some other form of metastatic cancer. Poor prognosis and not a good candidate for any Rx. patient and his son agree to hospice. (12) Liver masses: AFP wnl. Cytologies from ascites without malignant cells. concerning for metastatic disease - lung ca w/ liver mets? other? poor candidate for biopsy. (13) Severe protein-calorie malnutrition: very severe MVI, boost ordered evidence of diffuse muscle wasting (14) Supratherapeutic INR: in light of GI bleeding and acute blood loss anemia - vitamin k 5mg IV x 1 given with reversal of coumadin. very poor candidate for ongoing use of coumadin thus, would stop it indefinitely. (15) Hypokalemia: resolved (16) Hemorrhoid: anusol q6h [place] (17) Portal vein thrombosis: was on coumadin for such pre-admission High INR in setting of GI bleeding coumadin reversed poor candidate for coumadin moving forward stop it indefinitely (18) Acute blood loss anemia: presumed upper GI bleeding (varices, gastritis, etc) +/- Lower GI bleeding (from hemorrhoids) (19) CLL (chronic lymphocytic leukemia): no Rx needed (20) Candidiasis of mouth and esophagus: nystatin 5cc po ac/hs swish and swallow improved (21) DVT prophylaxis: SCDs disposition --- plan is for SNF with hospice, [facility] or [facility] will be options per CM patient has no resources he would need to apply for Medicaid to pay for the room and Hospice will provide other care likely no answer over the weekend Subjective patient says that increasing the Morphine to 20mg helped a little but still with pain suggested trying low dose Fentanyl patch and he agreed discussed discharge plan, will make referral to [facility] if they would accept then their liason will help him with Medicaid application there are no other options as 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 Review of Systems Review of Systems: All systems reviewed & are unremarkable except as noted in HPI & below Constitutional: + fatigue and + weakness; no fever Respiratory: no dyspnea Cardiovascular: no chest pain Gastrointestinal: + abdominal pain; no nausea, no vomiting, no constipation and no diarrhea/loose stools Physical Exam Constitutional: well developed, + ill appearing and + cachectic; no acute distress Eyes: PERRL, conjunctivae normal, anicteric sclerae ENMT: external ear and nose normal, oropharynx normal Neck: trachea midline, no thyromegaly Respiratory: normal respiratory effort; no respiratory distress Auscultation: + diminished lung sounds (bases); no wheezes Cardiovascular: RRR, no murmur, no edema Gastrointestinal (Abdomen): Inspection/Auscultation: + abdomen distended and normal bowel sounds; + abdomen abnormal to inspection Percussion/Palpation: abdomen soft and + ascites; abdomen nontender Musculoskeletal: Head/Neck/Chest: normocephalic and head atraumatic Extre mities: + muscle atrophy (diffuse, temporal wasting, profound loss of muscles in arms and legs); + extremities abnormal to inspection (contractures in hands/fingers), no cyanosis and no clubbing Skin: + turgor decreased and + lesion (numerous dry, skin tag lesions on face, extremities); no rashes and no ulcers Neurologic: patellar DTR's 2+ bilat, sensation intact and PERRL, EOMI, accommodation nl, no face palsy, no dysarthria Psychiatric: Orientation: alert and oriented x 3 Affect: + depressed affect Mood: + depressed mood Lymphatic: no cervical or axillary lymphadenopathy Results & Data Vital Signs (Past 12 Hours) Vital Signs Temp Pulse Pulse Resp BP BP Pulse Ox 11/05/18 15:39 36.8 C 74 20 97/63 L 96 11/05/18 11:18 36.7 C 72 16 102/65 91 Medications Administered Current Inpatient Medications Albuterol (Combivent Respimat) 1 puffs INH QID [facility] Stop: 11/26/18 17:29 Last Admin: 11/05/18 20:07 Dose: 1 puffs Documented by: Colestipol HCl (Colestid) 1 gm PO BID@1000,2200 [facility] Stop: 11/30/18 09:59 Last Admin: 11/05/18 20:06 Dose: 1 gm Documented by: Diclofenac Sodium (Voltaren 1% Top) 1 appln EXT QID [facility] Stop: 11/27/18 16:59 Last Admin: 11/05/18 20:06 Dose: 1 appln Documented by: Fentanyl (Duragesic) 12 mcg TD Q3D@2245 [facility] Stop: 11/19/18 22:44 Fluticasone Propionate (Flovent Hfa 220mcg) 2 puffs INH BID [facility] Stop: 11/26/18 20:59 Last Admin: 11/05/18 20:07 Dose: 2 puffs Documented by: Hydrocortisone (Anusol Hc) 25 mg WA Q6 [facility] Stop: 11/27/18 15:29 Last Admin: 11/05/18 17:22 Dose: Not Given Documented by: Midodrine (Proamatine) 5 mg PO TID@0800,1200,1700 [facility] Stop: 12/01/18 07:59 Last Admin: 11/05/18 17:22 Dose: 5 mg Documented by: Miscellaneous (Remove Nicoderm Patch) 1 ea N/A HS [facility] Stop: 11/27/18 20:59 Last Admin: 11/05/18 20:07 Dose: 1 ea Documented by: Miscellaneous (Fentanyl Patch Remove & Waste) 1 ea N/A Q3D@2245 [facility] Stop: 12/08/18 22:44 Miscellaneous (Fentanyl Patch Check Placement) 1 ea N/A QS [facility] Stop: 12/06/18 00:00 Morphine Sulfate (Roxanol) 20 mg PO Q3H PRN PRN Reason: Pain Stop: 11/16/18 11:09 Last Admin: 11/05/18 20:05 Dose: 20 mg Documented by: Multivitamins/Minerals (Multivitamin W/ Minerals Tab) 1 tab PO QAM [facility] Stop: 11/29/18 08:59 Last Admin: 11/05/18 08:18 Dose: 1 tab Documented by: Nicotine (Nicoderm Cq) 14 mg TD QAM [facility] Stop: 11/26/18 17:14 Last Admin: 11/05/18 08:20 Dose: 14 mg Documented by: Nystatin (Mycostatin) 5 ml PO QID [facility] Stop: 11/08/18 13:59 Last Admin: 11/05/18 20:07 Dose: 5 ml Documented by: Ondansetron HCl (Zofran) 4 mg IV Q6H PRN PRN Reason: Nausea Stop: 11/26/18 16:46 Pantoprazole Sodium (Protonix) 40 mg PO BID [facility] Stop: 12/01/18 20:59 Last Admin: 11/05/18 20:06 Dose: 40 mg Documented by: Raspberry (Raspberry) 5 ml PO Q6 [facility] Stop: 11/12/18 05:59 Last Admin: 11/05/18 17:21 Dose: 5 ml Documented by: Sertraline HCl (Zoloft) 50 mg PO DAILY [facility] Stop: 11/27/18 08:59 Last Admin: 11/05/18 08:20 Dose: 50 mg Documented by: Vancomycin HCl (Vancomycin Hcl) 125 mg PO Q6 [facility] Stop: 11/08/18 05:59 Last Admin: 11/05/18 17:21 Dose: 125 mg Documented by: (1) Hypotension Hypotension type: other hypotension type Qualified Code(s): I95.89 - Other hypotension (2) Hepatitis C Viral hepatitis chronicity: chronic Hepatic coma status: without hepatic coma Qualified Code(s): B18.2 - Chronic viral hepatitis C (3) Pneumonia Laterality: right Lung location: lower lobe of lung Pneumonia type: due to unspecified organism Qualified Code(s): J18.1 - Lobar pneumonia, unspecified organism (4) Sepsis Sepsis type: sepsis due to unspecified organism Qualified Code(s): A41.9 - Sepsis, unspecified organism (5) Hemorrhoid Hemorrhoid type: other Qualified Code(s): K64.8 - Other hemorrhoids (6) Abdominal pain Abdominal location: unspecified location Qualified Code(s): R10.9 - Unspecified abdominal pain
[2018-11-05] MEDS: fentaNYL 12 MCG/HR TDSY TD SCH (23:53)
[2018-11-05] MEDS: CHECK FENTANYL PATCH PLACEMENT SCH (23:54)
[2018-11-06] MEDS: HYDROCORTISONE ACETATE 25 MG SUPP PR SCH ×5 (06:01→23:49)
[2018-11-06] MEDS: VANCOMYCIN HCL 125 MG/2.5ML SOLN PO SCH ×4 (06:01→23:49)
[2018-11-06] MEDS: RASPBERRY SYRUP 5 ML UDP PO SCH ×4 (06:01→23:49)
[2018-11-06] MEDS: MoRPHine SULFATE 10 MG/0.5 ML UDP PO PRN ×2 (06:28→21:06)
[2018-11-06] MEDS: CHECK FENTANYL PATCH PLACEMENT SCH ×3 (07:34→23:49)
[2018-11-06] MEDS: FLUTICASONE HFA 220 MCG INHALER INH SCH ×2 (07:35→21:07)
[2018-11-06] MEDS: SERTRALINE HCL 50 MG TABLET PO SCH (07:35)
[2018-11-06] MEDS: MIDODRINE HCL 2.5 MG TAB PO SCH ×3 (07:35→16:30)
[2018-11-06] MEDS: DICLOFENAC SOD 1% GEL 100 GM TUBE EXT SCH ×4 (07:35→21:09)
[2018-11-06] MEDS: PANTOprazole 40 MG TAB PO SCH ×2 (07:36→21:08)
[2018-11-06] MEDS: NICOTINE 14 MG/24 HR PATCH TD SCH (07:36)
[2018-11-06] MEDS: IPRATROPIUM BROMIDE/ALBUTEROL respimat INH INH SCH ×4 (07:36→21:07)
[2018-11-06] MEDS: CEROVITE ADV FORMULA TAB PO SCH (07:36)
[2018-11-06] MEDS: NYSTATIN SUSP 500,000 U/5 ML UDC PO SCH ×4 (07:37→21:07)
[2018-11-06] MEDS: COLESTIPOL HCL 1 GM TAB PO SCH (10:57)
--- NOTE | 2018-11-06 11:47 | Hospitalist Progress Note ---
Date of Service November 06, 2018 Assessment & Plan (1) Hypotension: suspect hypovolemia in setting of diarrhea and severe hypoalbuminemia. slightly improved with midodrine. increase to 5mg TID. H/H stable today. consider albumin. (2) C. difficile colitis: ongoing. day #3 of 14 of PO vancomycin course. contact precautions. added colestipol 1gm BID with improved frequency of stooling. (3) Upper GI bleeding: could be variceal vs PUD vs gastritis vs other. remains on PPI drip and octreotide drip. day #4/5. would stop both TOMORROW on 11/01. change to protonix 40mg PO BID tomorrow. cont full liquids. I had reversed his INR with vitamin K due to significant drop in H/H and grossly melena stools. In light of numerous comorbidities, high risk for sedation, and likely transition to hospice we are holding off on EGD at this time. Repeat H/H in am. Appreciate GI consultation. (4) Advanced hepatic cirrhosis: due to Hep C and alcohol. Very poor prognosis. Recent diagnostic paracentesis with normal cell counts/no SBP. ascites pathology w/o malignant cells. AFP level normal. I performed a bedside u/s today and only found one pocket of fluid in the LLQ th at may have been accessible for therapeutic paracentesis. However, he has distended loops of bowel from his c.diff and would hold off on tap for now. (5) Hepatitis C: with resulting cirrhosis. AFP returned normal making liver nodules unlikely to be hepatocellular ca. (6) Pneumonia: day #5 zosyn. d/c zosyn. change to PO levaquin x 3 days then stop abx. cont NC O2. (7) Sepsis: 2nd to pneumonia + c.diff colitis. (8) Tobacco use disorder: nicoderm patch. (9) Alcoholic cirrhosis of liver with ascites: as above in HepC. has pain due to ascites -- cont dilaudid 0.5mg IV q3h prn. takes oxy chronically at home as confirmed with PDMP (10) Lung mass: ORTIZ. Known. Previously refused work-up. Now with liver masses -- this easily could be stage 4 lung ca or some other form of metastatic cancer. Poor prognosis and not a good candidate for any Rx. Hospice would be best. I recommended hospice to patient and his son. They are agreeable. (11) Liver masses: AFP wnl. Cytologies from ascites without malignant cells. concerning for metastatic disease - lung ca w/ liver mets? other? poor candidate for biopsy. (12) Severe protein-calorie malnutrition: very severe MVI, boost ordered (13) Supratherapeutic INR: in light of GI bleeding and acute blood loss anemia - vitamin k 5mg IV x 1 given with reversal of coumadin. very poor candidate for ongoing use of coumadin thus, would stop it indefinitely. (14) Hypokalemia: resolved (15) Hemorrhoid: anusol q6h [place] (16) Portal vein thrombosis: was on coumadin for such pre-admission High INR in setting of GI bleeding coumadin reversed poor candidate for coumadin moving forward stop it indefinitely (17) Acute blood loss anemia: presumed upper GI bleeding (varices, gastritis, etc) +/- Lower GI bleeding (from hemorrhoids) (18) CLL (chronic lymphocytic leukemia): no Rx needed (19) Candidiasis of mouth and esophagus: nystatin 5cc po ac/hs swish and swallow improved (20) DVT prophylaxis: SCDs disposition --- son/patient prefer [facility] for SNF son lives close to [place] patient now DNR if any worsening of status would transition to comfort care measures Physical Exam Constitutional: + thin and + cachectic; no acute distress and no altered mental status ENMT: Mouth: + oral mucosal abnormality (thrush resolved) Respiratory: normal respiratory effort; no labored breathing Auscultation: + diminished lung sounds (bases) Cardiovascular: Rate/Rhythm: regular rate and regular rhythm Heart Sounds: normal S1 and normal S2 Vessels: posterior tibial pulses present and dorsalis pedis pulses present; no JVD Gastrointestinal (Abdomen): Inspection/Auscultation: + abdomen distended and normal bowel sounds Percussion/Palpation: + abdomen tender (lower quadrants) and + ascites; no hepatosplenomegaly Skin: + ecchymosis (extensive most surfaces along w/ copious petechiae) and + pallor; no jaundice Psychiatric: Orientation: alert and oriented x 3 Results & Data Vital Signs (Past 12 Hours) Vital Signs Temp Pulse Pulse Resp BP Pulse Ox 11/06/18 07:56 36.4 C L 72 15 88/68 L 97 11/06/18 04:21 36.5 C 72 18 95/61 L 94 11/06/18 00:05 36.3 C L 77 20 97/62 L 94 (1) Hypotension Hypotension type: other hypotension type Qualified Code(s): I95.89 - Other hypotension (2) Hepatitis C Viral hepatitis chronicity: chronic Hepatic coma status: without hepatic coma Qualified Code(s): B18.2 - Chronic viral hepatitis C (3) Pneumonia Laterality: right Lung location: lower lobe of lung Pneumonia type: due to unspecified organism Qualified Code(s): J18.1 - Lobar pneumonia, unspecified organism (4) Sepsis Sepsis type: sepsis due to unspecified organism Qualified Code(s): A41.9 - Sepsis, unspecified organism (5) Hemorrhoid Hemorrhoid type: other Qualified Code(s): K64.8 - Other hemorrhoids
--- NOTE | 2018-11-06 19:57 | Hospitalist Progress Note ---
Date of Service November 06, 2018 Assessment & Plan (1) Fatigue: likely rising ammonia levels (suspected), fentanyl patch/other pain meds, etc (2) Hypotension: stabilized with use of midodrine. continue such. (3) C. difficile colitis: ongoing. day #9 of 14 of PO vancomycin course. contact precautions. added colestipol 1gm BID earlier this stay. no diarrhea. can cut dose to daily use. (4) Upper GI bleeding: treated for variceal bleed vs PUD vs gastritis vs other. completed 5 day octreotide and PPI drips. coumadin fully reversed and NOT resumed. no EGD pursued - too ill to do so. H/H stable last week. cont PPI twice daily. (5) Advanced hepatic cirrhosis: due to Hep C and alcohol. Very poor prognosis. Recent diagnostic paracentesis with normal cell counts/no SBP. ascites pathology w/o malignant cells. AFP level normal. suspect he may have rising ammonia levels. (6) Hepatitis C: with resulting cirrhosis. AFP returned normal making liver nodules unlikely to be hepatocellular ca. (7) Pneumonia: completed full course of IV/PO antibiotics. (8) Sepsis: 2nd to pneumonia + c.diff colitis. resolved. (9) Tobacco use disorder: nicoderm patch. (10) Alcoholic cirrhosis of liver with ascites: as above in HepC. has pain due to ascites -- cont dilaudid 0.5mg IV q3h prn. cont fentanyl patch 12mcg. latter likely causing some sedation. (11) Lung mass: ORTIZ. Known. Previously refused work-up. Now with liver masses -- this easily could be stage 4 lung ca or some other form of metastatic cancer. Hospice. (12) Liver masses: AFP wnl. Cytologies from ascites without malignant cells. concerning for metastatic disease - lung ca w/ liver mets? no biopsy. hospice. (13) Severe protein-calorie malnutrition: very severe ongoing multifactorial (14) Supratherapeutic INR: in light of GI bleeding and acute blood loss anemia coumadin reversed will NOT resume coumadin at any time too risky (15) Hemorrhoid: anusol q6h [place] (16) Portal vein thrombosis: was on coumadin for such pre-admission High INR in setting of GI bleeding coumadin reversed poor candidate for coumadin moving forward stop it indefinitely (17) Acute blood loss anemia: presumed upper GI bleeding (varices, gastritis, etc) +/- Lower GI bleeding (from hemorrhoids) no further bleeding (18) CLL (chronic lymphocytic leukemia): no Rx (19) Candidiasis of mouth and esophagus: nystatin 5cc po ac/hs swish and swallow appears resolved (20) DVT prophylaxis: SCDs dispo - SNF w/ hospice Thursday or Thursday of this week?? Subjective patient very sleepy during the visit. he was awake enough, however, to ask "where he was going" (referring to the nurs ing home) denied any pain denied any dyspnea "I slept good last night" Review of Systems Constitutional: + fatigue and + anorexia Respiratory: no dyspnea Cardiovascular: no chest pain Gastrointestinal: no abdominal pain Physical Exam Constitutional: + cachectic and + frail appearing; no acute distress very sleepy ENMT: external ear and nose normal, oropharynx normal (thrush resolved) Respiratory: no labored breathing Auscultation: + diminished lung sounds Cardiovascular: Rate/Rhythm: regular rate and regular rhythm Heart Sounds: normal S1 and normal S2 Vessels: no JVD Extremities: + edema (b/l feet - 2+) Gastrointestinal (Abdomen): Inspection/Auscultation: + abdomen distended Percussion/Palpation: abdomen nontender and no hepatosplenomegaly Skin: + pallor; no jaundice Psychiatric: very sleepy but awakens to name being called Results & Data Vital Signs (Past 12 Hours) Vital Signs Pulse Resp BP Pulse Ox 11/06/18 15:55 77 16 88/54 L 96 11/06/18 12:00 72 16 100/64 94 (1) Hypotension Hypotension type: other hypotension type Qualified Code(s): I95.89 - Other hypotension (2) Hepatitis C Viral hepatitis chronicity: chronic Hepatic coma status: without hepatic coma Qualified Code(s): B18.2 - Chronic viral hepatitis C (3) Pneumonia Laterality: right Lung location: lower lobe of lung Pneumonia type: due to unspecified organism Qualified Code(s): J18.1 - Lobar pneumonia, unspecified organism (4) Sepsis Sepsis type: sepsis due to unspecified organism Qualified Code(s): A41.9 - Sepsis, unspecified organism (5) Hemorrhoid Hemorrhoid type: other Qualified Code(s): K64.8 - Other hemorrhoids (6) Fatigue Fatigue type: unspecified Qualified Code(s): R53.83 - Other fatigue
[2018-11-07] MEDS: MoRPHine SULFATE 10 MG/0.5 ML UDP PO PRN ×4 (00:05→21:28)
[2018-11-07] MEDS: HYDROCORTISONE ACETATE 25 MG SUPP PR SCH ×4 (06:10→23:40)
[2018-11-07] MEDS: RASPBERRY SYRUP 5 ML UDP PO SCH ×4 (06:11→23:51)
[2018-11-07] MEDS: VANCOMYCIN HCL 125 MG/2.5ML SOLN PO SCH ×4 (06:11→23:50)
[2018-11-07] MEDS: DICLOFENAC SOD 1% GEL 100 GM TUBE EXT SCH ×4 (07:27→21:13)
[2018-11-07] MEDS: FLUTICASONE HFA 220 MCG INHALER INH SCH ×2 (07:28→21:11)
[2018-11-07] MEDS: IPRATROPIUM BROMIDE/ALBUTEROL respimat INH INH SCH ×4 (07:28→21:10)
[2018-11-07] MEDS: NICOTINE 14 MG/24 HR PATCH TD SCH (07:29)
[2018-11-07] MEDS: MIDODRINE HCL 2.5 MG TAB PO SCH ×3 (07:30→16:09)
[2018-11-07] MEDS: SERTRALINE HCL 50 MG TABLET PO SCH (07:30)
[2018-11-07] MEDS: CEROVITE ADV FORMULA TAB PO SCH (07:30)
[2018-11-07] MEDS: NYSTATIN SUSP 500,000 U/5 ML UDC PO SCH ×4 (07:31→21:10)
[2018-11-07] MEDS: PANTOprazole 40 MG TAB PO SCH ×2 (07:31→21:12)
[2018-11-07] MEDS: CHECK FENTANYL PATCH PLACEMENT SCH ×3 (07:32→23:40)
[2018-11-07] MEDS: COLESTIPOL HCL 1 GM TAB PO SCH (10:00)
--- NOTE | 2018-11-07 15:12 | Hospitalist Progress Note ---
Date of Service November 07, 2018 Assessment & Plan (1) Fatigue: Intermittent, improved today -likely rising ammonia levels (suspected), fentanyl patch/other pain meds, etc (2) Hypotension: stabilized with use of midodrine. continue such. (3) C. difficile colitis: ongoing but improved day #10 of 14 of PO vancomycin course. contact precautions. -continue colestipol 1gm daily (4) Upper GI bleeding: treated for variceal bleed vs PUD vs gastritis vs other. completed 5 day octreotide and PPI drips. coumadin fully reversed and NOT resumed. no EGD pursued - too ill to do so. H/H stable last week. cont PPI twice daily. -no CBC being followed due to movement towards comfort measures (5) Advanced hepatic cirrhosis: due to Hep C and alcohol. Very poor prognosis. Recent diagnostic paracentesis with normal cell counts/no SBP. ascites pathology w/o malignant cells. AFP level normal. With profound severe protein calorie malnutrition, cachexia -with h/o PVT no longer on coumadin -continue pain control of abdomen, no plans for aggressive measures at this point (6) Hepatitis C: with resulting cirrhosis. AFP returned normal making liver nodules unlikely to be hepatocellular ca. (7) Pneumonia: completed full course of IV/PO antibiotics. (8) Sepsis: 2nd to pneumonia + c.diff colitis. resolved. (9) Tobacco use disorder: nicoderm patch. (10) Alcoholic cirrhosis of liver with ascites: as above in HepC. has pain due to ascites cont fentanyl patch 12mcg q72 hours and Roxanol 20mg po q3h prn breaktrhough pain -no plans for paracentesis at this point (11) Lung mass: ORTIZ. Known. Previously refused work-up. Now with liver masses -- this easily could be stage 4 lung ca or some other form of metastatic cancer. Hospice. (12) Liver masses: AFP wnl. Cytologies from ascites without malignant cells. concerning for metastatic disease - lung ca w/ liver mets? no biopsy. hospice. (13) Severe protein-calorie malnutrition: very severe ongoing multifactorial (14) Supratherapeutic INR: in light of GI bleeding and acute blood loss anemia coumadin reversed will NOT resume coumadin at any time too risky (15) Hemorrhoid: anusol q6h [place] (16) Portal vein thrombosis: was on coumadin for such pre-admission High INR in setting of GI bleeding coumadin reversed poor candidate for coumadin moving forward stop it indefinitely (17) Acute blood loss anemia: presumed upper GI bleeding (varices, gastritis, etc) +/- Lower GI bleeding (from hemorrhoids) no further bleeding -no longer checking CBC (18) CLL (chronic lymphocytic leukemia): no Rx (19) Candidiasis of mouth and esophagus: nystatin 5cc po ac/hs swish and swallow appears resolved (20) DVT prophylaxis: SCDs dispo - SNF w/ hospice when arrangements made Case discussed with CM Subjective Pt reports some abd pain, moved his bowels once today. Reports he actually ate quite a bit today. No other concerns. Review of Systems Review of Systems: All systems reviewed & are unremarkable except as noted in HPI & below Physical Exam Constitutional: + cachectic Eyes: PERRL, conjunctivae normal, anicteric sclerae Neck: trachea midline, no thyromegaly Respiratory: normal respiratory effort, lungs clear to auscultation Cardiovascular: RRR, no murmur, no edema Gastrointestinal (Abdomen): Inspection/Auscultation: + abdomen distended and normal bowel sounds Percussion/Palpation: + abdomen tender (diffusely but moreso in right side of abdomen, no guarding or rebound) Musculoskeletal: Extremities: + extremities abnormal to inspection (diffuse sarcopenia), no cyanosis and no clubbing Skin: + rash (petechiae scattered on extremities and abdomen) and + lesion (forehead with multiple fleshy papules) Neurologic: moves all extremities and awake; no focal motor deficits Psychiatric: A+Ox3, euthymic affect Results & Data Vital Signs (Past 12 Hours) Vital Signs Temp Pulse Resp BP BP Pulse Ox 11/07/18 11:48 36.5 C 72 16 88/58 L 95 11/07/18 07:34 36.5 C 65 18 93/56 L 95 11/07/18 04:55 36.3 C L 67 16 79/56 L 93 Laboratory Results no labs (1) Fatigue Fatigue type: unspecified Qualified Code(s): R53.83 - Other fatigue (2) Hypotension Hypotension type: other hypotension type Qualified Code(s): I95.89 - Other hypotension (3) Hepatitis C Viral hepatitis chronicity: chronic Hepatic coma status: without hepatic coma Qualified Code(s): B18.2 - Chronic viral hepatitis C (4) Pneumonia Laterality: right Lung location: lower lobe of lung Pneumonia type: due to unspecified organism Qualified Code(s): J18.1 - Lobar pneumonia, unspecified organism (5) Sepsis Sepsis type: sepsis due to unspecified organism Qualified Code(s): A41.9 - Sepsis, unspecified organism (6) Hemorrhoid Hemorrhoid type: other Qualified Code(s): K64.8 - Other hemorrhoids
[2018-11-08] MEDS: HYDROCORTISONE ACETATE 25 MG SUPP PR SCH ×3 (07:06→18:25)
[2018-11-08] MEDS: RASPBERRY SYRUP 5 ML UDP PO SCH ×3 (07:49→18:25)
[2018-11-08] MEDS: VANCOMYCIN HCL 125 MG/2.5ML SOLN PO SCH ×3 (07:49→18:25)
[2018-11-08] MEDS: CHECK FENTANYL PATCH PLACEMENT SCH ×2 (07:49→17:11)
[2018-11-08] MEDS: MIDODRINE HCL 2.5 MG TAB PO SCH ×3 (07:50→17:13)
[2018-11-08] MEDS: IPRATROPIUM BROMIDE/ALBUTEROL respimat INH INH SCH ×4 (07:50→20:24)
[2018-11-08] MEDS: CEROVITE ADV FORMULA TAB PO SCH (07:51)
[2018-11-08] MEDS: NYSTATIN SUSP 500,000 U/5 ML UDC PO SCH ×2 (07:51→13:13)
[2018-11-08] MEDS: NICOTINE 14 MG/24 HR PATCH TD SCH (07:51)
[2018-11-08] MEDS: FLUTICASONE HFA 220 MCG INHALER INH SCH ×2 (07:51→20:24)
[2018-11-08] MEDS: PANTOprazole 40 MG TAB PO SCH ×2 (07:52→20:24)
[2018-11-08] MEDS: SERTRALINE HCL 50 MG TABLET PO SCH (07:52)
[2018-11-08] MEDS: DICLOFENAC SOD 1% GEL 100 GM TUBE EXT SCH ×4 (07:52→20:25)
[2018-11-08] MEDS: COLESTIPOL HCL 1 GM TAB PO SCH (11:24)
[2018-11-08] MEDS: MoRPHine SULFATE 10 MG/0.5 ML UDP PO PRN ×3 (13:19→22:39)
--- NOTE | 2018-11-08 20:52 | Hospitalist Progress Note ---
Date of Service November 08, 2018 Assessment & Plan (1) Fatigue: Intermittent, improved today -likely rising ammonia levels (suspected), fentanyl patch/other pain meds, etc (2) Hypotension: stabilized with use of midodrine. continue such. (3) C. difficile colitis: Diarrhea resolved day #11 of 14 of PO vancomycin course. contact precautions. -continue colestipol 1gm daily (4) Upper GI bleeding: treated for variceal bleed vs PUD vs gastritis vs other. completed 5 day octreotide and PPI drips. coumadin fully reversed and NOT resumed. no EGD pursued - too ill to do so. H/H stable last week. cont PPI twice daily. -no CBC being followed due to movement towards comfort measures (5) Advanced hepatic cirrhosis: due to Hep C and alcohol. Very poor prognosis. Recent diagnostic paracentesis with normal cell counts/no SBP. ascites pathology w/o malignant cells. AFP level normal. With profound severe protein calorie malnutrition, cachexia -with h/o PVT no longer on coumadin -continue pain control of abdomen, no plans for aggressive measures at this point (6) Hepatitis C: with resulting cirrhosis. AFP returned normal making liver nodules unlikely to be hepatocellular ca. (7) Pneumonia: completed full course of IV/PO antibiotics. (8) Sepsis: 2nd to pneumonia + c.diff colitis. resolved. (9) Tobacco use disorder: nicoderm patch. (10) Alcoholic cirrhosis of liver with ascites: as above in HepC. has pain due to ascites cont fentanyl patch 12mcg q72 hours and Roxanol 20mg po q3h prn breaktrhough pain -no plans for paracentesis at this point (11) Lung mass: ORTIZ. Known. Previously refused work-up. Now with liver masses -- this easily could be stage 4 lung ca or some other form of metastatic cancer. Hospice. (12) Liver masses: AFP wnl. Cytologies from ascites without malignant cells. concerning for metastatic disease - lung ca w/ liver mets? no biopsy. hospice. (13) Severe protein-calorie malnutrition: very severe ongoing multifactorial (14) Supratherapeutic INR: in light of GI bleeding and acute blood loss anemia coumadin reversed will NOT resume coumadin at any time too risky (15) Hemorrhoid: anusol q6h NM (16) Portal vein thrombosis: was on coumadin for such pre-admission High INR in setting of GI bleeding coumadin reversed poor candidate for coumadin moving forward stop it indefinitely (17) Acute blood loss anemia: presumed upper GI bleeding (varices, gastritis, etc) +/- Lower GI bleeding (from hemorrhoids) no further bleeding -no longer checking CBC (18) CLL (chronic lymphocytic leukemia): no Rx (19) Candidiasis of mouth and esophagus: nystatin 5cc po ac/hs swish and swallow appears resolved (20) DVT prophylaxis: SCDs dispo - SNF w/ hospice when arrangements made Case discussed with CM Subjective Still having abdominal pain but no worse than previous. No bowel movements today. Discussed the case with correctional counselor/case manager today who is working on discharge planning Review of Systems Review of Systems: All systems reviewed & are unremarkable except as noted in HPI & below Physical Exam Constitutional: + cachectic Neck: trachea midline, no thyromegaly Gastrointestinal (Abdomen): Inspection/Auscultation: + abdomen distended and normal bowel sounds Percussion/Palpation: + abdomen tender (diffusely but moreso in right side of abdomen, no guarding or rebound) Musculoskeletal: Extremities: + extremities abnormal to inspection (diffuse sarcopenia), no cyanosis and no clubbing Skin: no rashes, warm and dry + rash (petechiae scattered on extremities and abdomen) and + lesion (forehead with multiple fleshy papules) Neurologic: moves all extremities and awake; no focal motor deficits Psychiatric: A+Ox3, euthymic affect Results & Data Vital Signs (Past 12 Hours) Vital Signs Temp Pulse Resp BP Pulse Ox 11/08/18 19:00 36.2 C L 76 16 97/62 L 97 11/08/18 15:03 36.7 C 64 16 90/55 L 92 11/08/18 11:34 36.4 C L 73 16 98/64 L 95 (1) Fatigue Fatigue type: unspecified Qualified Code(s): R53.83 - Other fatigue (2) Sepsis Sepsis type: sepsis due to unspecified organism Qualified Code(s): A41.9 - Sepsis, unspecified organism (3) Hepatitis C Hepatic coma status: without hepatic coma Viral hepatitis chronicity: chronic Qualified Code(s): B18.2 - Chronic viral hepatitis C (4) Hemorrhoid Hemorrhoid type: other Qualified Code(s): K64.8 - Other hemorrhoids (5) Hypotension Hypotension type: other hypotension type Qualified Code(s): I95.89 - Other hypotension (6) Pneumonia Laterality: right Lung location: lower lobe of lung Pneumonia type: due to unspecified organism Qualified Code(s): J18.1 - Lobar pneumonia, unspecified organism
[2018-11-08] MEDS: fentaNYL 12 MCG/HR TDSY TD SCH (22:36)
[2018-11-09] MEDS: RASPBERRY SYRUP 5 ML UDP PO SCH ×4 (00:44→18:08)
[2018-11-09] MEDS: CHECK FENTANYL PATCH PLACEMENT SCH ×3 (00:44→15:39)
[2018-11-09] MEDS: VANCOMYCIN HCL 125 MG/2.5ML SOLN PO SCH ×4 (00:44→18:08)
[2018-11-09] MEDS: HYDROCORTISONE ACETATE 25 MG SUPP PR SCH ×3 (00:44→05:55)
[2018-11-09] MEDS: MIDODRINE HCL 2.5 MG TAB PO SCH ×3 (08:51→17:29)
[2018-11-09] MEDS: CEROVITE ADV FORMULA TAB PO SCH (08:52)
[2018-11-09] MEDS: DICLOFENAC SOD 1% GEL 100 GM TUBE EXT SCH ×4 (08:52→20:03)
[2018-11-09] MEDS: SERTRALINE HCL 50 MG TABLET PO SCH (08:52)
[2018-11-09] MEDS: PANTOprazole 40 MG TAB PO SCH ×2 (08:53→20:02)
[2018-11-09] MEDS: FLUTICASONE HFA 220 MCG INHALER INH SCH ×2 (08:53→20:01)
[2018-11-09] MEDS: IPRATROPIUM BROMIDE/ALBUTEROL respimat INH INH SCH ×4 (08:53→20:01)
[2018-11-09] MEDS: NICOTINE 14 MG/24 HR PATCH TD SCH (08:54)
[2018-11-09] MEDS: MoRPHine SULFATE 10 MG/0.5 ML UDP PO PRN ×4 (09:10→20:00)
[2018-11-09] MEDS: COLESTIPOL HCL 1 GM TAB PO SCH (11:22)
--- NOTE | 2018-11-09 12:06 | Hospitalist Progress Note ---
Date of Service November 09, 2018 Assessment & Plan (1) Fatigue: Resolved -May have been due to rising ammonia levels (suspected), fentanyl patch/other pain meds, etc (2) Hypotension: stabilized with use of midodrine. continue such. (3) C. difficile colitis: Diarrhea resolved day #12 of 14 of PO vancomycin course. contact precautions. -We will now discontinue colestipol 1gm daily as he is now constipated (4) Upper GI bleeding: treated for variceal bleed vs PUD vs gastritis vs other. completed 5 day octreotide and PPI drips. coumadin fully reversed and NOT resumed. no EGD pursued - too ill to do so. H/H stable last week. cont PPI twice daily. -no CBC being followed due to movement towards comfort measures (5) Advanced hepatic cirrhosis: due to Hep C and alcohol. Very poor prognosis. Recent diagnostic paracentesis with normal cell counts/no SBP. ascites pathology w/o malignant cells. AFP level normal. With profound severe protein calorie malnutrition, cachexia -with h/o PVT no longer on coumadin -continue pain control of abdomen, no plans for aggressive measures at this point (6) Hepatitis C: with resulting cirrhosis. AFP returned normal making liver nodules unlikely to be hepatocellular ca. (7) Pneumonia: completed full course of IV/PO antibiotics. (8) Sepsis: 2nd to pneumonia + c.diff colitis. resolved. (9) Tobacco use disorder: nicoderm patch. (10) Alcoholic cirrhosis of liver with ascites: as above in HepC. has pain due to ascites-controlled at this time cont fentanyl patch 12mcg q72 hours and Roxanol 20mg po q3h prn breaktrhough pain -no plans for paracentesis at this point (11) Lung mass: ORTIZ. Known. Previously refused work-up. Now with liver masses -- this easily could be stage 4 lung ca or some other form of metastatic cancer. Hospice. (12) Liver masses: AFP wnl. Cytologies from ascites without malignant cells. concerning for metastatic disease - lung ca w/ liver mets? no biopsy. hospice. (13) Severe protein-calorie malnutrition: very severe ongoing multifactorial (14) Supratherapeutic INR: in light of GI bleeding and acute blood loss anemia coumadin reversed will NOT resume coumadin at any time too risky (15) Hemorrhoid: Patient now refusing Anusol -We will discontinue Anusol (16) Portal vein thrombosis: was on coumadin for such pre-admission High INR in setting of GI bleeding coumadin reversed poor candidate for coumadin moving forward stop it indefinitely (17) Acute blood loss anemia: presumed upper GI bleeding (varices, gastritis, etc) +/- Lower GI bleeding (from hemorrhoids) no further bleeding -no longer checking CBC (18) CLL (chronic lymphocytic leukemia): no Rx (19) Candidiasis of mouth and esophagus: nystatin 5cc po ac/hs swish and swallow -Finish out a 14-day course (20) DVT prophylaxis: SCDs dispo - SNF w/ hospice has been accepted to [facility] when bed available hopefully in the next 1 to 2 days Case discussed with CM Subjective Patient reports abdominal pain is controlled he is happy he is passing flatus, no bowel movement in 2 days. He is tolerating p.o. He is happy to hear that he may be getting discharged in the next day or so to the correction. Review of Systems Review of Systems: All systems reviewed & are unremarkable except as noted in HPI & below Physical Exam Constitutional: + cachectic Neck: trachea midline, no thyromegaly Respiratory: normal respiratory effort, lungs clear to auscultation Cardiovascular: RRR, no murmur, no edema Gastrointestinal (Abdomen): Inspection/Auscultation: + abdomen distended and normal bowel sounds Percussion/Palpation: + abdomen tender (diffusely but moreso in right side of abdomen, no guarding or rebound) Musculoskeletal: Extremities: + extremities abnormal to inspection (diffuse sarcopenia), no cyanosis and no clubbing Skin: no rashes, warm and dry + rash (petechiae scattered on extremities and abdomen), + lesion (forehead with multiple fleshy papules) and + ulcer (Right knee with open wound with dressing in place) Neurologic: moves all extremities and awake; no focal motor deficits Psychiatric: A+Ox3, euthymic affect Results & Data Vital Signs (Past 12 Hours) Vital Signs Temp Pulse Resp BP Pulse Ox 11/09/18 11:39 36.5 C 78 16 91/55 L 98 11/09/18 07:26 36.3 C L 74 18 92/57 L 94 11/09/18 04:21 36.3 C L 73 18 85/51 L 97 11/09/18 00:41 36.3 C L 73 18 91/48 L 95 (1) Fatigue Fatigue type: unspecified Qualified Code(s): R53.83 - Other fatigue (2) Hypotension Hypotension type: other hypotension type Qualified Code(s): I95.89 - Other hypotension (3) Hepatitis C Viral hepatitis chronicity: chronic Hepatic coma status: without hepatic coma Qualified Code(s): B18.2 - Chronic viral hepatitis C (4) Pneumonia Laterality: right Lung location: lower lobe of lung Pneumonia type: due to unspecified organism Qualified Code(s): J18.1 - Lobar pneumonia, unspecified organism (5) Sepsis Sepsis type: sepsis due to unspecified organism Qualified Code(s): A41.9 - Sepsis, unspecified organism (6) Hemorrhoid Hemorrhoid type: other Qualified Code(s): K64.8 - Other hemorrhoids
[2018-11-10] MEDS: VANCOMYCIN HCL 125 MG/2.5ML SOLN PO SCH ×5 (00:09→23:52)
[2018-11-10] MEDS: RASPBERRY SYRUP 5 ML UDP PO SCH ×5 (00:09→23:52)
[2018-11-10] MEDS: CHECK FENTANYL PATCH PLACEMENT SCH ×4 (00:09→23:52)
[2018-11-10] MEDS: MoRPHine SULFATE 10 MG/0.5 ML UDP PO PRN ×6 (00:13→23:57)
[2018-11-10] MEDS: MIDODRINE HCL 2.5 MG TAB PO SCH ×3 (09:13→17:09)
[2018-11-10] MEDS: PANTOprazole 40 MG TAB PO SCH ×2 (09:13→20:44)
[2018-11-10] MEDS: CEROVITE ADV FORMULA TAB PO SCH (09:13)
[2018-11-10] MEDS: NICOTINE 14 MG/24 HR PATCH TD SCH (09:13)
[2018-11-10] MEDS: FLUTICASONE HFA 220 MCG INHALER INH SCH ×2 (09:14→20:44)
[2018-11-10] MEDS: SERTRALINE HCL 50 MG TABLET PO SCH (09:14)
[2018-11-10] MEDS: IPRATROPIUM BROMIDE/ALBUTEROL respimat INH INH SCH ×4 (09:14→20:44)
[2018-11-10] MEDS: DICLOFENAC SOD 1% GEL 100 GM TUBE EXT SCH ×4 (09:15→20:45)
--- NOTE | 2018-11-10 19:23 | Hospitalist Progress Note ---
Date of Service November 10, 2018 Assessment & Plan (1) Fatigue: intermittent -likely due to rising ammonia levels (suspected), fentanyl patch/other pain meds, etc (2) Hypotension: stabilized with use of midodrine. continue such unless condition further deteriorates and can then stop when transitions to comfort measures only (3) C. difficile colitis: Diarrhea resolved day #13 of 14 of PO vancomycin course. contact precautions. (4) Upper GI bleeding: treated for variceal bleed vs PUD vs gastritis vs other. completed 5 day octreotide and PPI drips. coumadin fully reversed and NOT resumed. no EGD pursued - too ill to do so. H/H stable last week. cont PPI twice daily. -no CBC being followed due to movement towards comfort measures (5) Advanced hepatic cirrhosis: due to Hep C and alcohol. Very poor prognosis. Recent diagnostic paracentesis with normal cell counts/no SBP. ascites pathology w/o malignant cells. AFP level normal. With profound severe protein calorie malnutrition, cachexia -with h/o PVT no longer on coumadin -continue pain control of abdomen, no plans for aggressive measures at this point (6) Hepatitis C: with resulting cirrhosis. AFP returned normal making liver nodules unlikely to be hepatocellular ca. (7) Pneumonia: completed full course of IV/PO antibiotics. (8) Sepsis: 2nd to pneumonia + c.diff colitis. resolved. (9) Tobacco use disorder: nicoderm patch. (10) Alcoholic cirrhosis of liver with ascites: as above in HepC. has pain due to ascites-controlled at this time cont fentanyl patch 12mcg q72 hours and Roxanol 20mg po q3h prn breaktrhough pain -no plans for paracentesis at this point (11) Lung mass: ORTIZ. Known. Previously refused work-up. Now with liver masses -- this easily could be stage 4 lung ca or some other form of metastatic cancer. Hospice. (12) Liver masses: AFP wnl. Cytologies from ascites without malignant cells. concerning for metastatic disease - lung ca w/ liver mets? no biopsy. hospice. (13) Severe protein-calorie malnutrition: very severe ongoing multifactorial (14) Supratherapeutic INR: in light of GI bleeding and acute blood loss anemia coumadin reversed will NOT resume coumadin at any time too risky (15) Hemorrhoid: Patient now refusing Anusol -discontinued Anusol (16) Portal vein thrombosis: was on coumadin for such pre-admission High INR in setting of GI bleeding coumadin reversed poor candidate for coumadin moving forward stop it indefinitely (17) Acute blood loss anemia: presumed upper GI bleeding (varices, gastritis, etc) +/- Lower GI bleeding (from hemorrhoids) no further bleeding -no longer checking CBC (18) CLL (chronic lymphocytic leukemia): no Rx (19) Candidiasis of mouth and esophagus: nystatin 5cc po ac/hs swish and swallow -Finish out a 14-day course (20) DVT prophylaxis: SCDs dispo - SNF w/ hospice has been accepted to [facility] tomorrow Case discussed with CM Subjective Drowsy and confused this evening. Was trialed on regular food and said it did not go well. Abd pain is controlled but persists Review of Systems Review of Systems: All systems reviewed & are unremarkable except as noted in HPI & below Physical Exam Constitutional: + cachectic Neck: trachea midline, no thyromegaly Gastrointestinal (Abdomen): normal bowel sounds, soft, nontender, no hepatosplenomegaly Inspection/Auscultation: + abdomen distended and normal bowel sounds Percussion/Palpation: + abdomen tender (diffusely but moreso in right side of abdomen, no guarding or rebound) Musculoskeletal: Extremities: + extremities abnormal to inspection (diffuse sarcopenia), no cyanosis and no clubbing Skin: no rashes, warm and dry + rash (petechiae scattered on extremities and abdomen), + lesion (forehead with multiple fleshy papules) and + ulcer (Right knee with open wound with dressing in place) Neurologic: moves all extremities and awake; no focal motor deficits Psychiatric: Orientation: alert (but drowsy) and oriented to person Results & Data Vital Signs (Past 12 Hours) Vital Signs Temp Pulse Pulse Resp BP Pulse Ox 11/10/18 15:44 36.4 C L 68 20 91/53 L 98 11/10/18 11:40 36.6 C 72 20 90/58 L 100 11/10/18 07:48 36.4 C L 75 18 90/48 L 96 (1) Fatigue Fatigue type: unspecified Qualified Code(s): R53.83 - Other fatigue (2) Hypotension Hypotension type: other hypotension type Qualified Code(s): I95.89 - Other hypotension (3) Hepatitis C Viral hepatitis chronicity: chronic Hepatic coma status: without hepatic coma Qualified Code(s): B18.2 - Chronic viral hepatitis C (4) Pneumonia Laterality: right Lung location: lower lobe of lung Pneumonia type: due to unspecified organism Qualified Code(s): J18.1 - Lobar pneumonia, unspecified organism (5) Sepsis Sepsis type: sepsis due to unspecified organism Qualified Code(s): A41.9 - Sepsis, unspecified organism (6) Hemorrhoid Hemorrhoid type: other Qualified Code(s): K64.8 - Other hemorrhoids
[2018-11-11] MEDS: MoRPHine SULFATE 10 MG/0.5 ML UDP PO PRN ×2 (05:44→13:00)
[2018-11-11] MEDS: VANCOMYCIN HCL 125 MG/2.5ML SOLN PO SCH ×2 (05:44→11:42)
[2018-11-11] MEDS: RASPBERRY SYRUP 5 ML UDP PO SCH ×2 (05:44→11:41)
[2018-11-11] MEDS: CHECK FENTANYL PATCH PLACEMENT SCH (08:38)
[2018-11-11] MEDS: IPRATROPIUM BROMIDE/ALBUTEROL respimat INH INH SCH ×2 (08:39→12:59)
[2018-11-11] MEDS: FLUTICASONE HFA 220 MCG INHALER INH SCH (08:40)
[2018-11-11] MEDS: DICLOFENAC SOD 1% GEL 100 GM TUBE EXT SCH ×2 (08:41→12:59)
[2018-11-11] MEDS: PANTOprazole 40 MG TAB PO SCH (08:42)
[2018-11-11] MEDS: NICOTINE 14 MG/24 HR PATCH TD SCH (08:42)
[2018-11-11] MEDS: MIDODRINE HCL 2.5 MG TAB PO SCH ×2 (08:42→11:42)
[2018-11-11] MEDS: CEROVITE ADV FORMULA TAB PO SCH (08:42)
[2018-11-11] MEDS: SERTRALINE HCL 50 MG TABLET PO SCH (08:42)
--- NOTE | 2018-11-11 12:27 | Discharge Summary ---
Date of Service November 11, 2018 Admission HPI Per Admitting Provider Cyrus Martins is a 58yo C male with multiple medical comorbidities. Patient with remote history of EtOh abuse and IVDU, HCV and cirrhosis, CLL and lung mass. Patient was admitted to our service August 17, 2018 with severe abdominal pain. He was diagnosed with portal vein thrombosis and pancolitis. He was started on anticoagulation with Coumadin and discharged home. Patient followed up with Dr. Johnston on 08/19 and was given Oxycodone and Zofran for pain and and nausea. He followed up with Pulmonary on 08/26 as well. Patient reports that he has been doing poorly overall since that admission. He has had progressive weakness and functional decline over the last two months with rapid worsening over the last 1-2 weeks. Patient spends most of his time in bed and is too weak to get up and care for himself. He also has diffuse abdominal pain. Also with diarrhea - small, frequent BMs, watery and black in color. Denies nausea/vomiting/hematemesis. Denies dysuria/frequency/urgency. He does report worsening of abdominal fullness and swelling. Also with cough productive of yellowish sputum, SOB and worsening hoarseness. Poor appetite and decreased PO intake. Patient has CLL diagnosed by flow cytometry 04/28/17. He follows infrequently with Oncology. PET scan obtained on 01/04/18 with spiculated nodule of left lung apex, hypermetabolic nodules in RUL/RML, enlarged lymph nodes, increased activity in skeletal structures. He was told that the nodule in the ORTIZ is not cancer and it has never been biopsied. Principal Diagnosis End Stage Cirrhosis, Failure to thrive, GI Bleed Discharge Exam Constitutional + cachectic Eyes PERRL, conjunctivae normal, anicteric sclerae Neck trachea midline, no thyromegaly Respiratory normal respiratory effort, lungs clear to auscultation Cardiovascular RRR, no murmur, no edema Gastrointestinal (Abdomen) normal bowel sounds, soft, nontender, no hepatosplenomegaly Inspection/Auscultation: + abdomen distended and normal bowel sounds Percussion/Palpation: + abdomen tender (diffusely but moreso in right side of abdomen, no guarding or rebound) Musculoskeletal Extremities: + extremities abnormal to inspection (diffuse sarcopenia), no cyanosis and no clubbing Skin no rashes, warm and dry + rash (petechiae scattered on extremities and abdomen), + lesion (forehead with multiple fleshy papules) and + ulcer (Right knee with open wound with dressing in place) Neurologic moves all extremities and awake; no focal motor deficits Psychiatric Orientation: alert (but drowsy) and oriented to person Discharge Data Allergies Allergy/AdvReac Type Severity Reaction Status Date / Time No Known Allergies Allergy Mild NONE Verified 10/27/18 11:40 Consultations 10/27/18 13:04 ED Decision to Admit Stat 10/27/18 16:47 Consult Case Management - Discharge Planning Routine Consult Gastroenterology Routine 10/27/18 21:46 Consult Oncology Routine Ordered Studies 10/27/18 11:25 CT abd pelvis IV con only Stat Hospital Course (1) Fatigue: intermittent -likely due to rising ammonia levels (suspected), fentanyl patch/other pain meds, etc (2) Hypotension: stabilized with use of midodrine. continue such unless condition further deteriorates and can then stop when transitions to comfort measures only (3) C. difficile colitis: Diarrhea resolved Completed #14 days of PO vancomycin course. (4) Upper GI bleeding: treated for variceal bleed vs PUD vs gastritis vs other. completed 5 day octreotide and PPI drips. coumadin fully reversed and NOT resumed. no EGD pursued - too ill to do so. H/H stable last week. cont PPI twice daily. -no CBC being followed due to movement towards comfort measures (5) Advanced hepatic cirrhosis: due to Hep C and alcohol. Very poor prognosis. Recent diagnostic paracentesis with normal cell counts/no SBP. ascites pathology w/o malignant cells. AFP level normal. With profound severe protein calorie malnutrition, cachexia -with h/o PVT no longer on coumadin -continue pain control of abdomen, no plans for aggressive measures at this point (6) Hepatitis C: with resulting cirrhosis. AFP returned normal making liver nodules unlikely to be hepatocellular ca. (7) Pneumonia: completed full course of IV/PO antibiotics. (8) Sepsis: 2nd to pneumonia + c.diff colitis. resolved. (9) Tobacco use disorder: nicoderm patch. (10) Alcoholic cirrhosis of liver with ascites: as above in HepC. has pain due to ascites-controlled at this time cont fentanyl patch 12mcg q72 hours and Roxanol 20mg po q3h prn breaktrhough pain -no plans for paracentesis at this point (11) Lung mass: ORTIZ. Known. Previously refused work-up. Now with liver masses -- this easily could be stage 4 lung ca or some other form of metastatic cancer. Hospice. (12) Liver masses: AFP wnl. Cytologies from ascites without malignant cells. concerning for metastatic disease - lung ca w/ liver mets? no biopsy. hospice. (13) Severe protein-calorie malnutrition: very severe ongoing multifactorial (14) Supratherapeutic INR: in light of GI bleeding and acute blood loss anemia coumadin reversed will NOT resume coumadin at any time too risky (15) Hemorrhoid: Patient now refusing Anusol -discontinued Anusol (16) Portal vein thrombosis: was on coumadin for such pre-admission High INR in setting of GI bleeding coumadin reversed poor candidate for coumadin moving forward stop it indefinitely (17) Acute blood loss anemia: presumed upper GI bleeding (varices, gastritis, etc) +/- Lower GI bleeding (from hemorrhoids) no further bleeding -no longer checking CBC (18) CLL (chronic lymphocytic leukemia): no Rx (19) Candidiasis of mouth and esophagus: nystatin 5cc po ac/hs swish and swallow -Finish out a 14-day course (20) DVT prophylaxis: SCDs dispo - SNF w/ hospice has been accepted to [facility] today Total Time Total Time Spent Total Time Spent (In Minutes): >30 min Total Time Includes: Examination of the Patient, Discharge Planning and Medication Reconciliation Discharge Plan Discharge Items Patient Disposition: Hospice - Medical Facility Reason For Visit: HYPOTENSION,ABDOMINAL PAIN Discharge Diagnosis: Abdominal pain, hypotension, C. difficile colitis, end- stage cirrhosis of the liver Condition: Fair Discharge Goals: Decrease discomfort, Learn about illness and Therapeutic intervention Activity: As commented below Lifting: None Bathing: No limitations Exercise/Sports: As tolerated Non-emergency contact: Primary Care Provider Call non-emergency contact if: you have any medication questions, your symptoms worsen, your pain is not controlled, your pain is worsening, your pain is unusual for you and your pain is concerning for you Follow-up/Referrals: Ge Johnston MD [Primary Care Provider] - Diet: Regular Addtl Provider Instructions: Mr. Martins was admitted with abdominal pain, hypotension, and diarrhea. He was found to have C. difficile colitis as well as a host of other issues that he was treated for to include GI bleeding, pneumonia, end-stage cirrhosis with ascites. He had a supratherapeutic INR and was on Coumadin to treat a portal vein thrombosis. Coumadin was discontinued. He was treated with antibiotics for the C. difficile and the pneumonia. Because of his very poor condition and severe protein calorie malnutrition, he and his son decided to move towards comfort measures. He was comfortable with taking Roxanol for his abdominal pain and will be discharged to senior care facility with hospice. Prescriptions: New midodrine 2.5 mg Tablet 5 mg PO TID@0800,1200,1700 Qty: 45 RF: 0 nicotine 7 mg/24 hr Patch 24 Hour 14 mg transdermal QAM Qty: 14 RF: 0 fentanyl 12 mcg/hr Patch 72 Hour 12 mcg transdermal Q3D@2245 Qty: 5 RF: 0 morphine concentrate 100 mg/5 mL (20 mg/mL) Solution 20 mg PO Q1H PRN (Reason: pain) Qty: 15 RF: 0 Certavite-Antioxidant 18-400 mg-mcg Tablet 1 tab PO QAM Qty: 30 RF: 0 lorazepam 0.5 mg tablet 0.5 mg SL Q4H PRN (Reason: anxiety) Qty: 10 RF: 0 Continued Flovent HFA 220 mcg/actuation HFA aerosol inhaler 2 puff Inhalation BID RF: 0 sertraline [Zoloft] 50 mg tablet 50 mg PO DAILY RF: 0 Combivent Respimat 20-100 mcg/actuation mist 1 puff Inhalation QID RF: 0 Changed pantoprazole [Protonix] 40 mg tablet,delayed release (DR/EC) 40 mg PO BID Qty: 0 RF: 0 Discontinued diphenhydramine-acetaminophen 25-500 mg tablet 1 tab PO .1 tablet po prn ever RF: 0 oxycodone 5 mg tablet PO .TAKE 1 TABLET EVERY Qty: 60 RF: 0 warfarin 6 mg Tablet 9 mg PO DIRECTED RF: 0 warfarin 6 mg tablet 6 mg PO DIRECTED RF: 0 atorvastatin [Lipitor] 40 mg tablet 40 mg PO DAILY RF: 0 cilostazol 100 mg tablet 100 mg PO BID RF: 0 ibuprofen [IBU] 800 mg tablet 800 mg PO TID PRN (Reason: Pain) RF: 0 amlodipine [Norvasc] 5 mg tablet 2.5 mg PO DAILY RF: 0 aspirin [Aspir-81] 81 mg Tablet,Delayed Release (Dr/Ec) 81 mg PO DAILY RF: 0 losartan [Cozaar] 100 mg tablet 100 mg PO DAILY RF: 0 Stand-Alone Forms: [facility] Discharge Orders: Discharge Order (Routine); Ordered 11/11/18 Ordered By: Brittany Harden Admission Data Admit Date/Time: 10/27/18 14:52 Attending Provider: Brittany Harden Admit Provider: Eliane Schuler Primary Care Provider: Ge Johnston Other Providers: Eliane Schuler ; Charli Rey V ; Corey Taylor Service: Medical Other Interventions: Discharge Summary Assessment (RN) Last Done: 11/11/18 10:12 Pending Studies at Discharge: No DC Date/Time DO NOT enter until pt leaves facility: 11/11/18 15:30
[2018-11-11] MEDS ORDERED: Nursing to Pharmacy Communication ONE (13:40)
[2018-11-11] MEDS ORDERED: MoRPHine SULFATE 10 MG/0.5 ML UDP PO SCH (15:30)
== END 2018-11-11 15:30 | disposition hospice, inpatient (51) | DRG 871 ==
LOC: ED 10:36 → SUATTDRO 14:52 → 2S 14:52 → 4E 11-01 13:59
DX: R91.8 Other nonspecific abnormal finding of lung field; J44.9 Chronic obstructive pulmonary disease, unspecified; Z82.3 Family history of stroke; E87.6 Hypokalemia; D62 Acute posthemorrhagic anemia; B19.20 Unspecified viral hepatitis C without hepatic coma; R62.7 Adult failure to thrive; R19.7 Diarrhea, unspecified; B37.0 Candidal stomatitis; F17.210 Nicotine dependence, cigarettes, uncomplicated; I95.9 Hypotension, unspecified; R16.0 Hepatomegaly, not elsewhere classified; K64.9 Unspecified hemorrhoids; A04.72 Enterocolitis due to Clostridium difficile, not specified as recurrent; K70.30 Alcoholic cirrhosis of liver without ascites; A41.9 Sepsis, unspecified organism; R64 Cachexia; I81 Portal vein thrombosis; Z51.5 Encounter for palliative care; Z66 Do not resuscitate; J18.9 Pneumonia, unspecified organism; K92.2 Gastrointestinal hemorrhage, unspecified; E88.09 Other disorders of plasma-protein metabolism, not elsewhere classified; E43 Unspecified severe protein-calorie malnutrition; Z79.82 Long term (current) use of aspirin; C91.10 Chronic lymphocytic leukemia of B-cell type not having achieved remission; Z79.01 Long term (current) use of anticoagulants